=== PATIENT | male | born 1965 ===

== ENCOUNTER 2022-02-25 11:27 | Inpatient (IN) | payer MEDICARE ==
[~2022-02-25] VITALS: Ht 188 cm; Wt 120.8 kg
--- NOTE | 2022-02-25 16:40 | PM&R Post Admission Assessment ---
PM&R Date of Visit: Feb 25, 2022 Time of Visit: 19:00 History of Present Illness CC: Debility from left BKA and post op CVA HPI: This is a 56yoWM who presents to the ARU in need of aggressive therapy in order to regain independence following a left BKA with post op complication of CVA. He had a left foot DM ulcer that 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. 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 His course actually started at [place], [place] and required 4 surgeries which ultimately required the BKA. He was admitted to [facility] after that. Currently he is stable and having no bowel or bladder dysfunction. PLOF was independent. Past Jzqgjhd-Apwhak-Jymhru Hx Past Med/Social Hx: Reviewed Nursing Past Med/Soc Hx, Reviewed and Corrections made Patient Social History Marrital Status: single Employed/Student: unemployed Alcohol Use: Denies Use Smoking Status: Former Smoker Past Medical History Cardiac: High Cholesterol, Hypertension, Peripheral Vascular, Valvular Heart Disease Neurological: Neuropathy, Stroke Endocrine: Diabetes, Insulin dep PM&R Allergy/Meds/Data Review Allergies Coded Allergies: No Known Allergies (Verified Allergy, Unknown, 02/25/22) Home Medications Scheduled Aspirin (Aspirin EC), 81 MG PO DAILY Atorvastatin Calcium (Atorvastatin Calcium), 40 MG PO HS Insulin Glargine,Hum.rec.anlog (Lantus), 15 UNIT SQ HS Lamotrigine (Lamotrigine), 50 MG PO Q12H Levetiracetam (Keppra), 750 MG PO Q12H Mupirocin (Mupirocin), 1 GM TP Q12H Oxycodone HCl (Oxycontin), 10 MG PO HS Pantoprazole Sodium (Pantoprazole Sodium), 40 MG PO DAILY Pregabalin (Pregabalin), 75 MG PO Q12H Warfarin Sodium (Warfarin Sodium), 5 MG PO DAILY Scheduled PRN Cyclobenzaprine HCl (Cyclobenzaprine HCl), 10 MG PO Q8H PRN for MUSCLE SPASMS Oxycodone HCl/Acetaminophen (Percocet 5-325 mg Tablet), 1 TAB PO Q4H PRN for PAIN-MODERATE Current Medications Current Medications Reviewed Review of Systems Constitutional: see HPI, malaise, weakness EENTM: no symptoms reported Respiratory: no symptoms reported Cardiovascular: no symptoms reported Gastrointestinal: no symptoms reported Genitourinary: no symptoms reported Musculoskeletal: back pain, joint pain Skin: see HPI (rash left stump) Psychiatric/Neurological: Anxiety All Other Systems Reviewed Negative Unless Noted: Yes Physical Exam Physical Exam Vital Signs Capillary Refill : Height, Weight, BMI Height: '" Weight: lbs. oz. kg; BMI Method: General Appearance: No Apparent Distress, WD/WN, Chronically ill Eyes: Bilateral Eye Normal Inspection, Bilateral Eye PERRL HEENT: PERRL/EOMI, Normal ENT Inspection, Pharynx Normal Neck: Full Range of Motion, Normal Inspection, Non Tender, Supple, Carotid Bruit Respiratory: Chest Non Tender, Lungs Clear, Normal Breath Sounds, No Accessory Muscle Use, No Respiratory Distress Cardiovascular: Regular Rate, Rhythm, No Edema, No Gallop, No JVD, No Murmur, Normal Peripheral Pulses, Other (click) Gastrointestinal: Normal Bowel Sounds, No Organomegaly, No Pulsatile Mass, Non Tender, Soft Back: Normal Inspection, No CVA Tenderness, No Vertebral Tenderness Extremity: Normal Capillary Refill, Normal Inspection, Normal Range of Motion, Non Tender, No Calf Tenderness, No Pedal Edema Neurologic/Psychiatric: Alert, Oriented x3, Normal Mood/Affect, quality assistant II-XII Norm as Tested, Abnormal Gait, Motor Weakness (left BKA) Skin: Normal Color, Warm/Dry, Rash (right lower leg venous stasis dermatitis and darkened skin) Lymphatic: No Adenopathy PM&R Medical Assessment & Plan REHAB/MEDICAL ASSESSMENT AND PLAN: REHAB IMPAIRMENT GROUP: Left BKA with post op CVA ETIOLOGIC DIAGNOSIS: Left BKA with post op CVA The comorbidities that impact the patients function and/or functional outcome by: h/o CVA x 2, warfarin maintained, left BKA, fall risk, DM OOC REHAB PLAN: The patient is being admitted to our comprehensive inpatient rehabilitation facility and can tolerate the intensity of service consisting of at least: 180 minutes of therapy a day, 5 out of 7 days a week Rehab treatment will consist of: PT OT will focus on regaining independence with AD and wheelchair mobility in order to go home and live independently The patient/family has a good understanding of our discharge process and will benefit from an interdisciplinary inpatient rehabilitation program. The patient has potential to make improvement and is in need of at least two of the following multidisciplinary therapies including but not limited to physical, occupational, speech, and prosthetics and orthotics. Additionally the patient will need services from respiratory, nutritional services, wound care, psychology, etc. (Customize this to each patient). Given the patients complex condition and risk of further medical complications, rehabilitation services cannot be safely or effectively provided at a lower level of care such as a nursing home facility. BARRIERS TO DISCHARGE: left BKA ESTIMATED LOS: 10 days DISPOSITION: Home RELEVANT CHANGES SINCE PREADMISSION SCREENING: I have compared the patients medical and functional status at the time of the preadmission screening and there are: no changes PROGNOSIS: Fair REHABILITATION GOALS: 1. PT OT will focus on regaining independence with AD and wheelchair mobility in order to go home and live independently All the above goals were reviewed with the patient and he/she is in agreement. By signing this document, I acknowledge that I have personally performed a full physical examination on this patient within 24 hours of admission to this inpatient rehabilitation facility and have determined the patient to be able to tolerate the above course of treatment at an intensive level for a reasonable period of time. I will be completing a detailed individualized Plan of Care for this patient by day #4 of the patients stay based upon the Preadmission Screen, the Post-Admission Evaluation, and the therapy evaluations. Admission Dx/Comorbidities: (1) Hx of BKA ICD Codes: Z89.519 - Acquired absence of unspecified leg below knee Assessment/Plan Assessment and Plan Assess & Plan/Chief Complaint Assessment: 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 in [facility] CVA following hospital course h/o embolic CVA 2009 Mitral valve replacement Coumadin maintenance DM HTN PVD CHF Plan: Monitor closely PT OT INR monitoring DERRICK LONGORIA DO Feb 25, 2022 16:40
[2022-02-25] MEDS ORDERED: ONDANSETRON 4 MG (ZOFRAN) ORAL DISSOLVE TAB PO PRN (16:45)
[2022-02-25] MEDS ORDERED: guaiFENesin/CODEINE (ROBITUSSIN AC) 10ML UDC PO PRN (16:45)
[2022-02-25] MEDS ORDERED: LACTULOSE SYRUP 10GM/15ML (ENULOSE) 30ML UDC PO PRN (16:45)
[2022-02-25] MEDS ORDERED: FLEET ENEMA ADULT 1 EA BTL PR PRN (16:45)
[2022-02-25] MEDS ORDERED: DOCUSATE SODIUM 100 MG (COLACE) CAP PO PRN (16:45)
[2022-02-25] MEDS ORDERED: BISACODYL 10 MG SUPP (DULCOLAX) PR PRN (16:45)
[2022-02-25] MEDS ORDERED: ACETAMINOPHEN 325 MG TABLET PO PRN (16:45)
[2022-02-25] MEDS ORDERED: MELATONIN 3 MG TABLET PO PRN (16:45)
[2022-02-25] MEDS ORDERED: LOPERAMIDE 2 MG (IMODIUM) TABLET PO PRN (16:45)
[2022-02-25] MEDS ORDERED: CALCIUM CARBONATE 500 MG (TUMS) TAB.CHEW PO PRN (16:45)
[2022-02-25] MEDS ORDERED: diphenhydrAMINE 25 MG TAB (BENADRYL) PO PRN (16:45)
[2022-02-25] MEDS ORDERED: OXYC10TA55 PO (18:54)
[2022-02-25] MEDS ORDERED: PANT40TA52 PO (18:54)
[2022-02-25] MEDS ORDERED: ASPI-1238 PO (18:54)
[2022-02-25] MEDS ORDERED: WARF-48 PO (18:54)
[2022-02-25] MEDS ORDERED: CYCL10TA25 PO (18:54)
[2022-02-25] MEDS ORDERED: LEVE750T19 PO (18:54)
[2022-02-25] MEDS ORDERED: LAMO25TA8 PO (18:54)
[2022-02-25] MEDS ORDERED: INSU100V6 SQ (18:54)
[2022-02-25] MEDS ORDERED: MUPI1OIN6 TP (18:54)
[2022-02-25] MEDS ORDERED: OXYC-199 PO (18:54)
[2022-02-25] MEDS ORDERED: ATOR40TA70 PO (18:54)
[2022-02-25] MEDS ORDERED: PREG75CA75 PO (18:55)
[2022-02-25] MEDS ORDERED: lamoTRIgine 25 MG (LaMICtal) TAB PO SCH (19:15)
[2022-02-25 20:00] VITALS: BP 134/87
[2022-02-25] MEDS: MUPIROCIN 2% OINT 22 GM (BACTROBAN) TUBE TOP SCH (21:00)
[2022-02-25] MEDS: SENNA W/DOCUSATE (SENOKOT S) TABLET PO SCH (21:00)
[2022-02-25] MEDS: DOCUSATE SODIUM 100 MG (COLACE) CAP PO SCH (21:00)
[2022-02-25] MEDS: polyethylene glycoL POWDER 17 GM (MIRALAX) PACK PO SCH (21:00)
[2022-02-25 21:18] VITALS: BP 134/87
[2022-02-25] MEDS: PREGABALIN 75 MG (LYRICA) CAP PO SCH (21:57)
[2022-02-25] MEDS: oxyCODONE ER 10 MG (OxyCONTIN CR) TAB PO SCH (21:57)
[2022-02-25] MEDS: warFARin 5 MG (COUMADIN) TAB PO SCH (21:57)
[2022-02-25] MEDS: lamoTRIgine 25 MG (LaMICtal) TAB PO SCH (22:57)
[2022-02-26] MEDS: oxyCODONE/APAP 5/325MG (PERCOCET 5) TABLET PO PRN ×4 (05:27→19:39)
[2022-02-26 05:36] LABS: BASOPHILS # (AUTO) 0.1 10^3/uL (0.0-0.1); BASOPHILS % (AUTO) 1 % (0-10); EOSINOPHILS # (AUTO) 0.3 10^3/uL (0.0-0.3); EOSINOPHILS % (AUTO) 4 % (0-10); HEMATOCRIT 37 % (40-54); HEMOGLOBIN 11.7 g/dL (13.3-17.7); LYMPHOCYTES # (AUTO) 1.7 10^3/uL (1.0-4.0); LYMPHOCYTES % (AUTO) 22 % (12-44); MEAN CORPUSCULAR HEMOGLOBIN 27 pg (25-34); MEAN CORPUSCULAR HGB CONC 32 g/dL (32-36); MEAN CORPUSCULAR VOLUME 86 fL (80-99); MEAN PLATELET VOLUME 11.2 fL (9.0-12.2); MONOCYTES # (AUTO) 0.7 10^3/uL (0.0-1.0); MONOCYTES % (AUTO) 10 % (0-12); NEUTROPHILS # (AUTO) 4.8 10^3/uL (1.8-7.8); NEUTROPHILS % (AUTO) 63 % (42-75); PLATELET COUNT 242 10^3/uL (130-400); WHITE BLOOD COUNT 7.5 10^3/uL (4.3-11.0)
--- NOTE | 2022-02-26 05:41 | PM&R Progress Note ---
Subjective HPI/CC On Admission Date Seen by Provider: Feb 26, 2022 Time Seen by Provider: 17:30 Subjective/Events-last exam 02/26/2022: Settling in well Pain is improved BM+ Voiding well No falls Participating in therapy Grief with son, daughter and 's and then losing leg Dr De Los Santos expertise appreciated Dr Pelaez evaluated the patient today too Review of Systems General: Fatigue, Malaise Musculoskeletal: leg pain Objective Exam Vital Signs Vital Signs Date Time Temp Pulse Resp B/P (MAP) Pulse Ox O2 Delivery O2 Flow Rate FiO2 02/26/22 19:34 36.7 94 20 121/81 (94) 97 Room Air Capillary Refill : General Appearance: No Apparent Distress, WD/WN, Chronically ill HEENT: PERRL/EOMI, Normal ENT Inspection, Pharynx Normal Neck: Full Range of Motion, Normal Inspection, Non Tender, Supple, Carotid Bruit Respiratory: Chest Non Tender, Lungs Clear, Normal Breath Sounds, No Accessory Muscle Use, No Respiratory Distress Cardiovascular: Regular Rate, Rhythm, No Edema, No Gallop, No JVD, No Murmur, Normal Peripheral Pulses, Other (click) Gastrointestinal: Normal Bowel Sounds, No Organomegaly, No Pulsatile Mass, Non Tender, Soft Back: Normal Inspection, No CVA Tenderness, No Vertebral Tenderness Extremity: Normal Capillary Refill, Normal Inspection, Normal Range of Motion, Non Tender, No Calf Tenderness, No Pedal Edema Neurologic/Psychiatric: Alert, Oriented x3, Normal Mood/Affect, director of retail 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 FIM Transfers Therapy Code Descriptions/Definitions Functional Garrett Measure: 0=Not Assessed/NA 4=Minimal Assistance 1=Total Assistance 5=Supervision or Setup 2=Maximal Assistance 6=Modified Garrett 3=Moderate Assistance 7=Complete IndependenceSCALE: Activities may be completed with or without assistive devices. 6-Rykwjfyzcz-vygofnx completes the activity by him/herself with no assistance from a helper. 5-Set-up or Clean-up Assistance-helper sets up or cleans up; patient completes activity. [place] assists only prior to or following the activity. 4-Supervision or Touching Assistance-helper provides verbal cues and/or touching/steadying and/or contact guard assistance as patient completes activity. Assistance may be provided throughout the activity or intermittently. 3-Partial/Moderate Assistance-helper does LESS THAN HALF the effort. [place] lifts, holds or supports trunk or limbs, but provides less than half the effort. 2-Substantial/Maximal Assistance-helper does MORE THAN HALF the effort. [place] lifts or holds trunk or limbs and provides more than half the effort. 9-Hrbzjdshg-dcyoxy does ALL the effort. Patient does none of the effort to complete the activity. Or, the assistance of 2 or more helpers is required for the patient to complete the activity. If activity was not attempted, code reason: 7-Patient Refused. 9-Not Applicable-not attempted and the patient did not perform the activity before the current illness, exacerbation or injury. 10-Not Attempted due to Environmental Limitations-(lack of equipment, weather restraints, etc.). 88-Not Attempted due to Medical Conditions or Safety Concerns. Assessment/Plan Assessment and Plan Assess & Plan/Chief Complaint Assessment: 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 in [facility] CVA following hospital course h/o embolic CVA 2009 Mitral valve replacement Coumadin maintenance DM HTN PVD CHF Plan: Monitor closely PT OT INR monitoring 02/26/2022: Pain control Monitor sugar (1) Hx of BKA DERRICK LONGORIA DO Feb 26, 2022 05:41
[2022-02-26 05:48] LABS: ALBUMIN 3.3 GM/DL (3.2-4.5); POTASSIUM 4.3 MMOL/L (3.6-5.0)
[2022-02-26 05:49] LABS: CALCIUM 8.9 MG/DL (8.5-10.1); PROTHROMBIN TIME PATIENT 31.5 SEC (12.2-14.7)
[2022-02-26 05:50] LABS: TOTAL PROTEIN 6.6 GM/DL (6.4-8.2)
[2022-02-26 05:52] LABS: BILIRUBIN,TOTAL 0.4 MG/DL (0.1-1.0)
[2022-02-26 05:54] LABS: CREATININE SERUM 1.92 MG/DL (0.60-1.30)
[2022-02-26] MEDS: inSUlin ASPART (NovoLOG) 1 UNIT/0.01 ML (CHARGE PER UNIT) SC SCH ×4 (06:00→21:35)
[2022-02-26] MEDS ORDERED: FLU QUADRIvalent (6 months+) 60 mcg/0.5 ml 2022-23 (Fluzone) IM ONE (07:15)
[2022-02-26 07:57] VITALS: BP 136/91
[2022-02-26] MEDS: PREGABALIN 75 MG (LYRICA) CAP PO SCH ×2 (08:34→21:46)
[2022-02-26] MEDS: SENNA W/DOCUSATE (SENOKOT S) TABLET PO SCH ×2 (08:34→21:35)
[2022-02-26] MEDS: ASPIRIN E.C. 81 MG (ECOTRIN) TAB PO SCH (08:34)
[2022-02-26] MEDS: PANTOPRAZOLE 40 MG (PROTONIX) TAB PO SCH (08:34)
[2022-02-26] MEDS: polyethylene glycoL POWDER 17 GM (MIRALAX) PACK PO SCH ×2 (08:35→21:35)
[2022-02-26] MEDS: DOCUSATE SODIUM 100 MG (COLACE) CAP PO SCH ×2 (08:35→21:35)
[2022-02-26] MEDS: lamoTRIgine 25 MG (LaMICtal) TAB PO SCH ×2 (08:45→21:36)
[2022-02-26] MEDS: MUPIROCIN 2% OINT 22 GM (BACTROBAN) TUBE TOP SCH ×2 (08:49→21:37)
[2022-02-26 09:02] LABS: TRIGLYCERIDES 120 MG/DL (<150); VLDL CHOLESTEROL 24 MG/DL (5-40)
[2022-02-26 09:07] LABS: CHOLESTEROL 108 MG/DL (< 200); HDL CHOLESTEROL 32 MG/DL (40-60)
--- NOTE | 2022-02-26 09:27 | Consultation-Cardiology ---
HPI-Cardiology Cardiology Consultation: Date of Consultation 02/26/22 Date of Admission 02/25/22 Attending Physician Admitting Physician Admitting Physician: Lindsey Garza DO Attending Physician: Lindsey Garza DO Consulting Physician BRYNN MIN JR, MD HPI: Time Seen by a Provider: :22 Chief Complaint: REASON FOR CONSULTATION: History of mitral valve replacement. I had the pleasure of seeing Almas on the inpatient physical rehabilitation unit at [facility] in [place], [place] today. 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 He does not recall ever being told he had a myocardial infarction or heart failure in the past. He does not recall the last time he saw the answering service agent close to home in [place]. His primary provider has been managing his warfarin. Following his recent hospitalization for the diabetic foot wound, he was transferred to [facility] in [place], [place] for continued intravenous antibiotics. The day after he was admitted to [place], he had some new neurologic changes and was sent to the emergency room at [facility] in [place], [place]. He underwent an MRI at that facility that showed acute extension of the infarct in the previous territory of his initial cerebrovascular accident from 2009. He continued on intravenous antibiotics and on 02/25/2022, he was admitted to our inpatient physical rehabilitation unit. He does have some dyspnea on exertion. He denies chest pain, paroxysmal nocturnal dyspnea, orthopnea, palpitations, lightheadedness, or syncope. He does have chronic edema of the right lower extremity. He feels like the neurologic symptoms from the most recent stroke have begun to improve. Because of his cardiac history, a cardiology consultation was requested. Certain portions of this document may have been dictated utilizing voice recognition technology. Inherent to this technology, typographical and grammatical errors may exist. As much as I am diligent to identify and correct these mistakes, some errors may remain in the document. Review of Systems-Cardiology Review of Systems Other comments Review of 10 organ systems is as per the history of present illness, otherwise negative. All Other Systems Reviewed Negative Unless Noted: Yes VES-Fmrgmm-Lcyovt Hx Patient Social History Marrital Status: single Employed/Student: unemployed Smoking Status: Former Smoker Have you traveled recently?: No Alcohol Use?: No Pt feels they are or have been: No Past Medical History PMH As described under Assessment. Family Medical History Family Medical History: He states that both of his parents had heart disease. Allergies and Home Medications Allergies Coded Allergies: No Known Allergies (Verified Allergy, Unknown, 02/25/22) Patient Home Medication List Home Medication List Reviewed: Yes Aspirin (Aspirin EC) 81 Mg Tablet.dr, 81 MG PO DAILY Prescribed by: AGATA ESPITIA on 02/25/221853 Last Action: Continued Atorvastatin Calcium (Atorvastatin Calcium) 40 Mg Tablet, 40 MG PO HS Prescribed by: AGATA ESPITIA on 02/25/221853 Last Action: Continued Cyclobenzaprine HCl (Cyclobenzaprine HCl) 10 Mg Tablet, 10 MG PO Q8H PRN for MUSCLE SPASMS Prescribed by: AGATA ESPITIA on 02/25/221853 Last Action: Continued Insulin Glargine,Hum.rec.anlog (Lantus) 100 Unit/Ml Vial, 15 UNIT SQ HS Prescribed by: AGATA ESPITIA on 02/25/221853 Last Action: Converted Lamotrigine (Lamotrigine) 25 Mg Tablet, 50 MG PO Q12H Prescribed by: AGATA ESPITIA on 02/25/221853 Last Action: Continued Levetiracetam (Keppra) 750 Mg Tablet, 750 MG PO Q12H Prescribed by: AGATA ESPITIA on 02/25/221853 Last Action: Converted Mupirocin (Mupirocin) 2 % Oin.pf.germain, 1 GM TP Q12H Prescribed by: AGATA ESPITIA on 02/25/221853 Last Action: Converted Oxycodone HCl (Oxycontin) 10 Mg Tab.er.12h, 10 MG PO HS Prescribed by: AGATA ESPITIA on 02/25/221853 Last Action: Continued Oxycodone HCl/Acetaminophen (Percocet 5-325 mg Tablet) 5 Mg-325 Mg Tablet, 1 TAB PO Q4H PRN for PAIN-MODERATE Prescribed by: AGATA ESPITIA on 02/25/221853 Last Action: Continued Pantoprazole Sodium (Pantoprazole Sodium) 40 Mg Tablet.dr, 40 MG PO DAILY Prescribed by: AGATA ESPITIA on 02/25/221853 Last Action: Continued Pregabalin (Pregabalin) 75 Mg Capsule, 75 MG PO Q12H Prescribed by: AGATA ESPITIA on 02/25/221854 Last Action: Continued Warfarin Sodium (Warfarin Sodium) 5 Mg Tablet, 5 MG PO DAILY Prescribed by: AGATA ESPITIA on 02/25/221853 Last Action: Continued Exam Vital Signs Vital Signs Date Time Temp Pulse Resp B/P (MAP) Pulse Ox O2 Delivery O2 Flow Rate FiO2 02/26/22 11:32 Room Air 02/26/22 07:57 36.3 73 21 136/91 (106) 97 Physical Exam General: Alert. No acute distress. Well nourished and appears older than stated age. He is obese. Eye: Extraocular movements are intact. Conjunctivae are clear. There are no xanthelasma. HENT: Normocephalic. Atraumatic. Carotid pulsations 2/2 without bruits. Neck: Jugular venous pressure does not appear elevated. No thyromegaly apprecia telma. Respiratory: Lungs have some scattered wheezes bilaterally. Respirations are non-labored. Breath sounds are equal. Symmetrical chest wall expansion. Cardiovascular: Normal rate. Regular rhythm. Metallic S1. 2/6 systolic ejection murmur. No gallop. Point of maximal impulse is not appear displaced. Good pulses equal in all extremities. 1+ right lower extremity edema with taxi driver cha venous stasis changes. Gastrointestinal: Soft. Normal bowel sounds. Skin: Skin turgor is normal. There is no pallor. Musculoskeletal: No kyphosis or scoliosis appreciated. Left below-knee amputation. Neurologic: Alert and oriented to person, place, time. Cranial nerves 3-12 appear grossly intact. The patient has good motor tone strength in the upper and lower extremities bilaterally. Psychiatric: Cooperative. Appropriate mood & affect. Labs Laboratory Tests Test 02/25/22 20:50 02/26/22 05:18 02/26/22 10:50 Range/Units Glucometer 182 H 158 H 70-110 MG/DL White Blood Count 7.5 4.3-11.0 10^3/uL Red Blood Count 4.29 L 4.30-5.52 10^6/uL Hemoglobin 11.7 L 13.3-17.7 g/dL Hematocrit 37 L 40-54 % Mean Corpuscular Volume 86 80-99 fL Mean Corpuscular Hemoglobin 27 25-34 pg Mean Corpuscular Hemoglobin Concent 32 32-36 g/dL Red Cell Distribution Width 14.1 10.0-14.5 % Platelet Count 242 130-400 10^3/uL Mean Platelet Volume 11.2 9.0-12.2 fL Immature Granulocyte % (Auto) 1 % Neutrophils (%) (Auto) 63 42-75 % Lymphocytes (%) (Auto) 22 12-44 % Monocytes (%) (Auto) 10 0-12 % Eosinophils (%) (Auto) 4 0-10 % Basophils (%) (Auto) 1 0-10 % Neutrophils # (Auto) 4.8 1.8-7.8 10^3/uL Lymphocytes # (Auto) 1.7 1.0-4.0 10^3/uL Monocytes # (Auto) 0.7 0.0-1.0 10^3/uL Eosinophils # (Auto) 0.3 0.0-0.3 10^3/uL Basophils # (Auto) 0.1 0.0-0.1 10^3/uL Immature Granulocyte # (Auto) 0.1 0.0-0.1 10^3/uL Prothrombin Time 31.5 H 12.2-14.7 SEC INR Comment 3.0 H 0.8-1.4 Sodium Level 141 135-145 MMOL/L Potassium Level 4.3 3.6-5.0 MMOL/L Chloride Level 112 H 98-107 MMOL/L Carbon Dioxide Level 21 21-32 MMOL/L Anion Gap 8 5-14 MMOL/L Blood Urea Nitrogen 23 H 7-18 MG/DL Creatinine 1.92 H 0.60-1.30 MG/DL Estimat Glomerular Filtration Rate 40 BUN/Creatinine Ratio 12 Glucose Level 149 H 70-105 MG/DL Calcium Level 8.9 8.5-10.1 MG/DL Corrected Calcium 9.5 8.5-10.1 MG/DL Total Bilirubin 0.4 0.1-1.0 MG/DL Aspartate Amino Transf (AST/SGOT) 21 5-34 U/L Alanine Aminotransferase (ALT/SGPT) 37 0-55 U/L Alkaline Phosphatase 95 40-136 U/L Total Protein 6.6 6.4-8.2 GM/DL Albumin 3.3 3.2-4.5 GM/DL Triglycerides Level 120 <150 MG/DL Cholesterol Level 108 < 200 MG/DL LDL Cholesterol Direct 48 1-129 MG/DL VLDL Cholesterol 24 5-40 MG/DL HDL Cholesterol 32 L 40-60 MG/DL Radiology He had an echocardiogram at [facility] and I do not have a copy of the complete report but there were notes in his chart from [place] did state he had a normal ejection fraction with a normally functioning mechanical mitral valve prosthesis which had a mean gradient of 5 mmHg. ECG Impression ECG Comment Electrocardiogram was done but not yet transferred to [facility] due to technical issues. Diagnosis/Problems Diagnosis/Problems (1) History of mitral valve replacement with mechanical valve Assessment & Plan: We will continue warfarin and follow INR levels intermittently. (2) Primary hypertension Assessment & Plan: He had been on amlodipine prior to his most recent admission at [facility] and then this was stopped at the outside facility. We will monitor his blood pressures and if needed, we can restart amlodipine. (3) Mixed hyperlipidemia Assessment & Plan: Continue statin medication. (4) Acute kidney injury superimposed on chronic kidney disease Assessment & Plan: He did have a creatinine level at the outside facility that was 1.1. I have ordered a follow-up BMP for tomorrow. (5) History of cerebrovascular accident with residual deficit Assessment & Plan: Continue aspirin and statin medication. If he develops any signs of hemorrhaging, then I would consider stopping aspirin since he takes warfarin for the mechanical mitral valve replacement. (6) Seizure disorder Assessment & Plan: This is being managed by the hospitalist. We need to be cautious with any cardiac medications that could alter the metabolism of his seizure medication. (7) Type 2 diabetes mellitus with complication Assessment & Plan: This is being managed by the hospitalist. (8) Obesity Assessment & Plan: He needs to work on weight loss. (9) Hx of BKA Assessment & Plan: He is now on our inpatient rehabilitation unit to help him start learning how to function with a below-knee amputation. BRYNN MIN JR, MD Feb 26, 2022 09:27
--- NOTE | 2022-02-26 10:09 | Physical Therapy Evaluation ---
PT Evaluation-General Medical Diagnosis Admission Date Feb 25, 2022 at 18:32 Medical Diagnosis: left BKA, CVA Onset Date: Jan 25, 2022 Therapy Diagnosis Therapy Diagnosis: impaired mobility, strength Precautions Precautions/Isolations: Seizure, Fall Prevention, Standard Precautions, Pressure Ulcer Referral Physician: Lindsey Garza DO Reason for Referral: Evaluation/Treatment Medical History Pertinent Medical History: CVA, DM, HTN Current History Pt admitted to [place] from [place] with acute R UE weakness and aphasia. Pt has history of L sided weakness from previous CVA and recent L BKA (beg. of ). According to pt, he was living with his brother and BILLY completing all ADLs indpendently. Pt's story changes quickly, and differs from chart review from [place]; unsure what is true. Pt has some confusion during session and states that he knows what he wants to say but sometimes doesn't come out correctly. He was not using any AE prior to amputation and stroke. Reviewed History: Yes Social History Home: Single Level Current Living Status: Other Family (brother) Entry Into Home: Level Entry Prior Prior Level of Function SCALE: Activities may be completed with or without assistive devices. 4-Vqvhtuxnrv-vqvksav completes the activity by him/herself with no assistance from a helper. 5-Set-up or Clean-up Assistance-helper sets up or cleans up; patient completes activity. Calvin assists only prior to or following the activity. 4-Supervision or Touching Assistance-helper provides verbal cues and/or touching/steadying and/or contact guard assistance as patient completes activity. Assistance may be provided throughout the activity or intermittently. 3-Partial/Moderate Assistance-helper does LESS THAN HALF the effort. Calvin lifts, holds or supports trunk or limbs, but provides less than half the effort. 2-Substantial/Maximal Assistance-helper does MORE THAN HALF the effort. Calvin lifts or holds trunk or limbs and provides more than half the effort. 4-Ernnskyxr-cpxxsr does ALL the effort. Patient does none of the effort to complete the activity. Or, the assistance of 2 or more helpers is required for the patient to complete the activity. If activity was not attempted, code reason: 7-Patient Refused. 9-Not Applicable-not attempted and the patient did not perform the activity before the current illness, exacerbation or injury. 10-Not Attempted due to Environmental Limitations-(lack of equipment, weather restraints, etc.). 88-Not Attempted due to Medical Conditions or Safety Concerns. PT Evaluation-Current Subjective Patient in bed pre tx, agrees to PT, has 8/10 pain in residual limb, states it is not time for him to have pain meds again yet. Will be co-treating with OT for part of tx due to poor patient mobility, strength, endurance, severe debility, coordinate UE and LE during activity, safety and reduce risk of falls. Pain Section J - Health Conditions 1. Rarely or not at all 2. Occasionally 3. Frequently 4. Almost constantly 8. Unable to answer Pain Effect on Sleep: 2 Pain Interference with Therapy: 2 Pain Interference w/Day-to-Day: 2 Pt/Family Goals to be independent at home Objective Patient Orientation: Person, Place, Situation ROM/Strength ROM Lower Extremities WNL Strength Lower Extremities LLE (hip flexion 3+/5, has at least 3/5 knee flex/ext but not tested due to amputation and pain), RLE (hip flexion 3+/5, knee flexion 4/5, knee extension 4/5, dorsiflexion 4/5) Sensory Vision: Functional Hearing: Functional Sensation Right Lower Extremit: Intact Sensation Left Lower Extremity: Intact Transfers Roll Left & Right (QC): 4 Sit to Lying (QC): 4 Lying to Sitting/Side of Bed(Q: 4 Sit to Stand (QC): 1 Chair/Ylf-ij-Emtww Xfer(QC): 1 Toilet Transfer (QC): 1 Car Transfer (QC): 1 Patient performs rolling and supine <-> sit with SBA, sit <-> stand and transfers dependent, car transfer dependent. Patient can substance abuse prevention coordinator the parallel bars with mod assist of 2. At the beginning of tx patient dresses at the side of the bed but cannot stand well enough to get his pants pulled up, has to lay down and turn side to side to get his pants pulled up, also his bottom has to be cleaned a bit. When done, patient sit to the side of the bed, modified squat pivot transfer to (with assist of 2), wheels to therapy gym to parallel bars, is able to substance abuse prevention coordinator parallel bars for 30 sec, 45 sec, and 80 sec. Then propel back to room and transfer back to bed. Attempted to get patient to use a sliding board and he says he hates them. Gait Walk 10 feet (QC): 88 Walk 50 ft with 2 Turns(QC): 88 Walk 150 ft (QC): 88 Walking 10ft/uneven surface-QC: 88 Wheelchair Training Wheel 50 ft with 2 turns (QC): 3 Wheel 150 ft (QC): 3 Type of Wheelchair: Manual Stairs 1 Step (curb) (QC): 88 4 Steps (QC): 88 12 Steps (QC): 88 Balance Sitting Static: Normal Sitting Dynamic: Normal Standing Static: Poor Standing Dynamic: Poor Picking up an Object (QC): 88 Treatment PT performed positioning and safety during dressing and cleaning, bed mobility and transfers, standing, WC mobility, OT performed dressing, cleaning, UE positioning and safety during activity, assist with transfers and standing. Assessment/Needs Patient in bed post tx with nurse call, phone, tray, all needs met. With strengthening, he should be able to improve his transfers. Rehab Potential: Fair PT Short Term Goals Short Term Goals Time Frame: Mar 05, 2022 Roll Left & Right: 6 Sit to lyin Lying to sitting on side of be: 6 Sit to stand: 3 Chair/hzn-gw-kxrdm transfer: 3 PT Nursing Home Goals Cable Systems Installer Goals PT Nursing Home Goals Time Frame: Mar 19, 2022 Scoring Section J - Health Conditions 1. Rarely or not at all 2. Occasionally 3. Frequently 4. Almost constantly 8. Unable to answer Roll Left to Right (QC): 6 Sit to Lying (QC): 6 Lying-Sitting on Side/Bed(QC): 6 Sit to Stand (QC): 4 Chair/Ptk-nd-Xlszn Xfer(QC): 4 Car Transfer (QC): 3 Walk 10 feet (QC): 3 Walk 10ft-Uneven Surface(QC): 88 Walk 50ft with 2 Turns (QC): 88 Walk 150 ft (QC): 88 Wheelchair Level of Assist: 4 Wheel 50 feet with 2 turns (QC: 4 1 Step (curb) (QC): 88 4 Steps (QC): 88 12 Steps (QC): 88 Picking up an Object (QC): 3 toilet transfer 4, WC 150' QC 4 PT Plan Problem List Problem List: Activity Tolerance, Functional Strength, Safety, Balance, Gait, Transfer, Bed Mobility, ROM Treatment/Plan Treatment Plan: Continue Plan of Care Treatment Plan: Bed Mobility, Education, Functional Activity Mariano, Functional Strength, Group Therapy, Gait, Safety, Therapeutic Exercise, Transfers Treatment Duration: Mar 19, 2022 Frequency: At least 5 of 7 days/Wk (IRF) Estimated Hrs Per Day: 1.5 hours per day Patient and/or Family Agrees t: Yes Safety Risks/Education Patient Education: Transfer Techniques, Correct Positioning, W/C Management, Safety Issues Teaching Recipient: Patient Teaching Methods: Demonstration, Discussion Response to Teaching: Reinforcement Needed Discharge Recommendations Plan Patient will perform bed mobility and transfer training, balance and endurance training, functional strengthening, gait training, and education, to improve functional mobility and independence at home. Therapy Discharge Recommendati: Scheduled Assistance, Home & Family, Post Acute PT Time/GCodes Time In: 899 Time Out: 5 Total Billed Treatment Time: 75 Total Billed Treatment 1 visit EVM 10' FA 65' PT eval from [id number], co-treat from [id number] SALAS SUMNER PT Feb 26, 2022 10:09
--- NOTE | 2022-02-26 10:10 | Occupational Therapy Eval ---
OT Evaluation-General/PLF Medical Diagnosis Admission Date Feb 25, 2022 at 18:32 Medical Diagnosis: s/p CVA, L BKA Onset Date: Jan 25, 2022 Therapy Diagnosis Therapy Diagnosis: reduced adl status Precautions Precautions/Isolations: Seizure, Fall Prevention, Standard Precautions, Pressure Ulcer Referral Physician: Kayla Dunn Reason: Evaluation/Treatment Medical History Pertinent Medical History: CVA, DM, Heart Failure, HTN Additional Medical History seizures Current History Pt admitted to [facility] from [place] with acute R UE weakness and aphasia. Pt has history of L sided weakness from previous CVA and recent L BKA (beg. ). According to pt, he was living with his brother and BILLY completing all ADLs indpendently. Pt's story changes quickly, and differs from chart review from [facility] A; unsure what is true. Pt has some confusion during session and states that he knows what he wants to say but sometimes doesn't come out correctly. He was not using any AE prior to amputation and stroke. Reviewed History: Yes Social History Home: Single Level Current Living Status: Other Family Entry Into Home: Level Entry ADL-Prior Level of Function SCALE: Activities may be completed with or without assistive devices. 3-Htahtxmflh-jnmtjmq completes the activity by him/herself with no assistance from a helper. 5-Set-up or Clean-up Assistance-helper sets up or cleans up; patient completes activity. Laurens assists only prior to or following the activity. 4-Supervision or Touching Assistance-helper provides verbal cues and/or touching/steadying and/or contact guard assistance as patient completes activity. Assistance may be provided throughout the activity or intermittently. 3-Partial/Moderate Assistance-helper does LESS THAN HALF the effort. Laurens lifts, holds or supports trunk or limbs, but provides less than half the effort. 2-Substantial/Maximal Assistance-helper does MORE THAN HALF the effort. Laurens lifts or holds trunk or limbs and provides more than half the effort. 3-Vulpadlnq-cartzw does ALL the effort. Patient does none of the effort to complete the activity. Or, the assistance of 2 or more helpers is required for the patient to complete the activity. If activity was not attempted, code reason: 7-Patient Refused. 9-Not Applicable-not attempted and the patient did not perform the activity before the current illness, exacerbation or injury. 10-Not Attempted due to Environmental Limitations-(lack of equipment, weather restraints, etc.). 88-Not Attempted due to Medical Conditions or Safety Concerns. Self Care: Independent Functional Cognition: Unknown DME/Equipment: Bath Chair, Tub/Shower Drive Self: No OT Current Status Subjective Pt laying in bed upon arrival. He agrees to therapy eval. Appearance Pt left lying in bed with nurse aide present in room. All needs within reach. Mental Status/Objective Patient Orientation: Person Current Glasses/Contacts: Yes Hearing Aids: No Dentures/Partials: No Hand Dominance: Right Upper Extremity ROM L UE shoulder: ~150 ROM and PROM: tightness R UE shoulder: WNL L hand: impaired ROM, full ROM with PROM R hand: WNL Upper Extremity Strength L shoulder: 3-/5 R shoulder: 3+/5 Dynamometer: L cut out press operator strength: 35.33 (Mean average: 83.2) R cut out press operator strength: 99.33 (Mean average: 101.1) ADL-Treatment Eating (QC): 5 Oral Hygiene (QC): 1 Shower/Bathe Self (QC): 1 Upper Body Dressing (QC): 5 Lower Body Dressing (QC): 1 On/Off Footwear (QC): 1 Toileting Hygiene (QC): 1 Supine<> sit: supervision. Pt is able to don UE clothing with set up, but is dependent for LE dressing and footwear due to needing assist of 2 people, lack of ROM and strength. Pt unable to come to full standing from bed, thus was returned to supine and rolled R/L for clothing management. Figure 4 method and pulling leg onto bed to don socks was attempted without success. Squat pivot transfers from bed<>w/c: max assist x2. Pt has very little UE, LE, and core strength, balance and coordination. Pt needs mod verbal cues for sequencing and safety. Other Treatments x3 Sit<>stand transfers from w/c with parallel bars: mod assist x2. Mod assist x1 for balance and safety once in standing ~30 sec - 1 min. Pt fatigues quickly and needs adequate rest breaks in between. Education OT Patient Education: Correct positioning, Disease process, Energy conservation, Modified ADL techniques, Progress toward Goal/Update tx plan, Purpose of tx/functional activities, Reviewed precautions, Rehab process, Safety issues, Transfer techniques, W/C management Teaching Recipient: Patient Teaching Methods: Demonstration, Discussion Response to Teaching: Verbalize Understanding, Return Demonstration OT Short Term Goals Short Term Goals Time Frame: Mar 10, 2022 Eatin Oral hygiene: 2 Toileting hygiene: 2 Shower/bathe self: 2 Upper body dressin Lower body dressin Putting on/taking off footwear: 2 OT Senior Care Goals Senior Care Goals Time Frame: Mar 22, 2022 Acute change in mental status: 1 Inattention: 2 Disorganized thinkin Altered level of consciousness: 0 Eating (QC): 5 Oral Hygiene (QC): 4 Toileting Hygiene (QC): 4 Shower/Bathe Self (QC): 4 Upper Body Dressing (QC): 6 Lower Body Dressing (QC): 4 On/Off Footwear (QC): 4 Additional Goals: 1-Demonstrate ADL Tasks, 2-Verbalize Understanding, 3- ImproveStrength/Mariano 1=Demonstrate adherence to instructed precautions during ADL tasks. 2=Patient will verbalize/demonstrate understanding of assistive devices/modifications for ADL. 3=Patient will improve strength/tolerance for activity to enable patient to perform ADL's. OT Education/Plan Problem List/Assessment Assessment: Decreased Activ Tolerance, Decreased Safety Aware, Decreased UE Strength, Dependent Transfers, Impaired Bed Mobility, Impaired Cognition, Impaired Coordination, Impaired Funct Balance, Impaired I ADL's, Impaired Self- Care Skills, Restricted Funct UE ROM Discharge Recommendations Plan/Recommendations: Continue POC Therapy Discharge Recommendati: Scheduled Assistance (home health), Bath Aide, Homemaker Support Comment ongoing assessment Treatment Plan/Plan of Care Treatment,Training & Education: Yes Patient would benefit from OT for education, treatment and training to promote independence in ADL's, mobility, safety and/or upper extremity function for ADL's. Plan of Care: ADL Retraining, Caregiver Training, Cognitive Retraining, Functional Mobility, Group Exercise/Act as Ind, Orthotic Fitting/Training, UE Funct Exercise/Act, UE Neuromus Re-Ed/Coord, W/C Management Training Treatment Duration: Mar 22, 2022 Frequency: At least 5 of 7 days/Wk (IRF) Estimated Hrs Per Day: 1.5 hours per day (60-90 min/day) Agreement: Yes Rehab Potential: Fair Time/GCodes Start Time: 08:50 Stop Time: 10:15 Total Time Billed (hr/min): 75 Billed Treatment Time 1 visit EVH (10 min) ADL x3 (50 min) FA (15 min) OT eval: [id number] PT eval: [id number] Co-treat: [id number] Taylor Norris OT Feb 26, 2022 10:09
--- NOTE | 2022-02-26 11:19 | ST Cognitive Linguistic Eval ---
Speech Evaluation-General Medical Diagnosis s/p CVA, L BKA Onset Date: Jan 25, 2022 Therapy Diagnosis Therapy Diagnosis: Impaired Cognition Precautions Precautions: Fall, Pressure Ulcer Precautions/Isolations: Fall Prevention, Standard Precautions, Pressure Ulcer Referral Referring Physician: Dr. Garza Reason for Referral: Evaluation/Treatment Medical History Pertinent Medical History: CVA, DM, HTN Current History The patient is a 56 year-old male with a past medical history of CVA, heart failure, DM, and HTN, who was admitted to [facility] from [place] with acute R UE weakness and aphasia. Pt has a history of L sided weakness and word-finding difficulty from a previous CVA and recent L BKA (beg). Reviewed History: Yes Social History Current Living Status: Other Family Speech PLF-Current Status Prior Level of Function The patient stated he has experienced word-finding difficulties since a prior stroke in 2009. The patient denied recent concerns or challenges with his current speech, language, or cognition. Subjective The patient was seated upright in bed, awake and alert upon entrance to his room by the clinician. The patient greeted the clinician appropriately and was agreeable to participation in the cognitive linguistic assessment. Language Eval: Auditory Comprehends Simple Yes/No Ques: Functional Indent/Objects Multiple He: Functional Follows 1-Step Commands: Functional Follows General Conversations: Functional Language Eval: Verbal Language Completes Spontaneous Greeting: Functional Produces Auto, Serial Info: Functional Imitates Simple Words/Phrases: Functional Word Finding: Mild Requests Basic Needs: Functional States Basic Personal Info: Functional Cognitive Patient Orientation The patient was independently oriented to self, location, month, day of the week, date, and year. Objective Cognitive Domain Attention: Mild Memory: Moderate Problem Solving: Moderate Executive Functions: Moderate Visuospatial Skills: WNL Composite Severity Rating: Mild (Mild to Moderate) Clock Drawing Severity Rating: Mild Objective Formal/Standardized Tests [facility] Mental Status Exam (UMS) Results The patient demonstrated a result of +20/30 on the SLUMS correlating to a score of "dementia." Oral Motor/Speech Production The patient does not demonstrate dysarthria or apraxia of speech at this time. The patient remains 100% intelligible in known and unknown contexts. 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 The patient reports his language deficits have been present since his stroke in 2009. The patient denied cognitive concerns reporting he is currently at baseline. Regardless of baseline report, the clinician will attempt to display progress with cognitive and linguistic areas. If progression is not achieved due to underlying baseline, the clinician will sign off from skilled services. Speech Patient Assess Expression of Ideas/Wants: Expression (4) Understanding Verbal Content: Understands (4) Brief Interview-Mental Status: Yes Repetition of Three Words: Three (3) Temporal Orientation: Year: Correct (3) Temporal Orientation: Month: Accurate within 5 days(2) Temporal Orientation: Day: Correct (1) Recall : Wear to say "Sock": Yes,after cueing (1) Recall : Color: Yes, after cueing (1) Recall : Bed: Yes,after cueing (1) Memory/Recall Ability: Current season, That he or she is in a hsp/hsp unit Speech Short Term Goals Short Term Goals Short Term Goals 1. The patient will demonstrate improved word-finding strategies through informal conversation with mild clinician cueing. Time Frame-STG: Seven Days. Speech Civil Lawyer Goals Civil Lawyer Goals 1. The patient will demonstrate improved cognitive linguistic skills for safe discharge to the least restrictive environment. Time Frame: Ten Days. Speech-Plan Treatment Plan Speech Therapy Treatment Plan: Continue Plan of Care Treatment Duration: Mar 10, 2022 Frequency: Modified Program (IRF) (Four to five times per week.) Estimated Hrs Per Day: .5 hour per day Rehab Potential: Fair Safety Risks/Education Teaching Recipient: Patient Teaching Methods: Discussion Response to Teaching: Reinforcement Needed Education Topics Provided: Results, Recommendations, Plan of Care Time Speech Therapy Time In: 10:50 Speech Therapy Time Out: 11:20 Total Billed Time: 30 Billed Treatment Time 1, [facility] Feb 26, 2022 11:19
--- NOTE | 2022-02-26 11:50 | Wound Care Assessment ---
Wound Care Assessment Date Seen by Provider: Feb 26, 2022 Time Seen by Provider: 11:44 Chief Complaint 1. Pressure injury right heel 2. Cutaneous candidiasis groin and sacrum HPI This pleasant 56 year old patient was admitted to [facility] post- left BKA for necrotizing fasciitis. He has been under the care of a wound care physician for his right heel but this appears healed today. We will protect with Primo boots and BFD while he is here. He has significant candidal skin infection of groin, sacrum and skin folds (likely related to moisture, antibiotics and DM2). There is blistering and break down of skin resulting. With the extensive nature of this infection, I do think oral diflucan would be warranted. Coumadin will need close monitoring as a result and dosage adjusted accordingly. I do also plan to order miconazole powder for groin and cream to backside. I will order 7 days of diflucan but we can certainly d/c earlier should infection resolve. Past Medical History: Admits Diabetes Type II, Admits Heart Disease Smoking Status: Former Smoker Alcohol Use: Denies Use Exam Vital Signs Date Time Temp Pulse Resp B/P (MAP) Pulse Ox O2 Delivery O2 Flow Rate FiO2 02/26/22 07:57 36.3 73 21 136/91 (106) 97 Room Air Capillary Refill : General Appearance: WD/WN, no apparent distress HEENT: other (normal hearing) Neck: full range of motion Cardiovascular: no edema Respiratory: no respiratory distress, no accessory muscle use Extremities: no pedal edema, no calf tenderness Neurologic/Psychiatric: alert, normal mood/affect, oriented x 3 Skin: rash (groin and sacrum) Skin Character: erythema, macules, papules, vesicular, other (erythematous vesicular and flaky rash to groin and sacrum with satellite lesions and gualding) Results Laboratory Tests 02/25/22 20:50: Glucometer 182H 02/26/22 05:18: White Blood Count 7.5, Red Blood Count 4.29L, Hemoglobin 11.7L, Hematocrit 37L, Mean Corpuscular Volume 86, Mean Corpuscular Hemoglobin 27, Mean Corpuscular Hemoglobin Concent 32, Red Cell Distribution Width 14.1, Platelet Count 242, Mean Platelet Volume 11.2, Immature Granulocyte % (Auto) 1, Neutrophils (%) (Auto) 63, Lymphocytes (%) (Auto) 22, Monocytes (%) (Auto) 10, Eosinophils (%) (Auto) 4, Basophils (%) (Auto) 1, Neutrophils # (Auto) 4.8, Lymphocytes # (Auto) 1.7, Monocytes # (Auto) 0.7, Eosinophils # (Auto) 0.3, Basophils # (Auto) 0.1, Immature Granulocyte # (Auto) 0.1, Prothrombin Time 31.5H, INR Comment 3.0H, Sodium Level 141, Potassium Level 4.3, Chloride Level 112H, Carbon Dioxide Level 21, Anion Gap 8, Blood Urea Nitrogen 23H, Creatinine 1.92H, Estimat Glomerular Filtration Rate 40, BUN/Creatinine Ratio 12, Glucose Level 149H, Calcium Level 8.9, Corrected Calcium 9.5, Total Bilirubin 0.4, Aspartate Amino Transf (AST/SGOT) 21, Alanine Aminotransferase (ALT/SGPT) 37, Alkaline Phosphatase 95, Total Protein 6.6, Albumin 3.3, Triglycerides Level 120, Cholesterol Level 108, LDL Cholesterol Direct 48, VLDL Cholesterol 24, HDL Cholesterol 32L 02/26/22 10:50: Glucometer 158H Assessment/Plan/Dx Assessment 1. Cutaneous Candidiasis groin and sacrum 2. Left BKA 3. DM2 4. Chronic coumadin usage Plan: 1. Cleanse area daily and fully dry. Use miconazole powder twice daily to groin and cream to sacrum. Use interdry accordingly. Diflucan 100mg po daily for 7 days (less if sooner resolved). 2. Mepilex to heel and sacrum and Primo boot to right heel 3. Defer to primary 4. Check INR daily while on diflucan. Adjust coumadin dose accordingly LA HDEZ MD Feb 26, 2022 11:49
[2022-02-26] MEDS: fluCOnazole (DIFLUCAN) 100 MG TAB PO SCH (11:54)
--- NOTE | 2022-02-26 13:30 | IRF PAI BIMS ---
BIMS BIMS Temporal Orientation/Year: Correct Temporal Orientation-Month: Accurate Within 5 Days Temporal Orientation-Day: Correct Brief Interview/Mental Status: Yes IRF DOMINIQUE BIMS: IRF DOMINIQUE BIMS Response (Comments) Value Expression of Ideas and Wants (Verbal/Non Verbal) Frequently 1 Understanding Verbal Content Usually Understands 2 Repitition of Three Words Two 2 Recalls Socks Yes, No Cue Required 2 Recalls Blue Yes, No Cue Required 2 Recalls Bed Yes, No Cue Required 2 Total [address] No Notes: Automated score of the BIMS is incorrect. Correct score is 14/15 Taylor Norris OT Feb 26, 2022 13:30
--- NOTE | 2022-02-26 15:12 | Progress Note ---
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 Per pt and notes, pt was admitted at [place], [place] in January 2022 for diabetic ulcer on the left foot that 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. Pt required 4 surgeries and ultimately needed a BKA of the left leg. Pt was transferred to [facility] in [facility] for continued IV abx but was transferred to [place] following neurologic changes. MRI at [place] showed acute extension of the infarct in the area of his previous CVA in 2009. Pt initially presented to [facility] with left sided weakness and aphasia and has h/o of left sided weakness from prior CVA. Today, pt states that he believes that his aphasia has improved and that his left sided weakness has improved to baseline. Pt states that he is having some soreness of the left leg following PT but otherwise has no other complaints. Pt is currently on Coumadin for his mechanical valve and INR was 3.0 today. Pt has diabetic ulcer on his right heel and is being followed by wound care. Pt denies nausea, vomiting, diarrhea, CP, and SOA. LINDSEY LONGORIA DO 02/26/225: Supervisory-Addendum Brief Verification & Attestation Participated in pt care: history, MDM, physical Personally performed: exam, history, MDM, supervision of care Care discussed with: Medical Student Procedures: n/a Results interpretation: Verified all documentation Verification and Attestation of Medical Student E/M Service A medical student performed and documented this service in my presence. I reviewed and verified all information documented by the medical student and made modifications to such information, when appropriate. I personally performed the physical exam and medical decision making. Lindsey Longoria Feb 26, 2022,21:15 JUAN SANABRIA Feb 26, 2022 15:11 LINDSEY LONGORIA DO Feb 26, 2022 21:15
[2022-02-26] MEDS: CYCLOBENZAPRINE 10 MG (FLEXERIL) TAB PO PRN (17:23)
[2022-02-26 19:34] VITALS: BP 121/81
[2022-02-26] MEDS: oxyCODONE ER 10 MG (OxyCONTIN CR) TAB PO SCH (21:34)
[2022-02-26] MEDS: MICONAZOLE 2% POWDER (DESENEX AF) 90 GM TOP SCH (21:36)
[2022-02-26] MEDS: MICONAZOLE NITRATE 2% CRM 30 GM TP SCH (21:37)
[2022-02-26] MEDS: warFARin 5 MG (COUMADIN) TAB PO SCH (21:46)
[2022-02-27] MEDS: oxyCODONE/APAP 5/325MG (PERCOCET 5) TABLET PO PRN ×2 (01:17→09:46)
[2022-02-27] MEDS: inSUlin ASPART (NovoLOG) 1 UNIT/0.01 ML (CHARGE PER UNIT) SC SCH ×4 (05:40→19:34)
--- NOTE | 2022-02-27 06:20 | Individualized Plan of Care ---
Individualized Plan of Care Rehab Nursing IPOC Order Admission Date Feb 25, 2022 at 18:32 Current Orders Orders Admission Order(Inpt,Obs,Sdc) (02/25/22 16:38) Vital Signs: Per Unit Policy ( ,16,00 (02/25/22 16:38) Louis Loving (02/25/22 16:38) Sequential Compression Device (02/25/22 16:38) Scholarship Counselor-Inpt Rehab Con (02/25/22 16:38) Rehab Nursing Orders-Ipoc (02/25/22 16:38) Physical Therapy Rehab Orders (02/25/22 16:38) Occupational Therapy Rehab Ord (02/25/22 16:38) Speech Therapy Rehab Orders (02/25/22 16:38) Cbc With Automated Diff (02/26/22 06:00) Comprehensive Metabolic Panel (02/26/22 06:00) Precautions (Aru) (02/25/22 16:38) Weekly Weight WEEK (02/25/22 16:38) Rehab-Intensity Of Therapy (02/25/22 16:38) Initiate Admission Nursing Pro .admission (02/25/22 16:38) Alprazolam Tablet (Xanax Tablet) (02/25/22 16:45) Calcium Carbonate Chew Tablet (Antacid C (02/25/22 16:45) Diphenhydramine Tablet (Benadryl Tablet) (02/25/22 16:45) Docusate Sodium Capsule (Colace Capsule) (02/25/22 21:00) Docusate Sodium Capsule (Colace Capsule) (02/25/22 16:45) Bisacodyl Suppository (Dulcolax Supposit (02/25/22 16:45) Lactulose Oral Solution (Enulose Oral So (02/25/22 16:45) Na Phos/Na Biphos Enema (Fleet Enema Victor Hugo (02/25/22 16:45) Guaifenesin/Codeine Syrup (Robitussin Ac (02/25/22 16:45) Loperamide Tablet (Imodium Tablet) (02/25/22 16:45) Melatonin Tablet (Melatonin Tablet) (02/25/22 16:45) Polyethylene Glycol Powder Pkt (Miralax (02/25/22 21:00) Ondansetron Oral Dissolve Tab (Zofran (02/25/22 16:45) Senna S Tablet (Senokot S Tablet) (02/25/22 21:00) Acetaminophen Tablet/Caplet (Tylenol T (02/25/22 16:45) Code/Resuscitation (02/25/22 16:38) Initiate Admission Nursing Pro .admission (02/25/22 16:38) Admission Arrival Bed Request (02/25/22 18:45) Aspirin Enteric Coated Tablet (Ecotrin T (02/26/22 09:00) Atorvastatin Tablet (Lipitor Tablet) (02/25/22 21:00) Lamotrigine Tablet (Lamictal Tablet) (02/25/22 19:15) Oxycodone Extended Release Tab (Oxyconti (02/25/22 21:00) Oxycodone/Apap 5/325mg Tablet (Percocet (02/25/22 19:15) Pantoprazole Tablet (Protonix Tablet) (02/26/22 09:00) Pregabalin Capsule (Lyrica Capsule) (02/25/22 21:00) Insulin Determir (Per Unit) (Levemir (Pe (02/25/22 21:00) Levetiracetam Tablet (Keppra Tablet) (02/25/22 21:00) Mupirocin Ointment (Bactroban Ointment (02/25/22 21:00) Protime With Inr (02/26/22 06:00) Consult Wound Care Physician (02/25/22 19:45) Cyclobenzaprine Tablet (Flexeril Tablet) (02/25/22 21:30) Warfarin Tablet (Coumadin Tablet) (02/25/22 21:00) Lamotrigine Tablet (Lamictal Tablet) (02/25/22 21:00) Cho 60g/M 3snack (16-2000 Maxx) (02/26/22 Breakfast) Accucheck Achs ACHS (02/26/22 05:17) Insulin Aspart (Novolog) (Novolog (Charg (02/26/22 06:00) Consult Cardiology (02/26/22 06:21) Flu Quad (6 Months+)[id number] (Fluzone (02/26/22 07:15) Ekg Tracing (02/26/22 08:42) Lipid Panel (02/26/22 08:45) Stump Remote Coders (02/26/22 09:53) Consult Prosthetics (02/26/22 09:53) Patient Visit (02/26/22 ) Speech Sound Lang Comp (02/26/22 ) Treat. Speech/Lang/Voice (02/26/22 ) Miconazole 2% Powder (Phytoplex Af 2% Po (02/26/22 21:00) Miconazole Nitrate 2% Crm (Micaderm 2% C (02/26/22 21:00) Fluconazole Tablet (Diflucan Tablet) (02/26/22 12:00) Dressing Order (Intervention) BID (02/26/22 11:21) Boot Heel Lift Suspension (02/26/22 11:21) Patient Visit (02/26/22 ) Pt Eval Moderate Complexity (02/26/22 ) Functional Activities, Ea 15 (02/26/22 ) Protime With Inr (02/27/22 09:48) Basic Metabolic Panel (02/27/22 09:52) Patient Visit (02/27/22 ) Exercise Therap, Ea 15 Min (02/27/22 ) Wheelchair Mgmt/Propulsn 15min (02/27/22 ) Functional Activities, Ea 15 (02/27/22 ) Rehab Nursing Orders: Ongoing Assess. of Cognitive Status, Ongoing Assess. of Function Status, Bladder Management, Bladder Scan, Bladder Training, Bowel Management, Bowel Training, Disease Management & Educaiton, DVT Prophylaxis, Fall Prevention, Fluid/Electrolyte/Nutrition Mgmt, Infection Prevention, Medication Management & Education, Management of Risks & Complications, Management of Skin Intergrity, Nutrition Management, Pain Management, Patie nt/Family Support, Safety Management, Weight Bearing Precaution, Wound Management Intensity of Therapy to be met Patient to be seen: Min.3h per day/5 of 7d PT IPOC Problem List: Activity Tolerance, Functional Strength, Safety, Balance, Gait, Transfer, Bed Mobility, ROM Treatment Plan: Continue Plan of Care Bed Mobility, Education, Functional Activity Mariano, Functional Strength, Group Therapy, Gait, Safety, Therapeutic Exercise, Transfers Treatment Duration: Mar 19, 2022 Frequency: At least 5 of 7 days/Wk (IRF) Estimated Hrs Per Day: 1.5 hours per day OT IPOC Problems: Decreased Activ Tolerance, Decreased Safety Aware, Decreased UE Strength, Dependent Transfers, Impaired Bed Mobility, Impaired Cognition, Impaired Coordination, Impaired Funct Balance, Impaired I ADL's, Impaired Self- Care Skills, Restricted Funct UE ROM OT Treatment, Training and Edu: Yes Plan of Care: ADL Retraining, Caregiver Training, Cognitive Retraining, Functional Mobility, Group Exercise/Act as Ind, Orthotic Fitting/Training, UE Funct Exercise/Act, UE Neuromus Re-Ed/Coord, W/C Management Training Treatment Duration: Mar 22, 2022 Frequency: At least 5 of 7 days/Wk (IRF) Estimated Hrs Per Day: 1.5 hours per day (60-90 min/day) ST IPOC Speech Therapy Treatment Plan: Continue Plan of Care Treatment Duration: Mar 10, 2022 Frequency: Modified Program (IRF) (Four to five times per week.) Estimated Hrs Per Day: .5 hour per day Scholarship Counselor/Case Mgmt Scholarship Counselor/Case Managemen: Discharge Planning Dietitian/Algorithm Developer Dietitian/Algorithm Developer to monitor nutritional status and make changes and/or recommendations as needed and work with speech pathology on dietary upgrades as the occur. Physician IPOC Medical Issues being managed closely and that require the 24 hour availability of a physician: Recent left BKA with post op CVA w/h/o CVA and valve replacement on Coumadin requiring Cardiology management will be at high risk for infection and CHF Medical Issues: Bowel/Bladder Function, DVT Prophylaxis, Falls Precautions, Fluid/Electrolyte/Nutrition Balance, Infection Protection, Pain Management, Weight Bearing Precautions, Wound Care Brief Synthesis of Preadmission Screen, Post-Admission Evaluation, and Therapy Evaluations: PT OT will work on wheelchair mobility along with stump seat scooper machine and help increase ADL independence with help of AD Medical Prognosis: Good Anticipated Length of Stay: 10 days DERRICK LONGORIA DO Feb 27, 2022 06:20
--- NOTE | 2022-02-27 06:20 | PM&R Progress Note ---
Subjective HPI/CC On Admission Date Seen by Provider: Feb 27, 2022 Time Seen by Provider: 10:30 Subjective/Events-last exam 02/27/2022: No major issues Pain controlled BS reviewed INR good Kidney function improved 02/26/2022: Settling in well Pain is improved BM+ Voiding well No falls Participating in therapy Grief with son, daughter and 's and then losing leg Dr De Los Santos expertise appreciated Dr Pelaez evaluated the patient today too Review of Systems General: Fatigue, Malaise Objective Exam Vital Signs Vital Signs Date Time Temp Pulse Resp B/P (MAP) Pulse Ox O2 Delivery O2 Flow Rate FiO2 02/27/22 08:52 Room Air 02/27/22 07:30 36.7 96 18 127/89 (102) 98 Capillary Refill : General Appearance: No Apparent Distress, WD/WN, Chronically ill HEENT: PERRL/EOMI, Normal ENT Inspection, Pharynx Normal Neck: Full Range of Motion, Normal Inspection, Non Tender, Supple, Carotid Bruit Respiratory: Chest Non Tender, Lungs Clear, Normal Breath Sounds, No Accessory Muscle Use, No Respiratory Distress Cardiovascular: Regular Rate, Rhythm, No Edema, No Gallop, No JVD, No Murmur, Normal Peripheral Pulses, Other (click) Gastrointestinal: Normal Bowel Sounds, No Organomegaly, No Pulsatile Mass, Non Tender, Soft Back: Normal Inspection, No CVA Tenderness, No Vertebral Tenderness Extremity: Normal Capillary Refill, Normal Inspection, Normal Range of Motion, Non Tender, No Calf Tenderness, No Pedal Edema Neurologic/Psychiatric: Alert, Oriented x3, Normal Mood/Affect, nut roaster II-XII Norm as Tested, Abnormal Gait, Motor Weakness (left BKA) Skin: Normal Color, Warm/Dry, Rash (right lower leg venous stasis dermatitis and darkened skin) Lymphatic: No Adenopathy Results/Procedures Lab Laboratory Tests 02/27/22 10:12 Patient resulted labs reviewed. FIM Transfers Therapy Code Descriptions/Definitions Functional [place] Measure: 0=Not Assessed/NA 4=Minimal Assistance 1=Total Assistance 5=Supervision or Setup 2=Maximal Assistance 6=Modified [place] 3=Moderate Assistance 7=Complete IndependenceSCALE: Activities may be completed with or without assistive devices. 5-Vrdvwwixta-mhlrqdx completes the activity by him/herself with no assistance from a helper. 5-Set-up or Clean-up Assistance-helper sets up or cleans up; patient completes activity. [place] assists only prior to or following the activity. 4-Supervision or Touching Assistance-helper provides verbal cues and/or touching/steadying and/or contact guard assistance as patient completes activity. Assistance may be provided throughout the activity or intermittently. 3-Partial/Moderate Assistance-helper does LESS THAN HALF the effort. [place] lifts, holds or supports trunk or limbs, but provides less than half the effort. 2-Substantial/Maximal Assistance-helper does MORE THAN HALF the effort. [place] lifts or holds trunk or limbs and provides more than half the effort. 3-Wvyenfbvc-hiwhts does ALL the effort. Patient does none of the effort to complete the activity. Or, the assistance of 2 or more helpers is required for the patient to complete the activity. If activity was not attempted, code reason: 7-Patient Refused. 9-Not Applicable-not attempted and the patient did not perform the activity before the current illness, exacerbation or injury. 10-Not Attempted due to Environmental Limitations-(lack of equipment, weather restraints, etc.). 88-Not Attempted due to Medical Conditions or Safety Concerns. Roll Left to Right (QC): 4 Sit to Lying (QC): 4 Sit to Stand (QC): 1 Chair/Rgn-pq-Wuvie Xfer(QC): 1 Car Transfer (QC): 1 Gait Training Walk 10 feet (QC): 88 Walk 50 ft with 2 Turns(QC): 88 Walk 150 ft (QC): 88 Walking 10ft/uneven surface-QC: 88 Wheelchair Training Wheel 50 ft with 2 turns (QC): 3 Wheel 150 ft (QC): 3 Type of Wheelchair: Manual Stair Training 1 Step (curb) (QC): 88 4 Steps (QC): 88 12 Steps (QC): 88 Balance Picking up an Object (QC): 88 ADL-Treatment Eating (QC): 5 Oral Hygiene (QC): 1 Shower/Bathe Self (QC): 1 Upper Body Dressing (QC): 5 Lower Body Dressing (QC): 1 On/Off Footwear (QC): 1 Toileting Hygiene (QC): 1 Assessment/Plan Assessment and Plan Assess & Plan/Chief Complaint Assessment: 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 in [place] CVA following hospital course h/o embolic CVA 2009 Mitral valve replacement Coumadin maintenance DM HTN PVD CHF Plan: Monitor closely PT OT INR monitoring 02/26/2022: Pain control Monitor sugar 02/27/2022: Monitor kidney function Monitor INR (1) Hx of DERRICK BARRAGAN DO Feb 27, 2022 06:20
[2022-02-27] MEDS: PANTOPRAZOLE 40 MG (PROTONIX) TAB PO SCH (06:46)
[2022-02-27 07:30] VITALS: BP 127/89
--- NOTE | 2022-02-27 08:01 | Occupational Ther Daily Note ---
OT Current Status-Daily Note Subjective Pt reports L residual limb pain as 11/29. RN notified. Co-treat with PT for part of treatment ([id number], 20 min) secondary to impaired mobility, high fall risk, poor safety, impaired cognition, and due to needing 2 skilled disciplines to improve independence and safety with adls and functional mobility. Appearance Pt left sitting in w/c with physical therapist present. Mental Status/Objective Patient Orientation: Person, Place, Situation Acute change in mental status: 1 Inattention: 2 Disorganized thinkin Altered level of consciousness: 0 ADL-Treatment Therapy Code Descriptions/Definitions Functional [place] Measure: 0=Not Assessed/NA 4=Minimal Assistance 1=Total Assistance 5=Supervision or Setup 2=Maximal Assistance 6=Modified [place] 3=Moderate Assistance 7=Complete IndependenceSCALE: Activities may be completed with or without assistive devices. 4-Kmvynkmlcy-bfkpejo completes the activity by him/herself with no assistance from a helper. 5-Set-up or Clean-up Assistance-helper sets up or cleans up; patient completes activity. [place] assists only prior to or following the activity. 4-Supervision or Touching Assistance-helper provides verbal cues and/or touching/steadying and/or contact guard assistance as patient completes activity. Assistance may be provided throughout the activity or intermittently. 3-Partial/Moderate Assistance-helper does LESS THAN HALF the effort. [place] lifts, holds or supports trunk or limbs, but provides less than half the effort. 2-Substantial/Maximal Assistance-helper does MORE THAN HALF the effort. [place] lifts or holds trunk or limbs and provides more than half the effort. 1-Nypwakoth-ueqtqj does ALL the effort. Patient does none of the effort to complete the activity. Or, the assistance of 2 or more helpers is required for the patient to complete the activity. If activity was not attempted, code reason: 7-Patient Refused. 9-Not Applicable-not attempted and the patient did not perform the activity before the current illness, exacerbation or injury. 10-Not Attempted due to Environmental Limitations-(lack of equipment, weather restraints, etc.). 88-Not Attempted due to Medical Conditions or Safety Concerns. Eating (QC): 5 Oral Hygiene (QC): 4 Shower/Bathe Self (QC): 2 Upper Body Dressing (QC): 4 Lower Body Dressing (QC): 2 On/Off Footwear: 3 Supine>sit: SBA, extra time and min cues for improved sequencing. Sponge bath and dressing tasks performed seated EOB. Pt reports he hadn't had any form of bathing since before initial surgery back in early January. He was able to wash upper body and thighs post set up. Min a for thoroughness required under abdominal pannus. OT issued and instructed pt on use of LHS to improve independence in washing RLE. Post instruction, he was able to complete with Supervision. Some uncoordinated movements/poor motor planning notable with both UE and RLE. Dependent to wash buttocks as pt performed lateral pelvic leans to both R/L. Mod a to shift weight completely. Extra time to don shirt but no physical assistance required. OT attempted to educate patient on use of security director to assist in donning shorts, however due to poor coordination and reduced cognition, pt demonstrated significant difficulty. Thus, Assist needed to thread RLE and L residual limb. Again, mod a to shift weight to both R/L in order to manage shorts up to waist. Pt able to assist slightly, but still required max a. Squat pivot transfer from bed to w/c with max a x2. He sat to shave, comb hair and brush teeth with supervision. Pt refuses use of sock aid as he reports he "hated" using it in the past. For improved reach, OT placed footstool under pt's R foot, still unable to reach toes. Assist to don sock over toes, pt able to assembler for puller over machine heel with extra effort and time. He propelled w/c in [place], poor motor planning/coordination exhibited with RLE. Education OT Patient Education: Correct positioning, Energy conservation, Modified ADL techniques, Progress toward Goal/Update tx plan, Purpose of tx/functional activities, Reviewed precautions, Rehab process, Safety issues, Transfer techniques, Use of adapted equipment, W/C management Teaching Recipient: Patient Teaching Methods: Demonstration, Discussion Response to Teaching: Verbalize Understanding, Return Demonstration, Reinforce ment Needed OT Short Term Goals Short Term Goals Time Frame: Mar 10, 2022 Eatin Oral hygiene: 2 Toileting hygiene: 2 Shower/bathe self: 2 Upper body dressin Lower body dressin Putting on/taking off footwear: 2 OT Correction Goals Mechanic Welder Goals Time Frame: Mar 22, 2022 Acute change in mental status: 1 Inattention: 2 Disorganized thinkin Altered level of consciousness: 0 Eating (QC): 5 Oral Hygiene (QC): 4 Toileting Hygiene (QC): 4 Shower/Bathe Self (QC): 4 Upper Body Dressing (QC): 6 Lower Body Dressing (QC): 4 On/Off Footwear (QC): 4 Additional Goals: 1-Demonstrate ADL Tasks, 2-Verbalize Understanding, 3-ImproveStrength/M[place] 1=Demonstrate adherence to instructed precautions during ADL tasks. 2=Patient will verbalize/demonstrate understanding of assistive devices/modifications for ADL. 3=Patient will improve strength/tolerance for activity to enable patient to perform ADL's. OT Education/Plan Problem List/Assessment Assessment: Decreased Activ Tolerance, Decreased Safety Aware, Decreased UE Strength, Dependent Transfers, Impaired Cognition, Impaired Coordination, Impaired Funct Balance, Impaired I ADL's, Impaired Self-Care Skills, Restricted Funct UE ROM Discharge Recommendations Plan/Recommendations: Continue POC Therapy Discharge Recommendati: Post Acute OT Treatment Plan/Plan of Care Treatment,Training & Education: Yes Patient would benefit from OT for education, treatment and training to promote independence in ADL's, mobility, safety and/or upper extremity function for ADL's. Plan of Care: ADL Retraining, Caregiver Training, Cognitive Retraining, Functional Mobility, Group Exercise/Act as Ind, Orthotic Fitting/Training, UE Funct Exercise/Act, UE Neuromus Re-Ed/Coord, W/C Management Training Treatment Duration: Mar 22, 2022 Frequency: At least 5 of 7 days/Wk (IRF) Estimated Hrs Per Day: 1.5 hours per day (60-90 min/day) Agreement: Yes Rehab Potential: Fair Time/GCodes Start Time: 06:50 Stop Time: 08:20 Total Time Billed (hr/min): 90 Billed Treatment Time 1 visit ADL x5 (75 min) FA (15 min) Co-treat with PT 20 min Taylor Norris OT Feb 27, 2022 08:01
[2022-02-27] MEDS: PREGABALIN 75 MG (LYRICA) CAP PO SCH ×2 (09:37→21:19)
[2022-02-27] MEDS: ASPIRIN E.C. 81 MG (ECOTRIN) TAB PO SCH (09:37)
[2022-02-27] MEDS: fluCOnazole (DIFLUCAN) 100 MG TAB PO SCH (09:38)
[2022-02-27] MEDS: DOCUSATE SODIUM 100 MG (COLACE) CAP PO SCH ×2 (09:38→21:18)
[2022-02-27] MEDS: SENNA W/DOCUSATE (SENOKOT S) TABLET PO SCH ×2 (09:39→21:19)
[2022-02-27] MEDS: lamoTRIgine 25 MG (LaMICtal) TAB PO SCH ×2 (09:39→21:18)
[2022-02-27] MEDS: polyethylene glycoL POWDER 17 GM (MIRALAX) PACK PO SCH ×2 (09:39→21:24)
[2022-02-27] MEDS: MUPIROCIN 2% OINT 22 GM (BACTROBAN) TUBE TOP SCH ×2 (09:40→21:18)
[2022-02-27] MEDS: MICONAZOLE 2% POWDER (DESENEX AF) 90 GM TOP SCH ×2 (09:40→21:17)
[2022-02-27] MEDS: MICONAZOLE NITRATE 2% CRM 30 GM TP SCH ×2 (09:43→21:18)
--- NOTE | 2022-02-27 10:00 | Cardiology Progress Note ---
Progress Note-Cardiology Events since last exam Date Seen by Provider: Feb 27, 2022 Time Seen by Provider: 09:56 Events since last exam I am following him due to a remote history of mechanical mitral valve replacement. He was laying in bed. He did some physical therapy this morning which made him worn out and short of breath but he denies dyspnea at rest. He denies chest pain, palpitations, syncope, or right lower extremity edema. Certain portions of this document may have been dictated utilizing voice recognition technology. Inherent to this technology, typographical and grammatical errors may exist. As much as I am diligent to identify and correct these mistakes, some errors may remain in the document. Vitals Last set of Vitals Signs Vital Signs 02/27/22 02/27/22 07:30 08:52 Temp 36.7 Pulse 96 Resp 18 B/P (MAP) 127/89 (102) Pulse Ox 98 O2 Delivery Room Air Exam Vital Signs Vital Signs Date Time Temp Pulse Resp B/P (MAP) Pulse Ox O2 Delivery O2 Flow Rate FiO2 02/27/22 08:52 Room Air 02/27/22 07:30 36.7 96 18 127/89 (102) 98 Physical Exam General: Alert. No acute distress. He is obese. Eye: No xanthelasma. HENT: Normocephalic. Neck: Jugular venous pressure does not appear elevated. Respiratory: Lungs are clear to auscultation. Respirations are non-labored. Breath sounds are equal. Symmetrical chest wall expansion. Cardiovascular: Normal rate. Regular rhythm. Mechanical S1. 2/6 systolic ejection murmur. No gallop. No edema of right lower extremity. Gastrointestinal: Soft. Normal bowel sounds. Skin: Warm. Dry. Left below-knee amputation is bandaged. Neurologic: Alert and oriented to person, place, time. Cranial nerves 3-11 grossly intact. Psychiatric: Cooperative. Appropriate mood & affect. Labs Laboratory Tests Test 02/26/22 10:50 02/26/22 15:50 02/26/22 20:32 02/27/22 05:37 Range/Units Glucometer 158 H 184 H 173 H 139 H 70-110 MG/DL Diagnosis/Problems Diagnosis/Problems (1) History of mitral valve replacement with mechanical valve Assessment & Plan: We will continue warfarin and follow INR levels intermittently. He reports that he had been on a reasonably stable dose of warfarin prior to this prolonged hospitalization. His goal INR is 2.5-3.5 in light of the mechanical mitral valve prosthesis. I would recommend that we do not check the INR daily or we may end up chasing the warfarin dosing. (2) Primary hypertension Assessment & Plan: He had been on amlodipine prior to his most recent admission at [facility] and then this was stopped at the outside facility. We will monitor his blood pressures and if needed, we can restart amlodipine or an alternative agent. (3) Mixed hyperlipidemia Assessment & Plan: Continue statin medication. (4) Acute kidney injury superimposed on chronic kidney disease Assessment & Plan: He did have a creatinine level at the outside facility that was 1.1. Follow-up BMP level is pending. He denies any previous known history of kidney disease. (5) History of cerebrovascular accident with residual deficit Assessment & Plan: Continue aspirin and statin medication. If he develops any signs of hemorrhaging, then I would consider stopping aspirin since he takes warfarin for the mechanical mitral valve replacement. (6) Seizure disorder Assessment & Plan: This is being managed by the hospitalist. We need to be cautious with any cardiac medications that could alter the metabolism of his estrellita garza medication. (7) Type 2 diabetes mellitus with complication Assessment & Plan: This is being managed by the hospitalist. (8) Obesity Assessment & Plan: He needs to work on weight loss. (9) Hx of BKA Assessment & Plan: He is now on our inpatient rehabilitation unit to help him start learning how to function with a below-knee amputation. BRYNN MIN JR, MD Feb 27, 2022 10:00
[2022-02-27 10:31] LABS: INR 2.5 (0.8-1.4); PROTHROMBIN TIME PATIENT 27.7 SEC (12.2-14.7)
[2022-02-27 10:33] LABS: POTASSIUM 4.5 MMOL/L (3.6-5.0)
[2022-02-27 10:34] LABS: CALCIUM 8.6 MG/DL (8.5-10.1)
[2022-02-27 10:39] LABS: CREATININE SERUM 1.14 MG/DL (0.60-1.30)
--- NOTE | 2022-02-27 11:31 | Physical Therapy Daily Note ---
PT Daily Note-Current Subjective Upon arrival, pt was seated on EOB with OT present. Pt reports pain in residual limb 11/29. Pt agrees to PT. Pain Numeric Pain Scale: 7 Location: Left Location Body Site: Knee Section J - Health Conditions 1. Rarely or not at all 2. Occasionally 3. Frequently 4. Almost constantly 8. Unable to answer Pain Effect on Sleep: 2 Pain Interference with Therapy: 2 Pain Interference w/Day-to-Day: 2 Mental Status Patient Orientation: Person, Situation Transfers SCALE: Activities may be completed with or without assistive devices. 7-Xqbimnbstd-zxmbzor completes the activity by him/herself with no assistance from a helper. 5-Set-up or Clean-up Assistance-helper sets up or cleans up; patient completes activity. [place] assists only prior to or following the activity. 4-Supervision or Touching Assistance-helper provides verbal cues and/or touching/steadying and/or contact guard assistance as patient completes activity. Assistance may be provided throughout the activity or intermittently. 3-Partial/Moderate Assistance-helper does LESS THAN HALF the effort. [place] lifts, holds or supports trunk or limbs, but provides less than half the effort. 2-Substantial/Maximal Assistance-helper does MORE THAN HALF the effort. [place] lifts or holds trunk or limbs and provides more than half the effort. 8-Qhrbpdwjs-bgzhcc does ALL the effort. Patient does none of the effort to complete the activity. Or, the assistance of 2 or more helpers is required for the patient to complete the activity. If activity was not attempted, code reason: 7-Patient Refused. 9-Not Applicable-not attempted and the patient did not perform the activity before the current illness, exacerbation or injury. 10-Not Attempted due to Environmental Limitations-(lack of equipment, weather restraints, etc.). 88-Not Attempted due to Medical Conditions or Safety Concerns. Chair/Ggi-op-Cmlyd Xfer(QC): 2 Pt completed a squat pivot transfer, with PT and OT into . Pt completes and squat pivot transfer back to bed with PT and assistance from tech. Gait Training Does the Patient Walk?: No and Walking Goal IS indicated Wheelchair Training Does the Pt Use a Wheelchair?: Yes Wheel 50 ft with 2 turns (QC): 4 Type of Wheelchair: Manual Pt manually wheeled down conway to gym and back to room. Pt required multiple rest breaks due to fatigue, but was able to complete. Exercises Supine Ex: Ankle pumps, Pelvic tilt, Straight leg raise Supine Reps: 15 Seated Therapy Exercises: Ankle pumps, Long arc quads, Hip flexion, Hamstring Curls, Glut set Seated Reps: 15 Treatments Pt completed all activities listed above. Pt wheeled 80 ft from room to // bars in gym and back to room. Pt attempted to managing principal // bars with assistance from OT, but was unable to due to fatigue. Once PT was concluded, pt was supine in bed with call light and tray in reach and all needs met. Assessment Current Status: Good Progress Pt required verbal cueing with how to complete activities. Pt would benefit from continued skilled PT to improve on strength, transfers and activity tolerance. PT Short Term Goals Short Term Goals Time Frame: Mar 05, 2022 Roll Left & Right: 6 Sit to lyin Lying to sitting on side of be: 6 Sit to stand: 3 Chair/zfd-es-acumx transfer: 3 PT Snf Goals Snf Goals PT Driver Retraining Instructor Goals Time Frame: Mar 19, 2022 Roll Left & Right (QC): 6 Sit to Lying (QC): 6 Lying-Sitting on Side/Bed(QC): 6 Sit to Stand (QC): 4 Chair/Bdc-pa-Rhirq Xfer(QC): 4 Toilet Transfer (QC): 3 Car Transfer (QC): 3 Does the Patient Walk: No and Walking Goal IS indicated Walk 10 feet (QC): 3 Walk 50ft with 2 Turns (QC): 88 Walk 150 ft (QC): 88 Walking 10ft on Uneven Surface: 88 1 Step (curb) (QC): 88 4 Steps (QC): 88 12 Steps (QC): 88 Picking up an Object (QC): 3 Wheel 50 feet with 2 turns (QC: 4 Wheel 150 feet: 3 PT Plan Problem List Problem List: Activity Tolerance, Functional Strength, Transfer Treatment/Plan Treatment Plan: Continue Plan of Care Treatment Plan: Bed Mobility, Education, Functional Activity Mariano, Functional Strength, Group Therapy, Gait, Safety, Therapeutic Exercise, Transfers Treatment Duration: Mar 19, 2022 Frequency: At least 5 of 7 days/Wk (IRF) Estimated Hrs Per Day: 1.5 hours per day Patient and/or Family Agrees t: Yes Time/GCodes Time In: 0800 Time Out: 09 Total Billed Treatment Time: 93 Total Billed Treatment 1, Ex x2 (30), FA x2 (30), [facility] x2 (33) SARAH REYES PTA Feb 27, 2022 11:31
[2022-02-27] MEDS: warFARin 5 MG (COUMADIN) TAB PO SCH (17:32)
[2022-02-27 19:30] VITALS: BP 127/83
[2022-02-27] MEDS: oxyCODONE ER 10 MG (OxyCONTIN CR) TAB PO SCH (21:19)
[2022-02-28] MEDS: inSUlin ASPART (NovoLOG) 1 UNIT/0.01 ML (CHARGE PER UNIT) SC SCH ×4 (06:12→20:17)
[2022-02-28] MEDS: PANTOPRAZOLE 40 MG (PROTONIX) TAB PO SCH (06:45)
[2022-02-28 08:00] VITALS: BP 133/78
[2022-02-28] MEDS: DOCUSATE SODIUM 100 MG (COLACE) CAP PO SCH ×2 (08:19→20:53)
[2022-02-28] MEDS: SENNA W/DOCUSATE (SENOKOT S) TABLET PO SCH ×2 (08:19→20:54)
[2022-02-28] MEDS: oxyCODONE/APAP 5/325MG (PERCOCET 5) TABLET PO PRN ×2 (08:20→15:45)
[2022-02-28] MEDS: PREGABALIN 75 MG (LYRICA) CAP PO SCH ×2 (08:20→20:54)
[2022-02-28] MEDS: lamoTRIgine 25 MG (LaMICtal) TAB PO SCH ×2 (08:20→20:52)
[2022-02-28] MEDS: fluCOnazole (DIFLUCAN) 100 MG TAB PO SCH (08:20)
[2022-02-28] MEDS: ASPIRIN E.C. 81 MG (ECOTRIN) TAB PO SCH (08:22)
[2022-02-28] MEDS: MUPIROCIN 2% OINT 22 GM (BACTROBAN) TUBE TOP SCH ×2 (08:23→20:55)
[2022-02-28] MEDS: MICONAZOLE 2% POWDER (DESENEX AF) 90 GM TOP SCH ×2 (08:23→20:55)
[2022-02-28] MEDS: MICONAZOLE NITRATE 2% CRM 30 GM TP SCH ×2 (09:00→20:56)
[2022-02-28] MEDS: polyethylene glycoL POWDER 17 GM (MIRALAX) PACK PO SCH ×2 (09:17→20:54)
--- NOTE | 2022-02-28 10:27 | Cardiology Progress Note ---
Progress Note-Cardiology Events since last exam Date Seen by Provider: Feb 28, 2022 Time Seen by Provider: 10:22 Events since last exam I am following him due to history of mitral valve replacement. He continues to work with physical and Occupational Therapy on our inpatient physical rehabilitation unit following his left below-knee amputation at an outside facility. He does continue to have some dyspnea with exertion. He denies chest pain, palpitations, syncope, or edema of the right lower extremity. Certain portions of this document may have been dictated utilizing voice recognition technology. Inherent to this technology, typographical and grammatical errors may exist. As much as I am diligent to identify and correct these mistakes, some errors may remain in the document. Vitals Last set of Vitals Signs Vital Signs 02/28/22 08:00 Temp 36.5 Pulse 70 Resp 19 B/P (MAP) 133/78 (96) Pulse Ox 98 O2 Delivery Room Air Exam Vital Signs Vital Signs Date Time Temp Pulse Resp B/P (MAP) Pulse Ox O2 Delivery O2 Flow Rate FiO2 02/28/22 08:00 36.5 70 19 133/78 (96) 98 Room Air Physical Exam General: Alert. No acute distress. He is obese. He appears older than his stated age. Eye: No xanthelasma. HENT: Normocephalic. Neck: Jugular venous pressure does not appear elevated. Respiratory: Lungs are clear to auscultation. Respirations are non-labored. Breath sounds are equal. Symmetrical chest wall expansion. Cardiovascular: Normal rate. Regular rhythm. Mechanical S1. 2/6 systolic ejection murmur. No gallop. No edema of right lower extremity. Gastrointestinal: Soft. Normal bowel sounds. Skin: Warm. Dry. Left below-knee amputation is bandaged. Neurologic: Alert and oriented to person, place, time. Cranial nerves 3-11 grossly intact. Psychiatric: Cooperative. Appropriate mood & affect. Labs Laboratory Tests Test 02/27/22 11:08 02/27/22 15:23 02/27/22 19:28 02/28/22 06:11 Range/Units Glucometer 111 H 165 H 174 H 114 H 70-110 MG/DL Test 02/28/22 10:20 Range/Units Glucometer 138 H 70-110 MG/DL Diagnosis/Problems Diagnosis/Problems (1) History of mitral valve replacement with mechanical valve Assessment & Plan: We will continue warfarin and follow INR levels intermittently. He reports that he had been on a reasonably stable dose of warfarin prior to this prolonged hospitalization. His goal INR is 2.5-3.5 in light of the mechanical mitral valve prosthesis. I would recommend that we do not check the INR daily or we may end up chasing the warfarin dosing. He was therapeutic on 02/27. I ordered another INR for tomorrow. I will plan to see the patient as needed. I encouraged him to find a chemical supervisor in [place] close to his home when he returns home. He has not been following with a chemical supervisor in the recent past. (2) Primary hypertension Assessment & Plan: He had been on amlodipine prior to his most recent admission at [facility] and then this was stopped at the outside facility. We will monitor his blood pressures and if needed, we can restart amlodipine or an alternative agent. (3) Mixed hyperlipidemia Assessment & Plan: Continue statin medication. (4) Stage 2 chronic kidney disease Status: Chronic Assessment & Plan: It appears as though he probably has stage II chronic kidney disease which is mild. (5) Acute kidney injury superimposed on chronic kidney disease Status: Resolved Assessment & Plan: His renal function has improved. He may have been slightly dehydrated when his initial labs were drawn at the time of admission. Resolution Date/Time: 02/28/22 @ 10:26 (6) History of cerebrovascular accident with residual deficit Assessment & Plan: Continue aspirin and statin medication. If he develops any signs of hemorrhaging, then I would consider stopping aspirin since he takes warfarin for the mechanical mitral valve replacement. (7) Seizure disorder Assessment & Plan: This is being managed by the hospitalist. We need to be cautious with any cardiac medications that could alter the metabolism of his seizure medication. (8) Type 2 diabetes mellitus with complication Assessment & Plan: This is being managed by the hospitalist. (9) Obesity Assessment & Plan: He needs to work on weight loss. (10) Hx of BKA Assessment & Plan: He is now on our inpatient rehabilitation unit to help him start learning how to function with a below-knee amputation. BRYNN MIN JR, MD Feb 28, 2022 10:27
--- NOTE | 2022-02-28 15:30 | PM&R Progress Note ---
Subjective HPI/CC On Admission Date Seen by Provider: Feb 28, 2022 Time Seen by Provider: 15:09 Subjective/Events-last exam 02/28/2022: Patient doing well No major issues Pain is controlled Appreciate Dr. Pelaez with Dr. De Los Santos 02/27/2022: No major issues Pain controlled BS reviewed INR good Kidney function improved 02/26/2022: Settling in well Pain is improved BM+ Voiding well No falls Participating in therapy Grief with son, daughter and 's and then losing leg Dr De Los Santos expertise appreciated Dr Pelaez evaluated the patient today too Review of Systems General: Fatigue, Malaise Musculoskeletal: leg pain, foot pain Objective Exam Vital Signs Vital Signs Date Time Temp Pulse Resp B/P (MAP) Pulse Ox O2 Delivery O2 Flow Rate FiO2 02/28/22 21:40 Room Air 02/28/22 20:30 36.4 76 16 136/83 (100) 97 Capillary Refill : General Appearance: No Apparent Distress, WD/WN, Chronically ill HEENT: PERRL/EOMI, Normal ENT Inspection, Pharynx Normal Neck: Full Range of Motion, Normal Inspection, Non Tender, Supple, Carotid Bruit Respiratory: Chest Non Tender, Lungs Clear, Normal Breath Sounds, No Accessory Muscle Use, No Respiratory Distress Cardiovascular: Regular Rate, Rhythm, No Edema, No Gallop, No JVD, No Murmur, Normal Peripheral Pulses, Other (click) Gastrointestinal: Normal Bowel Sounds, No Organomegaly, No Pulsatile Mass, Non Tender, Soft Back: Normal Inspection, No CVA Tenderness, No Vertebral Tenderness Extremity: Normal Capillary Refill, Normal Inspection, Normal Range of Motion, Non Tender, No Calf Tenderness, No Pedal Edema Neurologic/Psychiatric: Alert, Oriented x3, Normal Mood/Affect, solar photovoltaic electrician II-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 FIM Transfers Therapy Code Descriptions/Definitions Functional [place] Measure: 0=Not Assessed/NA 4=Minimal Assistance 1=Total Assistance 5=Supervision or Setup 2=Maximal Assistance 6=Modified [place] 3=Moderate Assistance 7=Complete IndependenceSCALE: Activities may be completed with or without assistive devices. 4-Zjsxuhhvmc-stsbuwl completes the activity by him/herself with no assistance from a helper. 5-Set-up or Clean-up Assistance-helper sets up or cleans up; patient completes activity. [place] assists only prior to or following the activity. 4-Supervision or Touching Assistance-helper provides verbal cues and/or touching/steadying and/or contact guard assistance as patient completes activity. Assistance may be provided throughout the activity or intermittently. 3-Partial/Moderate Assistance-helper does LESS THAN HALF the effort. [place] lifts, holds or supports trunk or limbs, but provides less than half the effort. 2-Substantial/Maximal Assistance-helper does MORE THAN HALF the effort. [place] lifts or holds trunk or limbs and provides more than half the effort. 6-Nuazafhfm-hlxcvh does ALL the effort. Patient does none of the effort to complete the activity. Or, the assistance of 2 or more helpers is required for the patient to complete the activity. If activity was not attempted, code reason: 7-Patient Refused. 9-Not Applicable-not attempted and the patient did not perform the activity before the current illness, exacerbation or injury. 10-Not Attempted due to Environmental Limitations-(lack of equipment, weather restraints, etc.). 88-Not Attempted due to Medical Conditions or Safety Concerns. Roll Left to Right (QC): 4 Sit to Lying (QC): 4 Sit to Stand (QC): 1 Chair/Ioa-ds-Gyscm Xfer(QC): 2 Car Transfer (QC): 1 Gait Training Does the Patient Walk?: No and Walking Goal IS indicated Walk 10 feet (QC): 88 Walk 50 ft with 2 Turns(QC): 88 Walk 150 ft (QC): 88 Walking 10ft/uneven surface-QC: 88 Wheelchair Training Does the Pt Use a Wheelchair?: Yes Wheel 50 ft with 2 turns (QC): 4 Wheel 150 ft (QC): 3 Type of Wheelchair: Manual Stair Training 1 Step (curb) (QC): 88 4 Steps (QC): 88 12 Steps (QC): 88 Balance Picking up an Object (QC): 88 ADL-Treatment Eating (QC): 5 Oral Hygiene (QC): 4 Shower/Bathe Self (QC): 2 Upper Body Dressing (QC): 4 Lower Body Dressing (QC): 2 On/Off Footwear (QC): 3 Toileting Hygiene (QC): 1 Assessment/Plan Assessment and Plan Assess & Plan/Chief Complaint Assessment: 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 in [facility] CVA following hospital course h/o embolic CVA 2009 Mitral valve replacement Coumadin maintenance DM HTN PVD CHF Chronic kidney disease Plan: Monitor closely PT OT INR monitoring 02/26/2022: Pain control Monitor sugar 02/27/2022: Monitor kidney function Monitor INR 02/28/2022: Supportive care Pain control (1) History of mitral valve replacement with mechanical valve Assessment & Plan: We will continue warfarin and follow INR levels intermittently. He reports that he had been on a reasonably stable dose of warfarin prior to this prolonged hospitalization. His goal INR is 2.5-3.5 in light of the mechanical mitral valve prosthesis. I would recommend that we do not check the INR daily or we may end up chasing the warfarin dosing. He was therapeutic on 02/27. I ordered another INR for tomorrow. I will plan to see the patient as needed. I encouraged him to find a dressing room porter in [place] close to his home when he returns home. He has not been following with a dressing room porter in the recent past. (2) Primary hypertension Assessment & Plan: He had been on amlodipine prior to his most recent admission at [facility] and then this was stopped at the outside facility. We will monitor his blood pressures and if needed, we can restart amlodipine or an alternative agent. (3) Mixed hyperlipidemia Assessment & Plan: Continue statin medication. (4) Stage 2 chronic kidney disease Status: Chronic Assessment & Plan: It appears as though he probably has stage II chronic kidney disease which is mild. (5) Acute kidney injury superimposed on chronic kidney disease Status: Resolved Assessment & Plan: His renal function has improved. He may have been slightly dehydrated when his initial labs were drawn at the time of admission. Resolution Date/Time: 02/28/22 @ 10:26 (6) History of cerebrovascular accident with residual deficit Assessment & Plan: Continue aspirin and statin medication. If he develops any signs of hemorrhaging, then I would consider stopping aspirin since he takes warfarin for the mechanical mitral valve replacement. (7) Seizure disorder Assessment & Plan: This is being managed by the hospitalist. We need to be cautious with any cardiac medications that could alter the metabolism of his seizure medication. (8) Type 2 diabetes mellitus with complication Assessment & Plan: This is being managed by the hospitalist. (9) Obesity Assessment & Plan: He needs to work on weight loss. (10) Hx of BKA Assessment & Plan: He is now on our inpatient rehabilitation unit to help him start learning how to function with a below-knee amputation. DERRICK LONGORIA DO Feb 28, 2022 15:30
[2022-02-28] MEDS: warFARin 5 MG (COUMADIN) TAB PO SCH (17:52)
[2022-02-28 20:30] VITALS: BP 136/83
[2022-02-28] MEDS: oxyCODONE ER 10 MG (OxyCONTIN CR) TAB PO SCH (20:53)
[2022-02-28] MEDS: ALPRAZolam 0.25 MG (XANAX) TAB PO PRN (20:53)
[2022-03-01 05:34] LABS: INR 2.2 (0.8-1.4); PROTHROMBIN TIME PATIENT 24.8 SEC (12.2-14.7)
--- NOTE | 2022-03-01 06:02 | PM&R Progress Note ---
Subjective HPI/CC On Admission Date Seen by Provider: Mar 01, 2022 Time Seen by Provider: 08:30 Subjective/Events-last exam 03/01/2022: No major problems Did not sleep well last night No major issues Sugars reviewed Labs reviewed 02/28/2022: Patient doing well No major issues Pain is controlled Appreciate Dr. Pelaez with Dr. De Los Santos 02/27/2022: No major issues Pain controlled BS reviewed INR good Kidney function improved 02/26/2022: Settling in well Pain is improved BM+ Voiding well No falls Participating in therapy Grief with son, daughter and 's and then losing leg Dr De Los Santos expertise appreciated Dr Pelaez evaluated the patient today too Review of Systems General: Fatigue, Malaise Musculoskeletal: leg pain Objective Exam Vital Signs Vital Signs Date Time Temp Pulse Resp B/P (MAP) Pulse Ox O2 Delivery O2 Flow Rate FiO2 03/01/22 20:47 36.8 84 16 131/85 (100) 97 Room Air Capillary Refill : General Appearance: No Apparent Distress, WD/WN, Chronically ill HEENT: PERRL/EOMI, Normal ENT Inspection, Pharynx Normal Neck: Full Range of Motion, Normal Inspection, Non Tender, Supple, Carotid Bruit Respiratory: Chest Non Tender, Lungs Clear, Normal Breath Sounds, No Accessory Muscle Use, No Respiratory Distress Cardiovascular: Regular Rate, Rhythm, No Edema, No Gallop, No JVD, No Murmur, Normal Peripheral Pulses, Other (click) Gastrointestinal: Normal Bowel Sounds, No Organomegaly, No Pulsatile Mass, Non Tender, Soft Back: Normal Inspection, No CVA Tenderness, No Vertebral Tenderness Extremity: Normal Capillary Refill, Normal Inspection, Normal Range of Motion, Non Tender, No Calf Tenderness, No Pedal Edema Neurologic/Psychiatric: Alert, Oriented x3, Normal Mood/Affect, mitochondrial disorders counselor II-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 FIM Transfers Therapy Code Descriptions/Definitions Functional [place] Measure: 0=Not Assessed/NA 4=Minimal Assistance 1=Total Assistance 5=Supervision or Setup 2=Maximal Assistance 6=Modified [place] 3=Moderate Assistance 7=Complete IndependenceSCALE: Activities may be completed with or without assistive devices. 4-Oekssqzgio-xjsercj completes the activity by him/herself with no assistance from a helper. 5-Set-up or Clean-up Assistance-helper sets up or cleans up; patient completes activity. [place] assists only prior to or following the activity. 4-Supervision or Touching Assistance-helper provides verbal cues and/or touching/steadying and/or contact guard assistance as patient completes activity. Assistance may be provided throughout the activity or intermittently. 3-Partial/Moderate Assistance-helper does LESS THAN HALF the effort. [place] lifts, holds or supports trunk or limbs, but provides less than half the effort. 2-Substantial/Maximal Assistance-helper does MORE THAN HALF the effort. [place] lifts or holds trunk or limbs and provides more than half the effort. 8-Hwympwsby-golkog does ALL the effort. Patient does none of the effort to complete the activity. Or, the assistance of 2 or more helpers is required for the patient to complete the activity. If activity was not attempted, code reason: 7-Patient Refused. 9-Not Applicable-not attempted and the patient did not perform the activity before the current illness, exacerbation or injury. 10-Not Attempted due to Environmental Limitations-(lack of equipment, weather restraints, etc.). 88-Not Attempted due to Medical Conditions or Safety Concerns. Roll Left to Right (QC): 4 Sit to Lying (QC): 4 Sit to Stand (QC): 1 Chair/Bev-hg-Canyd Xfer(QC): 2 Car Transfer (QC): 1 Gait Training Does the Patient Walk?: No and Walking Goal IS indicated Walk 10 feet (QC): 88 Walk 50 ft with 2 Turns(QC): 88 Walk 150 ft (QC): 88 Walking 10ft/uneven surface-QC: 88 Wheelchair Training Does the Pt Use a Wheelchair?: Yes Wheel 50 ft with 2 turns (QC): 4 Wheel 150 ft (QC): 3 Type of Wheelchair: Manual Stair Training 1 Step (curb) (QC): 88 4 Steps (QC): 88 12 Steps (QC): 88 Balance Picking up an Object (QC): 88 ADL-Treatment Eating (QC): 5 Oral Hygiene (QC): 4 Shower/Bathe Self (QC): 2 Upper Body Dressing (QC): 4 Lower Body Dressing (QC): 2 On/Off Footwear (QC): 3 Toileting Hygiene (QC): 1 Assessment/Plan Assessment and Plan Assess & Plan/Chief Complaint Assessment: 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 in [place] CVA following hospital course h/o embolic CVA 2009 Mitral valve replacement Coumadin maintenance DM HTN PVD CHF Chronic kidney disease Plan: Monitor closely PT OT INR monitoring 02/26/2022: Pain control Monitor sugar 02/27/2022: Monitor kidney function Monitor INR 02/28/2022: Supportive care Pain control 03/01/2022: Monitor closely (1) History of mitral valve replacement with mechanical valve Assessment & Plan: We will continue warfarin and follow INR levels intermittently. He reports that he had been on a reasonably stable dose of warfarin prior to this prolonged hospitalization. His goal INR is 2.5-3.5 in light of the mechanical mitral valve prosthesis. I would recommend that we do not check the INR daily or we may end up chasing the warfarin dosing. He was therapeutic on 02/27. I ordered another INR for tomorrow. I will plan to see the patient as needed. I encouraged him to find a instructor knitting in [place] close to his home when he returns home. He has not been following with a instructor knitting in the recent past. (2) Primary hypertension Assessment & Plan: He had been on amlodipine prior to his most recent admission at [facility] and then this was stopped at the outside facility. We will monitor his blood pressures and if needed, we can restart amlodipine or an alternative agent. (3) Mixed hyperlipidemia Assessment & Plan: Continue statin medication. (4) Stage 2 chronic kidney disease Status: Chronic Assessment & Plan: It appears as though he probably has stage II chronic kidney disease which is mild. (5) Acute kidney injury superimposed on chronic kidney disease Status: Resolved Assessment & Plan: His renal function has improved. He may have been slightly dehydrated when his initial labs were drawn at the time of admission. Resolution Date/Time: 02/28/22 @ 10:26 (6) History of cerebrovascular accident with residual deficit Assessment & Plan: Continue aspirin and statin medication. If he develops any signs of hemorrhaging, then I would consider stopping aspirin since he takes warfarin for the mechanical mitral valve replacement. (7) Seizure disorder Assessment & Plan: This is being managed by the hospitalist. We need to be c autious with any cardiac medications that could alter the metabolism of his seizure medication. (8) Type 2 diabetes mellitus with complication Assessment & Plan: This is being managed by the hospitalist. (9) Obesity Assessment & Plan: He needs to work on weight loss. (10) Hx of BKA Assessment & Plan: He is now on our inpatient rehabilitation unit to help him start learning how to function with a below-knee amputation. DERRICK LONGORIA DO Mar 01, 2022 06:02
[2022-03-01] MEDS: inSUlin ASPART (NovoLOG) 1 UNIT/0.01 ML (CHARGE PER UNIT) SC SCH ×4 (06:15→20:45)
[2022-03-01] MEDS: PANTOPRAZOLE 40 MG (PROTONIX) TAB PO SCH (06:25)
[2022-03-01] MEDS: DOCUSATE SODIUM 100 MG (COLACE) CAP PO SCH ×2 (07:26→20:44)
[2022-03-01] MEDS: lamoTRIgine 25 MG (LaMICtal) TAB PO SCH ×2 (07:26→20:28)
[2022-03-01] MEDS: ASPIRIN E.C. 81 MG (ECOTRIN) TAB PO SCH (07:26)
[2022-03-01] MEDS: PREGABALIN 75 MG (LYRICA) CAP PO SCH ×2 (07:26→20:28)
[2022-03-01] MEDS: oxyCODONE/APAP 5/325MG (PERCOCET 5) TABLET PO PRN ×2 (07:27→11:11)
[2022-03-01] MEDS: fluCOnazole (DIFLUCAN) 100 MG TAB PO SCH (07:27)
[2022-03-01] MEDS: MUPIROCIN 2% OINT 22 GM (BACTROBAN) TUBE TOP SCH ×2 (07:31→20:31)
[2022-03-01] MEDS: MICONAZOLE 2% POWDER (DESENEX AF) 90 GM TOP SCH ×2 (07:31→20:31)
[2022-03-01] MEDS: MICONAZOLE NITRATE 2% CRM 30 GM TP SCH ×2 (07:32→20:33)
[2022-03-01 07:45] VITALS: BP 138/75
[2022-03-01] MEDS: SENNA W/DOCUSATE (SENOKOT S) TABLET PO SCH ×2 (09:00→20:45)
[2022-03-01] MEDS: polyethylene glycoL POWDER 17 GM (MIRALAX) PACK PO SCH ×2 (09:00→20:45)
--- NOTE | 2022-03-01 09:34 | Speech Therapy Daily Note ---
Speech Daily Progress Note Subjective Date Seen by Provider: Mar 01, 2022 Time Seen by Provider: 09:00 The patient was lying in bed, awake and alert, upon entrance to his room by the clinician. The patient greeted the clinician appropriately and was agreeable to participation in the cognitive linguistic treatment session. Objective The patient complete multiple word-finding exercises on this date. The patient was able to name eleven animals, nine colors, and eleven food and drink items throughout a generative naming task with mild clinician verbal cueing. The patient's accuracy decreased while attempting to name /m/ items, with the patient providing three and cueing increasing to moderate. The patient completed association exercises with fair accuracy, as he was asked to provide words associated with a provided word from the clinician. The patient completed the session with providing a word which began with a specific letter and fit into a specific category provided by the clinician. Word finding strategies were discussed and modeling throughout the session. Assessment Assessment Current Status: Good Progress Treatment Plan Continue Plan of Care Speech Short Term Goals Short Term Goals Short Term Goals 1. The patient will demonstrate improved word-finding strategies through informal conversation with mild clinician cueing. Time Frame-STG: Seven Days. Speech Time Study Statistician Goals Alf Goals 1. The patient will demonstrate improved cognitive linguistic skills for safe discharge to the least restrictive environment. Time Frame: Ten Days. Speech-Plan Treatment Plan Speech Therapy Treatment Plan: Continue Plan of Care Treatment Duration: Mar 10, 2022 Frequency: Modified Program (IRF) (Four to five times per week.) Estimated Hrs Per Day: .5 hour per day Rehab Potential: Fair Safety Risks/Education Teaching Recipient: Patient Teaching Methods: Demonstration, Discussion Response to Teaching: Verbalize Understanding, Return Demonstration Education Topics Provided: Word Finding Strategies Time Speech Therapy Time In: 09:00 Speech Therapy Time Out: 09:30 Total Billed Time: 30 Billed Treatment Time 1, SHRILEYALVIN Claudia SHAMA,ISABEL ST Mar 01, 2022 09:34
--- NOTE | 2022-03-01 09:57 | Cardiology Progress Note ---
Progress Note-Cardiology Events since last exam Date Seen by Provider: Mar 01, 2022 Time Seen by Provider: 09:54 Events since last exam I am following him due to history of mechanical mitral valve replacement. He remains on the inpatient rehabilitation unit working with physical and occupational therapy now that he is status post left below-knee amputation. He denies chest pain, dyspnea at rest, palpitations, syncope, or right lower extremity edema. Prior to this prolonged admission, he believes that he was taking 2.5 mg tablets of warfarin 2-1/2 tablets daily and had been on this dose for quite some time. Certain portions of this document may have been dictated utilizing voice recognition technology. Inherent to this technology, typographical and grammatical errors may exist. As much as I am diligent to identify and correct these mistakes, some errors may remain in the document. Vitals Last set of Vitals Signs Vital Signs 03/01/22 03/01/22 07:45 09:00 Temp 36.6 Pulse 70 Resp 18 B/P (MAP) 138/75 (96) Pulse Ox 99 O2 Delivery Room Air Exam Vital Signs Vital Signs Date Time Temp Pulse Resp B/P (MAP) Pulse Ox O2 Delivery O2 Flow Rate FiO2 03/01/22 09:00 Room Air 03/01/22 07:45 36.6 70 18 138/75 (96) 99 Physical Exam General: Alert. No acute distress. He is obese. He appears older than his stated age. Eye: No xanthelasma. HENT: Normocephalic. Neck: Jugular venous pressure does not appear elevated. Respiratory: Lungs are clear to auscultation. Respirations are non-labored. Breath sounds are equal. Symmetrical chest wall expansion. Cardiovascular: Normal rate. Regular rhythm. Mechanical S1. 2/6 systolic ejection murmur. No gallop. No edema of right lower extremity. Gastrointestinal: Soft. Normal bowel sounds. Skin: Warm. Dry. Left below-knee amputation is bandaged. Neurologic: Alert and oriented to person, place, time. Cranial nerves 3-11 grossly intact. Psychiatric: Cooperative. Appropriate mood & affect. Labs Laboratory Tests Test 02/28/22 20:12 03/01/22 05:10 03/01/22 05:58 03/01/22 10:58 Range/Units Glucometer 169 H 111 H 123 H 70-110 MG/DL Prothrombin Time 24.8 H 12.2-14.7 SEC INR Comment 2.2 H 0.8-1.4 Test 03/01/22 15:22 Range/Units Glucometer 159 H 70-110 MG/DL Diagnosis/Problems Diagnosis/Problems (1) History of mitral valve replacement with mechanical valve Assessment & Plan: We will continue warfarin and follow INR levels intermittently. He reports that he had been on a reasonably stable dose of warfarin prior to this prolonged hospitalization. His goal INR is 2.5-3.5 in light of the mechanical mitral valve prosthesis. I would recommend that we do not check the INR daily or we may end up chasing the warfarin dosing. He was therapeutic on 02/27 but is slightly low today. His current dose of warfarin is slightly below what he was taking at home. I will change him to warfarin 6 mg daily. I encouraged him to find a net fisher in [place] close to his home when he returns home. He has not been following with a net fisher in the recent past. (2) Primary hypertension Assessment & Plan: He had been on amlodipine prior to his most recent admission at [facility] and then this was stopped at the outside facility. We will monitor his blood pressures and if needed, we can restart amlodipine or an alternative agent. His blood pressures are starting to trend upwards slightly. (3) Mixed hyperlipidemia Assessment & Plan: Continue statin medication. (4) Stage 2 chronic kidney disease Status: Chronic Assessment & Plan: It appears as though he probably has stage II chronic kidney disease which is mild. (5) Acute kidney injury superimposed on chronic kidney disease Status: Resolved Assessment & Plan: His renal function has improved. He may have been slightly dehydrated when his initial labs were drawn at the time of admission. Resolution Date/Time: 02/28/22 @ 10:26 (6) History of cerebrovascular accident with residual deficit Assessment & Plan: Continue aspirin and statin medication. If he develops any signs of hemorrhaging, then I would consider stopping aspirin since he takes warfarin for the mechanical mitral valve replacement. (7) Seizure disorder Assessment & Plan: This is being managed by the hospitalist. We need to be cautious with any cardiac medications that could alter the metabolism of his seizure medication. (8) Type 2 diabetes mellitus with complication Assessment & Plan: This is being managed by the hospitalist. (9) Obesity Assessment & Plan: He needs to work on weight loss. (10) Hx of BKA Assessment & Plan: He is now on our inpatient rehabilitation unit to help him start learning how to function with a below-knee amputation. BRYNN MIN JR, MD Mar 01, 2022 09:57
--- NOTE | 2022-03-01 12:15 | Occupational Ther Daily Note ---
OT Current Status-Daily Note Subjective Pt laying in bed upon arrival. He declines a shower, stating he will try one tomorrow. Co-treat with PT secondary to balance, weakness, coordination, fall risk, and problem-solving. Appearance Pt left sitting in w/c with all needs within reach. Mental Status/Objective Patient Orientation: Person, Place, Time, Situation ADL-Treatment Therapy Code Descriptions/Definitions Functional [place] Measure: 0=Not Assessed/NA 4=Minimal Assistance 1=Total Assistance 5=Supervision or Setup 2=Maximal Assistance 6=Modified [place] 3=Moderate Assistance 7=Complete IndependenceSCALE: Activities may be completed with or without assistive devices. 0-Osvvttoiyy-alueuht completes the activity by him/herself with no assistance from a helper. 5-Set-up or Clean-up Assistance-helper sets up or cleans up; patient completes activity. [place] assists only prior to or following the activity. 4-Supervision or Touching Assistance-helper provides verbal cues and/or touching/steadying and/or contact guard assistance as patient completes acti vity. Assistance may be provided throughout the activity or intermittently. 3-Partial/Moderate Assistance-helper does LESS THAN HALF the effort. [place] lifts, holds or supports trunk or limbs, but provides less than half the effort. 2-Substantial/Maximal Assistance-helper does MORE THAN HALF the effort. [place] lifts or holds trunk or limbs and provides more than half the effort. 9-Kvtzpsgaa-pejyge does ALL the effort. Patient does none of the effort to complete the activity. Or, the assistance of 2 or more helpers is required for the patient to complete the activity. If activity was not attempted, code reason: 7-Patient Refused. 9-Not Applicable-not attempted and the patient did not perform the activity before the current illness, exacerbation or injury. 10-Not Attempted due to Environmental Limitations-(lack of equipment, weather restraints, etc.). 88-Not Attempted due to Medical Conditions or Safety Concerns. Upper Body Dressing (QC): 5 Lower Body Dressing (QC): 1 On/Off Footwear: 1 Supine<> sit EOB: supervision. Pt is able to doff/don UE clothing with set up, but is dependent for LE dressing and footwear due to needing assist of 2 people, lack of ROM and strength. Pt unable to keep balance while in long sitting. Pt returned to supine and rolled R/L for clothing management. Bed mobility of rolling R/L requires mod assist. Pt was able to bridge bottom to partially pull pants up with assist for keeping foot on bed. Squat pivot transfer from bed>w/c: mod assist x2. Pt has very little UE, LE, and core strength, balance and coordination. Pt needs mod verbal cues for sequencing, initiation, and safety. Other Treatment W/c mobility through hallway has improved, but still needs increased time to complete and fatigues quickly. x3 Sit<>stand transfers from w/c with parallel bars: mod assist x2. Min assist x1 for balance and safety once in standing ~30 sec. Pt requires extra assistance to sit, secondary to "flopping" and favoring L side when sitting. Pt performed 15 w/c pushups and was able to clear bottom off w/c half of the time. He showed increased fatigue with this exercise. Education OT Patient Education: Correct positioning, Energy conservation, Exercise program, Modified ADL techniques, Progress toward Goal/Update tx plan, Purpose of tx/functional activities, Reviewed precautions, Rehab process, Safety issues, Transfer techniques, W/C management Teaching Recipient: Patient Teaching Methods: Demonstration, Discussion Response to Teaching: Verbalize Understanding, Return Demonstration, Reinforcement Needed OT Short Term Goals Short Term Goals Time Frame: Mar 10, 2022 Eatin Oral hygiene: 2 Toileting hygiene: 2 Shower/bathe self: 2 Upper body dressin Lower body dressin Putting on/taking off footwear: 2 OT Building Construction Teacher Goals Building Construction Teacher Goals Time Frame: Mar 22, 2022 Acute change in mental status: 1 Inattention: 2 Disorganized thinkin Altered level of consciousness: 0 Eating (QC): 5 Oral Hygiene (QC): 4 Toileting Hygiene (QC): 4 Shower/Bathe Self (QC): 4 Upper Body Dressing (QC): 6 Lower Body Dressing (QC): 4 On/Off Footwear (QC): 4 Additional Goals: 1-Demonstrate ADL Tasks, 2-Verbalize Understanding, 3- ImproveStrength/[place] 1=Demonstrate adherence to instructed precautions during ADL tasks. 2=Patient will verbalize/demonstrate understanding of assistive devices/modifications for ADL. 3=Patient will improve strength/tolerance for activity to enable patient to perform ADL's. OT Education/Plan Problem List/Assessment Assessment: Decreased Activ Tolerance, Decreased Safety Aware, Decreased UE Strength, Dependent Transfers, Edema, Impaired Bed Mobility, Impaired Coordination, Impaired Funct Balance, Impaired I ADL's, Impaired Self-Care Skills, Restricted Funct UE ROM Discharge Recommendations Plan/Recommendations: Continue POC Treatment Plan/Plan of Care Treatment,Training & Education: Yes Patient would benefit from OT for education, treatment and training to promote independence in ADL's, mobility, safety and/or upper extremity function for ADL's. Plan of Care: ADL Retraining, Caregiver Training, Cognitive Retraining, Functional Mobility, Group Exercise/Act as Ind, Orthotic Fitting/Training, UE Funct Exercise/Act, UE Neuromus Re-Ed/Coord, W/C Management Training Treatment Duration: Mar 22, 2022 Frequency: At least 5 of 7 days/Wk (IRF) Estimated Hrs Per Day: 1.5 hours per day (60-90 min/day) Agreement: Yes Rehab Potential: Fair Time/GCodes Start Time: 11:00 Stop Time: 12:15 Total Time Billed (hr/min): 75 Billed Treatment Time 1 visit ADL x2 (35 min) FA x2 (30 min) EX (10 min) Co-treat with PT ([id number]) Taylor Norris OT Mar 01, 2022 12:15
--- NOTE | 2022-03-01 12:29 | Physical Therapy Daily Note ---
PT Daily Note-Current Subjective Pt laying Supine in bed upon arrival. Pt agrees to PT/OT co-treat. Pain Section J - Health Conditions 1. Rarely or not at all 2. Occasionally 3. Frequently 4. Almost constantly 8. Unable to answer Pain Effect on Sleep: 2 Pain Interference with Therapy: 2 Pain Interference w/Day-to-Day: 2 Mental Status Patient Orientation: Person, Place, Time, Situation Transfers SCALE: Activities may be completed with or without assistive devices. 8-Zupuwhxpnc-jxsnanw completes the activity by him/herself with no assistance from a helper. 5-Set-up or Clean-up Assistance-helper sets up or cleans up; patient completes activity. [place] assists only prior to or following the activity. 4-Supervision or Touching Assistance-helper provides verbal cues and/or touching/steadying and/or contact guard assistance as patient completes activity. Assistance may be provided throughout the activity or intermittently. 3-Partial/Moderate Assistance-helper does LESS THAN HALF the effort. [place] lifts, holds or supports trunk or limbs, but provides less than half the effort. 2-Substantial/Maximal Assistance-helper does MORE THAN HALF the effort. [place] lifts or holds trunk or limbs and provides more than half the effort. 3-Lhihbyapw-qcnkuv does ALL the effort. Patient does none of the effort to complete the activity. Or, the assistance of 2 or more helpers is required for the patient to complete the activity. If activity was not attempted, code reason: 7-Patient Refused. 9-Not Applicable-not attempted and the patient did not perform the activity before the current illness, exacerbation or injury. 10-Not Attempted due to Environmental Limitations-(lack of equipment, weather restraints, etc.). 88-Not Attempted due to Medical Conditions or Safety Concerns. Weight Bearing Right Lower Extremity: Right Full Weight Bearing Wheelchair Training Does the Pt Use a Wheelchair?: Yes Wheel 50 ft with 2 turns (QC): 4 Wheel 150 ft (QC): 4 Type of Wheelchair: Manual Exercises Seated Therapy Exercises: Sit to stand (3), Chair press-ups (15) Treatments W/c mobility through hallway has improved, but still needs increased time to complete and fatigues quickly. x3 Sit<>stand transfers from w/c with parallel bars: mod assist x2. Min assist x1 for balance and safety once in standing ~30 sec. Pt requires extra assistance to sit, secondary to "flopping" and favoring L side when sitting. Pt performed 15 w/c pushups and was able to clear bottom off w/c half of the time. He showed increased fatigue with this exercise. Pt propels WCH back toward room before fatiguing. Pt sitting in [facility] for lunch with all needs met, call light in hand. Assessment Current Status: Fair Progress Pt fatigues easily and needs frequent RB as well as VC for safety and sequen cing. PT Short Term Goals Short Term Goals Time Frame: Mar 05, 2022 Roll Left & Right: 6 Sit to lyin Lying to sitting on side of be: 6 Sit to stand: 3 Chair/qlu-gr-pkflb transfer: 3 PT It Applications Analyst Goals Longterm Goals PT It Applications Analyst Goals Time Frame: Mar 19, 2022 Roll Left & Right (QC): 6 Sit to Lying (QC): 6 Lying-Sitting on Side/Bed(QC): 6 Sit to Stand (QC): 4 Chair/Vzq-sc-Lepos Xfer(QC): 4 Toilet Transfer (QC): 3 Car Transfer (QC): 3 Does the Patient Walk: No and Walking Goal IS indicated Walk 10 feet (QC): 3 Walk 50ft with 2 Turns (QC): 88 Walk 150 ft (QC): 88 Walking 10ft on Uneven Surface: 88 1 Step (curb) (QC): 88 4 Steps (QC): 88 12 Steps (QC): 88 Picking up an Object (QC): 3 Wheel 50 feet with 2 turns (QC: 4 Wheel 150 feet: 3 PT Plan Problem List Problem List: Activity Tolerance, Functional Strength, Safety, Transfer Treatment/Plan Treatment Plan: Continue Plan of Care Treatment Plan: Bed Mobility, Education, Functional Activity Mariano, Functional Strength, Group Therapy, Gait, Safety, Therapeutic Exercise, Transfers Treatment Duration: Mar 19, 2022 Frequency: At least 5 of 7 days/Wk (IRF) Estimated Hrs Per Day: 1.5 hours per day Patient and/or Family Agrees t: Yes Safety Risks/Education Patient Education: Transfer Techniques, Correct Positioning, Safety Issues Teaching Recipient: Patient Teaching Methods: Discussion Response to Teaching: Verbalize Understanding Time/GCodes Time In: 1100 Time Out: 1215 Total Billed Treatment Time: 75 Total Billed Treatment 1, FA x2 (35m), WCH (15m) & GT x2 (25m) TREIBER,PETTY COMMUTATOR OPERATOR Mar 01, 2022 12:29
[2022-03-01] MEDS ORDERED: warFARin 1 MG (COUMADIN) TAB PO SCH ×2 (18:00→21:00)
[2022-03-01] MEDS ORDERED: warFARin 5 MG (COUMADIN) TAB PO SCH ×3 (18:00→21:00)
[2022-03-01] MEDS: oxyCODONE ER 10 MG (OxyCONTIN CR) TAB PO SCH (20:28)
[2022-03-01 20:47] VITALS: BP 131/85
[2022-03-02] MEDS: inSUlin ASPART (NovoLOG) 1 UNIT/0.01 ML (CHARGE PER UNIT) SC SCH ×4 (05:38→21:36)
--- NOTE | 2022-03-02 06:00 | PM&R Progress Note ---
Subjective HPI/CC On Admission Date Seen by Provider: Mar 02, 2022 Time Seen by Provider: 08:30 Subjective/Events-last exam 03/02/2022: No major issues Wants to go home soon Pain controlled No falls 03/01/2022: No major problems Did not sleep well last night No major issues Sugars reviewed Labs reviewed 02/28/2022: Patient doing well No major issues Pain is controlled Appreciate Dr. Pelaez with Dr. De Los Santos 02/27/2022: No major issues Pain controlled BS reviewed INR good Kidney function improved 02/26/2022: Settling in well Pain is improved BM+ Voiding well No falls Participating in therapy Grief with son, daughter and 's and then losing leg Dr De Los Santos expertise appreciated Dr Pelaez evaluated the patient today too Review of Systems General: Fatigue, Malaise Musculoskeletal: leg pain Objective Exam Vital Signs Vital Signs Date Time Temp Pulse Resp B/P (MAP) Pulse Ox O2 Delivery O2 Flow Rate FiO2 03/02/22 21:30 Room Air 03/02/22 20:04 36.8 75 16 124/83 (97) 97 Capillary Refill : General Appearance: No Apparent Distress, WD/WN, Chronically ill HEENT: PERRL/EOMI, Normal ENT Inspection, Pharynx Normal Neck: Full Range of Motion, Normal Inspection, Non Tender, Supple, Carotid Bruit Respiratory: Chest Non Tender, Lungs Clear, Normal Breath Sounds, No Accessory Muscle Use, No Respiratory Distress Cardiovascular: Regular Rate, Rhythm, No Edema, No Gallop, No JVD, No Murmur, Normal Peripheral Pulses, Other (click) Gastrointestinal: Normal Bowel Sounds, No Organomegaly, No Pulsatile Mass, Non Tender, Soft Back: Normal Inspection, No CVA Tenderness, No Vertebral Tenderness Extremity: Normal Capillary Refill, Normal Inspection, Normal Range of Motion, Non Tender, No Calf Tenderness, No Pedal Edema Neurologic/Psychiatric: Alert, Oriented x3, Normal Mood/Affect, 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 FIM Transfers Therapy Code Descriptions/Definitions Functional [place] Measure: 0=Not Assessed/NA 4=Minimal Assistance 1=Total Assistance 5=Supervision or Setup 2=Maximal Assistance 6=Modified [place] 3=Moderate Assistance 7=Complete IndependenceSCALE: Activities may be completed with or without assistive devices. 9-Ydijguxzfb-lyhulrh completes the activity by him/herself with no assistance from a helper. 5-Set-up or Clean-up Assistance-helper sets up or cleans up; patient completes activity. [place] assists only prior to or following the activity. 4-Supervision or Touching Assistance-helper provides verbal cues and/or touching/steadying and/or contact guard assistance as patient completes activity. Assistance may be provided throughout the activity or intermittently. 3-Partial/Moderate Assistance-helper does LESS THAN HALF the effort. [place] lifts, holds or supports trunk or limbs, but provides less than half the effort. 2-Substantial/Maximal Assistance-helper does MORE THAN HALF the effort. [place] lifts or holds trunk or limbs and provides more than half the effort. 9-Eifylxbyu-jtkwpe does ALL the effort. Patient does none of the effort to complete the activity. Or, the assistance of 2 or more helpers is required for the patient to complete the activity. If activity was not attempted, code reason: 7-Patient Refused. 9-Not Applicable-not attempted and the patient did not perform the activity before the current illness, exacerbation or injury. 10-Not Attempted due to Environmental Limitations-(lack of equipment, weather restraints, etc.). 88-Not Attempted due to Medical Conditions or Safety Concerns. Roll Left to Right (QC): 4 Sit to Lying (QC): 4 Sit to Stand (QC): 1 Chair/Fvk-yx-Jrjua Xfer(QC): 2 Car Transfer (QC): 1 Gait Training Does the Patient Walk?: No and Walking Goal IS indicated Walk 10 feet (QC): 88 Walk 50 ft with 2 Turns(QC): 88 Walk 150 ft (QC): 88 Walking 10ft/uneven surface-QC: 88 Wheelchair Training Does the Pt Use a Wheelchair?: Yes Wheel 50 ft with 2 turns (QC): 4 Wheel 150 ft (QC): 4 Type of Wheelchair: Manual Stair Training 1 Step (curb) (QC): 88 4 Steps (QC): 88 12 Steps (QC): 88 Balance Picking up an Object (QC): 88 ADL-Treatment Eating (QC): 5 Oral Hygiene (QC): 4 Shower/Bathe Self (QC): 2 Upper Body Dressing (QC): 5 Lower Body Dressing (QC): 1 On/Off Footwear (QC): 1 Toileting Hygiene (QC): 1 Assessment/Plan Assessment and Plan Assess & Plan/Chief Complaint Assessment: 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 He reports that he had been on a reasonably stable dose of warfarin prior to this prolonged hospitalization. His goal INR is 2.5-3.5 in light of the mechanical mitral valve prosthesis. I would recommend that we do not check the INR daily or we may end up chasing the warfarin dosing. He was therapeutic on 02/27 but is slightly low today. His current dose of warfarin is slightly below what he was taking at home. I will change him to warfarin 6 mg daily. I encouraged him to find a president college or university in [place] close to his home when he returns home. He has not been following with a president college or university in the rece nt past. (2) Primary hypertension Assessment & Plan: He had been on amlodipine prior to his most recent admission at [facility] and then this was stopped at the outside facility. We will monitor his blood pressures and if needed, we can restart amlodipine or an alternative agent. His blood pressures are starting to trend upwards slightly. (3) Mixed hyperlipidemia Assessment & Plan: Continue statin medication. (4) Stage 2 chronic kidney disease Status: Chronic Assessment & Plan: It appears as though he probably has stage II chronic kidney disease which is mild. (5) Acute kidney injury superimposed on chronic kidney disease Status: Resolved Assessment & Plan: His renal function has improved. He may have been slightly dehydrated when his initial labs were drawn at the time of admission. Resolution Date/Time: 02/28/22 @ 10:26 (6) History of cerebrovascular accident with residual deficit Assessment & Plan: Continue aspirin and statin medication. If he develops any signs of hemorrhaging, then I would consider stopping aspirin since he takes warfarin for the mechanical mitral valve replacement. (7) Seizure disorder Assessment & Plan: This is being managed by the hospitalist. We need to be c autious with any cardiac medications that could alter the metabolism of his seizure medication. (8) Type 2 diabetes mellitus with complication Assessment & Plan: This is being managed by the hospitalist. (9) Obesity Assessment & Plan: He needs to work on weight loss. (10) Hx of BKA Assessment & Plan: He is now on our inpatient rehabilitation unit to help him start learning how to function with a below-knee amputation. DERRICK LONGORIA DO Mar 02, 2022 06:00
[2022-03-02 06:05] LABS: INR 1.9 (0.8-1.4); PROTHROMBIN TIME PATIENT 22.4 SEC (12.2-14.7)
[2022-03-02] MEDS: PANTOPRAZOLE 40 MG (PROTONIX) TAB PO SCH (06:37)
[2022-03-02 07:47] VITALS: BP 143/92
[2022-03-02] MEDS: PREGABALIN 75 MG (LYRICA) CAP PO SCH ×2 (09:26→21:35)
[2022-03-02] MEDS: fluCOnazole (DIFLUCAN) 100 MG TAB PO SCH (09:27)
[2022-03-02] MEDS: ASPIRIN E.C. 81 MG (ECOTRIN) TAB PO SCH (09:27)
[2022-03-02] MEDS: lamoTRIgine 25 MG (LaMICtal) TAB PO SCH ×2 (09:28→21:34)
[2022-03-02] MEDS: MICONAZOLE 2% POWDER (DESENEX AF) 90 GM TOP SCH ×2 (09:31→21:37)
[2022-03-02] MEDS: MUPIROCIN 2% OINT 22 GM (BACTROBAN) TUBE TOP SCH (09:31)
[2022-03-02] MEDS: polyethylene glycoL POWDER 17 GM (MIRALAX) PACK PO SCH ×2 (09:32→21:35)
[2022-03-02] MEDS: SENNA W/DOCUSATE (SENOKOT S) TABLET PO SCH ×2 (09:32→21:35)
[2022-03-02] MEDS: MICONAZOLE NITRATE 2% CRM 30 GM TP SCH ×2 (09:32→21:38)
[2022-03-02] MEDS: DOCUSATE SODIUM 100 MG (COLACE) CAP PO SCH ×2 (09:32→21:35)
--- NOTE | 2022-03-02 09:56 | Cardiology Progress Note ---
Progress Note-Cardiology Events since last exam Date Seen by Provider: Mar 02, 2022 Time Seen by Provider: 09:53 Events since last exam I am following him due to his history of a mechanical mitral valve replacement many years ago. He continues to participate with physical therapy following his left below-knee amputation. He has been looking into getting a prosthesis. He denies chest discomfort, dyspnea at rest, palpitations, syncope, or edema of the right lower extremity. Certain portions of this document may have been dictated utilizing voice recognition technology. Inherent to this technology, typographical and grammatical errors may exist. As much as I am diligent to identify and correct these mistakes, some errors may remain in the document. Vitals Last set of Vitals Signs Vital Signs 03/02/22 07:47 Temp 36.2 Pulse 67 Resp 18 B/P (MAP) 143/92 (109) Pulse Ox 95 O2 Delivery Room Air Exam Vital Signs Vital Signs Date Time Temp Pulse Resp B/P (MAP) Pulse Ox O2 Delivery O2 Flow Rate FiO2 03/02/22 07:47 36.2 67 18 143/92 (109) 95 Room Air Physical Exam General: Alert. No acute distress. He is obese. He appears older than his stated age. Eye: No xanthelasma. HENT: Normocephalic. Neck: Jugular venous pressure does not appear elevated. Respiratory: Lungs are clear to auscultation. Respirations are non-labored. Breath sounds are equal. Symmetrical chest wall expansion. Cardiovascular: Normal rate. Regular rhythm. Mechanical S1. 2/6 systolic ejection murmur. No gallop. No edema of right lower extremity. Gastrointestinal: Soft. Normal bowel sounds. Skin: Warm. Dry. Left below-knee amputation is bandaged. Neurologic: Alert and oriented to person, place, time. Cranial nerves 3-11 grossly intact. Psychiatric: Cooperative. Appropriate mood & affect. Labs Laboratory Tests Test 03/01/22 15:22 03/02/22 05:37 03/02/22 10:43 Range/Units Glucometer 159 H 119 H 136 H 70-110 MG/DL Prothrombin Time 22.4 H 12.2-14.7 SEC INR Comment 1.9 H 0.8-1.4 Diagnosis/Problems Diagnosis/Problems (1) History of mitral valve replacement with mechanical valve Assessment & Plan: We will continue warfarin and follow INR levels intermittently. He reports that he had been on a reasonably stable dose of warfarin prior to this prolonged hospitalization. His goal INR is 2.5-3.5 in light of the mechanical mitral valve prosthesis. I would recommend that we do not check the INR daily or we may end up chasing the warfarin dosing. He was therapeutic on 02/27 but was slightly low on 03/01 and 03/02. I will change him to warfarin 7 mg daily. I would wait a few days before making any other changes since there is usually a lag time of 3-5 days between adjusting the warfarin dosing and its effect on the INR. I encouraged him to find a press technician in [place] close to his home when he returns home. He has not been following with a press technician in the recent past. (2) Primary hypertension Assessment & Plan: He had been on amlodipine prior to his most recent admission at [facility] and then this was stopped at the outside facility. His blood pressures have been trending upwards over the past 24-48 hours. I will start him on a low-dose of losartan. This may be a better agent than amlodipine in light of his chronic kidney disease. (3) Mixed hyperlipidemia Assessment & Plan: Continue statin medication. (4) Stage 2 chronic kidney disease Status: Chronic Assessment & Plan: It appears as though he probably has stage II chronic kidney disease which is mild. (5) Acute kidney injury superimposed on chronic kidney disease Status: Resolved Assessment & Plan: His renal function has improved. He may have been slightly dehydrated when his initial labs were drawn at the time of admission. Resolution Date/Time: 02/28/22 @ 10:26 (6) History of cerebrovascular accident with residual deficit Assessment & Plan: Continue aspirin and statin medication. If he develops any signs of hemorrhaging, then I would consider stopping aspirin since he takes warfarin for the mechanical mitral valve replacement. (7) Seizure disorder Assessment & Plan: This is being managed by the hospitalist. We need to be cautious with any cardiac medications that could alter the metabolism of his seizure medication. (8) Type 2 diabetes mellitus with complication Assessment & Plan: This is being managed by the hospitalist. (9) Obesity Assessment & Plan: He needs to work on weight loss. (10) Hx of BKA Assessment & Plan: He is now on our inpatient rehabilitation unit to help him start learning how to function with a below-knee amputation. BRYNN MIN JR, MD Mar 02, 2022 09:56
[2022-03-02] MEDS: oxyCODONE/APAP 5/325MG (PERCOCET 5) TABLET PO PRN ×2 (10:21→16:19)
--- NOTE | 2022-03-02 10:30 | Speech Therapy Daily Note ---
Speech Daily Progress Note Subjective Date Seen by Provider: Mar 02, 2022 Time Seen by Provider: 09:30 The patient was lying in bed, awake and alert, upon entrance to his room by the clinician. The patient greeted the clinician appropriately and was agreeable to participation in the cognitive linguistic treatment session. Objective The patient complete multiple word-finding exercises on this date. The patient completed association exercises with fair (reduced) accuracy, as he was asked to provide words associated with a provided word from the clinician. Increased verbal prompting was required by the clinician throughout the exercise. The patient completed the session with providing a word which began with a specific letter and fit into a specific category provided by the clinician. The patient displayed 87% accuracy with the task with moderate clinician verbal cueing. Assessment Assessment Current Status: Good Progress Treatment Plan Continue Plan of Care Speech Short Term Goals Short Term Goals Short Term Goals 1. The patient will demonstrate improved word-finding strategies through informal conversation with mild clinician cueing. Time Frame-STG: Seven Days. Speech Laboratory Geneticist Goals Detention Goals 1. The patient will demonstrate improved cognitive linguistic skills for safe discharge to the least restrictive environment. Time Frame: Ten Days. Speech-Plan Treatment Plan Speech Therapy Treatment Plan: Continue Plan of Care Treatment Duration: Mar 10, 2022 Frequency: Modified Program (IRF) (Four to five times per week.) Estimated Hrs Per Day: .5 hour per day Rehab Potential: Fair Safety Risks/Education Teaching Recipient: Patient Teaching Methods: Discussion Response to Teaching: Return Demonstration, Reinforcement Needed Education Topics Provided: Word Finding Strategies Time Speech Therapy Time In: 09:30 Speech Therapy Time Out: 10:00 Total Billed Time: 30 Billed Treatment Time [facility] Mar 02, 2022 10:30
[2022-03-02] MEDS ORDERED: LOSARTAN 25 MG (COZAAR) TAB PO NR (12:00)
--- NOTE | 2022-03-02 12:10 | Occupational Ther Daily Note ---
OT Current Status-Daily Note Subjective Pt laying in bed upon arrival. Pt declines a shower today, saying, "I don't want to shower, all I want to do is work on my legs. That's the most important thing for me. I will not shower until after I do physical therapy. Therapists explained time constraints, scheduling, his need for 2 therapists at a time, and importance of hygiene. He still declined the shower. Multiple times throughout session, pt expressed and showed frustration with cues from therapist. Mental Status/Objective Patient Orientation: Person, Confused, Place Pt at times shows difficulty expressing his wants/needs and comprehending therapists questions or directions. He will agree with questions or directions but will not be able to demonstrate understanding even with max verbal and tactile cues. ADL-Treatment Therapy Code Descriptions/Definitions Functional [place] Measure: 0=Not Assessed/NA 4=Minimal Assistance 1=Total Assistance 5=Supervision or Setup 2=Maximal Assistance 6=Modified [place] 3=Moderate Assistance 7=Complete IndependenceSCALE: Activities may be completed with or without assistive devices. 8-Owsezkwuwm-sxmpfrr completes the activity by him/herself with no assistance from a helper. 5-Set-up or Clean-up Assistance-helper sets up or cleans up; patient completes activity. [place] assists only prior to or following the activity. 4-Supervision or Touching Assistance-helper provides verbal cues and/or touching/steadying and/or contact guard assistance as patient completes activity. Assistance may be provided throughout the activity or intermittently. 3-Partial/Moderate Assistance-helper does LESS THAN HALF the effort. [place] lifts, holds or supports trunk or limbs, but provides less than half the effort. 2-Substantial/Maximal Assistance-helper does MORE THAN HALF the effort. [place] lifts or holds trunk or limbs and provides more than half the effort. 9-Ozgmtlzvj-jvxflh does ALL the effort. Patient does none of the effort to complete the activity. Or, the assistance of 2 or more helpers is required for the patient to complete the activity. If activity was not attempted, code reason: 7-Patient Refused. 9-Not Applicable-not attempted and the patient did not perform the activity before the current illness, exacerbation or injury. 10-Not Attempted due to Environmental Limitations-(lack of equipment, weather restraints, etc.). 88-Not Attempted due to Medical Conditions or Safety Concerns. Lower Body Dressing (QC): 2 On/Off Footwear: 1 (Declines to attempt) Supine<>sit with HOB flat: Min-mod assist. Pt donned shorts with min assist and mod verbal cues to thread residual limb. Max a to pull clothing up to waist with max cues to shift body weight from side to side. Pt declined to attempt donning sock, due to self-limiting behavior. He has declined the use of a sock aide in previous sessions, even after encouragement, demonstration and importance of using it. Modified squat pivot transfer (bed<>w/c): mod assist x2 for clearing wheel. Pt attempted to stand from w/c with assist of bed grab bars in front of him. Pt gets frustrated and showed self-limiting behavior/ lack of confidence and was unable to clear bottom from w/c due to resisting. Encouragement and importance of task was given to pt; unable to defer negative connotations. Pt propelled self in w/c with rest breaks to gym. Pt fatigues quickly and becomes SOB. Other Treatment Pt participated in leg press with max resistance 3x10 to improve proprioception and weakness in LE. Physical assistance for keeping foot on mat. Pt transferred to mat with mod assist x2, max cues given for proper placement/set up. Pt performed 3x10 modified sit ups (reaching ~30 degrees off mat by the last set) while sitting edge of mat. Physical assistance to keep legs down to enhance workout of core muscles. Pt practiced leaning side to side onto elbows and returning to seated position, bilaterally x10. This encouraged core strengthening, and proprioception of UE's to increase independence in self cares. Pt tolerated each activity/exercise well but did fatigue quickly and needed adequate rest breaks. Education OT Patient Education: Correct positioning, Disease process, Energy conservation, Exercise program, Home exercise program, Modified ADL techniques, Progress toward Goal/Update tx plan, Purpose of tx/functional activities, Reviewed precautions, Rehab process, Safety issues, Transfer techniques, W/C management Teaching Recipient: Patient Teaching Methods: Demonstration, Discussion Response to Teaching: Verbalize Understanding, Unable to Return Demonstration, Reinforcement Needed OT Short Term Goals Short Term Goals Time Frame: Mar 10, 2022 Eatin Oral hygiene: 2 Toileting hygiene: 2 Shower/bathe self: 2 Upper body dressin Lower body dressin Putting on/taking off footwear: 2 OT Senior Analyst Market Intelligence Goals Senior Analyst [employer] Intelligence Goals Time Frame: Mar 22, 2022 Acute change in mental status: 1 Inattention: 2 Disorganized thinkin Altered level of consciousness: 0 Eating (QC): 5 Oral Hygiene (QC): 4 Toileting Hygiene (QC): 4 Shower/Bathe Self (QC): 4 Upper Body Dressing (QC): 6 Lower Body Dressing (QC): 4 On/Off Footwear (QC): 4 Additional Goals: 1-Demonstrate ADL Tasks, 2-Verbalize Understanding, 3- ImproveStrength/[place] 1=Demonstrate adherence to instructed precautions during ADL tasks. 2=Patient will verbalize/demonstrate understanding of assistive devices/modifi cations for ADL. 3=Patient will improve strength/tolerance for activity to enable patient to perform ADL's. OT Education/Plan Problem List/Assessment Assessment: Decreased Activ Tolerance, Decreased Safety Aware, Decreased UE Strength, Dependent Transfers, Impaired Bed Mobility, Impaired Cognition, Impaired Coordination, Impaired Funct Balance, Impaired I ADL's, Impaired Self- Care Skills, Restricted Funct UE ROM Discharge Recommendations Plan/Recommendations: Continue POC Treatment Plan/Plan of Care Treatment,Training & Education: Yes Patient would benefit from OT for education, treatment and training to promote independence in ADL's, mobility, safety and/or upper extremity function for ADL's. Plan of Care: ADL Retraining, Caregiver Training, Cognitive Retraining, Functional Mobility, Group Exercise/Act as Ind, Orthotic Fitting/Training, UE Funct Exercise/Act, UE Neuromus Re-Ed/Coord, W/C Management Training Treatment Duration: Mar 22, 2022 Frequency: At least 5 of 7 days/Wk (IRF) Estimated Hrs Per Day: 1.5 hours per day (60-90 min/day) Agreement: Yes Rehab Potential: Fair Time/GCodes Start Time: 10:55 Stop Time: 12:10 Total Time Billed (hr/min): 75 Billed Treatment Time 1 visit ADL (15 min) FA x2 (30 min) EX x2 (30 min) Co-treat with PT: [phone] Taylor Norris OT Mar 02, 2022 12:10
--- NOTE | 2022-03-02 12:31 | Physical Therapy Daily Note ---
PT Daily Note-Current Subjective Pt at EOB working w/OT upon arrival. Pt agrees to PT/OT co-treat. Pain Location: No Pain Reported Section J - Health Conditions 1. Rarely or not at all 2. Occasionally 3. Frequently 4. Almost constantly 8. Unable to answer Pain Effect on Sleep: 2 Pain Interference with Therapy: 2 Pain Interference w/Day-to-Day: 2 Mental Status Patient Orientation: Person, Confused, Place Pt at times shows difficulty expressing his wants/needs and comprehending therapists questions or directions. He will agree with questions or directions but will not be able to demonstrate understanding even with max verbal and tactile cues. Transfers SCALE: Activities may be completed with or without assistive devices. 9-Jvdsdisqfp-vjagban completes the activity by him/herself with no assistance f rom a helper. 5-Set-up or Clean-up Assistance-helper sets up or cleans up; patient completes activity. [place] assists only prior to or following the activity. 4-Supervision or Touching Assistance-helper provides verbal cues and/or touching/steadying and/or contact guard assistance as patient completes activity. Assistance may be provided throughout the activity or intermittently. 3-Partial/Moderate Assistance-helper does LESS THAN HALF the effort. [place] lifts, holds or supports trunk or limbs, but provides less than half the effort. 2-Substantial/Maximal Assistance-helper does MORE THAN HALF the effort. [place] lifts or holds trunk or limbs and provides more than half the effort. 5-Uiwpcwdaa-kmljhm does ALL the effort. Patient does none of the effort to complete the activity. Or, the assistance of 2 or more helpers is required for the patient to complete the activity. If activity was not attempted, code reason: 7-Patient Refused. 9-Not Applicable-not attempted and the patient did not perform the activity before the current illness, exacerbation or injury. 10-Not Attempted due to Environmental Limitations-(lack of equipment, weather restraints, etc.). 88-Not Attempted due to Medical Conditions or Safety Concerns. Sit to Stand (QC): 2 Chair/Shw-cq-Rqytz Xfer(QC): 2 Weight Bearing Right Lower Extremity: Right Full Weight Bearing Wheelchair Training Does the Pt Use a Wheelchair?: Yes Wheel 50 ft with 2 turns (QC): 4 Type of Wheelchair: Manual Treatments Pt dons socks then transfers to W[facility] from EOB w/assistance. Pt propels WCH in hallway before taking RB when arriving at Therapy Gym. Pt participated in leg press with max resistance 3x10 to improve proprioception and weakness in LE. Physical assistance for keeping foot on mat. Pt transferred to mat with mod assist x2, max cues given for proper placement/set up. Pt performed 3x10 modified sit ups (reaching ~30 degrees off mat by the last set) while sitting edge of mat. Physical assistance to keep legs down to enhance workout of core muscles. Pt practiced leaning side to side onto elbows and returning to seated position, bilaterally x10. This encouraged core strengthening, and proprioception of UE's to increase independence in self cares. Pt tolerated each activity/exercise well but did fatigue quickly and needed adequate rest breaks. Assessment Multiple times throughout session, pt expressed and showed frustration with cues from therapist. Pt self limits when pt doesn't want to complete a task. Pt declined to attempt donning sock, due to self-limiting behavior. He has declined the use of a sock aide in previous sessions, even after encouragement, demonstration and importance of using it. Modified squat pivot transfer (bed<>w/c): mod assist x2 for clearing wheel. Pt attempted to stand from w/c with assist of bed grab bars in front of him. Pt gets frustrated and showed self-limiting behavior/ lack of confidence and was unable to clear bottom from w/c due to resisting. Encouragement and importance of task was given to pt; unable to defer negative connotations. Pt propelled self in w/c with rest breaks to gym. Pt fatigues quickly and becomes SOB. PT Short Term Goals Short Term Goals Time Frame: Mar 05, 2022 Roll Left & Right: 6 Sit to lyin Lying to sitting on side of be: 6 Sit to stand: 3 Chair/emv-vx-qbnbo transfer: 3 PT Consulting Technical Manager Goals Consulting Technical Manager Goals PT Consulting Technical Manager Goals Time Frame: Mar 19, 2022 Roll Left & Right (QC): 6 Sit to Lying (QC): 6 Lying-Sitting on Side/Bed(QC): 6 Sit to Stand (QC): 4 Chair/Txf-gq-Xkgjx Xfer(QC): 4 Toilet Transfer (QC): 3 Car Transfer (QC): 3 Does the Patient Walk: No and Walking Goal IS indicated Walk 10 feet (QC): 3 Walk 50ft with 2 Turns (QC): 88 Walk 150 ft (QC): 88 Walking 10ft on Uneven Surface: 88 1 Step (curb) (QC): 88 4 Steps (QC): 88 12 Steps (QC): 88 Picking up an Object (QC): 3 Wheel 50 feet with 2 turns (QC: 4 Wheel 150 feet: 3 PT Plan Problem List Problem List: Activity Tolerance, Functional Strength, Safety, Transfer Treatment/Plan Treatment Plan: Continue Plan of Care Treatment Plan: Bed Mobility, Education, Functional Activity Mariano, Functional Strength, Group Therapy, Gait, Safety, Therapeutic Exercise, Transfers Treatment Duration: Mar 19, 2022 Frequency: At least 5 of 7 days/Wk (IRF) Estimated Hrs Per Day: 1.5 hours per day Patient and/or Family Agrees t: Yes Safety Risks/Education Patient Education: Transfer Techniques, Correct Positioning, W/C Management, Safety Issues Teaching Recipient: Patient Teaching Methods: Discussion Response to Teaching: Verbalize Understanding, Reinforcement Needed Time/GCodes Time In: 1100 Time Out: 1215 Total Billed Treatment Time: 75 Total Billed Treatment Co-treat w/OT [id number] 1, [facility] x2 (30m), FA x3 (45m) PETTY BILLINGSLEY [employer] RECEPTIONIST Mar 02, 2022 12:31
[2022-03-02 16:11] VITALS: BP 135/84
--- NOTE | 2022-03-02 17:37 | Podiatry Progress Note ---
Standard Progress Note Progress Notes/Assess & Plan Date Seen by a Provider: Mar 02, 2022 Time Seen by a Provider: 17:36 Progress/Assessment & Plan Consultation dictated. Foot care given. Final Diagnosis Onychomycosis, Diabetic Neuropathy, PVD, MONICA Morgan DPM Mar 02, 2022 17:37
[2022-03-02] MEDS: warFARin 2 MG (COUMADIN) TAB PO SCH (18:04)
[2022-03-02] MEDS: warFARin 5 MG (COUMADIN) TAB PO SCH (18:05)
[2022-03-02 20:04] VITALS: BP 124/83
--- NOTE | 2022-03-02 20:57 | CONSULTATION REPORT ---
DATE OF SERVICE: 03/02/2022 REASON FOR CONSULTATION: Diabetic foot care. HISTORY OF PRESENT ILLNESS: This 56-year-old male was admitted for rehabilitation after a mpegq-mda-lnco amputation of the left lower extremity. He had some postoperative complications with the cerebrovascular accident. He has also had a wound on the right heel, which is being cared for on a daily basis. PAST MEDICAL HISTORY: The patient has a past medical history that includes insulin-dependent diabetes, peripheral neuropathy, stroke, hypercholesterolemia, hypertension, peripheral vascular disease, valvular heart disease. SOCIAL HISTORY: The patient is a former smoker, single and denies any alcohol or illicit drug use. ALLERGIES: The patient has no known drug allergies. PHYSICAL EXAMINATION: LOWER EXTREMITY: The patient has a 1/4 dorsalis pedis pulse on the right, 0/4 posterior tibial pulse on the right. Cap refill time is less than 3 seconds. Digital hair growth is minimal. Thin skin is noted. NEUROLOGIC: The patient has a diminished protective sensation with 10 gram monofilament wire examination of right foot. There is also diminished vibratory sensation to the right foot. DERMATOLOGIC: The patient has a hyperkeratotic lesion to the hyponychium of the right hallux. No open wounds, no gross signs of bacterial infection. There is a minor eschar to the area. There is thick yellow dystrophic toenails with subungual debris 1, 2, 5 digits. There is a dressing to the posterior right heel was not removed for evaluation with the assumption that is already under care. MUSCULOSKELETAL FINDINGS: The patient has contracted toes 2 through 5, which are semirigid. There is 5/5 muscle strength to the four major quadrants of the foot on the right. On the left, there is a ettcr-ijq-hecp amputation. ASSESSMENT: 1. Peripheral vascular disease. 2. Diabetic neuropathy. 3. Onychomycosis. 4. Hammer digit syndrome. PLAN: Various treatment options were discussed with the patient today. We discussed diabetic foot care in general. His toenails were debrided manually mechanically. Betadine applied. He understands that the thickness of the nails with increase pressure. There is going to be a more opportunity for complications. For the same reason, his hyperkeratotic lesion to the hyponychium of the right hallux was performed, today Betadine applied. Once he is able to be ambulatory, I highly recommend the patient be utilizing appropriate diabetic shoe and custom insole to help protect his foot. We will see the patient for followup in my clinic as necessary. Job ID: [id number] DocumentID: [id number] Dictated Date: 03/02/2022 17:48:50 Unit Leader Date: 03/02/2022 20:56:46 Dictated By: RUSLAN ABEBE
[2022-03-02] MEDS: ALPRAZolam 0.25 MG (XANAX) TAB PO PRN (21:34)
[2022-03-02] MEDS: oxyCODONE ER 10 MG (OxyCONTIN CR) TAB PO SCH (21:35)
[2022-03-03] MEDS: CYCLOBENZAPRINE 10 MG (FLEXERIL) TAB PO PRN (01:09)
[2022-03-03] MEDS: oxyCODONE/APAP 5/325MG (PERCOCET 5) TABLET PO PRN ×3 (01:12→11:23)
[2022-03-03] MEDS: inSUlin ASPART (NovoLOG) 1 UNIT/0.01 ML (CHARGE PER UNIT) SC SCH ×3 (05:38→16:00)
--- NOTE | 2022-03-03 05:43 | PM&R Progress Note ---
Subjective HPI/CC On Admission Date Seen by Provider: Mar 03, 2022 Time Seen by Provider: 08:00 Subjective/Events-last exam 03/03/2022: No major issues Sugars improved BP stable No increased pain 03/02/2022: No major issues Wants to go home soon Pain controlled No falls 03/01/2022: No major problems Did not sleep well last night No major issues Sugars reviewed Labs reviewed 02/28/2022: Patient doing well No major issues Pain is controlled Appreciate Dr. Pelaez with Dr. De Los Santos 02/27/2022: No major issues Pain controlled BS reviewed INR good Kidney function improved 02/26/2022: Settling in well Pain is improved BM+ Voiding well No falls Participating in therapy Grief with son, daughter and 's and then losing leg Dr De Los Santos expertise appreciated Dr Pelaez evaluated the patient today too Review of Systems General: Fatigue, Malaise Musculoskeletal: leg pain Objective Exam Vital Signs Vital Signs Date Time Temp Pulse Resp B/P (MAP) Pulse Ox O2 Delivery O2 Flow Rate FiO2 03/03/22 09:00 Room Air 03/03/22 08:00 36.0 69 18 129/83 (98) 95 Capillary Refill : General Appearance: No Apparent Distress, WD/WN, Chronically ill HEENT: PERRL/EOMI, Normal ENT Inspection, Pharynx Normal Neck: Full Range of Motion, Normal Inspection, Non Tender, Supple, Carotid Bruit Respiratory: Chest Non Tender, Lungs Clear, Normal Breath Sounds, No Accessory Muscle Use, No Respiratory Distress Cardiovascular: Regular Rate, Rhythm, No Edema, No Gallop, No JVD, No Murmur, Normal Peripheral Pulses, Other (click) Gastrointestinal: Normal Bowel Sounds, No Organomegaly, No Pulsatile Mass, Non Tender, Soft Back: Normal Inspection, No CVA Tenderness, No Vertebral Tenderness Extremity: Normal Capillary Refill, Normal Inspection, Normal Range of Motion, Non Tender, No Calf Tenderness, No Pedal Edema Neurologic/Psychiatric: Alert, Oriented x3, Normal Mood/Affect, airconditioning drafting officer II-XII Norm as Tested, Abnormal Gait, Motor Weakness (left BKA) Skin: Normal Color, Warm/Dry, Rash (right lower leg venous stasis dermatitis and darkened skin) Lymphatic: No Adenopathy Results/Procedures Lab Laboratory Tests 03/03/22 06:03 Patient resulted labs reviewed. FIM Transfers Therapy Code Descriptions/Definitions Functional [place] Measure: 0=Not Assessed/NA 4=Minimal Assistance 1=Total Assistance 5=Supervision or Setup 2=Maximal Assistance 6=Modified [place] 3=Moderate Assistance 7=Complete IndependenceSCALE: Activities may be completed with or without assistive devices. 7-Ayrjuudxme-ztrufyh completes the activity by him/herself with no assistance from a helper. 5-Set-up or Clean-up Assistance-helper sets up or cleans up; patient completes activity. [place] assists only prior to or following the activity. 4-Supervision or Touching Assistance-helper provides verbal cues and/or touching/steadying and/or contact guard assistance as patient completes activ ity. Assistance may be provided throughout the activity or intermittently. 3-Partial/Moderate Assistance-helper does LESS THAN HALF the effort. [place] lifts, holds or supports trunk or limbs, but provides less than half the effort. 2-Substantial/Maximal Assistance-helper does MORE THAN HALF the effort. [place] lifts or holds trunk or limbs and provides more than half the effort. 8-Wqyvtsqfs-xdljkl does ALL the effort. Patient does none of the effort to complete the activity. Or, the assistance of 2 or more helpers is required for the patient to complete the activity. If activity was not attempted, code reason: 7-Patient Refused. 9-Not Applicable-not attempted and the patient did not perform the activity before the current illness, exacerbation or injury. 10-Not Attempted due to Environmental Limitations-(lack of equipment, weather restraints, etc.). 88-Not Attempted due to Medical Conditions or Safety Concerns. Roll Left to Right (QC): 4 Sit to Lying (QC): 4 Sit to Stand (QC): 2 Chair/Qgn-xo-Irphk Xfer(QC): 2 Car Transfer (QC): 1 Gait Training Does the Patient Walk?: No and Walking Goal IS indicated Walk 10 feet (QC): 88 Walk 50 ft with 2 Turns(QC): 88 Walk 150 ft (QC): 88 Walking 10ft/uneven surface-QC: 88 Wheelchair Training Does the Pt Use a Wheelchair?: Yes Wheel 50 ft with 2 turns (QC): 4 Wheel 150 ft (QC): 4 Type of Wheelchair: Manual Stair Training 1 Step (curb) (QC): 88 4 Steps (QC): 88 12 Steps (QC): 88 Balance Picking up an Object (QC): 88 ADL-Treatment Eating (QC): 5 Oral Hygiene (QC): 4 Shower/Bathe Self (QC): 2 Upper Body Dressing (QC): 5 Lower Body Dressing (QC): 2 On/Off Footwear (QC): 1 (Declines to attempt) Toileting Hygiene (QC): 1 Assessment/Plan Assessment and Plan Assess & Plan/Chief Complaint Assessment: 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 CVA following hospital course h/o embolic CVA 2009 Mitral valve replacement Coumadin maintenance DM HTN PVD CHF Chronic kidney disease Plan: Monitor closely PT OT INR monitoring 02/26/2022: Pain control Monitor sugar 02/27/2022: Monitor kidney function Monitor INR 02/28/2022: Supportive care Pain control 03/01/2022: Monitor closely 03/02/2022: Supportive care 03/03/2022: Decrease accuchecks (1) History of mitral valve replacement with mechanical valve Assessment & Plan: We will continue warfarin and follow INR levels intermittently. He reports that he had been on a reasonably stable dose of warfarin prior to this prolonged hospitalization. His goal INR is 2.5-3.5 in light of the mechanical mitral valve prosthesis. I would recommend that we do not check the INR daily or we may end up chasing the warfarin dosing. He was therapeutic on 02/27 but was slightly low on 03/01 and 03/02. I will change him to warfarin 7 mg daily. I would wait a few days before making any other changes since there is usually a lag time of 3-5 days between adjusting the warfarin dosing and its effect on the INR. I encouraged him to find a judge clerk in [place] close to his home when he returns home. He has not been following with a judge clerk in the recent past. (2) Primary hypertension Assessment & Plan: He had been on amlodipine prior to his most recent admission at [facility] and then this was stopped at the outside facility. His blood pressures have been trending upwards over the past 24-48 hours. I will start him on a low-dose of losartan. This may be a better agent than amlodipine in light of his chronic kidney disease. (3) Mixed hyperlipidemia Assessment & Plan: Continue statin medication. (4) Stage 2 chronic kidney disease Status: Chronic Assessment & Plan: It appears as though he probably has stage II chronic kidney disease which is mild. (5) Acute kidney injury superimposed on chronic kidney disease Status: Resolved Assessment & Plan: His renal function has improved. He may have been slightly dehydrated when his initial labs were drawn at the time of admission. Resolution Date/Time: 02/28/22 @ 10:26 (6) History of cerebrovascular accident with residual deficit Assessment & Plan: Continue aspirin and statin medication. If he develops any signs of hemorrhaging, then I would consider stopping aspirin since he takes w arfarin for the mechanical mitral valve replacement. (7) Seizure disorder Assessment & Plan: This is being managed by the hospitalist. We need to be cautious with any cardiac medications that could alter the metabolism of his seizure medication. (8) Type 2 diabetes mellitus with complication Assessment & Plan: This is being managed by the hospitalist. (9) Obesity Assessment & Plan: He needs to work on weight loss. (10) Hx of BKA Assessment & Plan: He is now on our inpatient rehabilitation unit to help him start learning how to function with a below-knee amputation. DERRICK LONGORIA DO Mar 03, 2022 05:43
[2022-03-03] MEDS: PANTOPRAZOLE 40 MG (PROTONIX) TAB PO SCH (06:11)
[2022-03-03 08:00] VITALS: BP 129/83
[2022-03-03] MEDS: ASPIRIN E.C. 81 MG (ECOTRIN) TAB PO SCH (08:04)
[2022-03-03] MEDS: DOCUSATE SODIUM 100 MG (COLACE) CAP PO SCH ×2 (08:04→20:46)
[2022-03-03] MEDS: LOSARTAN 25 MG (COZAAR) TAB PO SCH (08:05)
[2022-03-03] MEDS: fluCOnazole (DIFLUCAN) 100 MG TAB PO SCH (08:05)
[2022-03-03] MEDS: SENNA W/DOCUSATE (SENOKOT S) TABLET PO SCH ×2 (08:05→20:46)
[2022-03-03] MEDS: PREGABALIN 75 MG (LYRICA) CAP PO SCH ×2 (08:05→20:45)
[2022-03-03] MEDS: lamoTRIgine 25 MG (LaMICtal) TAB PO SCH ×2 (08:05→20:46)
[2022-03-03 08:48] LABS: INR 1.9 (0.8-1.4); PROTHROMBIN TIME PATIENT 22.2 SEC (12.2-14.7)
[2022-03-03 08:55] LABS: CREATININE SERUM 1.01 MG/DL (0.60-1.30)
--- NOTE | 2022-03-03 09:12 | Cardiology Progress Note ---
Progress Note-Cardiology Events since last exam Date Seen by Provider: Mar 03, 2022 Time Seen by Provider: 09:09 Events since last exam I am following him due to history of mitral valve replacement and hypertension. He has been working with physical therapy without issues. He denies chest pain, dyspnea at rest, palpitations, syncope, or right lower extremity edema. Certain portions of this document may have been dictated utilizing voice recognition technology. Inherent to this technology, typographical and grammatical errors may exist. As much as I am diligent to identify and correct these mistakes, some errors may remain in the document. Vitals Last set of Vitals Signs Vital Signs 03/03/22 08:00 Temp 36.0 Pulse 69 Resp 18 B/P (MAP) 129/83 (98) Pulse Ox 95 O2 Delivery Room Air Labs Labs Laboratory Tests 03/03/22 06:03 Exam Vital Signs Vital Signs Date Time Temp Pulse Resp B/P (MAP) Pulse Ox O2 Delivery O2 Flow Rate FiO2 03/03/22 08:00 36.0 69 18 129/83 (98) 95 Room Air Physical Exam General: Alert. No acute distress. He is obese. He appears older than his stated age. Eye: No xanthelasma. HENT: Normocephalic. Neck: Jugular venous pressure does not appear elevated. Respiratory: Lungs are clear to auscultation. Respirations are non-labored. Breath sounds are equal. Symmetrical chest wall expansion. Cardiovascular: Normal rate. Regular rhythm. Mechanical S1. 2/6 systolic ejection murmur. No gallop. No edema of right lower extremity. Gastrointestinal: Soft. Normal bowel sounds. Skin: Warm. Dry. Left below-knee amputation is bandaged. Neurologic: Alert and oriented to person, place, time. Cranial nerves 3-11 grossly intact. Psychiatric: Cooperative. Appropriate mood & affect. Labs Laboratory Tests Test 03/02/22 10:43 03/02/22 15:12 03/02/22 20:06 03/03/22 05:27 Range/Units Glucometer 136 H 165 H 154 H 116 H 70-110 MG/DL Test 03/03/22 06:03 Range/Units Prothrombin Time 22.2 H 12.2-14.7 SEC INR Comment 1.9 H 0.8-1.4 Sodium Level 139 135-145 MMOL/L Potassium Level 4.0 3.6-5.0 MMOL/L Chloride Level 106 98-107 MMOL/L Carbon Dioxide Level 25 21-32 MMOL/L Anion Gap 8 5-14 MMOL/L Blood Urea Nitrogen 20 H 7-18 MG/DL Creatinine 1.01 0.60-1.30 MG/DL Estimat Glomerular Filtration Rate 87 BUN/Creatinine Ratio 20 Glucose Level 100 70-105 MG/DL Calcium Level 9.0 8.5-10.1 MG/DL Diagnosis/Problems Diagnosis/Problems (1) History of mitral valve replacement with mechanical valve Assessment & Plan: We will continue warfarin and follow INR levels intermittently. He is now on warfarin 7 mg daily. At home he was taking 6.125 mg daily. I have ordered a repeat INR level on 03/05. His INR level on 03/02 and 03/03 was 1.9. I will plan to see him as needed. He did find a c ardiologist closer to home and has made an appointment. (2) Primary hypertension Assessment & Plan: He had been on amlodipine prior to his most recent admission at [facility] and then this was stopped at the outside facility. His blood pressures had been trending upward so I started a low-dose of losartan. This is will also have renal protective effects in light of his diabetes (3) Mixed hyperlipidemia Assessment & Plan: Continue statin medication. (4) Stage 2 chronic kidney disease Status: Chronic Assessment & Plan: It appears as though he probably has stage II chronic kidney disease which is mild. (5) Acute kidney injury superimposed on chronic kidney disease Status: Resolved Assessment & Plan: His renal function has improved. He may have been slightly dehydrated when his initial labs were drawn at the time of admission. Resolution Date/Time: 02/28/22 @ 10:26 (6) History of cerebrovascular accident with residual deficit Assessment & Plan: Continue aspirin and statin medication. If he develops any signs of hemorrhaging, then I would consider stopping aspirin since he takes warfarin for the mechanical mitral valve replacement. (7) Seizure disorder Assessment & Plan: This is being managed by the hospitalist. We need to be cautious with any cardiac medications that could alter the metabolism of his seizure medication. (8) Type 2 diabetes mellitus with complication Assessment & Plan: This is being managed by the hospitalist. (9) Obesity Assessment & Plan: He needs to work on weight loss. (10) Hx of BKA Assessment & Plan: He is now on our inpatient rehabilitation unit to help him start learning how to function with a below-knee amputation. BRYNN MIN JR, MD Mar 03, 2022 09:12
[2022-03-03] MEDS: polyethylene glycoL POWDER 17 GM (MIRALAX) PACK PO SCH ×2 (09:19→20:46)
--- NOTE | 2022-03-03 10:19 | Speech Therapy Daily Note ---
Speech Daily Progress Note Subjective Date Seen by Provider: Mar 03, 2022 Time Seen by Provider: 09:15 The patient was lying in bed, awake and alert, upon entrance to his room by the clinician. The patient greeted the clinician appropriately and was agreeable to participation in the cognitive linguistic treatment session. Objective The patient and clinician completed structured discussions regarding the patient's home and mobility options and modifications that may be available. The patient stated he will need to be able to transfer into his room because he will not be able to utilize the bedside commode in the living room due to others being present. While transfers to the patient's room will remain a goal, the therapy team is working to assess for the appropriate wheelchair, as many options do not fit through the door openings. The patient and clinician additionally discussed the importance of completing ADL's to display independence and progression through therapy tasks. The patient stated, "Oh yeah, I can do all of those." The clinician again reiterated the importance of displaying his ability to the skilled clinicians (occupational therapy) so full assessments can be completed and possible brainstorming can take place to ease the activity or provide increased efficiency. The patient displayed word-finding difficulties throughout structured conversation on this date, however, does attempt to implement word finding st rategies of description. Assessment Assessment Current Status: Fair Progress Treatment Plan Continue Plan of Care Speech Short Term Goals Short Term Goals Short Term Goals 1. The patient will demonstrate improved word-finding strategies through informal conversation with mild clinician cueing. Time Frame-STG: Seven Days. Speech Care Home Goals Care Home Goals 1. The patient will demonstrate improved cognitive linguistic skills for safe discharge to the least restrictive environment. Time Frame: Ten Days. Speech-Plan Treatment Plan Speech Therapy Treatment Plan: Continue Plan of Care Treatment Duration: Mar 10, 2022 Frequency: Modified Program (IRF) (Four to five times per week.) Estimated Hrs Per Day: .5 hour per day Rehab Potential: Fair Safety Risks/Education Teaching Recipient: Patient Teaching Methods: Discussion Response to Teaching: Return Demonstration, Reinforcement Needed Education Topics Provided: Word Finding Strategies Time Speech Therapy Time In: 09:15 Speech Therapy Time Out: 09:45 Total Billed Time: 30 Billed Treatment Time [address] Mar 03, 2022 10:19
[2022-03-03] MEDS: MICONAZOLE NITRATE 2% CRM 30 GM TP SCH ×2 (11:23→20:47)
[2022-03-03] MEDS: MICONAZOLE 2% POWDER (DESENEX AF) 90 GM TOP SCH ×2 (11:23→20:47)
--- NOTE | 2022-03-03 11:32 | Physical Therapy Daily Note ---
PT Daily Note-Current Subjective Pt laying Supine in bed upon arrival. Pt agrees to PT then OT to join tx a little later. Pain Location: Upper Location Body Site: Back Pain Description: Throbbing Comment: Pt reports upper back as well as butt cheek pain w/sitting in shower chair Section J - Health Conditions 1. Rarely or not at all 2. Occasionally 3. Frequently 4. Almost constantly 8. Unable to answer Pain Effect on Sleep: 2 Pain Interference with Therapy: 2 Pain Interference w/Day-to-Day: 2 Mental Status Patient Orientation: Person, Confused Transfers SCALE: Activities may be completed with or without assistive devices. 6-Liuuxjhfkb-zkctgyu completes the activity by him/herself with no assistance from a helper. 5-Set-up or Clean-up Assistance-helper sets up or cleans up; patient completes activity. [place] assists only prior to or following the activity. 4-Supervision or Touching Assistance-helper provides verbal cues and/or touching/steadying and/or contact guard assistance as patient completes activity. Assistance may be provided throughout the activity or intermittently. 3-Partial/Moderate Assistance-helper does LESS THAN HALF the effort. [place] lifts, holds or supports trunk or limbs, but provides less than half the effort. 2-Substantial/Maximal Assistance-helper does MORE THAN HALF the effort. [place] lifts or holds trunk or limbs and provides more than half the effort. 9-Mjvbwapuy-byzkzu does ALL the effort. Patient does none of the effort to complete the activity. Or, the assistance of 2 or more helpers is required for the patient to complete the activity. If activity was not attempted, code reason: 7-Patient Refused. 9-Not Applicable-not attempted and the patient did not perform the activity before the current illness, exacerbation or injury. 10-Not Attempted due to Environmental Limitations-(lack of equipment, weather restraints, etc.). 88-Not Attempted due to Medical Conditions or Safety Concerns. Sit to Lying (QC): 1 Lying to Sitting/Side of Bed(Q: 2 Sit to Stand (QC): 1 Chair/Mvy-qg-Yqwfd Xfer(QC): 1 Weight Bearing Right Lower Extremity: Right Full Weight Bearing Exercises Supine Ex: Ankle pumps, Quad Set, Glut sets, Heel Slides, Straight leg raise, Hip abd/add Supine Reps: 15 Treatments Pt is visited by Dr Garza to start tx. Pt completes Supine EX in bed with a few short RB. Pt asks to use urinal after Supine EX. OT arrives to start tx. Pt TF from supine to EOB then EOB to shower chair w/therapists assistance. Pt performs shower sitting in shower chair (see OT note). Pt assists with drying off and donning shirt. Pt is propelled back to room. Pt continues to voice pain & frustration about being in shower chair. TF back to EOB w/therapists assistance. Pt doesn't attempt to assist. PT departs at this time, OT continues to work w/pt. Assessment Current Status: Poor Progress Pt needs encouragement to try TF both from supine in bed to EOB & EOB to SPT at shower chair. Pt reports fatigue and pain after shower and doesn't attempt to assist TF back to EOB. Pt is verbally and physically demonstrating frustration. Redness from shower chair observed on upper back after pt has flailed backward during shower. Redness is diminishing some by end of tx. Nurse is notified. PT Short Term Goals Short Term Goals Time Frame: Mar 05, 2022 Roll Left & Right: 6 Sit to lyin Lying to sitting on side of be: 6 Sit to stand: 3 Chair/sfz-xj-mtszy transfer: 3 PT Senior Living Goals Computer Forwarding System Markup Clerk Goals PT Computer Forwarding System Markup Clerk Goals Time Frame: Mar 19, 2022 Roll Left & Right (QC): 6 Sit to Lying (QC): 6 Lying-Sitting on Side/Bed(QC): 6 Sit to Stand (QC): 4 Chair/Kwi-eu-Zlafp Xfer(QC): 4 Toilet Transfer (QC): 3 Car Transfer (QC): 3 Does the Patient Walk: No and Walking Goal IS indicated Walk 10 feet (QC): 3 Walk 50ft with 2 Turns (QC): 88 Walk 150 ft (QC): 88 Walking 10ft on Uneven Surface: 88 1 Step (curb) (QC): 88 4 Steps (QC): 88 12 Steps (QC): 88 Picking up an Object (QC): 3 Wheel 50 feet with 2 turns (QC: 4 Wheel 150 feet: 3 PT Plan Problem List Problem List: Activity Tolerance, Functional Strength, Safety, Balance, Transfer Treatment/Plan Treatment Plan: Continue Plan of Care Treatment Plan: Bed Mobility, Education, Functional Activity Mariano, Functional Strength, Group Therapy, Gait, Safety, Therapeutic Exercise, Transfers Treatment Duration: Mar 19, 2022 Frequency: At least 5 of 7 days/Wk (IRF) Estimated Hrs Per Day: 1.5 hours per day Patient and/or Family Agrees t: Yes Safety Risks/Education Patient Education: Transfer Techniques, Correct Positioning, Safety Issues Teaching Recipient: Patient Teaching Methods: Discussion Response to Teaching: Reinforcement Needed Time/GCodes Time In: 1000 Time Out: 1115 Total Billed Treatment Time: 75 Total Billed Treatment Co-treat [id number] (60m) 1, EX x2 (30m) & FA x3 (45m) PETTY BILLINGSLEY KILN STACKER Mar 03, 2022 11:32
--- NOTE | 2022-03-03 11:34 | Occupational Ther Daily Note ---
OT Current Status-Daily Note Subjective Pt working with PT upon arrival. He agrees to shower "as long as I get to walk after". Discussion on being able to stand and maintain balance first before initiating hoping. Self-awareness not intact. He continuously stated that he is only here to walk and to get his legs strong. Pt educated on importance of h ygiene management and the purpose/benefit of ADLs. Pt increasingly agitated and cursing post shower due to being in pain from chair and self-inflicted. Co-treat with PT secondary to fall risk, cognition, lack of self-awareness, participation, balance, coordination, and dependence. Appearance Pt was left lying in bed with all needs within reach. Mental Status/Objective Patient Orientation: Person, Confused ADL-Treatment Therapy Code Descriptions/Definitions Functional [place] Measure: 0=Not Assessed/NA 4=Minimal Assistance 1=Total Assistance 5=Supervision or Setup 2=Maximal Assistance 6=Modified [place] 3=Moderate Assistance 7=Complete IndependenceSCALE: Activities may be completed with or without assistive devices. 5-Ylfnzroobu-eklemct completes the activity by him/herself with no assistance from a helper. 5-Set-up or Clean-up Assistance-helper sets up or cleans up; patient completes activity. [place] assists only prior to or following the activity. 4-Supervision or Touching Assistance-helper provides verbal cues and/or touching/steadying and/or contact guard assistance as patient completes activity. Assistance may be provided throughout the activity or intermittently. 3-Partial/Moderate Assistance-helper does LESS THAN HALF the effort. [place] lifts, holds or supports trunk or limbs, but provides less than half the effort. 2-Substantial/Maximal Assistance-helper does MORE THAN HALF the effort. [place] lifts or holds trunk or limbs and provides more than half the effort. 4-Badpedscz-ronkvi does ALL the effort. Patient does none of the effort to complete the activity. Or, the assistance of 2 or more helpers is required for the patient to complete the activity. If activity was not attempted, code reason: 7-Patient Refused. 9-Not Applicable-not attempted and the patient did not perform the activity before the current illness, exacerbation or injury. 10-Not Attempted due to Environmental Limitations-(lack of equipment, weather restraints, etc.). 88-Not Attempted due to Medical Conditions or Safety Concerns. Shower/Bathe Self (QC): 2 Upper Body Dressing (QC): 3 Lower Body Dressing (QC): 2 Toileting Hygiene (QC): 1 Pt needed min assist for supine> sit at EOB. After demonstration, education and discussion, pt still unable/resistant to help with the transfer. Dependent with assist of 3+ for transferring in<>out of shower chair. Zero effort given by pt. Pt required max assist and max verbal cues for sequencing, initiation, and thoroughness for showering. Pt doesn't attempt tasks and often makes invalid excuses during showering. For example, pt refused to wash his hair due to his leg being amputated. Dependent for washing folds and krysta-area secondary to thoroughness. Post shower, pt only dried arms and chest; does not attempt any other body part. Pt began to complain that the chair was hurting him. He began to thrust himself backwards self-inflicting pain and redness across upper back. RN notified, skin coloring improved towards end of session. Pt yelling and cussing to get out of the chair, wanting therapists to golden transfer. Therapists educated pt on importance of completing a safe transfer; poor carryover with cues or education. Again dependent 3-4 for transfer back to bed. Pt showed little to no effort with transfer. Immediately after transfer and being back in bed, pt calmed and denied any pain. Once in bed, pt again stated that he does not want to shower/ perform any hygiene tasks and only wants to walk. Again, pt educated on importance of skin integrity and overall hygiene health. At this time, OT will only complete sponge bath with patient due to being purposefully unsafe with bathing tasks. Pt sat EOB to thread pants needing min assist. Sit>supine: SBA. Pt rolled side to side and was dependent for clothing management. Education OT Patient Education: Correct positioning, Disease process, Energy conservation, Modified ADL techniques, Purpose of tx/functional activities, Reviewed precautions, Rehab process, Safety issues, Transfer techniques, W/C management Teaching Recipient: Patient Teaching Methods: Discussion Response to Teaching: Unable to Return Demonstration, Reinforcement Needed OT Short Term Goals Short Term Goals Time Frame: Mar 10, 2022 Eatin Oral hygiene: 2 Toileting hygiene: 2 Shower/bathe self: 2 Upper body dressin Lower body dressin Putting on/taking off footwear: 2 OT Clay Modeler Goals Skilled Nursing Goals Time Frame: Mar 22, 2022 Acute change in mental status: 1 Inattention: 2 Disorganized thinkin Altered level of consciousness: 0 Eating (QC): 5 Oral Hygiene (QC): 4 Toileting Hygiene (QC): 4 Shower/Bathe Self (QC): 4 Upper Body Dressing (QC): 6 Lower Body Dressing (QC): 4 On/Off Footwear (QC): 4 Additional Goals: 1-Demonstrate ADL Tasks, 2-Verbalize Understanding, 3- ImproveStrength/Marian[place] 1=Demonstrate adherence to instructed precautions during ADL tasks. 2=Patient will verbalize/demonstrate understanding of assistive devices/modifications for ADL. 3=Patient will improve strength/tolerance for activity to enable patient to perform ADL's. OT Education/Plan Problem List/Assessment Assessment: Decreased Activ Tolerance, Decreased Safety Aware, Decreased UE Strength, Dependent Transfers, Impaired Bed Mobility, Impaired Cognition, Impaired Coordination, Impaired Funct Balance, Impaired I ADL's, Impaired Self- Care Skills Discharge Recommendations Plan/Recommendations: Continue POC Therapy Discharge Recommendati: Assisted Living (Pt is not demonstrating appropriateness to go home, and needs adequate to full help with ADLs/functional transfers. ) Treatment Plan/Plan of Care Treatment,Training & Education: Yes Patient would benefit from OT for education, treatment and training to promote independence in ADL's, mobility, safety and/or upper extremity function for ADL's. Plan of Care: ADL Retraining, Caregiver Training, Cognitive Retraining, Functional Mobility, Group Exercise/Act as Ind, Orthotic Fitting/Training, UE Funct Exercise/Act, UE Neuromus Re-Ed/Coord, W/C Management Training Treatment Duration: Mar 22, 2022 Frequency: At least 5 of 7 days/Wk (IRF) Estimated Hrs Per Day: 1.5 hours per day (60-90 min/day) Agreement: Yes Rehab Potential: Fair Time/GCodes Start Time: 10:15 Stop Time: 11:30 Total Time Billed (hr/min): 75 Billed Treatment Time 1 visit ADL x5 Co-treat with PT ([id number]) Taylor Norris OT Mar 03, 2022 11:34
[2022-03-03] MEDS: warFARin 5 MG (COUMADIN) TAB PO SCH (18:24)
[2022-03-03] MEDS: warFARin 2 MG (COUMADIN) TAB PO SCH (18:24)
[2022-03-03] MEDS ORDERED: inSUlin ASPART (NovoLOG) 1 UNIT/0.01 ML (CHARGE PER UNIT) SC PRN (20:00)
[2022-03-03 20:36] VITALS: BP 125/74
[2022-03-03] MEDS: MIRTAZAPINE 15 MG (REMERON) TAB PO SCH (20:45)
[2022-03-03] MEDS: oxyCODONE ER 10 MG (OxyCONTIN CR) TAB PO SCH (20:45)
--- NOTE | 2022-03-04 05:24 | PM&R Progress Note ---
Subjective HPI/CC On Admission Date Seen by Provider: Mar 04, 2022 Time Seen by Provider: 12:00 Subjective/Events-last exam 03/04/2022: Doing well today Sugars reviewed No falls Monitoring closely 03/03/2022: No major issues Sugars improved BP stable No increased pain 03/02/2022: No major issues Wants to go home soon Pain controlled No falls 03/01/2022: No major problems Did not sleep well last night No major issues Sugars reviewed Labs reviewed 02/28/2022: Patient doing well No major issues Pain is controlled Appreciate Dr. Pelaez with Dr. De Los Santos 02/27/2022: No major issues Pain controlled BS reviewed INR good Kidney function improved 02/26/2022: Settling in well Pain is improved BM+ Voiding well No falls Participating in therapy Grief with son, daughter and 's and then losing leg Dr De Los Santos expertise appreciated Dr Pelaez evaluated the patient today too Review of Systems General: Fatigue, Malaise Objective Exam Vital Signs Vital Signs Date Time Temp Pulse Resp B/P (MAP) Pulse Ox O2 Delivery O2 Flow Rate FiO2 03/04/22 20:05 Room Air 03/04/22 19:37 36.5 85 20 110/68 (82) 97 Capillary Refill : General Appearance: No Apparent Distress, WD/WN, Chronically ill HEENT: PERRL/EOMI, Normal ENT Inspection, Pharynx Normal Neck: Full Range of Motion, Normal Inspection, Non Tender, Supple, Carotid Bruit Respiratory: Chest Non Tender, Lungs Clear, Normal Breath Sounds, No Accessory Muscle Use, No Respiratory Distress Cardiovascular: Regular Rate, Rhythm, No Edema, No Gallop, No JVD, No Murmur, Normal Peripheral Pulses, Other (click) Gastrointestinal: Normal Bowel Sounds, No Organomegaly, No Pulsatile Mass, Non Tender, Soft Back: Normal Inspection, No CVA Tenderness, No Vertebral Tenderness Extremity: Normal Capillary Refill, Normal Inspection, Normal Range of Motion, Non Tender, No Calf Tenderness, No Pedal Edema Neurologic/Psychiatric: Alert, Oriented x3, Normal Mood/Affect, leach tank tender II-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 FIM Transfers Therapy Code Descriptions/Definitions Functional [place] Measure: 0=Not Assessed/NA 4=Minimal Assistance 1=Total Assistance 5=Supervision or Setup 2=Maximal Assistance 6=Modified [place] 3=Moderate Assistance 7=Complete IndependenceSCALE: Activities may be completed with or without assistive devices. 6-Ksqnbqaube-ttxkrez completes the activity by him/herself with no assistance from a helper. 5-Set-up or Clean-up Assistance-helper sets up or cleans up; patient completes activity. [place] assists only prior to or following the activity. 4-Supervision or Touching Assistance-helper provides verbal cues and/or touching/steadying and/or contact guard assistance as patient completes activity. Assistance may be provided throughout the activity or intermittently. 3-Partial/Moderate Assistance-helper does LESS THAN HALF the effort. [place] lifts, holds or supports trunk or limbs, but provides less than half the effort. 2-Substantial/Maximal Assistance-helper does MORE THAN HALF the effort. [place] lifts or holds trunk or limbs and provides more than half the effort. 2-Vjyqkadax-lgtlji does ALL the effort. Patient does none of the effort to complete the activity. Or, the assistance of 2 or more helpers is required for the patient to complete the activity. If activity was not attempted, code reason: 7-Patient Refused. 9-Not Applicable-not attempted and the patient did not perform the activity before the current illness, exacerbation or injury. 10-Not Attempted due to Environmental Limitations-(lack of equipment, weather restraints, etc.). 88-Not Attempted due to Medical Conditions or Safety Concerns. Roll Left to Right (QC): 4 Sit to Lying (QC): 1 Sit to Stand (QC): 1 Chair/Mub-nx-Boijc Xfer(QC): 1 Car Transfer (QC): 1 Gait Training Does the Patient Walk?: No and Walking Goal IS indicated Walk 10 feet (QC): 88 Walk 50 ft with 2 Turns(QC): 88 Walk 150 ft (QC): 88 Walking 10ft/uneven surface-QC: 88 Wheelchair Training Does the Pt Use a Wheelchair?: Yes Wheel 50 ft with 2 turns (QC): 4 Wheel 150 ft (QC): 4 Type of Wheelchair: Manual Stair Training 1 Step (curb) (QC): 88 4 Steps (QC): 88 12 Steps (QC): 88 Balance Picking up an Object (QC): 88 ADL-Treatment Eating (QC): 5 Oral Hygiene (QC): 4 Shower/Bathe Self (QC): 2 Upper Body Dressing (QC): 3 Lower Body Dressing (QC): 2 On/Off Footwear (QC): 1 (Declines to attempt) Toileting Hygiene (QC): 1 Assessment/Plan Assessment and Plan Assess & Plan/Chief Complaint Assessment: 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 He is now on warfarin 7 mg daily. At home he was taking 6.125 mg daily. I have ordered a repeat INR level on 03/05. His INR level on 03/02 and 03/03 was 1.9. I will plan to see him as needed. He did find a sand technician closer to home and has made an appointment. (2) Primary hypertension Assessment & Plan: He had been on amlodipine prior to his most recent admission at [facility] and then this was stopped at the outside facility. His blood pressures had been trending upward so I started a low-dose of losartan. This is will also have renal protective effects in light of his diabetes (3) Mixed hyperlipidemia Assessment & Plan: Continue statin medication. (4) Stage 2 chronic kidney disease Status: Chronic Assessment & Plan: It appears as though he probably has stage II chronic kidney disease which is mild. (5) Acute kidney injury superimposed on chronic kidney disease Status: Resolved Assessment & Plan: His renal function has improved. He may have been slightly dehydrated when his initial labs were drawn at the time of admission. Resolution Date/Time: 02/28/22 @ 10:26 (6) History of cerebrovascular accident with residual deficit Assessment & Plan: Continue aspirin and statin medication. If he develops any signs of hemorrhaging, then I would consider stopping aspirin since he takes warfarin for the mechanical mitral valve replacement. (7) Seizure disorder Assessment & Plan: This is being managed by the hospitalist. We need to be cautious with any cardiac medications that could alter the metabolism of his seizure medication. (8) Type 2 diabetes mellitus with complication Assessment & Plan: This is being managed by the hospitalist. (9) Obesity Assessment & Plan: He needs to work on weight loss. (10) Hx of BKA Assessment & Plan: He is now on our inpatient rehabilitation unit to help him start learning how to function with a below-knee amputation. DERRICK LONGORIA DO Mar 04, 2022 05:24
[2022-03-04] MEDS: PANTOPRAZOLE 40 MG (PROTONIX) TAB PO SCH (06:38)
[2022-03-04 07:22] VITALS: BP 104/66
--- NOTE | 2022-03-04 08:57 | Occupational Ther Daily Note ---
OT Current Status-Daily Note Subjective Pt with significant word finding difficulties this date, requires extra time to verbalize thoughts. Co-treat with PT secondary to impaired balance, mobility, cognition, safety, high fall risk, and need of 2 skilled clinicians to progress indep and safety with adls and functional mobility. Appearance Pt left sitting upright in w/c, all needs within reach. Mental Status/Objective Patient Orientation: Person, Place, Situation ADL-Treatment Therapy Code Descriptions/Definitions Functional [place] Measure: 0=Not Assessed/NA 4=Minimal Assistance 1=Total Assistance 5=Supervision or Setup 2=Maximal Assistance 6=Modified [place] 3=Moderate Assistance 7=Complete IndependenceSCALE: Activities may be completed with or without assistive devices. 4-Kmoxdowbja-uvzhngc completes the activity by him/herself with no assistance from a helper. 5-Set-up or Clean-up Assistance-helper sets up or cleans up; patient completes activity. [place] assists only prior to or following the activity. 4-Supervision or Touching Assistance-helper provides verbal cues and/or touching/steadying and/or contact guard assistance as patient completes activity. Assistance may be provided throughout the activity or intermittently. 3-Partial/Moderate Assistance-helper does LESS THAN HALF the effort. [place] lifts, holds or supports trunk or limbs, but provides less than half the effort. 2-Substantial/Maximal Assistance-helper does MORE THAN HALF the effort. [place] lifts or holds trunk or limbs and provides more than half the effort. 9-Uyclaijod-htqwxb does ALL the effort. Patient does none of the effort to complete the activity. Or, the assistance of 2 or more helpers is required for the patient to complete the activity. If activity was not attempted, code reason: 7-Patient Refused. 9-Not Applicable-not attempted and the patient did not perform the activity before the current illness, exacerbation or injury. 10-Not Attempted due to Environmental Limitations-(lack of equipment, weather restraints, etc.). 88-Not Attempted due to Medical Conditions or Safety Concerns. Upper Body Dressing (QC): 3 Lower Body Dressing (QC): 3 On/Off Footwear: 1 Clothing donned at bed level. 3 cues needed for sequencing as pt often attempting to don clean shirt over the shirt he was already wearing. Extra time and min a to pull shirt down around torso. OT educated and instructed pt on bed level dressing for LB. Post several verbal and tactile cues, pt was able to grasp RLE and position into figure 4 method in order to thread pants over foot. Extra time to thread residual limb secondary to poor proprioception. Mod a to pull clothing up to waist with verbal and tactile cues on where to place hand. Pt was able to slightly bridge hips however required assist from therapist to keep foot in place. Extra assist needed on Left side due to impaired functional use of L hand. Mod a to sit EOB; continuing to need max cues for sequencing and body placement. Pt exhibits very poor motor planning/processing and propriocepti on throughout all transfers, thus needing max verbal and tactile cues for follow through. Other Treatment Poor coordination with all w/c mobility, cues for improved performance. Pt often makes several excuses on why he cannot perform certain tasks. He requires cues for problem solving and initiating most activities. When standing at parallel bars, pt required assist x2 to stand, only being able to tolerate ~30 seconds of standing before needing to sit. He transferred from w/c<>therapy mat with min- mod a x2 but requires max cues for correct positioning of hands/feet/hips. With therapy mat elevated significantly, pt completed 2x5 sit<>stands with min a x2. He fatigues quickly and requires lengthy rest breaks. Pt does not see w/c mobility, adls, or other tasks as therapy and believes he should only be working on standing and "walking." Education OT Patient Education: Correct positioning, Energy conservation, Modified ADL techniques, Progress toward Goal/Update tx plan, Purpose of tx/functional activities, Reviewed precautions, Rehab process, Safety issues, Transfer techniques, W/C management Teaching Recipient: Patient Teaching Methods: Demonstration, Discussion Response to Teaching: Verbalize Understanding, Return Demonstration, Reinforcement Needed OT Short Term Goals Short Term Goals Time Frame: Mar 10, 2022 Eatin Oral hygiene: 2 Toileting hygiene: 2 Shower/bathe self: 2 Upper body dressin Lower body dressin Putting on/taking off footwear: 2 OT Longterm Goals Civil Rights Attorney Goals Time Frame: Mar 22, 2022 Acute change in mental status: 1 Inattention: 2 Disorganized thinkin Altered level of consciousness: 0 Eating (QC): 5 Oral Hygiene (QC): 4 Toileting Hygiene (QC): 4 Shower/Bathe Self (QC): 4 Upper Body Dressing (QC): 6 Lower Body Dressing (QC): 4 On/Off Footwear (QC): 4 Additional Goals: 1-Demonstrate ADL Tasks, 2-Verbalize Understanding, 3- ImproveStrength/[place]arian[place] 1=Demonstrate adherence to instructed precautions during ADL tasks. 2=Patient will verbalize/demonstrate understanding of assistive devices/modifications for ADL. 3=Patient will improve strength/tolerance for activity to enable patient to perform ADL's. OT Education/Plan Problem List/Assessment Assessment: Decreased Activ Tolerance, Decreased Safety Aware, Decreased UE Strength, Dependent Transfers, Impaired Bed Mobility, Impaired Cognition, Impaired Coordination, Impaired Funct Balance, Impaired I ADL's, Impaired Self- Care Skills, Restricted Funct UE ROM Discharge Recommendations Plan/Recommendations: Continue POC Therapy Discharge Recommendati: Post Acute OT Treatment Plan/Plan of Care Treatment,Training & Education: Yes Patient would benefit from OT for education, treatment and training to promote independence in ADL's, mobility, safety and/or upper extremity function for ADL's. Plan of Care: ADL Retraining, Caregiver Training, Cognitive Retraining, Functional Mobility, Group Exercise/Act as Ind, Orthotic Fitting/Training, UE Funct Exercise/Act, UE Neuromus Re-Ed/Coord, W/C Management Training Treatment Duration: Mar 22, 2022 Frequency: At least 5 of 7 days/Wk (IRF) Estimated Hrs Per Day: 1.5 hours per day (60-90 min/day) Agreement: Yes Rehab Potential: Fair Time/GCodes Start Time: 08:00 Stop Time: 09:00 Total Time Billed (hr/min): 60 Billed Treatment Time 1 visit ADL x2 (25 min) FA x2 (35 min) Taylor Norris OT Mar 04, 2022 08:56
--- NOTE | 2022-03-04 08:57 | Physical Therapy Daily Note ---
PT Daily Note-Current Subjective Patient in bed pre tx, agrees to PT, has 6/10 pain in left residual limb. Will be co-treating with OT due to poor patient mobility, strength, endurance, severe debility, coordinate UE and LE with activity, safety and reduce risk of falls. Pain Section J - Health Conditions 1. Rarely or not at all 2. Occasionally 3. Frequently 4. Almost constantly 8. Unable to answer Pain Effect on Sleep: 2 Pain Interference with Therapy: 2 Pain Interference w/Day-to-Day: 2 Appearance Patient in WC at bedside post tx with nurse call, phone, tray, all needs met. Mental Status Patient Orientation: Person, Place, Situation Transfers SCALE: Activities may be completed with or without assistive devices. 8-Ncbtdcxrux-bgpfqka completes the activity by him/herself with no assistance from a helper. 5-Set-up or Clean-up Assistance-helper sets up or cleans up; patient completes activity. [place] assists only prior to or following the activity. 4-Supervision or Touching Assistance-helper provides verbal cues and/or touching/steadying and/or contact guard assistance as patient completes activity. Assistance may be provided throughout the activity or intermittently. 3-Partial/Moderate Assistance-helper does LESS THAN HALF the effort. [place] lifts, holds or supports trunk or limbs, but provides less than half the effort. 2-Substantial/Maximal Assistance-helper does MORE THAN HALF the effort. [place] lifts or holds trunk or limbs and provides more than half the effort. 0-Cljpjqvib-tzsctg does ALL the effort. Patient does none of the effort to c omplete the activity. Or, the assistance of 2 or more helpers is required for the patient to complete the activity. If activity was not attempted, code reason: 7-Patient Refused. 9-Not Applicable-not attempted and the patient did not perform the activity before the current illness, exacerbation or injury. 10-Not Attempted due to Environmental Limitations-(lack of equipment, weather restraints, etc.). 88-Not Attempted due to Medical Conditions or Safety Concerns. Roll Left & Right (QC): 3 Sit to Lying (QC): 4 Lying to Sitting/Side of Bed(Q: 3 Sit to Stand (QC): 2 Chair/Fpv-cm-Yhmoj Xfer(QC): 3 Patient had to roll from side to side to put his pants on, needs min assist for rolling, he could retirement perform a bridge and pull pants up as well. Patient partway puts his shirt on in supine and then sits to the side of the bed with mod assist and finishes. Patient is very unsteady sitting to the side of the bed, needs a lot of cues for positioning and safety to keep from just falling backwards. After dressing, patient performs a sliding transfer without a sliding board to the WC with mod assist. 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 Exercises stood in the parallel bars x1 with max assist for 30 sec, then transferred to therapy table and performed 2 sets of 5 of sit to stands from elevated therapy table with min assist. Treatments PT performed bed mobility and transfers, WC mobility, standing, positioning and safety during dressing, OT performed dressing, UE positioning and safety during activity, cues for safety and positioning. Assessment Current Status: Poor Progress Patient has very poor trunk control and strength, has trouble just leaning forward to get into position to transfer or just sit to the side of the bed. Patient has poor motor planning, has much difficulty understanding cues for positioning when preparing to transfer or stand or propel WC. Patient seems to have declined in functional mobility, takes more assist to mucking machine operator the parallel bars than it has in the past. Patient seems confused a lot of times and he mumbles when talking. PT Short Term Goals Short Term Goals Time Frame: Mar 05, 2022 Roll Left & Right: 6 Sit to lyin Lying to sitting on side of be: 6 Sit to stand: 3 Chair/rae-zy-wkecv transfer: 3 PT Retirement Goals Justice Court Judge Goals PT Justice Court Judge Goals Time Frame: Mar 19, 2022 Roll Left & Right (QC): 6 Sit to Lying (QC): 6 Lying-Sitting on Side/Bed(QC): 6 Sit to Stand (QC): 4 Chair/Eql-dx-Zuxjf Xfer(QC): 4 Toilet Transfer (QC): 3 Car Transfer (QC): 3 Does the Patient Walk: No and Walking Goal IS indicated Walk 10 feet (QC): 3 Walk 50ft with 2 Turns (QC): 88 Walk 150 ft (QC): 88 Walking 10ft on Uneven Surface: 88 1 Step (curb) (QC): 88 4 Steps (QC): 88 12 Steps (QC): 88 Picking up an Object (QC): 3 Wheel 50 feet with 2 turns (QC: 4 Wheel 150 feet: 3 PT Plan Problem List Problem List: Activity Tolerance, Functional Strength, Safety, Balance, Gait, Transfer, Bed Mobility, ROM Treatment/Plan Treatment Plan: Continue Plan of Care Treatment Plan: Bed Mobility, Education, Functional Activity Mariano, Functional Strength, Group Therapy, Gait, Safety, Therapeutic Exercise, Transfers Treatment Duration: Mar 19, 2022 Frequency: At least 5 of 7 days/Wk (IRF) Estimated Hrs Per Day: 1.5 hours per day Patient and/or Family Agrees t: Yes Safety Risks/Education Patient Education: Transfer Techniques, Correct Positioning, W/C Management, Safety Issues Teaching Recipient: Patient Teaching Methods: Demonstration, Discussion Response to Teaching: Reinforcement Needed Time/GCodes Time In: 0800 Time Out: 0900 Total Billed Treatment Time: 60 Total Billed Treatment 1 visit FA 60' co-treated for 60' SALAS SUMNER PT Mar 04, 2022 08:57
[2022-03-04] MEDS: lamoTRIgine 25 MG (LaMICtal) TAB PO SCH ×2 (09:01→20:12)
[2022-03-04] MEDS: fluCOnazole (DIFLUCAN) 100 MG TAB PO SCH (09:01)
[2022-03-04] MEDS: PREGABALIN 75 MG (LYRICA) CAP PO SCH ×2 (09:01→20:12)
[2022-03-04] MEDS: LOSARTAN 25 MG (COZAAR) TAB PO SCH (09:01)
[2022-03-04] MEDS: ASPIRIN E.C. 81 MG (ECOTRIN) TAB PO SCH (09:01)
[2022-03-04] MEDS: DOCUSATE SODIUM 100 MG (COLACE) CAP PO SCH ×2 (09:02→20:12)
[2022-03-04] MEDS: MICONAZOLE NITRATE 2% CRM 30 GM TP SCH ×2 (09:02→20:12)
[2022-03-04] MEDS: MICONAZOLE 2% POWDER (DESENEX AF) 90 GM TOP SCH ×2 (09:03→20:11)
[2022-03-04] MEDS: oxyCODONE/APAP 5/325MG (PERCOCET 5) TABLET PO PRN ×2 (09:05→13:39)
[2022-03-04] MEDS: polyethylene glycoL POWDER 17 GM (MIRALAX) PACK PO SCH ×2 (09:07→20:15)
[2022-03-04] MEDS: SENNA W/DOCUSATE (SENOKOT S) TABLET PO SCH ×2 (09:07→20:14)
[2022-03-04 09:08] VITALS: BP 119/76
--- NOTE | 2022-03-04 09:58 | Physical Therapy Daily Note ---
PT Daily Note-Current Subjective Patient in WC at bedside pre tx, agrees to PT, has no complaints of pain. Pain Section J - Health Conditions 1. Rarely or not at all 2. Occasionally 3. Frequently 4. Almost constantly 8. Unable to answer Pain Effect on Sleep: 2 Pain Interference with Therapy: 2 Pain Interference w/Day-to-Day: 2 Appearance Patient in WC at bedside post tx with nurse call, phone, tray, all needs met. Mental Status Patient Orientation: Person, Place, Situation Transfers SCALE: Activities may be completed with or without assistive devices. 1-Yfrcltudhn-luljxrd completes the activity by him/herself with no assistance from a helper. 5-Set-up or Clean-up Assistance-helper sets up or cleans up; patient completes activity. [place] assists only prior to or following the activity. 4-Supervision or Touching Assistance-helper provides verbal cues and/or touching/steadying and/or contact guard assistance as patient completes activity. Assistance may be provided throughout the activity or intermittently. 3-Partial/Moderate Assistance-helper does LESS THAN HALF the effort. [place] lifts, holds or supports trunk or limbs, but provides less than half the effort. 2-Substantial/Maximal Assistance-helper does MORE THAN HALF the effort. [place] lifts or holds trunk or limbs and provides more than half the effort. 8-Sgyzkdpuw-triwrk does ALL the effort. Patient does none of the effort to complete the activity. Or, the assistance of 2 or more helpers is required for the patient to complete the activity. If activity was not attempted, code reason: 7-Patient Refused. 9-Not Applicable-not attempted and the patient did not perform the activity before the current illness, exacerbation or injury. 10-Not Attempted due to Environmental Limitations-(lack of equipment, weather restraints, etc.). 88-Not Attempted due to Medical Conditions or Safety Concerns. Weight Bearing Right Lower Extremity: Right Full Weight Bearing Exercises Supine Ex: Quad Set (done with legs resting on therapists legs (still in seated position)), Glut sets (in seated position) Seated Therapy Exercises: Ankle pumps (RLE), Long arc quads (flexion as well as extension on the left side), Hip flexion, Hip abd/add (with pillow for add and manual resistance for abd) also educated patient on different ways for pressure relief while sitting Treatments LE ROM, education Assessment Current Status: Poor Progress Patient often loses track of what exercise he is doing, has a lot of difficulty copying therapist demonstration, cannot coordinate alternating exercise PT Short Term Goals Short Term Goals Time Frame: Mar 05, 2022 Roll Left & Right: 6 Sit to lyin Lying to sitting on side of be: 6 Sit to stand: 3 Chair/oxx-yu-hqduw transfer: 3 PT Rn [place] Goals [facility] Goals PT Rn [place] Goals Time Frame: Mar 19, 2022 Roll Left & Right (QC): 6 Sit to Lying (QC): 6 Lying-Sitting on Side/Bed(QC): 6 Sit to Stand (QC): 4 Chair/Tzz-hw-Fmgjl Xfer(QC): 4 Toilet Transfer (QC): 3 Car Transfer (QC): 3 Does the Patient Walk: No and Walking Goal IS indicated Walk 10 feet (QC): 3 Walk 50ft with 2 Turns (QC): 88 Walk 150 ft (QC): 88 Walking 10ft on Uneven Surface: 88 1 Step (curb) (QC): 88 4 Steps (QC): 88 12 Steps (QC): 88 Picking up an Object (QC): 3 Wheel 50 feet with 2 turns (QC: 4 Wheel 150 feet: 3 PT Plan Problem List Problem List: Activity Tolerance, Functional Strength, Safety, Balance, Gait, Transfer, Bed Mobility, ROM Treatment/Plan Treatment Plan: Continue Plan of Care Treatment Plan: Bed Mobility, Education, Functional Activity Mariano, Functional Strength, Group Therapy, Gait, Safety, Therapeutic Exercise, Transfers Treatment Duration: Mar 19, 2022 Frequency: At least 5 of 7 days/Wk (IRF) Estimated Hrs Per Day: 1.5 hours per day Patient and/or Family Agrees t: Yes Safety Risks/Education Patient Education: Correct Positioning, Safety Issues Teaching Recipient: Patient Teaching Methods: Demonstration, Discussion Response to Teaching: Reinforcement Needed Time/GCodes Time In: 939 Time Out: 954 Total Billed Treatment Time: 15 Total Billed Treatment 1 visit EX SALAS BENITEZ PT Mar 04, 2022 09:58
--- NOTE | 2022-03-04 10:26 | Occupational Ther Daily Note ---
OT Current Status-Daily Note Subjective Pt more willing to work this session as OT was focusing on exercises. Appearance Pt left sitting in w/c, all needs within reach at OT departure. ADL-Treatment Therapy Code Descriptions/Definitions Functional [place] Measure: 0=Not Assessed/NA 4=Minimal Assistance 1=Total Assistance 5=Supervision or Setup 2=Maximal Assistance 6=Modified Joanna 3=Moderate Assistance 7=Complete IndependenceSCALE: Activities may be completed with or without assistive devices. 1-Shuwgpfice-zpfhzyd completes the activity by him/herself with no assistance from a helper. 5-Set-up or Clean-up Assistance-helper sets up or cleans up; patient completes activity. [place] assists only prior to or following the activity. 4-Supervision or Touching Assistance-helper provides verbal cues and/or touching/steadying and/or contact guard assistance as patient completes activity. Assistance may be provided throughout the activity or intermittently. 3-Partial/Moderate Assistance-helper does LESS THAN HALF the effort. [place] lifts, holds or supports trunk or limbs, but provides less than half the effort. 2-Substantial/Maximal Assistance-helper does MORE THAN HALF the effort. [place] lifts or holds trunk or limbs and provides more than half the effort. 4-Gwdujsygz-qjjjwm does ALL the effort. Patient does none of the effort to co mplete the activity. Or, the assistance of 2 or more helpers is required for the patient to complete the activity. If activity was not attempted, code reason: 7-Patient Refused. 9-Not Applicable-not attempted and the patient did not perform the activity before the current illness, exacerbation or injury. 10-Not Attempted due to Environmental Limitations-(lack of equipment, weather restraints, etc.). 88-Not Attempted due to Medical Conditions or Safety Concerns. Other Treatment Pt participated in UE exercises with 2# dowel bc. LUE able to maintain grasp on larger dowel bc. Slight bend in L elbow with all exercises due to contracture from old CVA. L shoulder to ~160 degrees shoulder flexion. Min verbal and tactile cues for improved technique and control of movement on L side secondary to impaired coordination/proprioception. 1x10 all planes. Stretching at Left hand/digits facilitated by OT. Pt able able extend/flex digits but often needs several cues/time to complete correct movement. He has tendency to be more in ulnar deviation. Education OT Patient Education: Correct positioning, Exercise program, Purpose of tx/functional activities Teaching Recipient: Patient Teaching Methods: Demonstration, Discussion Response to Teaching: Verbalize Understanding, Reinforcement Needed OT Short Term Goals Short Term Goals Time Frame: Mar 10, 2022 Eatin Oral hygiene: 2 Toileting hygiene: 2 Shower/bathe self: 2 Upper body dressin Lower body dressin Putting on/taking off footwear: 2 OT Finishing Wire Sawyer Goals Intermediate Goals Time Frame: Mar 22, 2022 Acute change in mental status: 1 Inattention: 2 Disorganized thinkin Altered level of consciousness: 0 Eating (QC): 5 Oral Hygiene (QC): 4 Toileting Hygiene (QC): 4 Shower/Bathe Self (QC): 4 Upper Body Dressing (QC): 6 Lower Body Dressing (QC): 4 On/Off Footwear (QC): 4 Additional Goals: 1-Demonstrate ADL Tasks, 2-Verbalize Understanding, 3-ImproveStrength/[place] 1=Demonstrate adherence to instructed precautions during ADL tasks. 2=Patient will verbalize/demonstrate understanding of assistive devices/modifications for ADL. 3=Patient will improve strength/tolerance for activity to enable patient to perform ADL's. OT Education/Plan Problem List/Assessment Assessment: Decreased Activ Tolerance, Decreased Safety Aware, Decreased UE Strength, Impaired Cognition, Impaired Coordination, Impaired Funct Balance, Impaired I ADL's, Impaired Self-Care Skills, Restricted Funct UE ROM Discharge Recommendations Plan/Recommendations: Continue POC Treatment Plan/Plan of Care Treatment,Training & Education: Yes Patient would benefit from OT for education, treatment and training to promote independence in ADL's, mobility, safety and/or upper extremity function for ADL's. Plan of Care: ADL Retraining, Caregiver Training, Cognitive Retraining, Functional Mobility, Group Exercise/Act as Ind, Orthotic Fitting/Training, UE Funct Exercise/Act, UE Neuromus Re-Ed/Coord, W/C Management Training Treatment Duration: Mar 22, 2022 Frequency: At least 5 of 7 days/Wk (IRF) Estimated Hrs Per Day: 1.5 hours per day (60-90 min/day) Agreement: Yes Rehab Potential: Fair Time/GCodes Start Time: 10:00 Stop Time: 10:23 Total Time Billed (hr/min): 23 Billed Treatment Time 1 visit EX Taylor Norris OT Mar 04, 2022 10:26
--- NOTE | 2022-03-04 10:42 | Speech Therapy Daily Note ---
Speech Daily Progress Note Subjective Date Seen by Provider: Mar 04, 2022 Time Seen by Provider: 09:00 The patient was seated upright in his wheelchair, awake and alert, upon entrance to his room by the clinician. The patient greeted the clinician appropriately and was agreeable to participation in the cognitive linguistic treatment session. Objective The clinician attempts to discuss barriers to discharge with the patient as he appears to be displaying reduced safety awareness and overall reduced awareness of his own independence throughout other therapies. The clinician aids and demonstrates word-finding strategies throughout the session to aid in communication skills and goals. The patient acknowledged his inability to take a shower safely and reported he will complete a bed bath. The patient was encouraged to demonstrate his bed bath independence throughout occupational therapy. Additionally, the clinician attempted to review the necessity of two individuals to complete a safe transfer while at home he will not have two individuals available. Per patient, he intends to be stronger prior to discharge and will not need multiple individuals to transfer between mobility options. The patient is demonstrating reduced insight, sequencing, and ability to plan ahead for hypothetical situations. At this time, the clinician continues to believe the patient will be the most safe with discharge to a skilled facility. Assessment Assessment Current Status: Fair Progress Treatment Plan Continue Plan of Care Speech Short Term Goals Short Term Goals Short Term Goals 1. The patient will demonstrate improved word-finding strategies through informal conversation with mild clinician cueing. Time Frame-STG: Seven Days. Speech Senior Living Goals Application Support Lead Goals 1. The patient will demonstrate improved cognitive linguistic skills for safe discharge to the least restrictive environment. Time Frame: Ten Days. Speech-Plan Treatment Plan Speech Therapy Treatment Plan: Continue Plan of Care Treatment Duration: Mar 10, 2022 Frequency: Modified Program (IRF) (Four to five times per week.) Estimated Hrs Per Day: .5 hour per day Rehab Potential: Fair Safety Risks/Education Teaching Recipient: Patient Teaching Methods: Discussion Response to Teaching: Reinforcement Needed Education Topics Provided: Safety Procedures Time Speech Therapy Time In: 09:00 Speech Therapy Time Out: 09:30 Total Billed Time: 30 Billed Treatment Time [address] Mar 04, 2022 10:42
[2022-03-04] MEDS: warFARin 5 MG (COUMADIN) TAB PO SCH (17:12)
[2022-03-04] MEDS: warFARin 2 MG (COUMADIN) TAB PO SCH (17:12)
[2022-03-04 19:37] VITALS: BP 110/68
[2022-03-04] MEDS: MIRTAZAPINE 15 MG (REMERON) TAB PO SCH (20:12)
[2022-03-04] MEDS: oxyCODONE ER 10 MG (OxyCONTIN CR) TAB PO SCH (20:12)
[2022-03-05] MEDS: oxyCODONE/APAP 5/325MG (PERCOCET 5) TABLET PO PRN ×2 (05:21→15:48)
[2022-03-05 05:41] LABS: INR 2.2 (0.8-1.4); PROTHROMBIN TIME PATIENT 24.9 SEC (12.2-14.7)
--- NOTE | 2022-03-05 06:14 | PM&R Progress Note ---
Subjective HPI/CC On Admission Date Seen by Provider: Mar 05, 2022 Time Seen by Provider: 12:00 Subjective/Events-last exam 03/05/2022: Patient doing well Sugars are good Took insulin at home but non-compliant 03/04/2022: Doing well today Sugars reviewed No falls Monitoring closely 03/03/2022: No major issues Sugars improved BP stable No increased pain 03/02/2022: No major issues Wants to go home soon Pain controlled No falls 03/01/2022: No major problems Did not sleep well last night No major issues Sugars reviewed Labs reviewed 02/28/2022: Patient doing well No major issues Pain is controlled Appreciate Dr. Pelaez with Dr. De Los Santos 02/27/2022: No major issues Pain controlled BS reviewed INR good Kidney function improved 02/26/2022: Settling in well Pain is improved BM+ Voiding well No falls Participating in therapy Grief with son, daughter and 's and then losing leg Dr De Los Santos expertise appreciated Dr Pelaez evaluated the patient today too Review of Systems General: Fatigue, Malaise Musculoskeletal: leg pain Objective Exam Vital Signs Vital Signs Date Time Temp Pulse Resp B/P (MAP) Pulse Ox O2 Delivery O2 Flow Rate FiO2 03/05/22 20:20 Room Air 03/05/22 19:22 36.7 80 12 108/74 (85) 93 Capillary Refill : General Appearance: No Apparent Distress, WD/WN, Chronically ill HEENT: PERRL/EOMI, Normal ENT Inspection, Pharynx Normal Neck: Full Range of Motion, Normal Inspection, Non Tender, Supple, Carotid Bruit Respiratory: Chest Non Tender, Lungs Clear, Normal Breath Sounds, No Accessory Muscle Use, No Respiratory Distress Cardiovascular: Regular Rate, Rhythm, No Edema, No Gallop, No JVD, No Murmur, Normal Peripheral Pulses, Other (click) Gastrointestinal: Normal Bowel Sounds, No Organomegaly, No Pulsatile Mass, Non Tender, Soft Back: Normal Inspection, No CVA Tenderness, No Vertebral Tenderness Extremity: Normal Capillary Refill, Normal Inspection, Normal Range of Motion, Non Tender, No Calf Tenderness, No Pedal Edema Neurologic/Psychiatric: Alert, Oriented x3, Normal Mood/Affect, 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 FIM Transfers Therapy Code Descriptions/Definitions Functional [place] Measure: 0=Not Assessed/NA 4=Minimal Assistance 1=Total Assistance 5=Supervision or Setup 2=Maximal Assistance 6=Modified [place] 3=Moderate Assistance 7=Complete IndependenceSCALE: Activities may be completed with or without assistive devices. 2-Dswvyeafsj-qpizzbq completes the activity by him/herself with no assistance from a helper. 5-Set-up or Clean-up Assistance-helper sets up or cleans up; patient completes activity. [place] assists only prior to or following the activity. 4-Supervision or Touching Assistance-helper provides verbal cues and/or touching/steadying and/or contact guard assistance as patient completes activity. Assistance may be provided throughout the activity or intermittently. 3-Partial/Moderate Assistance-helper does LESS THAN HALF the effort. [place] lifts, holds or supports trunk or limbs, but provides less than half the effort. 2-Substantial/Maximal Assistance-helper does MORE THAN HALF the effort. [place] lifts or holds trunk or limbs and provides more than half the effort. 9-Gjddwaqrr-blrswm does ALL the effort. Patient does none of the effort to complete the activity. Or, the assistance of 2 or more helpers is required for the patient to complete the activity. If activity was not attempted, code reason: 7-Patient Refused. 9-Not Applicable-not attempted and the patient did not perform the activity before the current illness, exacerbation or injury. 10-Not Attempted due to Environmental Limitations-(lack of equipment, weather restraints, etc.). 88-Not Attempted due to Medical Conditions or Safety Concerns. Roll Left to Right (QC): 3 Sit to Lying (QC): 4 Sit to Stand (QC): 2 Chair/Bkt-wy-Lpkyn Xfer(QC): 3 Car Transfer (QC): 1 Gait Training Does the Patient Walk?: No and Walking Goal IS indicated Walk 10 feet (QC): 88 Walk 50 ft with 2 Turns(QC): 88 Walk 150 ft (QC): 88 Walking 10ft/uneven surface-QC: 88 Wheelchair Training Does the Pt Use a Wheelchair?: Yes Wheel 50 ft with 2 turns (QC): 3 Wheel 150 ft (QC): 4 Type of Wheelchair: Manual Stair Training 1 Step (curb) (QC): 88 4 Steps (QC): 88 12 Steps (QC): 88 Balance Picking up an Object (QC): 88 ADL-Treatment Eating (QC): 5 Oral Hygiene (QC): 4 Shower/Bathe Self (QC): 2 Upper Body Dressing (QC): 3 Lower Body Dressing (QC): 3 On/Off Footwear (QC): 1 Toileting Hygiene (QC): 1 Assessment/Plan Assessment and Plan Assess & Plan/Chief Complaint Assessment: 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 in [facility] CVA following hospital course h/o embolic CVA 2009 Mitral valve replacement Coumadin maintenance DM HTN PVD CHF Chronic kidney disease Plan: Monitor closely PT OT INR monitoring 02/26/2022: Pain control Monitor sugar 02/27/2022: Monitor kidney function Monitor INR 02/28/2022: Supportive care Pain control 03/01/2022: Monitor closely 03/02/2022: Supportive care 03/03/2022: Decrease accuchecks 03/04/2022: Monitor sugar 03/05/2022: Monitor closely Sugars reviewed (1) History of mitral valve replacement with mechanical valve Assessment & Plan: We will continue warfarin and follow INR levels intermittently. He is now on warfarin 7 mg daily. At home he was taking 6.125 mg daily. I have ordered a repeat INR level on 03/05. His INR level on 03/02 and 03/03 was 1.9. I will plan to see him as needed. He did find a elevator installer closer to home and has made an appointment. (2) Primary hypertension Assessment & Plan: He had been on amlodipine prior to his most recent admission at [facility] and then this was stopped at the outside facility. His blood pressures had been trending upward so I started a low-dose of losartan. This is will also have renal protective effects in light of his diabetes (3) Mixed hyperlipidemia Assessment & Plan: Continue statin medication. (4) Stage 2 chronic kidney disease Status: Chronic Assessment & Plan: It appears as though he probably has stage II chronic kidney disease which is mild. (5) Acute kidney injury superimposed on chronic kidney disease Status: Resolved Assessment & Plan: His renal function has improved. He may have been slightly dehydrated when his initial labs were drawn at the time of admission. Resolution Date/Time: 02/28/22 @ 10:26 (6) History of cerebrovascular accident with residual deficit Assessment & Plan: Continue aspirin and statin medication. If he develops any signs of hemorrhaging, then I would consider stopping aspirin since he takes warfarin for the mechanical mitral valve replacement. (7) Seizure disorder Assessment & Plan: This is being managed by the hospitalist. We need to be cautious with any cardiac medications that could alter the metabolism of his seizure medication. (8) Type 2 diabetes mellitus with complication Assessment & Plan: This is being managed by the hospitalist. (9) Obesity Assessment & Plan: He needs to work on weight loss. (10) Hx of BKA Assessment & Plan: He is now on our inpatient rehabilitation unit to help him start learning how to function with a below-knee amputation. DERRICK LONGORIA DO Mar 05, 2022 06:14
[2022-03-05] MEDS: PANTOPRAZOLE 40 MG (PROTONIX) TAB PO SCH (06:27)
[2022-03-05 07:30] VITALS: BP 120/79
[2022-03-05] MEDS: LOSARTAN 25 MG (COZAAR) TAB PO SCH (08:02)
[2022-03-05] MEDS: fluCOnazole (DIFLUCAN) 100 MG TAB PO SCH (08:02)
[2022-03-05] MEDS: ASPIRIN E.C. 81 MG (ECOTRIN) TAB PO SCH (08:02)
[2022-03-05] MEDS: lamoTRIgine 25 MG (LaMICtal) TAB PO SCH ×2 (08:02→20:54)
[2022-03-05] MEDS: DOCUSATE SODIUM 100 MG (COLACE) CAP PO SCH ×2 (08:02→21:06)
[2022-03-05] MEDS: SENNA W/DOCUSATE (SENOKOT S) TABLET PO SCH ×2 (08:02→21:07)
[2022-03-05] MEDS: PREGABALIN 75 MG (LYRICA) CAP PO SCH ×2 (08:04→20:55)
[2022-03-05] MEDS: polyethylene glycoL POWDER 17 GM (MIRALAX) PACK PO SCH ×2 (09:00→19:43)
--- NOTE | 2022-03-05 09:08 | Physical Therapy Daily Note ---
PT Daily Note-Current Subjective Patient in bed pre tx, agrees to PT, has 8/10 pain in residual limb. Will be co-treating with OT due to poor patient mobility, strength, endurance, severe debility, coordinate UE and LE during activity, safety and reduce risk of falls. Pain Section J - Health Conditions 1. Rarely or not at all 2. Occasionally 3. Frequently 4. Almost constantly 8. Unable to answer Pain Effect on Sleep: 2 Pain Interference with Therapy: 2 Pain Interference w/Day-to-Day: 2 Appearance Patient in WC at bedside post tx with nurse call, phone, tray, all needs met. Mental Status Patient Orientation: Person, Place, Situation Transfers SCALE: Activities may be completed with or without assistive devices. 7-Bbsrifencb-mmmjsgo completes the activity by him/herself with no assistance from a helper. 5-Set-up or Clean-up Assistance-helper sets up or cleans up; patient completes activity. [place] assists only prior to or following the activity. 4-Supervision or Touching Assistance-helper provides verbal cues and/or touching/steadying and/or contact guard assistance as patient completes activity. Assistance may be provided throughout the activity or intermittently. 3-Partial/Moderate Assistance-helper does LESS THAN HALF the effort. [place] lifts, holds or supports trunk or limbs, but provides less than half the effort. 2-Substantial/Maximal Assistance-helper does MORE THAN HALF the effort. [place] lifts or holds trunk or limbs and provides more than half the effort. 4-Qblpiknoa-srawrv does ALL the effort. Patient does none of the effort to comp lete the activity. Or, the assistance of 2 or more helpers is required for the patient to complete the activity. If activity was not attempted, code reason: 7-Patient Refused. 9-Not Applicable-not attempted and the patient did not perform the activity before the current illness, exacerbation or injury. 10-Not Attempted due to Environmental Limitations-(lack of equipment, weather restraints, etc.). 88-Not Attempted due to Medical Conditions or Safety Concerns. Roll Left & Right (QC): 4 Lying to Sitting/Side of Bed(Q: 3 Sit to Stand (QC): 2 Chair/Oht-qq-Rdbqb Xfer(QC): 3 Patient rolls from side to side to get his pants on then supine to sit and puts on shirt. Slide transfer to without using board. Weight Bearing Right Lower Extremity: Right Full Weight Bearing Wheelchair Training Does the Pt Use a Wheelchair?: Yes Wheel 50 ft with 2 turns (QC): 3 Wheel 150 ft (QC): 3 Type of Wheelchair: Manual 150' without assist, very slow, uncoordinated, patient has a hard time with it. 150' min assist. Exercises Patient stood in the parallel bars x3 for about 2 min each time, max assist to stand. Attempted to get patient to perform AROM on the LLE while standing on his right leg but he could not coordinate or motor plan this even with cues and tactile cues. Treatments PT performed bed mobility and transfers, standing, WC mobility, positioning and safety during dressing, OT performed dressing, ADL's, UE positioning and safety during activity. Assessment Current Status: Poor Progress Patient has poor motor planning, poor attention, cannot do effectively more than one movement at a time and still has trouble with this PT Short Term Goals Short Term Goals Time Frame: Mar 05, 2022 Roll Left & Right: 6 Sit to lyin Lying to sitting on side of be: 6 Sit to stand: 3 Chair/uly-dz-sweuq transfer: 3 PT Fdc Goals Sales And Service Associate Goals PT Sales And Service Associate Goals Time Frame: Mar 19, 2022 Roll Left & Right (QC): 6 Sit to Lying (QC): 6 Lying-Sitting on Side/Bed(QC): 6 Sit to Stand (QC): 4 Chair/Whj-yo-Xlpeh Xfer(QC): 4 Toilet Transfer (QC): 3 Car Transfer (QC): 3 Does the Patient Walk: No and Walking Goal IS indicated Walk 10 feet (QC): 3 Walk 50ft with 2 Turns (QC): 88 Walk 150 ft (QC): 88 Walking 10ft on Uneven Surface: 88 1 Step (curb) (QC): 88 4 Steps (QC): 88 12 Steps (QC): 88 Picking up an Object (QC): 3 Wheel 50 feet with 2 turns (QC: 4 Wheel 150 feet: 3 PT Plan Problem List Problem List: Activity Tolerance, Functional Strength, Safety, Balance, Gait, Transfer, Bed Mobility, ROM Treatment/Plan Treatment Plan: Continue Plan of Care Treatment Plan: Bed Mobility, Education, Functional Activity Mariano, Functional Strength, Group Therapy, Gait, Safety, Therapeutic Exercise, Transfers Treatment Duration: Mar 19, 2022 Frequency: At least 5 of 7 days/Wk (IRF) Estimated Hrs Per Day: 1.5 hours per day Patient and/or Family Agrees t: Yes Safety Risks/Education Patient Education: Transfer Techniques, Correct Positioning, W/C Management, Safety Issues Teaching Recipient: Patient Teaching Methods: Demonstration, Discussion Response to Teaching: Reinforcement Needed Time/GCodes Time In: 0800 Time Out: 914 Total Billed Treatment Time: 75 Total Billed Treatment 1 visit FA 75' co-treated from 0199-0060 SALAS SUMNER PT Mar 05, 2022 09:08
--- NOTE | 2022-03-05 09:11 | Occupational Ther Daily Note ---
OT Current Status-Daily Note Subjective Pt reports residual limb pain as 8/10. He states he still has ~1 hour before he can have another pain pill. Co-treat with PT secondary to poor mobility, high fall risk, impaired coor dination, strength, balance and due to need of 2 skilled clinicians to progress indep and safety with adls and functional mobility. Appearance Pt left sitting in w/c, all needs within reach at therapy departure. Mental Status/Objective Patient Orientation: Person, Place, Situation ADL-Treatment Therapy Code Descriptions/Definitions Functional [place] Measure: 0=Not Assessed/NA 4=Minimal Assistance 1=Total Assistance 5=Supervision or Setup 2=Maximal Assistance 6=Modified [place] 3=Moderate Assistance 7=Complete IndependenceSCALE: Activities may be completed with or without assistive devices. 6-Ojajgjhljk-ahlcokv completes the activity by him/herself with no assistance from a helper. 5-Set-up or Clean-up Assistance-helper sets up or cleans up; patient completes activity. [place] assists only prior to or following the activity. 4-Supervision or Touching Assistance-helper provides verbal cues and/or touching/steadying and/or contact guard assistance as patient completes activity. Assistance may be provided throughout the activity or intermittently. 3-Partial/Moderate Assistance-helper does LESS THAN HALF the effort. [place] lifts, holds or supports trunk or limbs, but provides less than half the effort. 2-Substantial/Maximal Assistance-helper does MORE THAN HALF the effort. [place] lifts or holds trunk or limbs and provides more than half the effort. 3-Eamqojcdj-ybstdw does ALL the effort. Patient does none of the effort to complete the activity. Or, the assistance of 2 or more helpers is required for the patient to complete the activity. If activity was not attempted, code reason: 7-Patient Refused. 9-Not Applicable-not attempted and the patient did not perform the activity before the current illness, exacerbation or injury. 10-Not Attempted due to Environmental Limitations-(lack of equipment, weather restraints, etc.). 88-Not Attempted due to Medical Conditions or Safety Concerns. Upper Body Dressing (QC): 4 Lower Body Dressing (QC): 3 On/Off Footwear: 1 Pt reclined in bed at therapy arrival. Clothing donned at bed level. Pt continues to need step by step cues when LB dressing but did not require any physical assistance when threading LE's this date. Min-mod a to pull clothing up to waist with assistance to anchor R foot when bridging hips. Mod a to sit EOB. Extra time and cues for correct orientation when donning shirt. Dependent to don R sock/shoe. Pt refuses to attempt task or use any suggestions/AE provided by OT. Pt completed a slide transfer (without board) from bed>w/c with min a x2. Max cues for set up required before all transfers. Other Treatment Heavy focus on w/c mobility this date as pt has significant difficulty with this task. Max cues and time to problem solve required.Poor carry over with instruction. Pt initially will follow cues but then revert back to old ways. He often needs hand over hand assist to propel L side due to poor coordination and motor planning. Due to ulnar drift, pt has difficulty maintaining grasp on wheel and may benefit from different type of w/c. Glove donned over L hand to assist in contribution solicitor. Slight improvement notable post modification. Significant motor planning/processing deficits exhibited with all mobility. Several tactile and verbal cues for correct movement required. While standing in parallel bars, PT attempts to cue pt to adduct/abduct L limb however pt unable to understand and attempts to lean heavily to the left needing max a to maintain upright position. Slight improvement in standing tolerance this date to ~1-2 minutes. Education OT Patient Education: Correct positioning, Energy conservation, Modified ADL techniques, Progress toward Goal/Update tx plan, Purpose of tx/functional activities, Reviewed precautions, Rehab process, Safety issues, Transfer techniques, W/C management Teaching Recipient: Patient Teaching Methods: Demonstration, Discussion Response to Teaching: Reinforcement Needed OT Short Term Goals Short Term Goals Time Frame: Mar 10, 2022 Eatin Oral hygiene: 2 Toileting hygiene: 2 Shower/bathe self: 2 Upper body dressin Lower body dressin Putting on/taking off footwear: 2 OT Senior Living Goals Senior Living Goals Time Frame: Mar 22, 2022 Acute change in mental status: 1 Inattention: 2 Disorganized thinkin Altered level of consciousness: 0 Eating (QC): 5 Oral Hygiene (QC): 4 Toileting Hygiene (QC): 4 Shower/Bathe Self (QC): 4 Upper Body Dressing (QC): 6 Lower Body Dressing (QC): 4 On/Off Footwear (QC): 4 Additional Goals: 1-Demonstrate ADL Tasks, 2-Verbalize Understanding, 3- ImproveStrength/[place] 1=Demonstrate adherence to instructed precautions during ADL tasks. 2=Patient will verbalize/demonstrate understanding of assistive devices/modifications for ADL. 3=Patient will improve strength/tolerance for activity to enable patient to perform ADL's. OT Education/Plan Problem List/Assessment Assessment: Decreased Activ Tolerance, Decreased Safety Aware, Decreased UE Strength, Impaired Bed Mobility, Impaired Cognition, Impaired Coordination, Impaired Funct Balance, Impaired I ADL's, Impaired Self-Care Skills, Restricted Funct UE ROM Discharge Recommendations Plan/Recommendations: Continue POC Therapy Discharge Recommendati: Post Acute OT Treatment Plan/Plan of Care Treatment,Training & Education: Yes Patient would benefit from OT for education, treatment and training to promote independence in ADL's, mobility, safety and/or upper extremity function for ADL's. Plan of Care: ADL Retraining, Caregiver Training, Cognitive Retraining, Functional Mobility, Group Exercise/Act as Ind, Orthotic Fitting/Training, UE Funct Exercise/Act, UE Neuromus Re-Ed/Coord, W/C Management Training Treatment Duration: Mar 22, 2022 Frequency: At least 5 of 7 days/Wk (IRF) Estimated Hrs Per Day: 1.5 hours per day (60-90 min/day) Agreement: Yes Rehab Potential: Fair Time/GCodes Start Time: 08:00 Stop Time: 09:15 Total Time Billed (hr/min): 75 Billed Treatment Time 1 visit ADL x2 (25 min) FA x3 (50 min) Taylor Norris OT Mar 05, 2022 09:11
--- NOTE | 2022-03-05 10:45 | Speech Therapy Daily Note ---
Speech Daily Progress Note Subjective Date Seen by Provider: Mar 05, 2022 Time Seen by Provider: 09:30 The patient was seated upright in his wheelchair, awake and alert, upon entrance to his room by the clinician. The patient greeted the clinician appropriately and was agreeable to participation in the cognitive linguistic treatment session. Objective The patient participated in word-finding exercises on this date. The patient was provided a specific letter and a category. The patient was asked to provide a word which was initiated by the specific letter and "fit into" the category. The patient displayed 92% accuracy with mild clinician cueing. The patient was asked to provide specific items that fit into a category listed by the clinician. The patient displayed high accuracy and displayed one occurrence of independent use of a word-finding strategy (describe the item). Assessment Assessment Current Status: Good Progress Treatment Plan Continue Plan of Care Speech Short Term Goals Short Term Goals Short Term Goals 1. The patient will demonstrate improved word-finding strategies through informal conversation with mild clinician cueing. Time Frame-STG: Seven Days. Speech Cardiac Cath Lab Radiology Technologist Goals Shelter Goals 1. The patient will demonstrate improved cognitive linguistic skills for safe discharge to the least restrictive environment. Time Frame: Ten Days. Speech-Plan Treatment Plan Speech Therapy Treatment Plan: Continue Plan of Care Treatment Duration: Mar 10, 2022 Frequency: Modified Program (IRF) (Four to five times per week.) Estimated Hrs Per Day: .5 hour per day Rehab Potential: Fair Safety Risks/Education Teaching Recipient: Patient Teaching Methods: Demonstration, Discussion Response to Teaching: Return Demonstration, Reinforcement Needed Education Topics Provided: Word Finding Strategies Time Speech Therapy Time In: 09:00 Speech Therapy Time Out: 09:30 Total Billed Time: 30 Billed Treatment Time [facility] Mar 05, 2022 10:45
[2022-03-05] MEDS: MICONAZOLE NITRATE 2% CRM 30 GM TP SCH ×2 (15:48→20:53)
[2022-03-05] MEDS: MICONAZOLE 2% POWDER (DESENEX AF) 90 GM TOP SCH ×2 (15:48→20:53)
[2022-03-05] MEDS: warFARin 2 MG (COUMADIN) TAB PO SCH (18:21)
[2022-03-05] MEDS: warFARin 5 MG (COUMADIN) TAB PO SCH (18:21)
[2022-03-05 19:22] VITALS: BP 108/74
[2022-03-05] MEDS: oxyCODONE ER 10 MG (OxyCONTIN CR) TAB PO SCH (20:54)
[2022-03-05] MEDS: MIRTAZAPINE 15 MG (REMERON) TAB PO SCH (20:54)
[2022-03-06] MEDS: oxyCODONE/APAP 5/325MG (PERCOCET 5) TABLET PO PRN ×3 (02:25→16:21)
--- NOTE | 2022-03-06 05:29 | PM&R Progress Note ---
Subjective HPI/CC On Admission Date Seen by Provider: Mar 06, 2022 Time Seen by Provider: 09:00 Subjective/Events-last exam 03/06/2022: Sugar a bit low last night Adjusted insulin from 15 to 8 Monitoring closely 03/05/2022: Patient doing well Sugars are good Took insulin at home but non-compliant 03/04/2022: Doing well today Sugars reviewed No falls Monitoring closely 03/03/2022: No major issues Sugars improved BP stable No increased pain 03/02/2022: No major issues Wants to go home soon Pain controlled No falls 03/01/2022: No major problems Did not sleep well last night No major issues Sugars reviewed Labs reviewed 02/28/2022: Patient doing well No major issues Pain is controlled Appreciate Dr. Pelaez with Dr. De Los Santos 02/27/2022: No major issues Pain controlled BS reviewed INR good Kidney function improved 02/26/2022: Settling in well Pain is improved BM+ Voiding well No falls Participating in therapy Grief with son, daughter and 's and then losing leg Dr De Los Santos expertise appreciated Dr Pelaez evaluated the patient today too Review of Systems General: Fatigue, Malaise Objective Exam Vital Signs Vital Signs Date Time Temp Pulse Resp B/P (MAP) Pulse Ox O2 Delivery O2 Flow Rate FiO2 03/06/22 09:47 Room Air 03/06/22 07:11 36.7 67 20 118/80 (93) 99 Capillary Refill : General Appearance: No Apparent Distress, WD/WN, Chronically ill HEENT: PERRL/EOMI, Normal ENT Inspection, Pharynx Normal Neck: Full Range of Motion, Normal Inspection, Non Tender, Supple, Carotid Bruit Respiratory: Chest Non Tender, Lungs Clear, Normal Breath Sounds, No Accessory Muscle Use, No Respiratory Distress Cardiovascular: Regular Rate, Rhythm, No Edema, No Gallop, No JVD, No Murmur, Normal Peripheral Pulses, Other (click) Gastrointestinal: Normal Bowel Sounds, No Organomegaly, No Pulsatile Mass, Non Tender, Soft Back: Normal Inspection, No CVA Tenderness, No Vertebral Tenderness Extremity: Normal Capillary Refill, Normal Inspection, Normal Range of Motion, Non Tender, No Calf Tenderness, No Pedal Edema Neurologic/Psychiatric: Alert, Oriented x3, Normal Mood/Affect, card setter II-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 FIM Transfers Therapy Code Descriptions/Definitions Functional [place] Measure: 0=Not Assessed/NA 4=Minimal Assistance 1=Total Assistance 5=Supervision or Setup 2=Maximal Assistance 6=Modified [place] 3=Moderate Assistance 7=Complete IndependenceSCALE: Activities may be completed with or without assistive devices. 9-Urfklqsjrg-vzsrzef completes the activity by him/herself with no assistance from a helper. 5-Set-up or Clean-up Assistance-helper sets up or cleans up; patient completes activity. [place] assists only prior to or following the activity. 4-Supervision or Touching Assistance-helper provides verbal cues and/or touching/steadying and/or contact guard assistance as patient completes activity. Assistance may be provided throughout the activity or intermittently. 3-Partial/Moderate Assistance-helper does LESS THAN HALF the effort. [place] lifts, holds or supports trunk or limbs, but provides less than half the effort. 2-Substantial/Maximal Assistance-helper does MORE THAN HALF the effort. [place] lifts or holds trunk or limbs and provides more than half the effort. 3-Efmagdspy-rwooja does ALL the effort. Patient does none of the effort to complete the activity. Or, the assistance of 2 or more helpers is required for the patient to complete the activity. If activity was not attempted, code reason: 7-Patient Refused. 9-Not Applicable-not attempted and the patient did not perform the activity before the current illness, exacerbation or injury. 10-Not Attempted due to Environmental Limitations-(lack of equipment, weather restraints, etc.). 88-Not Attempted due to Medical Conditions or Safety Concerns. Roll Left to Right (QC): 4 Sit to Lying (QC): 4 Sit to Stand (QC): 2 Chair/Gsj-gs-Mweza Xfer(QC): 3 Car Transfer (QC): 1 Gait Training Does the Patient Walk?: No and Walking Goal IS indicated Walk 10 feet (QC): 88 Walk 50 ft with 2 Turns(QC): 88 Walk 150 ft (QC): 88 Walking 10ft/uneven surface-QC: 88 Wheelchair Training Does the Pt Use a Wheelchair?: Yes Wheel 50 ft with 2 turns (QC): 3 Wheel 150 ft (QC): 3 Type of Wheelchair: Manual Stair Training 1 Step (curb) (QC): 88 4 Steps (QC): 88 12 Steps (QC): 88 Balance Picking up an Object (QC): 88 ADL-Treatment Eating (QC): 5 Oral Hygiene (QC): 4 Shower/Bathe Self (QC): 2 Upper Body Dressing (QC): 4 Lower Body Dressing (QC): 3 On/Off Footwear (QC): 1 Toileting Hygiene (QC): 1 Assessment/Plan Assessment and Plan Assess & Plan/Chief Complaint Assessment: 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 in [place] CVA following hospital course h/o embolic CVA 2009 Mitral valve replacement Coumadin maintenance DM HTN PVD CHF Chronic kidney disease Plan: Monitor closely PT OT INR monitoring 02/26/2022: Pain control Monitor sugar 02/27/2022: Monitor kidney function Monitor INR 02/28/2022: Supportive care Pain control 03/01/2022: Monitor closely 03/02/2022: Supportive care 03/03/2022: Decrease accuchecks 03/04/2022: Monitor sugar 03/05/2022: Monitor closely Sugars reviewed 03/06/2022: Monitor sugar Decrease Levemir (1) History of mitral valve replacement with mechanical valve Assessment & Plan: We will continue warfarin and follow INR levels intermittently. He is now on warfarin 7 mg daily. At home he was taking 6.125 mg daily. I have ordered a repeat INR level on 03/05. His INR level on 03/02 and 03/03 was 1.9. I will plan to see him as needed. He did find a fitting room inspector closer to home and has made an appointment. (2) Primary hypertension Assessment & Plan: He had been on amlodipine prior to his most recent admission at [facility] and then this was stopped at the outside facility. His blood pressures had been trending upward so I started a low-dose of losartan. This is will also have renal protective effects in light of his diabetes (3) Mixed hyperlipidemia Assessment & Plan: Continue statin medication. (4) Stage 2 chronic kidney disease Status: Chronic Assessment & Plan: It appears as though he probably has stage II chronic kidney disease which is mild. (5) Acute kidney injury superimposed on chronic kidney disease Status: Resolved Assessment & Plan: His renal function has improved. He may have been slightly dehydrated when his initial labs were drawn at the time of admission. Resolution Date/Time: 02/28/22 @ 10:26 (6) History of cerebrovascular accident with residual deficit Assessment & Plan: Continue aspirin and statin medication. If he develops any signs of hemorrhaging, then I would consider stopping aspirin since he takes warfarin for the mechanical mitral valve replacement. (7) Seizure disorder Assessment & Plan: This is being managed by the hospitalist. We need to be cautious with any cardiac medications that could alter the metabolism of his seizure medication. (8) Type 2 diabetes mellitus with complication Assessment & Plan: This is being managed by the hospitalist. (9) Obesity Assessment & Plan: He needs to work on weight loss. (10) Hx of BKA Assessment & Plan: He is now on our inpatient rehabilitation unit to help him start learning how to function with a below-knee amputation. DERRICK LONGORIA DO Mar 06, 2022 05:29
[2022-03-06] MEDS: PANTOPRAZOLE 40 MG (PROTONIX) TAB PO SCH (06:01)
[2022-03-06 07:11] VITALS: BP 118/80
[2022-03-06] MEDS: ASPIRIN E.C. 81 MG (ECOTRIN) TAB PO SCH (08:27)
[2022-03-06] MEDS: LOSARTAN 25 MG (COZAAR) TAB PO SCH (08:27)
[2022-03-06] MEDS: lamoTRIgine 25 MG (LaMICtal) TAB PO SCH ×2 (08:28→21:05)
[2022-03-06] MEDS: DOCUSATE SODIUM 100 MG (COLACE) CAP PO SCH ×2 (08:28→21:06)
[2022-03-06] MEDS: MICONAZOLE 2% POWDER (DESENEX AF) 90 GM TOP SCH ×2 (08:28→21:07)
[2022-03-06] MEDS: PREGABALIN 75 MG (LYRICA) CAP PO SCH ×2 (08:28→21:06)
[2022-03-06] MEDS: MICONAZOLE NITRATE 2% CRM 30 GM TP SCH ×2 (08:28→21:07)
[2022-03-06] MEDS: SENNA W/DOCUSATE (SENOKOT S) TABLET PO SCH ×2 (08:28→21:06)
[2022-03-06] MEDS: polyethylene glycoL POWDER 17 GM (MIRALAX) PACK PO SCH ×2 (08:29→19:30)
--- NOTE | 2022-03-06 10:45 | Physical Therapy Daily Note ---
PT Daily Note-Current Subjective Pt in bed upon arrival and agrees to PT. No pain reported this date. Pain Section J - Health Conditions 1. Rarely or not at all 2. Occasionally 3. Frequently 4. Almost constantly 8. Unable to answer Pain Effect on Sleep: 2 Pain Interference with Therapy: 2 Pain Interference w/Day-to-Day: 2 Mental Status Patient Orientation: Person, Place, Time Transfers SCALE: Activities may be completed with or without assistive devices. 8-Vjtrbccoga-njndybr completes the activity by him/herself with no assistance from a helper. 5-Set-up or Clean-up Assistance-helper sets up or cleans up; patient completes activity. [place] assists only prior to or following the activity. 4-Supervision or Touching Assistance-helper provides verbal cues and/or touching/steadying and/or contact guard assistance as patient completes activity. Assistance may be provided throughout the activity or intermittently. 3-Partial/Moderate Assistance-helper does LESS THAN HALF the effort. [place] lifts, holds or supports trunk or limbs, but provides less than half the effort. 2-Substantial/Maximal Assistance-helper does MORE THAN HALF the effort. [place] lifts or holds trunk or limbs and provides more than half the effort. 9-Vxekdoxhz-aofsou does ALL the effort. Patient does none of the effort to complete the activity. Or, the assistance of 2 or more helpers is required for the patient to complete the activity. If activity was not attempted, code reason: 7-Patient Refused. 9-Not Applicable-not attempted and the patient did not perform the activity before the current illness, exacerbation or injury. 10-Not Attempted due to Environmental Limitations-(lack of equipment, weather restraints, etc.). 88-Not Attempted due to Medical Conditions or Safety Concerns. Lying to Sitting/Side of Bed(Q: 3 Sit to Stand (QC): 2 Weight Bearing Right Lower Extremity: Right Full Weight Bearing Wheelchair Training Does the Pt Use a Wheelchair?: Yes Wheel 50 ft with 2 turns (QC): 3 Wheel 150 ft (QC): 3 Type of Wheelchair: Manual Exercises Seated Therapy Exercises: Ankle pumps, Long arc quads Seated Reps: 10 Standing: Sit to Stand Standing Reps: 2 Treatments Pt TFs to WC from bed and then wheels from room to therapy gym. Pt then performs seated exs and then stands in // bars. Then pt wheeled from therapy gym back to room. Pt requested to stay sitting up in WC and all needs met and call light nearby as PT departs. Assessment Current Status: Fair Progress Pt required cues for hand and foot placement during TFs and while propelling WC. Pt is still maxA while performing TFs. Pt able to financial economist // bars once up. PT Short Term Goals Short Term Goals Time Frame: Mar 05, 2022 Roll Left & Right: 6 Sit to lyin Lying to sitting on side of be: 6 Sit to stand: 3 Chair/twu-ev-vxnmr transfer: 3 PT Long-Term Goals Long-Term Goals PT Long-Term Goals Time Frame: Mar 19, 2022 Roll Left & Right (QC): 6 Sit to Lying (QC): 6 Lying-Sitting on Side/Bed(QC): 6 Sit to Stand (QC): 4 Chair/Ruv-vp-Vnmbf Xfer(QC): 4 Toilet Transfer (QC): 3 Car Transfer (QC): 3 Does the Patient Walk: No and Walking Goal IS indicated Walk 10 feet (QC): 3 Walk 50ft with 2 Turns (QC): 88 Walk 150 ft (QC): 88 Walking 10ft on Uneven Surface: 88 1 Step (curb) (QC): 88 4 Steps (QC): 88 12 Steps (QC): 88 Picking up an Object (QC): 3 Wheel 50 feet with 2 turns (QC: 4 Wheel 150 feet: 3 PT Plan Problem List Problem List: Activity Tolerance, Functional Strength, Safety, Transfer Treatment/Plan Treatment Plan: Continue Plan of Care Treatment Plan: Bed Mobility, Education, Functional Activity Mariano, Functional Strength, Group Therapy, Gait, Safety, Therapeutic Exercise, Transfers Treatment Duration: Mar 19, 2022 Frequency: At least 5 of 7 days/Wk (IRF) Estimated Hrs Per Day: 1.5 hours per day Patient and/or Family Agrees t: Yes Safety Risks/Education Patient Education: Transfer Techniques, Correct Positioning Teaching Recipient: Patient Teaching Methods: Discussion Response to Teaching: Return Demonstration Time/GCodes Time In: 910 Time Out: 940 Total Billed Treatment Time: 30 Total Billed Treatment 1, FA x 2 DARYN TRIPP PTA Mar 06, 2022 10:45
[2022-03-06] MEDS: warFARin 5 MG (COUMADIN) TAB PO SCH (17:03)
[2022-03-06] MEDS: warFARin 2 MG (COUMADIN) TAB PO SCH (17:03)
[2022-03-06 20:50] VITALS: BP 123/73
[2022-03-06] MEDS: oxyCODONE ER 10 MG (OxyCONTIN CR) TAB PO SCH (21:05)
[2022-03-06] MEDS: MIRTAZAPINE 15 MG (REMERON) TAB PO SCH (21:06)
[2022-03-07] MEDS: PANTOPRAZOLE 40 MG (PROTONIX) TAB PO SCH (06:19)
[2022-03-07] MEDS: oxyCODONE/APAP 5/325MG (PERCOCET 5) TABLET PO PRN ×2 (06:20→14:11)
--- NOTE | 2022-03-07 07:48 | PM&R Progress Note ---
Subjective HPI/CC On Admission Date Seen by Provider: Mar 07, 2022 Time Seen by Provider: 12:00 Subjective/Events-last exam 03/07/2022: Improved sugar No pain reported No falls No pain issues 03/06/2022: Sugar a bit low last night Adjusted insulin from 15 to 8 Monitoring closely 03/05/2022: Patient doing well Sugars are good Took insulin at home but non-compliant 03/04/2022: Doing well today Sugars reviewed No falls Monitoring closely 03/03/2022: No major issues Sugars improved BP stable No increased pain 03/02/2022: No major issues Wants to go home soon Pain controlled No falls 03/01/2022: No major problems Did not sleep well last night No major issues Sugars reviewed Labs reviewed 02/28/2022: Patient doing well No major issues Pain is controlled Appreciate Dr. Pelaez with Dr. De Los Santos 02/27/2022: No major issues Pain controlled BS reviewed INR good Kidney function improved 02/26/2022: Settling in well Pain is improved BM+ Voiding well No falls Participating in therapy Grief with son, daughter and 's and then losing leg Dr De Los Santos expertise appreciated Dr Pelaez evaluated the patient today too Review of Systems General: Fatigue, Malaise Objective Exam Vital Signs Vital Signs Date Time Temp Pulse Resp B/P (MAP) Pulse Ox O2 Delivery O2 Flow Rate FiO2 03/07/22 09:59 Room Air 03/07/22 08:43 36.6 70 18 132/82 (99) 98 Capillary Refill : General Appearance: No Apparent Distress, WD/WN, Chronically ill HEENT: PERRL/EOMI, Normal ENT Inspection, Pharynx Normal Neck: Full Range of Motion, Normal Inspection, Non Tender, Supple, Carotid Bruit Respiratory: Chest Non Tender, Lungs Clear, Normal Breath Sounds, No Accessory Muscle Use, No Respiratory Distress Cardiovascular: Regular Rate, Rhythm, No Edema, No Gallop, No JVD, No Murmur, Normal Peripheral Pulses, Other (click) Gastrointestinal: Normal Bowel Sounds, No Organomegaly, No Pulsatile Mass, Non Tender, Soft Back: Normal Inspection, No CVA Tenderness, No Vertebral Tenderness Extremity: Normal Capillary Refill, Normal Inspection, Normal Range of Motion, Non Tender, No Calf Tenderness, No Pedal Edema Neurologic/Psychiatric: Alert, Oriented x3, Normal Mood/Affect, 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 FIM Transfers Therapy Code Descriptions/Definitions Functional [place] Measure: 0=Not Assessed/NA 4=Minimal Assistance 1=Total Assistance 5=Supervision or Setup 2=Maximal Assistance 6=Modified [place] 3=Moderate Assistance 7=Complete IndependenceSCALE: Activities may be completed with or without assistive devices. 7-Bvtprppnxp-shtkbcp completes the activity by him/herself with no assistance from a helper. 5-Set-up or Clean-up Assistance-helper sets up or cleans up; patient completes activity. [place] assists only prior to or following the activity. 4-Supervision or Touching Assistance-helper provides verbal cues and/or touching/steadying and/or contact guard assistance as patient completes activity. Assistance may be provided throughout the activity or intermittently. 3-Partial/Moderate Assistance-helper does LESS THAN HALF the effort. [place] lifts, holds or supports trunk or limbs, but provides less than half the effort. 2-Substantial/Maximal Assistance-helper does MORE THAN HALF the effort. [place] lifts or holds trunk or limbs and provides more than half the effort. 2-Buwzlypzm-lvplwd does ALL the effort. Patient does none of the effort to complete the activity. Or, the assistance of 2 or more helpers is required for the patient to complete the activity. If activity was not attempted, code reason: 7-Patient Refused. 9-Not Applicable-not attempted and the patient did not perform the activity before the current illness, exacerbation or injury. 10-Not Attempted due to Environmental Limitations-(lack of equipment, weather restraints, etc.). 88-Not Attempted due to Medical Conditions or Safety Concerns. Roll Left to Right (QC): 4 Sit to Lying (QC): 4 Sit to Stand (QC): 2 Chair/Rvh-oy-Prlto Xfer(QC): 3 Car Transfer (QC): 1 Gait Training Does the Patient Walk?: No and Walking Goal IS indicated Walk 10 feet (QC): 88 Walk 50 ft with 2 Turns(QC): 88 Walk 150 ft (QC): 88 Walking 10ft/uneven surface-QC: 88 Wheelchair Training Does the Pt Use a Wheelchair?: Yes Wheel 50 ft with 2 turns (QC): 3 Wheel 150 ft (QC): 3 Type of Wheelchair: Manual Stair Training 1 Step (curb) (QC): 88 4 Steps (QC): 88 12 Steps (QC): 88 Balance Picking up an Object (QC): 88 ADL-Treatment Eating (QC): 5 Oral Hygiene (QC): 4 Shower/Bathe Self (QC): 2 Upper Body Dressing (QC): 4 Lower Body Dressing (QC): 3 On/Off Footwear (QC): 1 Toileting Hygiene (QC): 1 Assessment/Plan Assessment and Plan Assess & Plan/Chief Complaint Assessment: 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 in [place] CVA following hospital course h/o embolic CVA 2009 Mitral valve replacement Coumadin maintenance DM HTN PVD CHF Chronic kidney disease Plan: Monitor closely PT OT INR monitoring 02/26/2022: Pain control Monitor sugar 02/27/2022: Monitor kidney function Monitor INR 02/28/2022: Supportive care Pain control 03/01/2022: Monitor closely 03/02/2022: Supportive care 03/03/2022: Decrease accuchecks 03/04/2022: Monitor sugar 03/05/2022: Monitor closely Sugars reviewed 03/06/2022: Monitor sugar Decrease Levemir 03/07/2022: Monitor sugar (1) History of mitral valve replacement with mechanical valve Assessment & Plan: We will continue warfarin and follow INR levels intermittently. He is now on warfarin 7 mg daily. At home he was taking 6.125 mg daily. I have ordered a repeat INR level on 03/05. His INR level on 03/02 and 03/03 was 1.9. I will plan to see him as needed. He did find a card iologist closer to home and has made an appointment. (2) Primary hypertension Assessment & Plan: He had been on amlodipine prior to his most recent admission at [facility] and then this was stopped at the outside facility. His blood pressures had been trending upward so I started a low-dose of losartan. This is will also have renal protective effects in light of his diabetes (3) Mixed hyperlipidemia Assessment & Plan: Continue statin medication. (4) Stage 2 chronic kidney disease Status: Chronic Assessment & Plan: It appears as though he probably has stage II chronic kidney disease which is mild. (5) Acute kidney injury superimposed on chronic kidney disease Status: Resolved Assessment & Plan: His renal function has improved. He may have been slightly dehydrated when his initial labs were drawn at the time of admission. Resolution Date/Time: 02/28/22 @ 10:26 (6) History of cerebrovascular accident with residual deficit Assessment & Plan: Continue aspirin and statin medication. If he develops any signs of hemorrhaging, then I would consider stopping aspirin since he takes warfarin for the mechanical mitral valve replacement. (7) Seizure disorder Assessment & Plan: This is being managed by the hospitalist. We need to be cautious with any cardiac medications that could alter the metabolism of his seizure medication. (8) Type 2 diabetes mellitus with complication Assessment & Plan: This is being managed by the hospitalist. (9) Obesity Assessment & Plan: He needs to work on weight loss. (10) Hx of BKA Assessment & Plan: He is now on our inpatient rehabilitation unit to help him start learning how to function with a below-knee amputation. DERRICK LONGORIA DO Mar 07, 2022 07:48
[2022-03-07 08:43] VITALS: BP 132/82
[2022-03-07] MEDS: LOSARTAN 25 MG (COZAAR) TAB PO SCH (08:45)
[2022-03-07] MEDS: DOCUSATE SODIUM 100 MG (COLACE) CAP PO SCH ×2 (08:45→20:31)
[2022-03-07] MEDS: SENNA W/DOCUSATE (SENOKOT S) TABLET PO SCH ×2 (08:45→20:32)
[2022-03-07] MEDS: ASPIRIN E.C. 81 MG (ECOTRIN) TAB PO SCH (08:45)
[2022-03-07] MEDS: PREGABALIN 75 MG (LYRICA) CAP PO SCH ×2 (08:45→20:32)
[2022-03-07] MEDS: lamoTRIgine 25 MG (LaMICtal) TAB PO SCH ×2 (08:45→20:32)
[2022-03-07] MEDS: MICONAZOLE 2% POWDER (DESENEX AF) 90 GM TOP SCH ×2 (08:46→20:36)
[2022-03-07] MEDS: polyethylene glycoL POWDER 17 GM (MIRALAX) PACK PO SCH ×2 (08:46→19:50)
[2022-03-07] MEDS: MICONAZOLE NITRATE 2% CRM 30 GM TP SCH ×2 (08:46→20:36)
[2022-03-07] MEDS: warFARin 2 MG (COUMADIN) TAB PO SCH (17:18)
[2022-03-07] MEDS: warFARin 5 MG (COUMADIN) TAB PO SCH (17:19)
[2022-03-07] MEDS: oxyCODONE ER 10 MG (OxyCONTIN CR) TAB PO SCH (20:31)
[2022-03-07] MEDS: MIRTAZAPINE 15 MG (REMERON) TAB PO SCH (20:32)
[2022-03-07 20:43] VITALS: BP 117/71
[2022-03-08] MEDS: oxyCODONE/APAP 5/325MG (PERCOCET 5) TABLET PO PRN ×3 (04:48→17:44)
[2022-03-08] MEDS: PANTOPRAZOLE 40 MG (PROTONIX) TAB PO SCH (06:37)
[2022-03-08 07:25] VITALS: BP 118/73
[2022-03-08] MEDS: PREGABALIN 75 MG (LYRICA) CAP PO SCH ×2 (08:38→20:11)
[2022-03-08] MEDS: ASPIRIN E.C. 81 MG (ECOTRIN) TAB PO SCH (08:38)
[2022-03-08] MEDS: SENNA W/DOCUSATE (SENOKOT S) TABLET PO SCH ×2 (08:38→20:11)
[2022-03-08] MEDS: LOSARTAN 25 MG (COZAAR) TAB PO SCH (08:38)
[2022-03-08] MEDS: lamoTRIgine 25 MG (LaMICtal) TAB PO SCH ×2 (08:38→20:11)
[2022-03-08] MEDS: DOCUSATE SODIUM 100 MG (COLACE) CAP PO SCH ×2 (08:38→20:12)
[2022-03-08] MEDS: polyethylene glycoL POWDER 17 GM (MIRALAX) PACK PO SCH ×2 (08:39→20:04)
[2022-03-08] MEDS: MICONAZOLE 2% POWDER (DESENEX AF) 90 GM TOP SCH ×2 (08:39→20:12)
[2022-03-08] MEDS: MICONAZOLE NITRATE 2% CRM 30 GM TP SCH ×2 (08:39→20:13)
--- NOTE | 2022-03-08 09:04 | Occupational Ther Daily Note ---
OT Current Status-Daily Note Subjective Pt denied pain at arrival. He stated he had just finished breakfast (tray already had been removed from room) and agreed to get cleaned up and changed before PT arrived at 8. After starting sponge bath, pt received phone call from "family" and took the call. Adequate time given to finish "inappropriate" conver sation with family member. After ending the phone call, he became agitated and began cussing, stating he didn't know why we had to come in so early and interrupt his phone call. Pt told PT that OT didn't let him finish breakfast, and that he was in an important conversation about a "serious" family problem. Therapist attempted to calm and reason with pt however pt continued to be upset. Despite being frustrated he still wanted to continue with therapy. Due to frustration, pt unable to focus on ADLs or other functional tasks and often made excuses that he couldn't perform due to being "rushed" this morning. Co-treat with PT ([id number]) secondary to self-limiting behavior, fall risk, coordination, balance, agitation and compliance. Appearance Pt left sitting on EOM with physical therapy at OT departure. Mental Status/Objective Patient Orientation: Person, Confused ADL-Treatment Therapy Code Descriptions/Definitions Functional [place] Measure: 0=Not Assessed/NA 4=Minimal Assistance 1=Total Assistance 5=Supervision or Setup 2=Maximal Assistance 6=Modified [place] 3=Moderate Assistance 7=Complete IndependenceSCALE: Activities may be completed with or without assistive devices. 6-Sirrfhfygh-mxzajxo completes the activity by him/herself with no assistance from a helper. 5-Set-up or Clean-up Assistance-helper sets up or cleans up; patient completes activity. [place] assists only prior to or following the activity. 4-Supervision or Touching Assistance-helper provides verbal cues and/or touching/steadying and/or contact guard assistance as patient completes activity. Assistance may be provided throughout the activity or intermittently. 3-Partial/Moderate Assistance-helper does LESS THAN HALF the effort. [place] lifts, holds or supports trunk or limbs, but provides less than half the effort. 2-Substantial/Maximal Assistance-helper does MORE THAN HALF the effort. [place] lifts or holds trunk or limbs and provides more than half the effort. 8-Vdhipvwsi-chegsa does ALL the effort. Patient does none of the effort to complete the activity. Or, the assistance of 2 or more helpers is required for the patient to complete the activity. If activity was not attempted, code reason: 7-Patient Refused. 9-Not Applicable-not attempted and the patient did not perform the activity before the current illness, exacerbation or injury. 10-Not Attempted due to Environmental Limitations-(lack of equipment, weather restraints, etc.). 88-Not Attempted due to Medical Conditions or Safety Concerns. Upper Body Dressing (QC): 5 Lower Body Dressing (QC): 3 On/Off Footwear: 1 Pt agreed to sponge bath before phone call. After phone call he did not want to wash up and needed max cues for cleaning krysta-area and skin folds well. Pt required max redirection and encouragement to initiate dressing task. Pt sat EOB to thread LE's and leaned R/L to pull pants over hips, needing mod a, increased time, and cues to finish task. Pt was dependent for socks and shoes due to flexibility and problem-solving. Pt applied deodorant and donned new shirt with set up. Modified slide transfer from bed <>w/c: min assist. Other Treatment Pt needed mod cues for w/c mobility in hallways. In parallel bars, he was mod assist x2 for sit<>stand transfer x4. He stood ~1 min and 30 seconds for each bout. Cues for proper standing body mechanics. W/c switched out for a taller one and pt seemed to like it better. Pt practiced w/c mobility throughout commons area in new w/c with better success. Still needed mod tactile and verbal cues for hand placement when turning. Pt participated in leg press 3x10 with max resistant and assist with keeping foot on mat. Pt transferred to therapy mat from w/c with min assist to perform sit<>stands x5 with mod assist x2 with therapy mat raised. Pt needs constant cues for initiation, completion, sequencing, and overall problem-solving with all tasks. Education OT Patient Education: Correct positioning, Energy conservation, Exercise program, Modified ADL techniques, Purpose of tx/functional activities, Reviewed precautions, Rehab process, Safety issues, Transfer techniques, W/C management Teaching Recipient: Patient Teaching Methods: Demonstration, Discussion Response to Teaching: Verbalize Understanding, Unable to Return Demonstration, Reinforcement Needed OT Short Term Goals Short Term Goals Time Frame: Mar 10, 2022 Eatin Oral hygiene: 2 Toileting hygiene: 2 Shower/bathe self: 2 Upper body dressin Lower body dressin Putting on/taking off footwear: 2 OT Penitentiary Goals Penitentiary Goals Time Frame: Mar 22, 2022 Acute change in mental status: 1 Inattention: 2 Disorganized thinkin Altered level of consciousness: 0 Eating (QC): 5 Oral Hygiene (QC): 4 Toileting Hygiene (QC): 4 Shower/Bathe Self (QC): 4 Upper Body Dressing (QC): 6 Lower Body Dressing (QC): 4 On/Off Footwear (QC): 4 Additional Goals: 1-Demonstrate ADL Tasks, 2-Verbalize Understanding, 3- ImproveStrength/[place] 1=Demonstrate adherence to instructed precautions during ADL tasks. 2=Patient will verbalize/demonstrate understanding of assistive devices/modifications for ADL. 3=Patient will improve strength/tolerance for activity to enable patient to perform ADL's. OT Education/Plan Problem List/Assessment Assessment: Decreased Activ Tolerance, Decreased Safety Aware, Decreased UE Strength, Dependent Transfers, Impaired Cognition, Impaired Coordination, Impaired Funct Balance, Impaired I ADL's, Impaired Self-Care Skills Discharge Recommendations Plan/Recommendations: Continue POC Therapy Discharge Recommendati: Assisted Living (not safe to return home) Treatment Plan/Plan of Care Treatment,Training & Education: Yes Patient would benefit from OT for education, treatment and training to promote independence in ADL's, mobility, safety and/or upper extremity function for ADL's. Plan of Care: ADL Retraining, Caregiver Training, Cognitive Retraining, Functional Mobility, Group Exercise/Act as Ind, Orthotic Fitting/Training, UE Funct Exercise/Act, UE Neuromus Re-Ed/Coord, W/C Management Training Treatment Duration: Mar 22, 2022 Frequency: At least 5 of 7 days/Wk (IRF) Estimated Hrs Per Day: 1.5 hours per day (60-90 min/day) Agreement: Yes Rehab Potential: Fair Time/GCodes Start Time: 07:45 Stop Time: 09:00 Total Time Billed (hr/min): 75 Billed Treatment Time 1 visit ADL x2 (25 min) FA x2 (40 min) EX (10 min) Co-treat with PT ([id number]) Taylor Norris OT Mar 08, 2022 09:04
--- NOTE | 2022-03-08 09:11 | Physical Therapy Daily Note ---
PT Daily Note-Current Subjective Patient in bed pre tx, agrees to PT, has no complaints of pain. Patient is a little agitated this morning about having to do therapy early, patient educated on the importance of therapy. Will be co-treating with OT for part of therapy due to poor patient mobility, strength, endurance, severe debility, coordinate UE and LE during activity, safety and reduce risk of falls. Pain Section J - Health Conditions 1. Rarely or not at all 2. Occasionally 3. Frequently 4. Almost constantly 8. Unable to answer Pain Effect on Sleep: 2 Pain Interference with Therapy: 2 Pain Interference w/Day-to-Day: 2 Appearance Patient in WC post tx with nurse call, phone, tray, all needs met. Mental Status Patient Orientation: Person, Place, Situation Transfers SCALE: Activities may be completed with or without assistive devices. 9-Iksuginmmr-xuhbipp completes the activity by him/herself with no assistance from a helper. 5-Set-up or Clean-up Assistance-helper sets up or cleans up; patient completes activity. [place] assists only prior to or following the activity. 4-Supervision or Touching Assistance-helper provides verbal cues and/or touching/steadying and/or contact guard assistance as patient completes activity. Assistance may be provided throughout the activity or intermittently. 3-Partial/Moderate Assistance-helper does LESS THAN HALF the effort. [place] lifts, holds or supports trunk or limbs, but provides less than half the effort. 2-Substantial/Maximal Assistance-helper does MORE THAN HALF the effort. [place] lifts or holds trunk or limbs and provides more than half the effort. 3-Ucudebcyy-kjdaxq does ALL the effort. Patient does none of the effort to comp lete the activity. Or, the assistance of 2 or more helpers is required for the patient to complete the activity. If activity was not attempted, code reason: 7-Patient Refused. 9-Not Applicable-not attempted and the patient did not perform the activity before the current illness, exacerbation or injury. 10-Not Attempted due to Environmental Limitations-(lack of equipment, weather restraints, etc.). 88-Not Attempted due to Medical Conditions or Safety Concerns. Roll Left & Right (QC): 4 Lying to Sitting/Side of Bed(Q: 4 Sit to Stand (QC): 2 Chair/Apk-mj-Nuzti Xfer(QC): 3 Patient sat to the side of the bed and dressed, had to lean from side to side to get his pants on. Then sliding transfer to WC (w/o using board) with mod assist. Weight Bearing Right Lower Extremity: Right Full Weight Bearing Wheelchair Training Does the Pt Use a Wheelchair?: Yes Wheel 50 ft with 2 turns (QC): 4 Wheel 150 ft (QC): 4 Type of Wheelchair: Manual 150'x2, switched out WC for another that fits him better. Patient has an easier time propelling the new WC but still has trouble coordinating his UE's for turning and using his right leg to assist with propelling and turning. Exercises Patient stood in the parallel bars x3 for about 2 min each time, he also performed sit to stand from elevated therapy table 2 sets of 5, and manually resisted leg press 3 sets of 10 Treatments PT performed bed mobility and transfers, standing, WC mobility, OT performed UE positioning and safety during activity, dressing, assist with safety cues. Assessment Current Status: Poor Progress Patient continues to have poor motor planning, responds poorly to cues for positioning and safety. PT Short Term Goals Short Term Goals Time Frame: Mar 05, 2022 Roll Left & Right: 6 Sit to lyin Lying to sitting on side of be: 6 Sit to stand: 3 Chair/nxj-wr-syviu transfer: 3 PT Skilled Nursing Goals Skilled Nursing Goals PT Skilled Nursing Goals Time Frame: Mar 19, 2022 Roll Left & Right (QC): 6 Sit to Lying (QC): 6 Lying-Sitting on Side/Bed(QC): 6 Sit to Stand (QC): 4 Chair/Qtq-yj-Cpouu Xfer(QC): 4 Toilet Transfer (QC): 3 Car Transfer (QC): 3 Does the Patient Walk: No and Walking Goal IS indicated Walk 10 feet (QC): 3 Walk 50ft with 2 Turns (QC): 88 Walk 150 ft (QC): 88 Walking 10ft on Uneven Surface: 88 1 Step (curb) (QC): 88 4 Steps (QC): 88 12 Steps (QC): 88 Picking up an Object (QC): 3 Wheel 50 feet with 2 turns (QC: 4 Wheel 150 feet: 3 PT Plan Problem List Problem List: Activity Tolerance, Functional Strength, Safety, Balance, Gait, Transfer, Bed Mobility, ROM Treatment/Plan Treatment Plan: Continue Plan of Care Treatment Plan: Bed Mobility, Education, Functional Activity Mariano, Functional Strength, Group Therapy, Gait, Safety, Therapeutic Exercise, Transfers Treatment Duration: Mar 19, 2022 Frequency: At least 5 of 7 days/Wk (IRF) Estimated Hrs Per Day: 1.5 hours per day Patient and/or Family Agrees t: Yes Safety Risks/Education Patient Education: Transfer Techniques, Correct Positioning, W/C Management, Safety Issues Teaching Recipient: Patient Teaching Methods: Demonstration, Discussion Response to Teaching: Reinforcement Needed Time/GCodes Time In: 08 Time Out: 914 Total Billed Treatment Time: 75 Total Billed Treatment 1 visit EX 15' FA 60' co-treated from [id number] SALAS SUMNER PT Mar 08, 2022 09:11
--- NOTE | 2022-03-08 10:26 | Speech Therapy Daily Note ---
Speech Daily Progress Note Subjective Date Seen by Provider: Mar 08, 2022 Time Seen by Provider: 09:30 The patient was seated upright in his wheelchair, awake and alert, upon entrance to his room by the clinician. The patient greeted the clinician appropriately and was agreeable to participation in the cognitive linguistic treatment session. Objective The patient immediately addresses the clinician with questions regarding the availability and necessity of a hospital bed. As the clinician does not assess mobility, the clinician stated she has provided the message to the manager social media, who will follow up with the patient in the near future with appropriate information. To note, due to the patient's current level of cognition, this clinician continues to recommend discharge to assisted. At this time, the patient states he will discharge to his home, only. The patient completed word-finding exercises with fair accuracy and maximum clinician cueing. The patient was asked to provide words associated with a specific word, provide antonyms for a specific word, and provide a specific word that began with a specific letter and fit into a specific category. The patient was able to use the word-finding strategy of description appropriately once verbally prompted by the clinician. Assessment Assessment Current Status: Fair Progress Treatment Plan Continue Plan of Care Speech Short Term Goals Short Term Goals Short Term Goals 1. The patient will demonstrate improved word-finding strategies through informal conversation with mild clinician cueing. Time Frame-STG: Seven Days. Speech Alf Goals Shoe Reconditioner Goals 1. The patient will demonstrate improved cognitive linguistic skills for safe discharge to the least restrictive environment. Time Frame: Ten Days. Speech-Plan Treatment Plan Speech Therapy Treatment Plan: Continue Plan of Care Treatment Duration: Mar 10, 2022 Frequency: Modified Program (IRF) (Four to five times per week.) Estimated Hrs Per Day: .5 hour per day Rehab Potential: Fair Safety Risks/Education Teaching Recipient: Patient Teaching Methods: Discussion Response to Teaching: Reinforcement Needed Education Topics Provided: Word Finding Strategies Time Speech Therapy Time In: 09:30 Speech Therapy Time Out: 10:00 Total Billed Time: 30 Billed Treatment Time [facility]ant[facility] Mar 08, 2022 10:26
--- NOTE | 2022-03-08 10:50 | PM&R Progress Note ---
Subjective HPI/CC On Admission Date Seen by Provider: Mar 08, 2022 Time Seen by Provider: 11:00 Subjective/Events-last exam 03/08/2022: Patient doing well Arms really too weak to help him transfer and this is from priro CVA's Needs NH placement Psych eval indicated for anger issues so I ordered that 03/07/2022: Improved sugar No pain reported No falls No pain issues 03/06/2022: Sugar a bit low last night Adjusted insulin from 15 to 8 Monitoring closely 03/05/2022: Patient doing well Sugars are good Took insulin at home but non-compliant 03/04/2022: Doing well today Sugars reviewed No falls Monitoring closely 03/03/2022: No major issues Sugars improved BP stable No increased pain 03/02/2022: No major issues Wants to go home soon Pain controlled No falls 03/01/2022: No major problems Did not sleep well last night No major issues Sugars reviewed Labs reviewed 02/28/2022: Patient doing well No major issues Pain is controlled Appreciate Dr. Pelaez with Dr. De Los Santos 02/27/2022: No major issues Pain controlled BS reviewed INR good Kidney function improved 02/26/2022: Settling in well Pain is improved BM+ Voiding well No falls Participating in therapy Grief with son, daughter and 's and then losing leg Dr De Los Santos expertise appreciated Dr Pelaez evaluated the patient today too Review of Systems General: Fatigue, Malaise Objective Exam Vital Signs Vital Signs Date Time Temp Pulse Resp B/P (MAP) Pulse Ox O2 Delivery O2 Flow Rate FiO2 03/08/22 20:02 Room Air 03/08/22 20:00 36.0 79 20 125/75 (92) 99 Capillary Refill : General Appearance: No Apparent Distress, WD/WN, Chronically ill HEENT: PERRL/EOMI, Normal ENT Inspection, Pharynx Normal Neck: Full Range of Motion, Normal Inspection, Non Tender, Supple, Carotid Bruit Respiratory: Chest Non Tender, Lungs Clear, Normal Breath Sounds, No Accessory Muscle Use, No Respiratory Distress Cardiovascular: Regular Rate, Rhythm, No Edema, No Gallop, No JVD, No Murmur, Normal Peripheral Pulses, Other (click) Gastrointestinal: Normal Bowel Sounds, No Organomegaly, No Pulsatile Mass, Non Tender, Soft Back: Normal Inspection, No CVA Tenderness, No Vertebral Tenderness Extremity: Normal Capillary Refill, Normal Inspection, Normal Range of Motion, Non Tender, No Calf Tenderness, No Pedal Edema Neurologic/Psychiatric: Alert, Oriented x3, Normal Mood/Affect, application integration specialist II-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 FIM Transfers Therapy Code Descriptions/Definitions Functional [place] Measure: 0=Not Assessed/NA 4=Minimal Assistance 1=Total Assistance 5=Supervision or Setup 2=Maximal Assistance 6=Modified [place] 3=Moderate Assistance 7=Complete IndependenceSCALE: Activities may be completed with or without assistive devices. 4-Jtrejndnyx-hcgzbub completes the activity by him/herself with no assistance from a helper. 5-Set-up or Clean-up Assistance-helper sets up or cleans up; patient completes activity. [place] assists only prior to or following the activity. 4-Supervision or Touching Assistance-helper provides verbal cues and/or touchin g/steadying and/or contact guard assistance as patient completes activity. Assistance may be provided throughout the activity or intermittently. 3-Partial/Moderate Assistance-helper does LESS THAN HALF the effort. [place] lifts, holds or supports trunk or limbs, but provides less than half the effort. 2-Substantial/Maximal Assistance-helper does MORE THAN HALF the effort. [place] lifts or holds trunk or limbs and provides more than half the effort. 1-Capbcdgnm-achzdr does ALL the effort. Patient does none of the effort to complete the activity. Or, the assistance of 2 or more helpers is required for the patient to complete the activity. If activity was not attempted, code reason: 7-Patient Refused. 9-Not Applicable-not attempted and the patient did not perform the activity before the current illness, exacerbation or injury. 10-Not Attempted due to Environmental Limitations-(lack of equipment, weather restraints, etc.). 88-Not Attempted due to Medical Conditions or Safety Concerns. Roll Left to Right (QC): 4 Sit to Lying (QC): 4 Sit to Stand (QC): 2 Chair/Jcv-lx-Dbtnz Xfer(QC): 3 Car Transfer (QC): 1 Gait Training Does the Patient Walk?: No and Walking Goal IS indicated Walk 10 feet (QC): 88 Walk 50 ft with 2 Turns(QC): 88 Walk 150 ft (QC): 88 Walking 10ft/uneven surface-QC: 88 Wheelchair Training Does the Pt Use a Wheelchair?: Yes Wheel 50 ft with 2 turns (QC): 4 Wheel 150 ft (QC): 4 Type of Wheelchair: Manual Stair Training 1 Step (curb) (QC): 88 4 Steps (QC): 88 12 Steps (QC): 88 Balance Picking up an Object (QC): 88 ADL-Treatment Eating (QC): 5 Oral Hygiene (QC): 4 Shower/Bathe Self (QC): 2 Upper Body Dressing (QC): 5 Lower Body Dressing (QC): 3 On/Off Footwear (QC): 1 Toileting Hygiene (QC): 1 Assessment/Plan Assessment and Plan Assess & Plan/Chief Complaint Assessment: 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 in [place] CVA following hospital course h/o embolic CVA 2009 Mitral valve replacement Coumadin maintenance DM HTN PVD CHF Chronic kidney disease Plan: Monitor closely PT OT INR monitoring 02/26/2022: Pain control Monitor sugar 02/27/2022: Monitor kidney function Monitor INR 02/28/2022: Supportive care Pain control 03/01/2022: Monitor closely 03/02/2022: Supportive care 03/03/2022: Decrease accuchecks 03/04/2022: Monitor sugar 03/05/2022: Monitor closely Sugars reviewed 03/06/2022: Monitor sugar Decrease Levemir 03/07/2022: Monitor sugar 03/08/2022: Needs NH placement due to arms too weak to transfer self (1) History of mitral valve replacement with mechanical valve Assessment & Plan: We will continue warfarin and follow INR levels intermittently. He is now on warfarin 7 mg daily. At home he was taking 6.125 mg daily. I have ordered a repeat INR level on 03/05. His INR level on 03/02 and 03/03 was 1.9. I will plan to see him as needed. He did find a cardiologis t closer to home and has made an appointment. (2) Primary hypertension Assessment & Plan: He had been on amlodipine prior to his most recent admission at [facility] and then this was stopped at the outside facility. His blood pressures had been trending upward so I started a low-dose of losartan. This is will also have renal protective effects in light of his diabetes (3) Mixed hyperlipidemia Assessment & Plan: Continue statin medication. (4) Stage 2 chronic kidney disease Status: Chronic Assessment & Plan: It appears as though he probably has stage II chronic kidney disease which is mild. (5) Acute kidney injury superimposed on chronic kidney disease Status: Resolved Assessment & Plan: His renal function has improved. He may have been slightly dehydrated when his initial labs were drawn at the time of admission. Resolution Date/Time: 02/28/22 @ 10:26 (6) History of cerebrovascular accident with residual deficit Assessment & Plan: Continue aspirin and statin medication. If he develops any signs of hemorrhaging, then I would consider stopping aspirin since he takes warfarin for the mechanical mitral valve replacement. (7) Seizure disorder Assessment & Plan: This is being managed by the hospitalist. We need to be cautious with any cardiac medications that could alter the metabolism of his seizure medication. (8) Type 2 diabetes mellitus with complication Assessment & Plan: This is being managed by the hospitalist. (9) Obesity Assessment & Plan: He needs to work on weight loss. (10) Hx of BKA Assessment & Plan: He is now on our inpatient rehabilitation unit to help him start learning how to function with a below-knee amputation. DERRICK LONGORIA DO Mar 08, 2022 10:50
[2022-03-08] MEDS: CYCLOBENZAPRINE 10 MG (FLEXERIL) TAB PO PRN (12:31)
--- NOTE | 2022-03-08 13:46 | Physical Therapy Progress Note ---
Therapy Progress Note Patient will need a manual WC for home use due to having a left below the knee amputation and being non-ambulatory at this time. Patient has trouble just standing in the parallel bars and needs the WC for home and community mobility. Patient also needs a rolling walker for standing and transfers, the walker would allow him to use his arms more during transfers and decrease his risk of falling and injury. SALAS SUMNER PT Mar 08, 2022 13:46
--- NOTE | 2022-03-08 14:04 | Physical Therapy Progress Note ---
Therapy Progress Note Patient will need a hospital bed for home use. Patient has had a left below the knee amputation and needs the rails and elevating head and feet for proper positioning to improve functional mobility and pressure relief needed due to decreased mobility. SALAS SUMNER PT Mar 08, 2022 14:04
[2022-03-08] MEDS ORDERED: INSU100I29 SQ (14:38)
[2022-03-08] MEDS ORDERED: WARF3TAB56 PO (14:38)
[2022-03-08] MEDS ORDERED: LEVE750T5 PO (14:39)
[2022-03-08] MEDS ORDERED: OMEP20CA18 PO (14:41)
[2022-03-08] MEDS ORDERED: LINA5TAB PO (14:41)
[2022-03-08] MEDS ORDERED: TRZ50T PO (14:46)
[2022-03-08] MEDS ORDERED: SPIR25TA5 PO (14:52)
[2022-03-08] MEDS ORDERED: AMLO-251 PO (14:52)
[2022-03-08] MEDS ORDERED: LAMO25TA8 PO (14:53)
[2022-03-08] MEDS ORDERED: LOSA25TA41 PO (14:54)
[2022-03-08] MEDS ORDERED: DULO60CA59 PO (14:56)
[2022-03-08] MEDS ORDERED: BUPR-168 PO (14:56)
[2022-03-08] MEDS ORDERED: FURO20TA4 PO (14:57)
[2022-03-08] MEDS ORDERED: ASPI-1238 PO (14:58)
[2022-03-08] MEDS ORDERED: ATOR20TA66 PO (14:59)
[2022-03-08] MEDS ORDERED: ASCO-262 PO (15:03)
[2022-03-08] MEDS: warFARin 2 MG (COUMADIN) TAB PO SCH (17:48)
[2022-03-08] MEDS: warFARin 5 MG (COUMADIN) TAB PO SCH (17:48)
--- NOTE | 2022-03-08 18:11 | Behavioral Health Consult ---
Consult- Consult Date Seen by Provider: Mar 08, 2022 Time Seen by Provider: 13:08 [facility] PSYCHOLOGICAL CONSULTATION PATIENT: Almas Hill DATE: 1965 DATE OF EVALUATION: 03/08/22 (13:08-14:00) DATE OF REPORT: 03/08/22 REFERRAL QUESTION: Almas Hill is a 56-year-old male who was admitted to the hospital rehabilitation unit due to a recent below knee leg amputation. Dr. Garza asked for a psychological consultation due to depressed mood and anger. He reportedly got upset with several different staff on the unit. TESTS ADMINISTERED: Clinical Interview with Patient PRESENTING PROBLEMS: Almas Hill recently had his left leg amputated below the knee. He states that he fell in the bathtub prompting his step brother Duran to take him to the hospital. Mr. Hill reports that they took him into surgery quickly to remove his leg as they feared the infection could cause significant problems. He reports that he did not think that he would lose his leg. He states that the past few years have been rough on him as his and daughter both last year from complications from diabetes and that his son in a car accident a year or two prior to them dying. He states that he moved out of [place], [place] to be with his step brother in [place], so he would have family and support. CURRENT/PREVIOUS MENTAL HEALTH TREATMENT: Mr. Hill denied any previous therapy or counseling. He seemed relatively open to the idea of engaging in counseling or therapy now as he is grieving several losses including his leg. MEDICAL HISTORY: See medical chart for detailed history. 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 He states that he has dealt with other health issues since then including diabetes. He states that he takes blood pressure medication and blood thinners. RECREATIONAL DRUG USAGE: He denies history of drug use but admits that both his children got involved in using heavy drugs such as methamphetamines and heroin. EDUCATIONAL AND VOCATIONAL HISTORIES: Mr. 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 He states that he was unable to work after having a stroke. LEGAL HISTORY: No legal problems were reported. FAMILY AND SOCIAL HISTORIES/SOCIAL SUPPORT: Mr. Hill currently lives in [place], [place] in a house with his step brother and his . He states that he met his soon after high school and was to her for thirty-five years. He states that her last year was difficult as he saw her lose part of her leg from diabetes before dying. He states that his daughter last year as well due to health issues and poor choices. He states that his son in a car accident a year or two before that, and he lost two cousins he was close to as well that year. He states that he does not have too many people left but is thankful for Duran. He states that his father at 53 years of age, while his mother several years after him. BEHAVIORAL OBSERVATIONS/MENTAL STATUS: The patient was seen in his hospital room as he was sitting in a wheelchair in street clothes. He was cooperative and alert throughout the interview and answered all the questions asked of him. Mr. Hill was pleasant and laughed and smiled with the provider. He admits that the past year has been rough but maintains that he is looking forward and plans on doing what it takes to get better. He denied suicidal ideation or a desire to give up but admits that he has suffered a great deal of loss lately. SUMMARY: Mr. Hill is currently at the hospital due to a below knee amputation. He is receiving physical therapy to help regain his functioning and ability to function at home. Mr. Rodriguez medical record did not indicate that he is taking an antidepressant. This provider recommends that he begin taking one as he has a tough road of him. Mr. Hill was provided information about following up with this provider on an outpatient basis (virtually, most likely) as he will have a challenging adjustment when he leaves the hospital as well but also was encouraged to set an appointment with a provider closer to where he lives if he prefers. DIAGNOSTIC IMPRESSIONS: F32.1 Major Depressive Disorder, Moderate Thank you for the opportunity to consult on this patient. Copy Copies To 1: DERRICK GARZA JEFFREY M PSYD Mar 08, 2022 18:11
[2022-03-08 20:00] VITALS: BP 125/75
[2022-03-08] MEDS: oxyCODONE ER 10 MG (OxyCONTIN CR) TAB PO SCH (20:11)
[2022-03-08] MEDS: MIRTAZAPINE 15 MG (REMERON) TAB PO SCH (20:11)
[2022-03-09] MEDS: oxyCODONE/APAP 5/325MG (PERCOCET 5) TABLET PO PRN ×3 (01:03→10:32)
[2022-03-09] MEDS: PANTOPRAZOLE 40 MG (PROTONIX) TAB PO SCH (05:15)
--- NOTE | 2022-03-09 06:23 | PM&R Progress Note ---
Subjective HPI/CC On Admission Date Seen by Provider: Mar 09, 2022 Time Seen by Provider: 08:30 Subjective/Events-last exam 03/09/2022: Improved status Psych consult recommended anti-depressant Spoke to him about a new anti-depressant and he is willing 03/08/2022: Patient doing well Arms really too weak to help him transfer and this is from homero FELIZ's Needs NH placement Psych eval indicated for anger issues so I ordered that 03/07/2022: Improved sugar No pain reported No falls No pain issues 03/06/2022: Sugar a bit low last night Adjusted insulin from 15 to 8 Monitoring closely 03/05/2022: Patient doing well Sugars are good Took insulin at home but non-compliant 03/04/2022: Doing well today Sugars reviewed No falls Monitoring closely 03/03/2022: No major issues Sugars improved BP stable No increased pain 03/02/2022: No major issues Wants to go home soon Pain controlled No falls 03/01/2022: No major problems Did not sleep well last night No major issues Sugars reviewed Labs reviewed 02/28/2022: Patient doing well No major issues Pain is controlled Appreciate Dr. Pelaez with Dr. De Los Santos 02/27/2022: No major issues Pain controlled BS reviewed INR good Kidney function improved 02/26/2022: Settling in well Pain is improved BM+ Voiding well No falls Participating in therapy Grief with son, daughter and 's and then losing leg Dr De Los Santos expertise appreciated Dr Pelaez evaluated the patient today too Review of Systems General: Fatigue, Malaise Objective Exam Vital Signs Vital Signs Date Time Temp Pulse Resp B/P (MAP) Pulse Ox O2 Delivery O2 Flow Rate FiO2 03/09/22 19:28 36.5 67 20 120/76 (91) 100 Room Air Capillary Refill : General Appearance: No Apparent Distress, WD/WN, Chronically ill HEENT: PERRL/EOMI, Normal ENT Inspection, Pharynx Normal Neck: Full Range of Motion, Normal Inspection, Non Tender, Supple, Carotid Bruit Respiratory: Chest Non Tender, Lungs Clear, Normal Breath Sounds, No Accessory Muscle Use, No Respiratory Distress Cardiovascular: Regular Rate, Rhythm, No Edema, No Gallop, No JVD, No Murmur, Normal Peripheral Pulses, Other (click) Gastrointestinal: Normal Bowel Sounds, No Organomegaly, No Pulsatile Mass, Non Tender, Soft Back: Normal Inspection, No CVA Tenderness, No Vertebral Tenderness Extremity: Normal Capillary Refill, Normal Inspection, Normal Range of Motion, Non Tender, No Calf Tenderness, No Pedal Edema Neurologic/Psychiatric: Alert, Oriented x3, Normal Mood/Affect, irrigationist designer II-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 FIM Transfers Therapy Code Descriptions/Definitions Functional [place] Measure: 0=Not Assessed/NA 4=Minimal Assistance 1=Total Assistance 5=Supervision or Setup 2=Maximal Assistance 6=Modified [place] 3=Moderate Assistance 7=Complete IndependenceSCALE: Activities may be completed with or without assistive devices. 1-Xzzddtxmlp-kjeymqc completes the activity by him/herself with no assistance from a helper. 5-Set-up or Clean-up Assistance-helper sets up or cleans up; patient completes activity. [place] assists only prior to or following the activity. 4-Supervision or Touching Assistance-helper provides verbal cues and/or touching/steadying and/or contact guard assistance as patient completes activity. Assistance may be provided throughout the activity or intermittently. 3-Partial/Moderate Assistance-helper does LESS THAN HALF the effort. [place] lifts, holds or supports trunk or limbs, but provides less than half the effort. 2-Substantial/Maximal Assistance-helper does MORE THAN HALF the effort. [place] lifts or holds trunk or limbs and provides more than half the effort. 6-Hsxvkqctr-ihxlon does ALL the effort. Patient does none of the effort to complete the activity. Or, the assistance of 2 or more helpers is required for the patient to complete the activity. If activity was not attempted, code reason: 7-Patient Refused. 9-Not Applicable-not attempted and the patient did not perform the activity before the current illness, exacerbation or injury. 10-Not Attempted due to Environmental Limitations-(lack of equipment, weather restraints, etc.). 88-Not Attempted due to Medical Conditions or Safety Concerns. Roll Left to Right (QC): 4 Sit to Lying (QC): 4 Sit to Stand (QC): 2 Chair/Jwt-dp-Ktqwa Xfer(QC): 3 Car Transfer (QC): 1 Gait Training Does the Patient Walk?: No and Walking Goal IS indicated Walk 10 feet (QC): 88 Walk 50 ft with 2 Turns(QC): 88 Walk 150 ft (QC): 88 Walking 10ft/uneven surface-QC: 88 Wheelchair Training Does the Pt Use a Wheelchair?: Yes Wheel 50 ft with 2 turns (QC): 4 Wheel 150 ft (QC): 4 Type of Wheelchair: Manual Stair Training 1 Step (curb) (QC): 88 4 Steps (QC): 88 12 Steps (QC): 88 Balance Picking up an Object (QC): 88 ADL-Treatment Eating (QC): 5 Oral Hygiene (QC): 4 Shower/Bathe Self (QC): 2 Upper Body Dressing (QC): 5 Lower Body Dressing (QC): 3 On/Off Footwear (QC): 1 Toileting Hygiene (QC): 1 Assessment/Plan Assessment and Plan Assess & Plan/Chief Complaint Assessment: 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 in [facility] CVA following hospital course h/o embolic CVA 2009 Mitral valve replacement Coumadin maintenance DM HTN PVD CHF Chronic kidney disease Depression added anti-depressant 03/09/22 Plan: Monitor closely PT OT INR monitoring 02/26/2022: Pain control Monitor sugar 02/27/2022: Monitor kidney function Monitor INR 02/28/2022: Supportive care Pain control 03/01/2022: Monitor closely 03/02/2022: Supportive care 03/03/2022: Decrease accuchecks 03/04/2022: Monitor sugar 03/05/2022: Monitor closely Sugars reviewed 03/06/2022: Monitor sugar Decrease Levemir 03/07/2022: Monitor sugar 03/08/2022: Needs NH placement due to arms too weak to transfer self 03/09/2022: Monitor closely Add anti-depressant (1) History of mitral valve replacement with mechanical valve Assessment & Plan: We will continue warfarin and follow INR levels intermittently. He is now on warfarin 7 mg daily. At home he was taking 6.125 mg daily. I have ordered a repeat INR level on 03/05. His INR level on 03/02 and 03/03 was 1.9. I will plan to see him as needed. He did find a ad operations intern closer to home and has made an appointment. (2) Primary hypertension Assessment & Plan: He had been on amlodipine prior to his most recent admission at [facility] and then this was stopped at the outside facility. His blood pressures had been trending upward so I started a low-dose of losartan. This is will also have renal protective effects in light of his diabetes (3) Mixed hyperlipidemia Assessment & Plan: Continue statin medication. (4) Stage 2 chronic kidney disease Status: Chronic Assessment & Plan: It appears as though he probably has stage II chronic kidney disease which is mild. (5) Acute kidney injury superimposed on chronic kidney disease Status: Resolved Assessment & Plan: His renal function has improved. He may have been slightly dehydrated when his initial labs were drawn at the time of admission. Resolution Date/Time: 02/28/22 @ 10:26 (6) History of cerebrovascular accident with residual deficit Assessment & Plan: Continue aspirin and statin medication. If he develops any signs of hemorrhaging, then I would consider stopping aspirin since he takes warfarin for the mechanical mitral valve replacement. (7) Seizure disorder Assessment & Plan: This is being managed by the hospitalist. We need to be cautious with any cardiac medications that could alter the metabolism of his seizure medication. (8) Type 2 diabetes mellitus with complication Assessment & Plan: This is being managed by the hospitalist. (9) Obesity Assessment & Plan: He needs to work on weight loss. (10) Hx of BKA Assessment & Plan: He is now on our inpatient rehabilitation unit to help him start learning how to function with a below-knee amputation. DERRICK LONGORIA DO Mar 09, 2022 06:23
[2022-03-09 07:14] VITALS: BP 125/81
[2022-03-09] MEDS: CYCLOBENZAPRINE 10 MG (FLEXERIL) TAB PO PRN ×2 (07:35→21:03)
[2022-03-09] MEDS: SENNA W/DOCUSATE (SENOKOT S) TABLET PO SCH ×2 (07:35→21:03)
[2022-03-09] MEDS: LOSARTAN 25 MG (COZAAR) TAB PO SCH (07:35)
[2022-03-09] MEDS: PREGABALIN 75 MG (LYRICA) CAP PO SCH ×2 (07:35→21:03)
[2022-03-09] MEDS: DOCUSATE SODIUM 100 MG (COLACE) CAP PO SCH ×2 (07:36→21:03)
[2022-03-09] MEDS: ASPIRIN E.C. 81 MG (ECOTRIN) TAB PO SCH (07:36)
[2022-03-09] MEDS: lamoTRIgine 25 MG (LaMICtal) TAB PO SCH ×2 (07:36→21:08)
[2022-03-09] MEDS: polyethylene glycoL POWDER 17 GM (MIRALAX) PACK PO SCH ×2 (07:39→21:16)
[2022-03-09] MEDS: MICONAZOLE 2% POWDER (DESENEX AF) 90 GM TOP SCH ×2 (07:40→21:04)
[2022-03-09] MEDS: MICONAZOLE NITRATE 2% CRM 30 GM TP SCH ×2 (07:40→21:08)
--- NOTE | 2022-03-09 09:10 | Occupational Ther Daily Note ---
OT Current Status-Daily Note Subjective Pt reports urgency to have BM at OT arrival. Bed buck placed. Co-treat with PT ([id number]) secondary to impaired mobility, high fall risk, poor safety and need of 2 skilled clinicians to progress indep and safety with adls and functional mobility. Appearance Pt left sitting in w/c with all needs within reach. Mental Status/Objective Patient Orientation: Person ADL-Treatment Therapy Code Descriptions/Definitions Functional [place] Measure: 0=Not Assessed/NA 4=Minimal Assistance 1=Total Assistance 5=Supervision or Setup 2=Maximal Assistance 6=Modified [place] 3=Moderate Assistance 7=Complete IndependenceSCALE: Activities may be completed with or without assistive devices. 3-Cexheialqg-wvefcuh completes the activity by him/herself with no assistance from a helper. 5-Set-up or Clean-up Assistance-helper sets up or cleans up; patient completes activity. [place] assists only prior to or following the activity. 4-Supervision or Touching Assistance-helper provides verbal cues and/or touching/steadying and/or contact guard assistance as patient completes activity. Assistance may be provided throughout the activity or intermittently. 3-Partial/Moderate Assistance-helper does LESS THAN HALF the effort. [place] lifts, holds or supports trunk or limbs, but provides less than half the effort. 2-Substantial/Maximal Assistance-helper does MORE THAN HALF the effort. [place] lifts or holds trunk or limbs and provides more than half the effort. 0-Ywjnxoynn-crsayd does ALL the effort. Patient does none of the effort to complete the activity. Or, the assistance of 2 or more helpers is required for the patient to complete the activity. If activity was not attempted, code reason: 7-Patient Refused. 9-Not Applicable-not attempted and the patient did not perform the activity before the current illness, exacerbation or injury. 10-Not Attempted due to Environmental Limitations-(lack of equipment, weather restraints, etc.). 88-Not Attempted due to Medical Conditions or Safety Concerns. Upper Body Dressing (QC): 5 Lower Body Dressing (QC): 2 On/Off Footwear: 2 Toileting Hygiene (QC): 1 Toilet Transfer (QC): 1 Pt required therapist to set up the bed buck for a BM due to urgency. Pt dependent for toileting hygiene, but was able to roll to assist in clean up. Dependent to wash front krysta area. Supine>sit: SBA. Pt was able to thread bilateral legs with min assist, but required mod assist and verbal cues for leaning R/L to pull pants over hips. He is unable to stand from bed to pull pants over hips. Pt doffed and donned new shirt with set up and required e ncouragement and cues to wash armpits. Pt transferred with min assist from bed>w/c. Pt participated several commode transfers to the L and R with min assist and mod verbal cues for safety, sequencing, and hand/foot placement. Pt reported feeling good about the transfers and did not have any concerns. Therapists educated and encouraged pt to begin to use commode for nursing to get more practice for home. Other Treatment Pt participated in sit <> stands x4 in parallel bars with max assist x1 to stand and min assist for balance and safety with knee buckling while in standing. Pt was able to tolerate ~1 min and 30 seconds - 2 min. Pt unable to stand from pushing up from w/c arms. Education OT Patient Education: Correct positioning, Energy conservation, Exercise program, Modified ADL techniques, Progress toward Goal/Update tx plan, Purpose of tx/functional activities, Reviewed precautions, Rehab process, Safety issues, Transfer techniques, W/C management Teaching Recipient: Patient Teaching Methods: Demonstration, Discussion Response to Teaching: Verbalize Understanding, Unable to Return Demonstration, Reinforcement Needed OT Short Term Goals Short Term Goals Time Frame: Mar 10, 2022 Eatin Oral hygiene: 2 Toileting hygiene: 2 Shower/bathe self: 2 Upper body dressin Lower body dressin Putting on/taking off footwear: 2 OT Transmitter Operator Goals Transmitter Operator Goals Time Frame: Mar 22, 2022 Acute change in mental status: 1 Inattention: 2 Disorganized thinkin Altered level of consciousness: 0 Eating (QC): 5 Oral Hygiene (QC): 4 Toileting Hygiene (QC): 4 Shower/Bathe Self (QC): 4 Upper Body Dressing (QC): 6 Lower Body Dressing (QC): 4 On/Off Footwear (QC): 4 Additional Goals: 1-Demonstrate ADL Tasks, 2-Verbalize Understanding, 3- ImproveStrength/Mariano 1=Demonstrate adherence to instructed precautions during ADL tasks. 2=Patient will verbalize/demonstrate understanding of assistive devices/modifications for ADL. 3=Patient will improve strength/tolerance for activity to enable patient to perform ADL's. OT Education/Plan Problem List/Assessment Assessment: Decreased Activ Tolerance, Decreased Safety Aware, Decreased UE Strength, Dependent Transfers, Impaired Cognition, Impaired Coordination, Impaired Funct Balance, Impaired I ADL's, Impaired Self-Care Skills Discharge Recommendations Plan/Recommendations: Continue POC Treatment Plan/Plan of Care Treatment,Training & Education: Yes Patient would benefit from OT for education, treatment and training to promote independence in ADL's, mobility, safety and/or upper extremity function for ADL's. Plan of Care: ADL Retraining, Caregiver Training, Cognitive Retraining, Functional Mobility, Group Exercise/Act as Ind, Orthotic Fitting/Training, UE Funct Exercise/Act, UE Neuromus Re-Ed/Coord, W/C Management Training Treatment Duration: Mar 22, 2022 Frequency: At least 5 of 7 days/Wk (IRF) Estimated Hrs Per Day: 1.5 hours per day (60-90 min/day) Agreement: Yes Rehab Potential: Fair Time/GCodes Start Time: 07:55 Stop Time: 09:10 Total Time Billed (hr/min): 75 Billed Treatment Time 1 visit ADL x4 (60 min) FA (15 min) co-treat with PT (70 min) Taylor Norris OT Mar 09, 2022 09:10
--- NOTE | 2022-03-09 09:10 | Physical Therapy Daily Note ---
PT Daily Note-Current Subjective Patient in bed pre tx, agrees to PT, has no complaints of pain. Will be co- treating with OT for part of tx due to poor patient mobility, strength, endurance, severe debility, coordinate UE and LE during activity, safety and reduce risk of falls. Pain Section J - Health Conditions 1. Rarely or not at all 2. Occasionally 3. Frequently 4. Almost constantly 8. Unable to answer Pain Effect on Sleep: 2 Pain Interference with Therapy: 2 Pain Interference w/Day-to-Day: 2 Appearance Patient in WC post tx with nurse call, phone, tray, all needs met. Mental Status Patient Orientation: Person, Place, Situation Transfers SCALE: Activities may be completed with or without assistive devices. 5-Hjszvmhhmm-axnkiti completes the activity by him/herself with no assistance from a helper. 5-Set-up or Clean-up Assistance-helper sets up or cleans up; patient completes activity. [place] assists only prior to or following the activity. 4-Supervision or Touching Assistance-helper provides verbal cues and/or touching/steadying and/or contact guard assistance as patient completes activity. Assistance may be provided throughout the activity or intermittently. 3-Partial/Moderate Assistance-helper does LESS THAN HALF the effort. [place] lifts, holds or supports trunk or limbs, but provides less than half the effort. 2-Substantial/Maximal Assistance-helper does MORE THAN HALF the effort. [place] lifts or holds trunk or limbs and provides more than half the effort. 8-Gqsrkqotv-vwbcsn does ALL the effort. Patient does none of the effort to compl ete the activity. Or, the assistance of 2 or more helpers is required for the patient to complete the activity. If activity was not attempted, code reason: 7-Patient Refused. 9-Not Applicable-not attempted and the patient did not perform the activity before the current illness, exacerbation or injury. 10-Not Attempted due to Environmental Limitations-(lack of equipment, weather restraints, etc.). 88-Not Attempted due to Medical Conditions or Safety Concerns. Roll Left & Right (QC): 4 Lying to Sitting/Side of Bed(Q: 4 Sit to Stand (QC): 2 Chair/Bcd-hw-Sixcg Xfer(QC): 3 Patient initially has to use the bedpan for a BM, when done rolls to the side for cleaning, then sits to the side of the bed and dresses. Patient has difficulty with supine to sit but can do it without assist using bedrails. When done he transfers to WC (sliding transfer without using board). Wheels to therapy gym with min assist, practices sliding transfers to commode and then to therapy table and then back. Stands x2 for about 2 min each time, concentrating on posture and hand placement. Wheels back to room with min assist. Weight Bearing Right Lower Extremity: Right Full Weight Bearing Treatments PT performed rolling, transfers, WC mobility, standing, positioning and safety during dressing, OT performed dressing, cleaning, positioning and safety during activity. Assessment Current Status: Poor Progress no change in mobility PT Short Term Goals Short Term Goals Time Frame: Mar 05, 2022 Roll Left & Right: 6 Sit to lyin Lying to sitting on side of be: 6 Sit to stand: 3 Chair/lrg-lv-ldzll transfer: 3 PT Brands Editor Goals Brands Editor Goals PT Correction Goals Time Frame: Mar 19, 2022 Roll Left & Right (QC): 6 Sit to Lying (QC): 6 Lying-Sitting on Side/Bed(QC): 6 Sit to Stand (QC): 4 Chair/Bfr-ij-Krafr Xfer(QC): 4 Toilet Transfer (QC): 3 Car Transfer (QC): 3 Does the Patient Walk: No and Walking Goal IS indicated Walk 10 feet (QC): 3 Walk 50ft with 2 Turns (QC): 88 Walk 150 ft (QC): 88 Walking 10ft on Uneven Surface: 88 1 Step (curb) (QC): 88 4 Steps (QC): 88 12 Steps (QC): 88 Picking up an Object (QC): 3 Wheel 50 feet with 2 turns (QC: 4 Wheel 150 feet: 3 PT Plan Problem List Problem List: Activity Tolerance, Functional Strength, Safety, Balance, Gait, Transfer, Bed Mobility, ROM Treatment/Plan Treatment Plan: Continue Plan of Care Treatment Plan: Bed Mobility, Education, Functional Activity Mariano, Functional Strength, Group Therapy, Gait, Safety, Therapeutic Exercise, Transfers Treatment Duration: Mar 19, 2022 Frequency: At least 5 of 7 days/Wk (IRF) Estimated Hrs Per Day: 1.5 hours per day Patient and/or Family Agrees t: Yes Safety Risks/Education Patient Education: Transfer Techniques, Correct Positioning, W/C Management, Safety Issues Teaching Recipient: Patient Teaching Methods: Demonstration, Discussion Response to Teaching: Reinforcement Needed Time/GCodes Time In: 0800 Time Out: 914 Total Billed Treatment Time: 75 Total Billed Treatment 1 visit FA 75' co-treated from [id number] SALAS SUMNER PT Mar 09, 2022 09:10
--- NOTE | 2022-03-09 10:06 | Speech Therapy Daily Note ---
Speech Daily Progress Note Subjective Date Seen by Provider: Mar 09, 2022 Time Seen by Provider: 09:30 The patient was seated upright in his wheelchair, awake and alert, upon entrance to his room by the clinician. The patient greeted the clinician appropriately and was agreeable to participation in the cognitive linguistic treatment session. Objective The patient participated in structured conversation, focused on implementation of word-finding strategies and self-correction of paraphasic whole word errors, independently. The patient displayed increased use of word-finding strategies and self-correction, identifying four areas of difficulties independently. The patient does intermittently required mild clinician verbal cueing for accurate pronunciation. Assessment Assessment Current Status: Good Progress Treatment Plan Continue Plan of Care Speech Short Term Goals Short Term Goals Short Term Goals 1. The patient will demonstrate improved word-finding strategies through informal conversation with mild clinician cueing. Time Frame-STG: Seven Days. Speech Nursing Home Goals Nursing Home Goals 1. The patient will demonstrate improved cognitive linguistic skills for safe discharge to the least restrictive environment. Time Frame: Ten Days. Speech-Plan Treatment Plan Speech Therapy Treatment Plan: Continue Plan of Care Treatment Duration: Mar 10, 2022 Frequency: Modified Program (IRF) (Four to five times per week.) Estimated Hrs Per Day: .5 hour per day Rehab Potential: Fair Safety Risks/Education Teaching Recipient: Patient Teaching Methods: Demonstration, Discussion Response to Teaching: Reinforcement Needed Education Topics Provided: Word Finding Strategies Time Speech Therapy Time In: 09:30 Speech Therapy Time Out: 10:00 Total Billed Time: 30 Billed Treatment Time [address] Mar 09, 2022 10:06
--- NOTE | 2022-03-09 13:38 | Physical Therapy Progress Note ---
Therapy Progress Note Patient will need a manual WC for home use due to having a left below the knee amputation and being non-ambulatory at this time. Patient has trouble just standing in the parallel bars and needs the WC for home and community mobility. SALAS SUMNER PT Mar 09, 2022 13:38
[2022-03-09] MEDS: warFARin 2 MG (COUMADIN) TAB PO SCH (17:09)
[2022-03-09] MEDS: warFARin 5 MG (COUMADIN) TAB PO SCH (17:09)
[2022-03-09 19:28] VITALS: BP 120/76
[2022-03-09] MEDS: oxyCODONE ER 10 MG (OxyCONTIN CR) TAB PO SCH (21:03)
[2022-03-09] MEDS: MIRTAZAPINE 15 MG (REMERON) TAB PO SCH (21:04)
[2022-03-09] MEDS: ALPRAZolam 0.25 MG (XANAX) TAB PO PRN (23:54)
[2022-03-10] MEDS: PANTOPRAZOLE 40 MG (PROTONIX) TAB PO SCH (06:20)
--- NOTE | 2022-03-10 07:09 | PM&R Progress Note ---
Subjective HPI/CC On Admission Date Seen by Provider: Mar 10, 2022 Time Seen by Provider: 08:30 Subjective/Events-last exam 03/10/2022: Doing well Participation is improved DC planned for Tuesday although he does not appear to be safe to go home he insists he is ready 03/09/2022: Improved status Psych consult recommended anti-depressant Spoke to him about a new anti-depressant and he is willing 03/08/2022: Patient doing well Arms really too weak to help him transfer and this is from [facility]ero [facility]eds [facility] placement Psych eval indicated for anger issues so I ordered that 03/07/2022: Improved sugar No pain reported No falls No pain issues 03/06/2022: Sugar a bit low last night Adjusted insulin from 15 to 8 Monitoring closely 03/05/2022: Patient doing well Sugars are good Took insulin at home but non-compliant 03/04/2022: Doing well today Sugars reviewed No falls Monitoring closely 03/03/2022: No major issues Sugars improved BP stable No increased pain 03/02/2022: No major issues Wants to go home soon Pain controlled No falls 03/01/2022: No major problems Did not sleep well last night No major issues Sugars reviewed Labs reviewed 02/28/2022: Patient doing well No major issues Pain is controlled Appreciate Dr. Pelaez with Dr. De Los Santos 02/27/2022: No major issues Pain controlled BS reviewed INR good Kidney function improved 02/26/2022: Settling in well Pain is improved BM+ Voiding well No falls Participating in therapy Grief with son, daughter and 's and then losing leg Dr De Los Santos expertise appreciated Dr Pelaez evaluated the patient today too Review of Systems General: Fatigue, Malaise Musculoskeletal: leg pain Objective Exam Vital Signs Vital Signs Date Time Temp Pulse Resp B/P (MAP) Pulse Ox O2 Delivery O2 Flow Rate FiO2 03/10/22 09:00 Room Air 03/10/22 07:37 36.2 76 18 130/70 (90) 99 Capillary Refill : General Appearance: No Apparent Distress, WD/WN, Chronically ill HEENT: PERRL/EOMI, Normal ENT Inspection, Pharynx Normal Neck: Full Range of Motion, Normal Inspection, Non Tender, Supple, Carotid Bruit Respiratory: Chest Non Tender, Lungs Clear, Normal Breath Sounds, No Accessory Muscle Use, No Respiratory Distress Cardiovascular: Regular Rate, Rhythm, No Edema, No Gallop, No JVD, No Murmur, Normal Peripheral Pulses, Other (click) Gastrointestinal: Normal Bowel Sounds, No Organomegaly, No Pulsatile Mass, Non Tender, Soft Back: Normal Inspection, No CVA Tenderness, No Vertebral Tenderness Extremity: Normal Capillary Refill, Normal Inspection, Normal Range of Motion, Non Tender, No Calf Tenderness, No Pedal Edema Neurologic/Psychiatric: Alert, Oriented x3, Normal Mood/Affect, mushroom grower II-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 FIM Transfers Therapy Code Descriptions/Definitions Functional [place] Measure: 0=Not Assessed/NA 4=Minimal Assistance 1=Total Assistance 5=Supervision or Setup 2=Maximal Assistance 6=Modified [place] 3=Moderate Assistance 7=Complete IndependenceSCALE: Activities may be completed with or without assistive devices. 2-Bbgrrirbrf-wxlqgzd completes the activity by him/herself with no assistance from a helper. 5-Set-up or Clean-up Assistance-helper sets up or cleans up; patient completes activity. [place] assists only prior to or following the activity. 4-Supervision or Touching Assistance-helper provides verbal cues and/or touching/steadying and/or contact guard assistance as patient completes activity. Assistance may be provided throughout the activity or intermittently. 3-Partial/Moderate Assistance-helper does LESS THAN HALF the effort. [place] lifts, holds or supports trunk or limbs, but provides less than half the effort. 2-Substantial/Maximal Assistance-helper does MORE THAN HALF the effort. [place] lifts or holds trunk or limbs and provides more than half the effort. 0-Fjskjcdeh-qzcygh does ALL the effort. Patient does none of the effort to complete the activity. Or, the assistance of 2 or more helpers is required for the patient to complete the activity. If activity was not attempted, code reason: 7-Patient Refused. 9-Not Applicable-not attempted and the patient did not perform the activity before the current illness, exacerbation or injury. 10-Not Attempted due to Environmental Limitations-(lack of equipment, weather restraints, etc.). 88-Not Attempted due to Medical Conditions or Safety Concerns. Roll Left to Right (QC): 4 Sit to Lying (QC): 4 Sit to Stand (QC): 2 Chair/Zsk-hk-Xjpdr Xfer(QC): 3 Car Transfer (QC): 1 Gait Training Does the Patient Walk?: No and Walking Goal IS indicated Walk 10 feet (QC): 88 Walk 50 ft with 2 Turns(QC): 88 Walk 150 ft (QC): 88 Walking 10ft/uneven surface-QC: 88 Wheelchair Training Does the Pt Use a Wheelchair?: Yes Wheel 50 ft with 2 turns (QC): 4 Wheel 150 ft (QC): 4 Type of Wheelchair: Manual Stair Training 1 Step (curb) (QC): 88 4 Steps (QC): 88 12 Steps (QC): 88 Balance Picking up an Object (QC): 88 ADL-Treatment Eating (QC): 5 Oral Hygiene (QC): 4 Shower/Bathe Self (QC): 2 Upper Body Dressing (QC): 5 Lower Body Dressing (QC): 2 On/Off Footwear (QC): 2 Toileting Hygiene (QC): 1 Toilet Transfer (QC): 1 Assessment/Plan Assessment and Plan Assess & Plan/Chief Complaint Assessment: 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 in [place] CVA following hospital course h/o embolic CVA 2009 Mitral valve replacement Coumadin maintenance DM HTN PVD CHF Chronic kidney disease Depression added anti-depressant 03/09/22 Plan: Monitor closely PT OT INR monitoring 02/26/2022: Pain control Monitor sugar 02/27/2022: Monitor kidney function Monitor INR 02/28/2022: Supportive care Pain control 03/01/2022: Monitor closely 03/02/2022: Supportive care 03/03/2022: Decrease accuchecks 03/04/2022: Monitor sugar 03/05/2022: Monitor closely Sugars reviewed 03/06/2022: Monitor sugar Decrease Levemir 03/07/2022: Monitor sugar 03/08/2022: Needs NH placement due to arms too weak to transfer self 03/09/2022: Monitor closely Add anti-depressant 03/10/2022: DC Tuesday (1) History of mitral valve replacement with mechanical valve Assessment & Plan: We will continue warfarin and follow INR levels inter mittently. He is now on warfarin 7 mg daily. At home he was taking 6.125 mg daily. I have ordered a repeat INR level on 03/05. His INR level on 03/02 and 03/03 was 1.9. I will plan to see him as needed. 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 (2) Primary hypertension Assessment & Plan: He had been on amlodipine prior to his most recent admission at [facility] and then this was stopped at the outside facility. His blood pressures had been trending upward so I started a low-dose of losartan. This is will also have renal protective effects in light of his diabetes (3) Mixed hyperlipidemia Assessment & Plan: Continue statin medication. (4) Stage 2 chronic kidney disease Status: Chronic Assessment & Plan: It appears as though he probably has stage II chronic kidney disease which is mild. (5) Acute kidney injury superimposed on chronic kidney disease Status: Resolved Assessment & Plan: His renal function has improved. He may have been slightly dehydrated when his initial labs were drawn at the time of admission. Resolution Date/Time: 02/28/22 @ 10:26 (6) History of cerebrovascular accident with residual deficit Assessment & Plan: Continue aspirin and statin medication. If he develops any signs of hemorrhaging, then I would consider stopping aspirin since he takes warfarin for the mechanical mitral valve replacement. (7) Seizure disorder Assessment & Plan: This is being managed by the hospitalist. We need to be cautious with any cardiac medications that could alter the metabolism of his seizure medication. (8) Type 2 diabetes mellitus with complication Assessment & Plan: This is being managed by the hospitalist. (9) Obesity Assessment & Plan: He needs to work on weight loss. (10) Hx of BKA Assessment & Plan: He is now on our inpatient rehabilitation unit to help him start learning how to function with a below-knee amputation. DERRICK LONGORIA DO Mar 10, 2022 07:09
[2022-03-10 07:37] VITALS: BP 130/70
--- NOTE | 2022-03-10 08:36 | Physical Therapy Daily Note ---
PT Daily Note-Current Subjective Patient in bed pre tx, initially states he can't do therapy because he isn't done with breakfast (his plate is completely empty), then states he needs to have a BM and refuses to use a commode. Patient voices no complaints of pain. Pain Section J - Health Conditions 1. Rarely or not at all 2. Occasionally 3. Frequently 4. Almost constantly 8. Unable to answer Pain Effect on Sleep: 2 Pain Interference with Therapy: 2 Pain Interference w/Day-to-Day: 2 Appearance Patient in bed post tx with nurse call, phone, tray, all needs met. Mental Status Patient Orientation: Person, Place, Situation Transfers SCALE: Activities may be completed with or without assistive devices. 4-Scaclwszga-rofeyrh completes the activity by him/herself with no assistance from a helper. 5-Set-up or Clean-up Assistance-helper sets up or cleans up; patient completes activity. [place] assists only prior to or following the activity. 4-Supervision or Touching Assistance-helper provides verbal cues and/or touching/steadying and/or contact guard assistance as patient completes activity. Assistance may be provided throughout the activity or intermittently. 3-Partial/Moderate Assistance-helper does LESS THAN HALF the effort. [place] lifts, holds or supports trunk or limbs, but provides less than half the effort. 2-Substantial/Maximal Assistance-helper does MORE THAN HALF the effort. [place] lifts or holds trunk or limbs and provides more than half the effort. 8-Xtscghryp-cijerp does ALL the effort. Patient does none of the effort to complete the activity. Or, the assistance of 2 or more helpers is required for the patient to complete the activity. If activity was not attempted, code reason: 7-Patient Refused. 9-Not Applicable-not attempted and the patient did not perform the activity before the current illness, exacerbation or injury. 10-Not Attempted due to Environmental Limitations-(lack of equipment, weather restraints, etc.). 88-Not Attempted due to Medical Conditions or Safety Concerns. Roll Left & Right (QC): 3 Patient rolls with min assist to place bedpan. Patient states he needs some stool softeners, nurse notified. Patient has trouble having a BM, agrees to LE exercise. Weight Bearing Right Lower Extremity: Right Full Weight Bearing Exercises Supine Ex: Ankle pumps (LLE), Short Arc Quads, Straight leg raise, Hip abd/add Supine Reps: 20 Assessment Current Status: Poor Progress no change in mobility, poor motivation PT Short Term Goals Short Term Goals Time Frame: Mar 05, 2022 Roll Left & Right: 6 Sit to lyin Lying to sitting on side of be: 6 Sit to stand: 3 Chair/ayu-zg-erjyf transfer: 3 PT Residential Goals Cooper Apprentice Goals PT Cooper Apprentice Goals Time Frame: Mar 19, 2022 Roll Left & Right (QC): 6 Sit to Lying (QC): 6 Lying-Sitting on Side/Bed(QC): 6 Sit to Stand (QC): 4 Chair/Foq-xg-Gaara Xfer(QC): 4 Toilet Transfer (QC): 3 Car Transfer (QC): 3 Does the Patient Walk: No and Walking Goal IS indicated Walk 10 feet (QC): 3 Walk 50ft with 2 Turns (QC): 88 Walk 150 ft (QC): 88 Walking 10ft on Uneven Surface: 88 1 Step (curb) (QC): 88 4 Steps (QC): 88 12 Steps (QC): 88 Picking up an Object (QC): 3 Wheel 50 feet with 2 turns (QC: 4 Wheel 150 feet: 3 PT Plan Problem List Problem List: Activity Tolerance, Functional Strength, Safety, Balance, Gait, Transfer, Bed Mobility, ROM Treatment/Plan Treatment Plan: Continue Plan of Care Treatment Plan: Bed Mobility, Education, Functional Activity Mariano, Functional Strength, Group Therapy, Gait, Safety, Therapeutic Exercise, Transfers Treatment Duration: Mar 19, 2022 Frequency: At least 5 of 7 days/Wk (IRF) Estimated Hrs Per Day: 1.5 hours per day Patient and/or Family Agrees t: Yes Safety Risks/Education Patient Education: Correct Positioning, Safety Issues Teaching Recipient: Patient Teaching Methods: Demonstration, Discussion Response to Teaching: Reinforcement Needed Time/GCodes Time In: 0800 Time Out: 0845 Total Billed Treatment Time: 45 Total Billed Treatment 1 visit EX 15' FA 30' SALAS SUMNER PT Mar 10, 2022 08:36
[2022-03-10] MEDS: PREGABALIN 75 MG (LYRICA) CAP PO SCH ×2 (08:41→20:47)
[2022-03-10] MEDS: ASPIRIN E.C. 81 MG (ECOTRIN) TAB PO SCH (08:41)
[2022-03-10] MEDS: lamoTRIgine 25 MG (LaMICtal) TAB PO SCH ×2 (08:42→20:47)
[2022-03-10] MEDS: SENNA W/DOCUSATE (SENOKOT S) TABLET PO SCH ×2 (08:42→20:47)
[2022-03-10] MEDS: LOSARTAN 25 MG (COZAAR) TAB PO SCH (08:42)
[2022-03-10] MEDS: DOCUSATE SODIUM 100 MG (COLACE) CAP PO SCH ×2 (08:42→20:48)
[2022-03-10] MEDS: polyethylene glycoL POWDER 17 GM (MIRALAX) PACK PO SCH ×2 (08:43→20:48)
[2022-03-10] MEDS: MICONAZOLE 2% POWDER (DESENEX AF) 90 GM TOP SCH ×2 (08:44→20:52)
[2022-03-10] MEDS: MICONAZOLE NITRATE 2% CRM 30 GM TP SCH ×2 (08:44→20:52)
--- NOTE | 2022-03-10 09:52 | Physical Therapy Daily Note ---
PT Daily Note-Current Subjective Patient in bed pre tx, still on bedpan. Patient agrees to get onto commode with a lot of encouragement. Will be co-treating with OT due to poor patient mobility, strength, endurance, severe debility, coordinate UE and LE during activity, safety and reduce risk of falls. Pain Section J - Health Conditions 1. Rarely or not at all 2. Occasionally 3. Frequently 4. Almost constantly 8. Unable to answer Pain Effect on Sleep: 2 Pain Interference with Therapy: 2 Pain Interference w/Day-to-Day: 2 Appearance Patient on commode post tx, will continue with OT. Mental Status Patient Orientation: Person, Place, Situation Transfers SCALE: Activities may be completed with or without assistive devices. 8-Gyuhffmkjf-bmmxkta completes the activity by him/herself with no assistance from a helper. 5-Set-up or Clean-up Assistance-helper sets up or cleans up; patient completes activity. [place] assists only prior to or following the activity. 4-Supervision or Touching Assistance-helper provides verbal cues and/or touching/steadying and/or contact guard assistance as patient completes activity. Assistance may be provided throughout the activity or intermittently. 3-Partial/Moderate Assistance-helper does LESS THAN HALF the effort. [place] lifts, holds or supports trunk or limbs, but provides less than half the effort. 2-Substantial/Maximal Assistance-helper does MORE THAN HALF the effort. [place] lifts or holds trunk or limbs and provides more than half the effort. 7-Heuqvhcqs-ooefhv does ALL the effort. Patient does none of the effort to complete the activity. Or, the assistance of 2 or more helpers is required for the patient to complete the activity. If activity was not attempted, code reason: 7-Patient Refused. 9-Not Applicable-not attempted and the patient did not perform the activity before the current illness, exacerbation or injury. 10-Not Attempted due to Environmental Limitations-(lack of equipment, weather restraints, etc.). 88-Not Attempted due to Medical Conditions or Safety Concerns. Lying to Sitting/Side of Bed(Q: 4 Chair/Lug-in-Kayzd Xfer(QC): 3 Patient sits to the side of the bed with SBA, cues for positioning. Patient then performs a sliding transfer without using a board with min assist onto the commode. Weight Bearing Right Lower Extremity: Right Full Weight Bearing Treatments PT performed bed mobility and transfers, rolling, OT performed dressing, UE positioning and safety with activity. Assessment Current Status: Poor Progress No change in mobility. Patient is focused on having a BM that he apparently c annot have. PT Short Term Goals Short Term Goals Time Frame: Mar 05, 2022 Roll Left & Right: 6 Sit to lyin Lying to sitting on side of be: 6 Sit to stand: 3 Chair/oae-fc-rmzow transfer: 3 PT Wool Cleaner Goals Intermediate Goals PT Wool Cleaner Goals Time Frame: Mar 19, 2022 Roll Left & Right (QC): 6 Sit to Lying (QC): 6 Lying-Sitting on Side/Bed(QC): 6 Sit to Stand (QC): 4 Chair/Kxb-vx-Lavvz Xfer(QC): 4 Toilet Transfer (QC): 3 Car Transfer (QC): 3 Does the Patient Walk: No and Walking Goal IS indicated Walk 10 feet (QC): 3 Walk 50ft with 2 Turns (QC): 88 Walk 150 ft (QC): 88 Walking 10ft on Uneven Surface: 88 1 Step (curb) (QC): 88 4 Steps (QC): 88 12 Steps (QC): 88 Picking up an Object (QC): 3 Wheel 50 feet with 2 turns (QC: 4 Wheel 150 feet: 3 PT Plan Problem List Problem List: Activity Tolerance, Functional Strength, Safety, Balance, Gait, Transfer, Bed Mobility, ROM Treatment/Plan Treatment Plan: Continue Plan of Care Treatment Plan: Bed Mobility, Education, Functional Activity Mariano, Functional Strength, Group Therapy, Gait, Safety, Therapeutic Exercise, Transfers Treatment Duration: Mar 19, 2022 Frequency: At least 5 of 7 days/Wk (IRF) Estimated Hrs Per Day: 1.5 hours per day Patient and/or Family Agrees t: Yes Safety Risks/Education Patient Education: Transfer Techniques, Correct Positioning, Safety Issues Teaching Recipient: Patient Teaching Methods: Demonstration, Discussion Response to Teaching: Reinforcement Needed Time/GCodes Time In: 914 Time Out: 944 Total Billed Treatment Time: 30 Total Billed Treatment 1 visit FA 30' co-treated for 30' SALAS SUMNER PT Mar 10, 2022 09:52
--- NOTE | 2022-03-10 10:16 | Speech Therapy Daily Note ---
Speech Daily Progress Note Subjective Date Seen by Provider: Mar 10, 2022 Time Seen by Provider: 09:00 The patient was lying in bed, awake and alert, upon entrance to his room by the clinician. The patient greeted the clinician appropriately and was agreeable to participation in the cognitive linguistic treatment session. Objective Treatment One and Treatment Two: Throughout treatment one (899 to 914), the patient perseverated on his DME needs and transportation options from his home to his appointments. The clinician provided him information repetitiously, however, the patient continues to request the same information. The SW has provided the information, as well. The clinician attempted discussions regarding transfers and the level of assistance he is requiring at this moment. Per patient, he is able to complete transfers independently. A discussion was held between the OT and the ST, where the OT provided information regarding transfers and the continued necessity of two people. The patient displays the inability to demonstrate appropriate awareness of barriers towards safe discharge home. The ST continues to recommend discharge to a [place] [facility] facility. Throughout treatment two, the clinician discussed the information from the [facility] POC meeting and answered questions from the patient. The patient did not display moments of word-finding difficulties throughout the treatment session. Assessment Assessment Current Status: Poor Progress Treatment Plan Continue Plan of Care Speech Short Term Goals Short Term Goals Short Term Goals 1. The patient will demonstrate improved word-finding strategies through informal conversation with mild clinician cueing. Time Frame-STG: Seven Days. Speech Chcf Goals Chcf Goals 1. The patient will demonstrate improved cognitive linguistic skills for safe discharge to the least restrictive environment. Time Frame: Ten Days. Speech-Plan Treatment Plan Speech Therapy Treatment Plan: Continue Plan of Care Treatment Duration: Mar 10, 2022 Frequency: Modified Program (IRF) (Four to five times per week.) Estimated Hrs Per Day: .5 hour per day Rehab Potential: Fair Safety Risks/Education Teaching Recipient: Patient Teaching Methods: Discussion Response to Teaching: Reinforcement Needed Education Topics Provided: Barriers to Safe Discharge Time Speech Therapy Time In: 09:00 Speech Therapy Time Out: 09:15 Total Billed Time: 30 Billed Treatment Time 1, TS 899 to 914 1030 to 1045 ISABEL Morales Mar 10, 2022 10:16
--- NOTE | 2022-03-10 10:34 | Occupational Ther Daily Note ---
OT Current Status-Daily Note Subjective Pt was laying in bed on bed buck upon arrival. According to nursing and PT, pt had been sitting on bed buck for at least an hour and still had not gone. Pt appeared frustrated and agitated about not being able to have a BM. Co-treat with PT secondary to fall risk, compliance, cognition (problem-solving, and dany r planning/processing), balance and coordination. Appearance Pt left sitting up in bed with all needs within reach. Mental Status/Objective Patient Orientation: Person, Confused ADL-Treatment Therapy Code Descriptions/Definitions Functional [place] Measure: 0=Not Assessed/NA 4=Minimal Assistance 1=Total Assistance 5=Supervision or Setup 2=Maximal Assistance 6=Modified [place] 3=Moderate Assistance 7=Complete IndependenceSCALE: Activities may be completed with or without assistive devices. 2-Sihqftajij-mtzibby completes the activity by him/herself with no assistance from a helper. 5-Set-up or Clean-up Assistance-helper sets up or cleans up; patient completes activity. [place] assists only prior to or following the activity. 4-Supervision or Touching Assistance-helper provides verbal cues and/or touching/steadying and/or contact guard assistance as patient completes activity. Assistance may be provided throughout the activity or intermittently. 3-Partial/Moderate Assistance-helper does LESS THAN HALF the effort. [place] lifts, holds or supports trunk or limbs, but provides less than half the effort. 2-Substantial/Maximal Assistance-helper does MORE THAN HALF the effort. [place] lifts or holds trunk or limbs and provides more than half the effort. 1-Psilftnuq-igdlke does ALL the effort. Patient does none of the effort to complete the activity. Or, the assistance of 2 or more helpers is required for the patient to complete the activity. If activity was not attempted, code reason: 7-Patient Refused. 9-Not Applicable-not attempted and the patient did not perform the activity be fore the current illness, exacerbation or injury. 10-Not Attempted due to Environmental Limitations-(lack of equipment, weather restraints, etc.). 88-Not Attempted due to Medical Conditions or Safety Concerns. Shower/Bathe Self (QC): 3 (sponge bath sitting EOB) Upper Body Dressing (QC): 4 Lower Body Dressing (QC): 2 Toileting Hygiene (QC): 1 Toilet Transfer (QC): 3 Upon arrival in room, pt was still on bed buck from over an hour ago. After increased education about skin integrity and increased encouragement to remove the bedpan, pt agreed to remove it and move to commode for better comfort and possibly better position for BM. Pt was frustrated with the lack of BM and feeling too tired to move to commode. Further encouragement was given to transfer to commode. Bed<>commode transfer: min assist x1 with second person CGA for safety and cues. Max cues for sequencing and initiating transfer. Pt still unable to perform transfer without max cues for hand, foot, and equipment placement. After adequate time on commode, pt finally had a BM. Pt was dependent for thoroughness cleaning krysta-rectal area. Seated EOB, pt performed sponge bath with max cues for sequencing and initiation. Pt donned shirt with set up and threaded bilateral legs into shorts with min assist. Once laying down, therapist conducted a more thorough cleaning of krysta area and assisted pt in rolling R/L to pull pants over hips. Education OT Patient Education: Correct positioning, Energy conservation, Modified ADL techniques, Purpose of tx/functional activities, Reviewed precautions, Rehab process, Safety issues, Transfer techniques Teaching Recipient: Patient Teaching Methods: Demonstration, Discussion Response to Teaching: Verbalize Understanding, Unable to Return Demonstration, Unable to Comprehend, Reinforcement Needed OT Short Term Goals Short Term Goals Time Frame: Mar 10, 2022 Eatin Oral hygiene: 2 Toileting hygiene: 2 Shower/bathe self: 2 Upper body dressin Lower body dressin Putting on/taking off footwear: 2 OT Kindergartner Goals Kindergartner Goals Time Frame: Mar 22, 2022 Acute change in mental status: 1 Inattention: 2 Disorganized thinkin Altered level of consciousness: 0 Eating (QC): 5 Oral Hygiene (QC): 4 Toileting Hygiene (QC): 4 Shower/Bathe Self (QC): 4 Upper Body Dressing (QC): 6 Lower Body Dressing (QC): 4 On/Off Footwear (QC): 4 Additional Goals: 1-Demonstrate ADL Tasks, 2-Verbalize Understanding, 3- ImproveStrength/Mariano 1=Demonstrate adherence to instructed precautions during ADL tasks. 2=Patient will verbalize/demonstrate understanding of assistive devices/modifications for ADL. 3=Patient will improve strength/tolerance for activity to enable patient to perform ADL's. OT Education/Plan Problem List/Assessment Assessment: Decreased Activ Tolerance, Decreased Safety Aware, Decreased UE Strength, Impaired Bed Mobility, Impaired Cognition, Impaired Coordination, Impaired Funct Balance, Impaired I ADL's, Impaired Self-Care Skills Discharge Recommendations Plan/Recommendations: Continue POC Therapy Discharge Recommendati: Assisted Living Comment OT does not recommend d/c to home due to lack of self-awareness, motor planning/processing, strength, balance, coordination, and his need for max cues for all tasks revolving around sequencing, and initiation. If pt does return home at d/c, he will need assist with all ADLs and transfers. Treatment Plan/Plan of Care Treatment,Training & Education: Yes Patient would benefit from OT for education, treatment and training to promote independence in ADL's, mobility, safety and/or upper extremity function for ADL's. Plan of Care: ADL Retraining, Caregiver Training, Cognitive Retraining, Functional Mobility, Group Exercise/Act as Ind, Orthotic Fitting/Training, UE Funct Exercise/Act, UE Neuromus Re-Ed/Coord, W/C Management Training Treatment Duration: Mar 22, 2022 Frequency: At least 5 of 7 days/Wk (IRF) Estimated Hrs Per Day: 1.5 hours per day (60-90 min/day) Agreement: Yes Rehab Potential: Fair Time/GCodes Start Time: 09:15 Stop Time: 10:30 Total Time Billed (hr/min): 75 Billed Treatment Time 1 visit ADL x5 Co-treat with PT: [id number] Taylor Norris OT Mar 10, 2022 10:34
[2022-03-10] MEDS: warFARin 2 MG (COUMADIN) TAB PO SCH (18:35)
[2022-03-10] MEDS: warFARin 5 MG (COUMADIN) TAB PO SCH (18:36)
[2022-03-10] MEDS: oxyCODONE/APAP 5/325MG (PERCOCET 5) TABLET PO PRN (18:36)
[2022-03-10 20:28] VITALS: BP 138/74
[2022-03-10] MEDS: MIRTAZAPINE 15 MG (REMERON) TAB PO SCH (20:48)
[2022-03-10] MEDS: oxyCODONE ER 10 MG (OxyCONTIN CR) TAB PO SCH (20:48)
--- NOTE | 2022-03-11 05:46 | PM&R Progress Note ---
Subjective HPI/CC On Admission Date Seen by Provider: Mar 11, 2022 Time Seen by Provider: 12:00 Subjective/Events-last exam 03/11/2022: Patient doing really well Participating in therapy Blood sugars reviewed Labs reviewed 03/10/2022: Doing well Participation is improved DC planned for Tuesday although he does not appear to be safe to go home he insists he is ready 03/09/2022: Improved status Psych consult recommended anti-depressant Spoke to him about a new anti-depressant and he is willing 03/08/2022: Patient doing well Arms really too weak to help him transfer and this is from homero FELIZ's Needs NH placement Psych eval indicated for anger issues so I ordered that 03/07/2022: Improved sugar No pain reported No falls No pain issues 03/06/2022: Sugar a bit low last night Adjusted insulin from 15 to 8 Monitoring closely 03/05/2022: Patient doing well Sugars are good Took insulin at home but non-compliant 03/04/2022: Doing well today Sugars reviewed No falls Monitoring closely 03/03/2022: No major issues Sugars improved BP stable No increased pain 03/02/2022: No major issues Wants to go home soon Pain controlled No falls 03/01/2022: No major problems Did not sleep well last night No major issues Sugars reviewed Labs reviewed 02/28/2022: Patient doing well No major issues Pain is controlled Appreciate Dr. Pelaez with Dr. De Los Santos 02/27/2022: No major issues Pain controlled BS reviewed INR good Kidney function improved 02/26/2022: Settling in well Pain is improved BM+ Voiding well No falls Participating in therapy Grief with son, daughter and 's and then losing leg Dr De Los Santos expertise appreciated Dr Pelaez evaluated the patient today too Review of Systems General: Fatigue, Malaise Objective Exam Vital Signs Vital Signs Date Time Temp Pulse Resp B/P (MAP) Pulse Ox O2 Delivery O2 Flow Rate FiO2 03/11/22 20:20 Room Air 03/11/22 20:00 36.4 67 16 138/68 (91) 100 Capillary Refill : General Appearance: No Apparent Distress, WD/WN, Chronically ill HEENT: PERRL/EOMI, Normal ENT Inspection, Pharynx Normal Neck: Full Range of Motion, Normal Inspection, Non Tender, Supple, Carotid Bruit Respiratory: Chest Non Tender, Lungs Clear, Normal Breath Sounds, No Accessory Muscle Use, No Respiratory Distress Cardiovascular: Regular Rate, Rhythm, No Edema, No Gallop, No JVD, No Murmur, Normal Peripheral Pulses, Other (click) Gastrointestinal: Normal Bowel Sounds, No Organomegaly, No Pulsatile Mass, Non Tender, Soft Back: Normal Inspection, No CVA Tenderness, No Vertebral Tenderness Extremity: Normal Capillary Refill, Normal Inspection, Normal Range of Motion, Non Tender, No Calf Tenderness, No Pedal Edema Neurologic/Psychiatric: Alert, Oriented x3, Normal Mood/Affect, senior health physics technician II-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 FIM Transfers Therapy Code Descriptions/Definitions Functional [place] Measure: 0=Not Assessed/NA 4=Minimal Assistance 1=Total Assistance 5=Supervision or Setup 2=Maximal Assistance 6=Modified [place] 3=Moderate Assistance 7=Complete IndependenceSCALE: Activities may be completed with or without assistive devices. 4-Vcaniotese-zpqbozj completes the activity by him/herself with no assistance from a helper. 5-Set-up or Clean-up Assistance-helper sets up or cleans up; patient completes activity. [place] assists only prior to or following the activity. 4-Supervision or Touching Assistance-helper provides verbal cues and/or touching/steadying and/or contact guard assistance as patient completes activity. Assistance may be provided throughout the activity or intermittently. 3-Partial/Moderate Assistance-helper does LESS THAN HALF the effort. [place] lifts, holds or supports trunk or limbs, but provides less than half the effort. 2-Substantial/Maximal Assistance-helper does MORE THAN HALF the effort. [place] lifts or holds trunk or limbs and provides more than half the effort. 0-Afdlztzgm-jffqyq does ALL the effort. Patient does none of the effort to complete the activity. Or, the assistance of 2 or more helpers is required for the patient to complete the activity. If activity was not attempted, code reason: 7-Patient Refused. 9-Not Applicable-not attempted and the patient did not perform the activity before the current illness, exacerbation or injury. 10-Not Attempted due to Environmental Limitations-(lack of equipment, weather restraints, etc.). 88-Not Attempted due to Medical Conditions or Safety Concerns. Roll Left to Right (QC): 3 Sit to Lying (QC): 4 Sit to Stand (QC): 2 Chair/Xxe-tm-Yscyu Xfer(QC): 3 Car Transfer (QC): 1 Gait Training Does the Patient Walk?: No and Walking Goal IS indicated Walk 10 feet (QC): 88 Walk 50 ft with 2 Turns(QC): 88 Walk 150 ft (QC): 88 Walking 10ft/uneven surface-QC: 88 Wheelchair Training Does the Pt Use a Wheelchair?: Yes Wheel 50 ft with 2 turns (QC): 4 Wheel 150 ft (QC): 4 Type of Wheelchair: Manual Stair Training 1 Step (curb) (QC): 88 4 Steps (QC): 88 12 Steps (QC): 88 Balance Picking up an Object (QC): 88 ADL-Treatment Eating (QC): 5 Oral Hygiene (QC): 4 Shower/Bathe Self (QC): 3 (sponge bath sitting EOB) Upper Body Dressing (QC): 4 Lower Body Dressing (QC): 2 On/Off Footwear (QC): 2 Toileting Hygiene (QC): 1 Toilet Transfer (QC): 3 Assessment/Plan Assessment and Plan Assess & Plan/Chief Complaint Assessment: 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 in [place] CVA following hospital course h/o embolic CVA 2009 Mitral valve replacement Coumadin maintenance DM HTN PVD CHF Chronic kidney disease Depression added anti-depressant 03/09/22 Plan: Monitor closely PT OT INR monitoring 02/26/2022: Pain control Monitor sugar 02/27/2022: Monitor kidney function Monitor INR 02/28/2022: Supportive care Pain control 03/01/2022: Monitor closely 03/02/2022: Supportive care 03/03/2022: Decrease accuchecks 03/04/2022: Monitor sugar 03/05/2022: Monitor closely Sugars reviewed 03/06/2022: Monitor sugar Decrease Levemir 03/07/2022: Monitor sugar 03/08/2022: Needs NH placement due to arms too weak to transfer self 03/09/2022: Monitor closely Add anti-depressant 03/10/2022: DC Tuesday03/11/2022: Monitor INR (1) History of mitral valve replacement with mechanical valve Assessment & Plan: We will continue warfarin and follow INR levels intermittently. He is now on warfarin 7 mg daily. At home he was taking 6.125 mg daily. I have ordered a repeat INR level on 03/05. His INR level on 03/02 and 03/03 was 1.9. I will plan to see him as needed. He did find a wood and hardware outfitter closer to home and has made an appointment. (2) Primary hypertension Assessment & Plan: He had been on amlodipine prior to his most recent admission at [facility] and then this was stopped at the outside facility. His blood pressures had been trending upward so I started a low-dose of losartan. This is will also have renal protective effects in light of his diabetes (3) Mixed hyperlipidemia Assessment & Plan: Continue statin medication. (4) Stage 2 chronic kidney disease Status: Chronic Assessment & Plan: It appears as though he probably has stage II chronic kidney disease which is mild. (5) Acute kidney injury superimposed on chronic kidney disease Status: Resolved Assessment & Plan: His renal function has improved. He may have been slightly dehydrated when his initial labs were drawn at the time of admission. Resolution Date/Time: 02/28/22 @ 10:26 (6) History of cerebrovascular accident with residual deficit Assessment & Plan: Continue aspirin and statin medication. If he develops any signs of hemorrhaging, then I would consider stopping aspirin since he takes warfarin for the mechanical mitral valve replacement. (7) Seizure disorder Assessment & Plan: This is being managed by the hospitalist. We need to be cautious with any cardiac medications that could alter the metabolism of his seizure medication. (8) Type 2 diabetes mellitus with complication Assessment & Plan: This is being managed by the hospitalist. (9) Obesity Assessment & Plan: He needs to work on weight loss. (10) Hx of BKA Assessment & Plan: He is now on our inpatient rehabilitation unit to help him start learning how to function with a below-knee amputation. DERRICK LONGORIA DO Mar 11, 2022 05:46
[2022-03-11 06:33] LABS: INR 3.5 (0.8-1.4); PROTHROMBIN TIME PATIENT 35.9 SEC (12.2-14.7)
[2022-03-11] MEDS: oxyCODONE/APAP 5/325MG (PERCOCET 5) TABLET PO PRN ×2 (06:39→12:34)
[2022-03-11] MEDS: PANTOPRAZOLE 40 MG (PROTONIX) TAB PO SCH (06:39)
[2022-03-11 07:41] VITALS: BP 131/79
[2022-03-11] MEDS: CYCLOBENZAPRINE 10 MG (FLEXERIL) TAB PO PRN (08:05)
[2022-03-11] MEDS: SENNA W/DOCUSATE (SENOKOT S) TABLET PO SCH ×2 (08:05→21:03)
[2022-03-11] MEDS: polyethylene glycoL POWDER 17 GM (MIRALAX) PACK PO SCH ×2 (08:05→19:48)
[2022-03-11] MEDS: ASPIRIN E.C. 81 MG (ECOTRIN) TAB PO SCH (08:06)
[2022-03-11] MEDS: lamoTRIgine 25 MG (LaMICtal) TAB PO SCH ×2 (08:06→21:01)
[2022-03-11] MEDS: LOSARTAN 25 MG (COZAAR) TAB PO SCH (08:06)
[2022-03-11] MEDS: PREGABALIN 75 MG (LYRICA) CAP PO SCH ×2 (08:06→21:02)
[2022-03-11] MEDS: DOCUSATE SODIUM 100 MG (COLACE) CAP PO SCH ×2 (08:06→21:02)
[2022-03-11] MEDS: MICONAZOLE NITRATE 2% CRM 30 GM TP SCH ×2 (08:11→21:03)
[2022-03-11] MEDS: MICONAZOLE 2% POWDER (DESENEX AF) 90 GM TOP SCH ×2 (08:11→21:06)
--- NOTE | 2022-03-11 09:11 | Speech Therapy Daily Note ---
Speech Daily Progress Note Subjective Date Seen by Provider: Mar 11, 2022 Time Seen by Provider: 08:30 The patient was seated upright in his bed, awake and alert, upon entrance to his room by the clinician. The patient greeted the clinician appropriately and was agreeable to participation in the cognitive linguistic treatment session. Objective The patient and clinician participated in structured conversation, practicing recommended word-finding strategies and improved articulation. The patient self- corrected two occasions of articulation difficulty, over-pronouncing the words he was attempting. The clinician provided mild verbal prompting for use of word- finding strategies on one occasion, displaying increased independent use and accuracy. The patient provided accurate functional recall of upcoming appointments and therapy sessions and does request to attempt the slide board with occupational therapy and physical therapy. Discussion of preferred long term placement was provided, however, the patient reports he wishes to and will return home. The patient continues to display reduced insight to safety deficits. Assessment Assessment Current Status: Fair Progress Treatment Plan Continue Plan of Care Speech Short Term Goals Short Term Goals Short Term Goals 1. The patient will demonstrate improved word-finding strategies through informal conversation with mild clinician cueing. Time Frame-STG: Seven Days. Speech Dynamometer Tester Goals Halfway Goals 1. The patient will demonstrate improved cognitive linguistic skills for safe discharge to the least restrictive environment. Time Frame: Ten Days. Speech-Plan Treatment Plan Speech Therapy Treatment Plan: Continue Plan of Care Treatment Duration: Mar 10, 2022 Frequency: Modified Program (IRF) (Four to five times per week.) Estimated Hrs Per Day: .5 hour per day Rehab Potential: Fair Safety Risks/Education Teaching Recipient: Patient Teaching Methods: Discussion Response to Teaching: Reinforcement Needed Education Topics Provided: Word Finding Strategies Time Speech Therapy Time In: 08:30 Speech Therapy Time Out: 09:00 Total Billed Time: 30 Billed Treatment Time 1SHIRLEYALVIN Claudia SESAY[address] Mar 11, 2022 09:11
--- NOTE | 2022-03-11 10:33 | Occupational Ther Daily Note ---
OT Current Status-Daily Note Subjective Pt laying in bed upon arrival. Per BODY COVERER, pt wanted to try to use the slide board today for all transfers. Pt agreed to using slide board transfer. Co-treat with PT secondary to fall risk, initiation, balance, coordination, and cognition. Appearance Pt left with PT with all needs met. Mental Status/Objective Patient Orientation: Person, Confused ADL-Treatment Therapy Code Descriptions/Definitions Functional [place] Measure: 0=Not Assessed/NA 4=Minimal Assistance 1=Total Assistance 5=Supervision or Setup 2=Maximal Assistance 6=Modified [place] 3=Moderate Assistance 7=Complete IndependenceSCALE: Activities may be completed with or without assistive devices. 4-Uhtztilndx-dcrnxgz completes the activity by him/herself with no assistance from a helper. 5-Set-up or Clean-up Assistance-helper sets up or cleans up; patient completes activity. [place] assists only prior to or following the activity. 4-Supervision or Touching Assistance-helper provides verbal cues and/or touching/steadying and/or contact guard assistance as patient completes activity. Assistance may be provided throughout the activity or intermittently. 3-Partial/Moderate Assistance-helper does LESS THAN HALF the effort. [place] lifts, holds or supports trunk or limbs, but provides less than half the effort. 2-Substantial/Maximal Assistance-helper does MORE THAN HALF the effort. [place] lifts or holds trunk or limbs and provides more than half the effort. 9-Oeebhdbag-evsarp does ALL the effort. Patient does none of the effort to complete the activity. Or, the assistance of 2 or more helpers is required for the patient to complete the activity. If activity was not attempted, code reason: 7-Patient Refused. 9-Not Applicable-not attempted and the patient did not perform the activity before the current illness, exacerbation or injury. 10-Not Attempted due to Environmental Limitations-(lack of equipment, weather restraints, etc.). 88-Not Attempted due to Medical Conditions or Safety Concerns. Oral Hygiene (QC): 4 Upper Body Dressing (QC): 5 Lower Body Dressing (QC): 3 On/Off Footwear: 2 Supine<>sit: SBA. Pt requires max cues for sequencing all tasks with poor follow through. Pt doffed/donned new shirt with set up. Pt threaded bilateral legs into pants but required mod assist to pull pants over hips while leaning R/L. Pt is max assist for donning shoes, often making excuses for why it is difficult for him. Slide board was placed under pt for transfer to w/c: min assist. Supervision with mod cues for sequencing oral hygiene seated at sink. Pt has poor w/c mobility through doors and hallway. Other Treatment In therapy gym, therapist provided PROM/AAROM on L UE for all joints. Pt performed shoulder flexion and elbow flexion/extension with pvc pipe for bilateral UE exercises and ROM. Pt required [place] assist to keep L wrist in lemuel tral position and for compensation. Pt practiced slide board transfer from w/c<>mat with max verbal cues and assist for board placement; SBA for actual transfer. Although he performed better with slide board transfers, he is unable to place board under bottom/legs without physical assistance and max cues. Pt unable to comprehend or sequence through slide board transfers even after multiple attempts. Pt participated in w/c mobility going up<>down a ramp. Pt able to independently navigate going down the ramp but needed mod-max assist for navigation/direction going up the ramp. Education OT Patient Education: Correct positioning, Energy conservation, Exercise program, Modified ADL techniques, Progress toward Goal/Update tx plan, Purpose of tx/functional activities, Reviewed precautions, Rehab process, Safety issues, Transfer techniques, W/C management Teaching Recipient: Patient Teaching Methods: Demonstration, Discussion Response to Teaching: Unable to Return Demonstration, Unable to Comprehend, Reinforcement Needed OT Short Term Goals Short Term Goals Time Frame: Mar 10, 2022 Eatin Oral hygiene: 2 Toileting hygiene: 2 Shower/bathe self: 2 Upper body dressin Lower body dressin Putting on/taking off footwear: 2 OT Nursing Director Goals Long-Term Goals Time Frame: Mar 22, 2022 Acute change in mental status: 1 Inattention: 2 Disorganized thinkin Altered level of consciousness: 0 Eating (QC): 5 Oral Hygiene (QC): 4 Toileting Hygiene (QC): 4 Shower/Bathe Self (QC): 4 Upper Body Dressing (QC): 6 Lower Body Dressing (QC): 4 On/Off Footwear (QC): 4 Additional Goals: 1-Demonstrate ADL Tasks, 2-Verbalize Understanding, 3- ImproveStrength/Mariano 1=Demonstrate adherence to instructed precautions during ADL tasks. 2=Patient will verbalize/demonstrate understanding of assistive devices/modifications for ADL. 3=Patient will improve strength/tolerance for activity to enable patient to perform ADL's. OT Education/Plan Problem List/Assessment Assessment: Decreased Activ Tolerance, Decreased Safety Aware, Decreased UE Strength, Impaired Cognition, Impaired Coordination, Impaired Funct Balance, Impaired I ADL's, Impaired Self-Care Skills, Restricted Funct UE ROM Discharge Recommendations Plan/Recommendations: Continue POC Treatment Plan/Plan of Care Treatment,Training & Education: Yes Patient would benefit from OT for education, treatment and training to promote independence in ADL's, mobility, safety and/or upper extremity function for ADL's. Plan of Care: ADL Retraining, Caregiver Training, Cognitive Retraining, Functional Mobility, Group Exercise/Act as Ind, Orthotic Fitting/Training, UE Funct Exercise/Act, UE Neuromus Re-Ed/Coord, W/C Management Training Treatment Duration: Mar 22, 2022 Frequency: At least 5 of 7 days/Wk (IRF) Estimated Hrs Per Day: 1.5 hours per day (60-90 min/day) Agreement: Yes Rehab Potential: Fair Time/GCodes Start Time: 09:15 Stop Time: 10:30 Total Time Billed (hr/min): 75 Billed Treatment Time 1 visit ADL x2 (30 min) NM (15 min) FA x2 (30 min) Co-treat with PT: [id number] Taylor Norris OT Mar 11, 2022 10:33
--- NOTE | 2022-03-11 10:39 | Physical Therapy Daily Note ---
PT Daily Note-Current Subjective Patient in WC pre tx, already working with OT, agrees to PT, has 1-2/10 pain in left residual limb. Will be co-treating with OT for part of tx due to poor patient mobility, strength, endurance, severe debility, coordinate UE and LE during activity, safety and reduce risk of falls. Pain Section J - Health Conditions 1. Rarely or not at all 2. Occasionally 3. Frequently 4. Almost constantly 8. Unable to answer Pain Effect on Sleep: 2 Pain Interference with Therapy: 2 Pain Interference w/Day-to-Day: 2 Appearance Patient in WC at bedside post tx with nurse call, phone, tray, all needs met. Mental Status Patient Orientation: Person, Place, Situation Transfers SCALE: Activities may be completed with or without assistive devices. 6-Ifbnaeaebw-btldcuf completes the activity by him/herself with no assistance from a helper. 5-Set-up or Clean-up Assistance-helper sets up or cleans up; patient completes activity. [place] assists only prior to or following the activity. 4-Supervision or Touching Assistance-helper provides verbal cues and/or touching/steadying and/or contact guard assistance as patient completes activity. Assistance may be provided throughout the activity or intermittently. 3-Partial/Moderate Assistance-helper does LESS THAN HALF the effort. [place] lifts, holds or supports trunk or limbs, but provides less than half the effort. 2-Substantial/Maximal Assistance-helper does MORE THAN HALF the effort. [place] lifts or holds trunk or limbs and provides more than half the effort. 0-Gurxnnigc-vfngxj does ALL the effort. Patient does none of the effort to complete the activity. Or, the assistance of 2 or more helpers is required for the patient to complete the activity. If activity was not attempted, code reason: 7-Patient Refused. 9-Not Applicable-not attempted and the patient did not perform the activity before the current illness, exacerbation or injury. 10-Not Attempted due to Environmental Limitations-(lack of equipment, weather restraints, etc.). 88-Not Attempted due to Medical Conditions or Safety Concerns. Sit to Lying (QC): 4 Lying to Sitting/Side of Bed(Q: 4 Chair/Mvp-fm-Bflof Xfer(QC): 3 Practiced sliding board transfers x4 and sliding transfer without board x2, min assist for all. Patient has a lot of difficulty understanding and coordinating directions for placing board and taking it out. Weight Bearing Right Lower Extremity: Right Full Weight Bearing Wheelchair Training Does the Pt Use a Wheelchair?: Yes Type of Wheelchair: Manual practiced going down and up a long ramp using hands and foot to slow on the way down and foot to propel WC backward up the ramp (needs a lot of assist with steering on the way back up) Exercises Supine Ex: Bridging (with theraball ), Quad Set, Rolling (w/ red ball under legs), Short Arc Quads (w/ blue foam under knees), Straight leg raise, Hip abd/add (Adduct w/ ball, abduct manual resistance) Supine Reps: 10 Treatments PT performed WC mobility, transfers, LE ROM and strengthening, OT performed UE positioning and safety during activity, assist with cues for direction during transfers Assessment Current Status: Poor Progress No change in mobility. Patient has a lot of difficulty understanding even very simple directions. PT Short Term Goals Short Term Goals Time Frame: Mar 05, 2022 Roll Left & Right: 6 Sit to lyin Lying to sitting on side of be: 6 Sit to stand: 3 Chair/ddx-xq-ujquf transfer: 3 PT Senior Living Goals Major General Goals PT Senior Living Goals Time Frame: Mar 19, 2022 Roll Left & Right (QC): 6 Sit to Lying (QC): 6 Lying-Sitting on Side/Bed(QC): 6 Sit to Stand (QC): 4 Chair/Vwo-ex-Splbo Xfer(QC): 4 Toilet Transfer (QC): 3 Car Transfer (QC): 3 Does the Patient Walk: No and Walking Goal IS indicated Walk 10 feet (QC): 3 Walk 50ft with 2 Turns (QC): 88 Walk 150 ft (QC): 88 Walking 10ft on Uneven Surface: 88 1 Step (curb) (QC): 88 4 Steps (QC): 88 12 Steps (QC): 88 Picking up an Object (QC): 3 Wheel 50 feet with 2 turns (QC: 4 Wheel 150 feet: 3 PT Plan Problem List Problem List: Activity Tolerance, Functional Strength, Safety, Balance, Gait, Transfer, Bed Mobility, ROM Treatment/Plan Treatment Plan: Continue Plan of Care Treatment Plan: Bed Mobility, Education, Functional Activity Mariano, Functional Strength, Group Therapy, Gait, Safety, Therapeutic Exercise, Transfers Treatment Duration: Mar 19, 2022 Frequency: At least 5 of 7 days/Wk (IRF) Estimated Hrs Per Day: 1.5 hours per day Patient and/or Family Agrees t: Yes Safety Risks/Education Patient Education: Transfer Techniques, Correct Positioning, W/C Management, Safety Issues Teaching Recipient: Patient Teaching Methods: Demonstration, Discussion Response to Teaching: Reinforcement Needed Time/GCodes Time In: 1000 Time Out: 1100 Total Billed Treatment Time: 60 Total Billed Treatment 1 visit EX 15' FA 45' co-treated from [id number] SALAS SUMNER PT Mar 11, 2022 10:39
--- NOTE | 2022-03-11 13:53 | Physical Therapy Daily Note ---
PT Daily Note-Current Subjective Patient in pre-tx, reports no pain, agrees to PT. Pain Section J - Health Conditions 1. Rarely or not at all 2. Occasionally 3. Frequently 4. Almost constantly 8. Unable to answer Pain Effect on Sleep: 2 Pain Interference with Therapy: 2 Pain Interference w/Day-to-Day: 2 Appearance Patient in with call nurse, drink, and tables within reach. All needs met. Mental Status Patient Orientation: Person, Place, Situation Transfers SCALE: Activities may be completed with or without assistive devices. 3-Jwphyxeujh-axqqink completes the activity by him/herself with no assistance from a helper. 5-Set-up or Clean-up Assistance-helper sets up or cleans up; patient completes activity. [place] assists only prior to or following the activity. 4-Supervision or Touching Assistance-helper provides verbal cues and/or touching/steadying and/or contact guard assistance as patient completes activity. Assistance may be provided throughout the activity or intermittently. 3-Partial/Moderate Assistance-helper does LESS THAN HALF the effort. [place] lifts, holds or supports trunk or limbs, but provides less than half the effort. 2-Substantial/Maximal Assistance-helper does MORE THAN HALF the effort. [place] lifts or holds trunk or limbs and provides more than half the effort. 8-Fhaxbyhob-pyrxws does ALL the effort. Patient does none of the effort to complete the activity. Or, the assistance of 2 or more helpers is required for the patient to complete the activity. If activity was not attempted, code reason: 7-Patient Refused. 9-Not Applicable-not attempted and the patient did not perform the activity before the current illness, exacerbation or injury. 10-Not Attempted due to Environmental Limitations-(lack of equipment, weather restraints, etc.). 88-Not Attempted due to Medical Conditions or Safety Concerns. Weight Bearing Right Lower Extremity: Right Full Weight Bearing Wheelchair Training Does the Pt Use a Wheelchair?: Yes Exercises Seated Therapy Exercises: Ankle pumps, Long arc quads, Hip flexion (marching alternating legs), Hip abd/add (Adduct w/ pillow, abduct w/ gait belt around thighs) Seated Reps: 10 Treatments LE strengthening, ROM Assessment Current Status: Fair Progress Patient able to complete all exercises without needing a break in between. Patient still has difficulty shifting weight to L side when doing hip flexion of the R leg. Patient performed exercises extremely slowly. PT Short Term Goals Short Term Goals Time Frame: Mar 05, 2022 Roll Left & Right: 6 Sit to lyin Lying to sitting on side of be: 6 Sit to stand: 3 Chair/vxa-rr-tbhts transfer: 3 PT Chief Investment Officer Goals [facility] Goals PT Chief Investment Officer Goals Time Frame: Mar 19, 2022 Roll Left & Right (QC): 6 Sit to Lying (QC): 6 Lying-Sitting on Side/Bed(QC): 6 Sit to Stand (QC): 4 Chair/Lyo-xx-Qdxhd Xfer(QC): 4 Toilet Transfer (QC): 3 Car Transfer (QC): 3 Does the Patient Walk: No and Walking Goal IS indicated Walk 10 feet (QC): 3 Walk 50ft with 2 Turns (QC): 88 Walk 150 ft (QC): 88 Walking 10ft on Uneven Surface: 88 1 Step (curb) (QC): 88 4 Steps (QC): 88 12 Steps (QC): 88 Picking up an Object (QC): 3 Wheel 50 feet with 2 turns (QC: 4 Wheel 150 feet: 3 PT Plan Problem List Problem List: Activity Tolerance, Functional Strength, Safety, Balance, Gait, Transfer, Bed Mobility, ROM Treatment/Plan Treatment Plan: Continue Plan of Care Treatment Plan: Bed Mobility, Education, Functional Activity Mariano, Functional Strength, Group Therapy, Gait, Safety, Therapeutic Exercise, Transfers Treatment Duration: Mar 19, 2022 Frequency: At least 5 of 7 days/Wk (IRF) Estimated Hrs Per Day: 1.5 hours per day Patient and/or Family Agrees t: Yes Safety Risks/Education Patient Education: Correct Positioning, Safety Issues Teaching Recipient: Patient Teaching Methods: Demonstration, Discussion Response to Teaching: Reinforcement Needed Time/GCodes Time In: 1330 Time Out: 1345 Total Billed Treatment Time: 15 Total Billed Treatment 1 visit EX 15min SALAS SUMNER PT Mar 11, 2022 13:53
[2022-03-11] MEDS: warFARin 5 MG (COUMADIN) TAB PO SCH (18:01)
[2022-03-11] MEDS: warFARin 2 MG (COUMADIN) TAB PO SCH (18:01)
[2022-03-11 20:00] VITALS: BP 138/68
[2022-03-11] MEDS: MIRTAZAPINE 15 MG (REMERON) TAB PO SCH (21:01)
[2022-03-11] MEDS: oxyCODONE ER 10 MG (OxyCONTIN CR) TAB PO SCH (21:02)
[2022-03-12 06:06] LABS: INR 3.7 (0.8-1.4)
--- NOTE | 2022-03-12 06:06 | PM&R Progress Note ---
Subjective HPI/CC On Admission Date Seen by Provider: Mar 12, 2022 Time Seen by Provider: 12:30 Subjective/Events-last exam 03/12/2022: Patient doing well Ready for discharge tomorrow Monitoring closely 03/11/2022: Patient doing really well Participating in therapy Blood sugars reviewed Labs reviewed 03/10/2022: Doing well Participation is improved DC planned for Tuesday although he does not appear to be safe to go home he insists he is ready 03/09/2022: Improved status Psych consult recommended anti-depressant Spoke to him about a new anti-depressant and he is willing 03/08/2022: Patient doing well Arms really too weak to help him transfer and this is from homero [facility]EL[facility] Needs [facility] placement Psych eval indicated for anger issues so I ordered that 03/07/2022: Improved sugar No pain reported No falls No pain issues 03/06/2022: Sugar a bit low last night Adjusted insulin from 15 to 8 Monitoring closely 03/05/2022: Patient doing well Sugars are good Took insulin at home but non-compliant 03/04/2022: Doing well today Sugars reviewed No falls Monitoring closely 03/03/2022: No major issues Sugars improved BP stable No increased pain 03/02/2022: No major issues Wants to go home soon Pain controlled No falls 03/01/2022: No major problems Did not sleep well last night No major issues Sugars reviewed Labs reviewed 02/28/2022: Patient doing well No major issues Pain is controlled Appreciate Dr. Pelaez with Dr. De Los Santos 02/27/2022: No major issues Pain controlled BS reviewed INR good Kidney function improved 02/26/2022: Settling in well Pain is improved BM+ Voiding well No falls Participating in therapy Grief with son, daughter and 's and then losing leg Dr De Los Santos expertise appreciated Dr Pelaez evaluated the patient today too Review of Systems General: Fatigue, Malaise Objective Exam Vital Signs Vital Signs Date Time Temp Pulse Resp B/P (MAP) Pulse Ox O2 Delivery O2 Flow Rate FiO2 03/12/22 20:30 Room Air 03/12/22 19:36 36.3 78 16 144/81 (102) 97 Capillary Refill : General Appearance: No Apparent Distress, WD/WN, Chronically ill HEENT: PERRL/EOMI, Normal ENT Inspection, Pharynx Normal Neck: Full Range of Motion, Normal Inspection, Non Tender, Supple, Carotid Bruit Respiratory: Chest Non Tender, Lungs Clear, Normal Breath Sounds, No Accessory Muscle Use, No Respiratory Distress Cardiovascular: Regular Rate, Rhythm, No Edema, No Gallop, No JVD, No Murmur, Normal Peripheral Pulses, Other (click) Gastrointestinal: Normal Bowel Sounds, No Organomegaly, No Pulsatile Mass, Non Tender, Soft Back: Normal Inspection, No CVA Tenderness, No Vertebral Tenderness Extremity: Normal Capillary Refill, Normal Inspection, Normal Range of Motion, Non Tender, No Calf Tenderness, No Pedal Edema Neurologic/Psychiatric: Alert, Oriented x3, Normal Mood/Affect, 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 FIM Transfers Therapy Code Descriptions/Definitions Functional [place] Measure: 0=Not Assessed/NA 4=Minimal Assistance 1=Total Assistance 5=Supervision or Setup 2=Maximal Assistance 6=Modified [place] 3=Moderate Assistance 7=Complete IndependenceSCALE: Activities may be completed with or without assistive devices. 1-Xuczpvreng-zdtfeaf completes the activity by him/herself with no assistance from a helper. 5-Set-up or Clean-up Assistance-helper sets up or cleans up; patient completes activity. [place] assists only prior to or following the activity. 4-Supervision or Touching Assistance-helper provides verbal cues and/or touching/steadying and/or contact guard assistance as patient completes activity. Assistance may be provided throughout the activity or intermittently. 3-Partial/Moderate Assistance-helper does LESS THAN HALF the effort. [place] lifts, holds or supports trunk or limbs, but provides less than half the effort. 2-Substantial/Maximal Assistance-helper does MORE THAN HALF the effort. [place] lifts or holds trunk or limbs and provides more than half the effort. 9-Dxeybumuz-gbcagr does ALL the effort. Patient does none of the effort to complete the activity. Or, the assistance of 2 or more helpers is required for the patient to complete the activity. If activity was not attempted, code reason: 7-Patient Refused. 9-Not Applicable-not attempted and the patient did not perform the activity before the current illness, exacerbation or injury. 10-Not Attempted due to Environmental Limitations-(lack of equipment, weather restraints, etc.). 88-Not Attempted due to Medical Conditions or Safety Concerns. Roll Left to Right (QC): 3 Sit to Lying (QC): 4 Sit to Stand (QC): 2 Chair/Jju-ns-Sbyai Xfer(QC): 3 Car Transfer (QC): 1 Gait Training Does the Patient Walk?: No and Walking Goal IS indicated Walk 10 feet (QC): 88 Walk 50 ft with 2 Turns(QC): 88 Walk 150 ft (QC): 88 Walking 10ft/uneven surface-QC: 88 Wheelchair Training Does the Pt Use a Wheelchair?: Yes Wheel 50 ft with 2 turns (QC): 4 Wheel 150 ft (QC): 4 Type of Wheelchair: Manual Stair Training 1 Step (curb) (QC): 88 4 Steps (QC): 88 12 Steps (QC): 88 Balance Picking up an Object (QC): 88 ADL-Treatment Eating (QC): 5 Oral Hygiene (QC): 4 Shower/Bathe Self (QC): 3 (sponge bath sitting EOB) Upper Body Dressing (QC): 5 Lower Body Dressing (QC): 3 On/Off Footwear (QC): 2 Toileting Hygiene (QC): 1 Toilet Transfer (QC): 3 Assessment/Plan Assessment and Plan Assess & Plan/Chief Complaint Assessment: 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 in [place] CVA following hospital course h/o embolic CVA 2009 Mitral valve replacement Coumadin maintenance DM HTN PVD CHF Chronic kidney disease Depression added anti-depressant 03/09/22 Plan: Monitor closely PT OT INR monitoring 02/26/2022: Pain control Monitor sugar 02/27/2022: Monitor kidney function Monitor INR 02/28/2022: Supportive care Pain control 03/01/2022: Monitor closely 03/02/2022: Supportive care 03/03/2022: Decrease accuchecks 03/04/2022: Monitor sugar 03/05/2022: Monitor closely Sugars reviewed 03/06/2022: Monitor sugar Decrease Levemir 03/07/2022: Monitor sugar 03/08/2022: Needs NH placement due to arms too weak to transfer self 03/09/2022: Monitor closely Add anti-depressant 03/10/2022: DC Tuesday03/11/2022: Monitor INR 03/12/2022: Supportive care Discharge tomorrow (1) History of mitral valve replacement with mechanical valve Assessment & Plan: We will continue warfarin and follow INR levels intermittently. He is now on warfarin 7 mg daily. At home he was taking 6.125 mg daily. I have ordered a repeat INR level on 03/05. His INR level on 03/02 and 03/03 was 1.9. I will plan to see him as needed. He did find a barrel assembler closer to home and has made an appointment. (2) Primary hypertension Assessment & Plan: He had been on amlodipine prior to his most recent admission at [facility] and then this was stopped at the outside facility. His blood pressures had been trending upward so I started a low-dose of losartan. This is will also have renal protective effects in light of his diabetes (3) Mixed hyperlipidemia Assessment & Plan: Continue statin medication. (4) Stage 2 chronic kidney disease Status: Chronic Assessment & Plan: It appears as though he probably has stage II chronic kidney disease which is mild. (5) Acute kidney injury superimposed on chronic kidney disease Status: Resolved Assessment & Plan: His renal function has improved. He may have been slightly dehydrated when his initial labs were drawn at the time of admission. Resolution Date/Time: 02/28/22 @ 10:26 (6) History of cerebrovascular accident with residual deficit Assessment & Plan: Continue aspirin and statin medication. If he develops any signs of hemorrhaging, then I would consider stopping aspirin since he takes warfarin for the mechanical mitral valve replacement. (7) Seizure disorder Assessment & Plan: This is being managed by the hospitalist. We need to be cautious with any cardiac medications that could alter the metabolism of his seizure medication. (8) Type 2 diabetes mellitus with complication Assessment & Plan: This is being managed by the hospitalist. (9) Obesity Assessment & Plan: He needs to work on weight loss. (10) Hx of BKA Assessment & Plan: He is now on our inpatient rehabilitation unit to help him start learning how to function with a below-knee amputation. DERRICK LONGORIA DO Mar 12, 2022 06:06
[2022-03-12] MEDS: PANTOPRAZOLE 40 MG (PROTONIX) TAB PO SCH (06:31)
[2022-03-12 07:26] VITALS: BP 134/84
[2022-03-12] MEDS: DOCUSATE SODIUM 100 MG (COLACE) CAP PO SCH ×2 (08:09→20:53)
[2022-03-12] MEDS: LOSARTAN 25 MG (COZAAR) TAB PO SCH (08:09)
[2022-03-12] MEDS: lamoTRIgine 25 MG (LaMICtal) TAB PO SCH ×2 (08:09→20:53)
[2022-03-12] MEDS: PREGABALIN 75 MG (LYRICA) CAP PO SCH ×2 (08:09→20:53)
[2022-03-12] MEDS: ASPIRIN E.C. 81 MG (ECOTRIN) TAB PO SCH (08:09)
[2022-03-12] MEDS: polyethylene glycoL POWDER 17 GM (MIRALAX) PACK PO SCH ×2 (08:10→20:54)
[2022-03-12] MEDS: SENNA W/DOCUSATE (SENOKOT S) TABLET PO SCH ×2 (08:10→20:54)
[2022-03-12] MEDS: MICONAZOLE 2% POWDER (DESENEX AF) 90 GM TOP SCH ×2 (08:11→20:55)
[2022-03-12] MEDS: MICONAZOLE NITRATE 2% CRM 30 GM TP SCH ×2 (08:13→20:55)
--- NOTE | 2022-03-12 09:55 | Physical Therapy Daily Note ---
PT Daily Note-Current Subjective Patient in bed pre tx, agrees to PT, has no complaints of pain. Will be co- treating with OT due to poor patient mobility, strength, endurance, severe debility, coordinate UE and LE with activity, safety and reduce risk of falls. Pain Section J - Health Conditions 1. Rarely or not at all 2. Occasionally 3. Frequently 4. Almost constantly 8. Unable to answer Pain Effect on Sleep: 2 Pain Interference with Therapy: 2 Pain Interference w/Day-to-Day: 2 Appearance Patient in WC at bedside post tx with nurse call, phone, tray, all needs met. Mental Status Patient Orientation: Person, Place, Situation Transfers SCALE: Activities may be completed with or without assistive devices. 6-Dttzawkzop-vsdvxan completes the activity by him/herself with no assistance from a helper. 5-Set-up or Clean-up Assistance-helper sets up or cleans up; patient completes activity. [place] assists only prior to or following the activity. 4-Supervision or Touching Assistance-helper provides verbal cues and/or touching/steadying and/or contact guard assistance as patient completes activity. Assistance may be provided throughout the activity or intermittently. 3-Partial/Moderate Assistance-helper does LESS THAN HALF the effort. [place] lifts, holds or supports trunk or limbs, but provides less than half the effort. 2-Substantial/Maximal Assistance-helper does MORE THAN HALF the effort. [place] lifts or holds trunk or limbs and provides more than half the effort. 5-Frhbprqbj-hipuuj does ALL the effort. Patient does none of the effort to complete the activity. Or, the assistance of 2 or more helpers is required for the patient to complete the activity. If activity was not attempted, code reason: 7-Patient Refused. 9-Not Applicable-not attempted and the patient did not perform the activity before the current illness, exacerbation or injury. 10-Not Attempted due to Environmental Limitations-(lack of equipment, weather restraints, etc.). 88-Not Attempted due to Medical Conditions or Safety Concerns. Roll Left & Right (QC): 4 Sit to Lying (QC): 4 Lying to Sitting/Side of Bed(Q: 4 Sit to Stand (QC): 2 Chair/Who-ei-Rltvi Xfer(QC): 3 Toilet Transfer (QC): 3 Car Transfer (QC): 88 Patient can perform rolling and supine <-> sit with SBA, sit <-> stand with max assist in parallel bars, sliding transfer with or without board with mod assist. Patient has a lot of difficulty with supine <-> sit but can do it on his own with cues for positioning. Patient needs cues for direction with every step and often still doesn't understand them. Patient bathed and dressed sitting at the side of the bed, cues for positioning and safety. Weight Bearing Right Lower Extremity: Right Full Weight Bearing Gait Training Walk 10 feet (QC): 88 Walk 50 ft with 2 Turns(QC): 88 Walk 150 ft (QC): 88 Walking 10ft/uneven surface-QC: 88 Wheelchair Training Does the Pt Use a Wheelchair?: Yes Wheel 50 ft with 2 turns (QC): 4 Wheel 150 ft (QC): 4 Type of Wheelchair: Manual SBA, very slow because patient has a lot of difficulty coordinating his UE and LE and has a poor wide load escort on the left hand. Stair Training 1 Step (curb) (QC): 88 4 Steps (QC): 88 12 Steps (QC): 88 Balance Picking up an Object (QC): 88 Exercises Stood in parallel bars x2 with max assist for about 2 min each time Treatments PT performed bed mobility and transfers, standing, WC mobility, positioning and safety during activity, OT performed dressing, bathing, UE positioning and safety during activity. Assessment Current Status: Poor Progress no change in mobility PT Short Term Goals Short Term Goals Time Frame: Mar 05, 2022 Roll Left & Right: 6 Sit to lyin Lying to sitting on side of be: 6 Sit to stand: 3 Chair/cil-qj-nwnms transfer: 3 PT [facility] Goals Nursing Home Goals PT Nursing Home Goals Time Frame: Mar 19, 2022 Roll Left & Right (QC): 6 Sit to Lying (QC): 6 Lying-Sitting on Side/Bed(QC): 6 Sit to Stand (QC): 4 Chair/Qxz-db-Nrgel Xfer(QC): 4 Toilet Transfer (QC): 3 Car Transfer (QC): 3 Does the Patient Walk: No and Walking Goal IS indicated Walk 10 feet (QC): 3 Walk 50ft with 2 Turns (QC): 88 Walk 150 ft (QC): 88 Walking 10ft on Uneven Surface: 88 1 Step (curb) (QC): 88 4 Steps (QC): 88 12 Steps (QC): 88 Picking up an Object (QC): 3 Wheel 50 feet with 2 turns (QC: 4 Wheel 150 feet: 3 PT Plan Problem List Problem List: Activity Tolerance, Functional Strength, Safety, Balance, Gait, Transfer, Bed Mobility, ROM Treatment/Plan Treatment Plan: Continue Plan of Care Treatment Plan: Bed Mobility, Education, Functional Activity Mariano, Functional Strength, Group Therapy, Gait, Safety, Therapeutic Exercise, Transfers Treatment Duration: Mar 19, 2022 Frequency: At least 5 of 7 days/Wk (IRF) Estimated Hrs Per Day: 1.5 hours per day Patient and/or Family Agrees t: Yes Safety Risks/Education Patient Education: Transfer Techniques, Correct Positioning, W/C Management, Safety Issues Teaching Recipient: Patient Teaching Methods: Demonstration, Discussion Response to Teaching: Reinforcement Needed Patient was also given a HEP for LE ROM and strengthening Time/GCodes Time In: 0900 Time Out: 1000 Total Billed Treatment Time: 60 Total Billed Treatment 1 visit FA 60' co-treated with OT for 60' SALAS SUMNER PT Mar 12, 2022 09:55
--- NOTE | 2022-03-12 10:15 | Occupational Ther Daily Note ---
OT Current Status-Daily Note Subjective Pt laying in bed upon arrival. He stated that he is nervous and excited to go home. He did not have any questions or concerns about going home. Appearance Pt left sitting in w/c with all needs within reach. Mental Status/Objective Patient Orientation: Person, Confused ADL-Treatment Therapy Code Descriptions/Definitions Functional [place] Measure: 0=Not Assessed/NA 4=Minimal Assistance 1=Total Assistance 5=Supervision or Setup 2=Maximal Assistance 6=Modified [place] 3=Moderate Assistance 7=Complete IndependenceSCALE: Activities may be completed with or without assistive devices. 7-Byxvdszquq-bomtdak completes the activity by him/herself with no assistance from a helper. 5-Set-up or Clean-up Assistance-helper sets up or cleans up; patient completes activity. [place] assists only prior to or following the activity. 4-Supervision or Touching Assistance-helper provides verbal cues and/or touching/steadying and/or contact guard assistance as patient completes activity. Assistance may be provided throughout the activity or intermittently. 3-Partial/Moderate Assistance-helper does LESS THAN HALF the effort. [place] lifts, holds or supports trunk or limbs, but provides less than half the effort. 2-Substantial/Maximal Assistance-helper does MORE THAN HALF the effort. [place] lifts or holds trunk or limbs and provides more than half the effort. 3-Hkyasafdr-qglplq does ALL the effort. Patient does none of the effort to complete the activity. Or, the assistance of 2 or more helpers is required for the patient to complete the activity. If activity was not attempted, code reason: 7-Patient Refused. 9-Not Applicable-not attempted and the patient did not perform the activity before the current illness, exacerbation or injury. 10-Not Attempted due to Environmental Limitations-(lack of equipment, weather restraints, etc.). 88-Not Attempted due to Medical Conditions or Safety Concerns. Eating (QC): 5 Oral Hygiene (QC): 4 Shower/Bathe Self (QC): 3 Upper Body Dressing (QC): 5 Lower Body Dressing (QC): 3 On/Off Footwear: 2 (Pt refuses all adaptive equipement/modifications) Toileting Hygiene (QC): 1 Toilet Transfer (QC): 3 Supine<>sit: SBA. Pt sat EOB to perform sponge bath with mod assist for krysta- area/buttocks. He needed constant sequencing and initiation cues throughout sponge bath. Pt used LHS for R lower leg and foot. Pt threaded bilateral legs into pants with increased time. He required mod assist and cues to pull pants over hips by leaning R/L. He was dependent for donning sock, but is max assist to put on shoes. Pt got slightly frustrated with therapist and set up of w/c, although exact same set up as all other transfers performed. Pt unable to perform modified slide transfer, and insisted on slide board transfer, although still unable to set up slide board. Bed>w/c transfer: min assist. Pt refuses to push with R leg to initiate transfer. Pt required set up and constant cues for sequencing of oral hygiene. Other Treatment Pt stood in parallel bars x3 ~1:30 each bout with mod assist x2 and min assist for safety, balance once upright. Cues for posture while in standing. Pt perform ed w/c mobility with cues for hand placement. Still unable to make appropriate turns in w/c. Education OT Patient Education: Correct positioning, Energy conservation, Modified ADL techniques, Progress toward Goal/Update tx plan, Purpose of tx/functional activities, Reviewed precautions, Rehab process, Safety issues, Transfer techniques, W/C management Teaching Recipient: Patient Teaching Methods: Demonstration, Discussion Response to Teaching: Unable to Return Demonstration, Reinforcement Needed BIMS CAM BIMS Expression of Ideas and Wants: Frequently Understanding Verbal Content: Sometimes Understands Brief Interview/Mental Status: Yes IRF DOMINIQUE BIMS: IRF DOMINIQUE BIMS Response (Comments) Value Repitition of Three Words Two 2 Recalls Socks Yes, No Cue Required 2 Recalls Blue Yes, No Cue Required 2 Recalls Bed Yes, After Cueing 1 Year Correct 3 Month Accurate Within 5 Days 2 Day Incorrect or No Answer 0 Total [address] 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 2=Patient will verbalize/demonstrate understanding of assistive devices/modifications for ADL. 3=Patient will improve strength/tolerance for activity to enable patient to perform ADL's. OT Education/Plan Problem List/Assessment Assessment: Decreased Activ Tolerance, Decreased Safety Aware, Decreased UE Strength, Dependent Transfers, Impaired Cognition, Impaired Coordination, Impaired Funct Balance, Impaired I ADL's, Impaired Self-Care Skills Discharge Recommendations Plan/Recommendations: Continue POC Therapy Discharge Recommendati: Assisted Living, Bath Aide Equpiment Recommendations-D/C: Bath Chair, Extended Shower Sprayer, Bedside Commode (drop arm) Treatment Plan/Plan of Care Treatment,Training & Education: Yes Patient would benefit from OT for education, treatment and training to promote independence in ADL's, mobility, safety and/or upper extremity function for ADL's. Plan of Care: ADL Retraining, Caregiver Training, Cognitive Retraining, Functional Mobility, Group Exercise/Act as Ind, Orthotic Fitting/Training, UE Funct Exercise/Act, UE Neuromus Re-Ed/Coord, W/C Management Training Treatment Duration: Mar 22, 2022 Frequency: At least 5 of 7 days/Wk (IRF) Estimated Hrs Per Day: 1.5 hours per day (60-90 min/day) Agreement: Yes Rehab Potential: Fair Time/GCodes Start Time: 09:00 Stop Time: 10:15 Total Time Billed (hr/min): 75 Billed Treatment Time 1 visit ADL x4 (55 min) FA (20 min) Co-treat with PT: [id number] Taylor Norris OT Mar 12, 2022 10:15
[2022-03-12] MEDS: oxyCODONE/APAP 5/325MG (PERCOCET 5) TABLET PO PRN (10:40)
--- NOTE | 2022-03-12 13:09 | Speech Therapy Daily Note ---
Speech Daily Progress Note Subjective Date Seen by Provider: Mar 12, 2022 Time Seen by Provider: 08:30 The patient was seated upright in his bed, awake and alert, upon entrance to his room by the clinician. The patient greeted the clinician appropriately and was agreeable to participation in the cognitive linguistic assessment. Objective To assess for carry-over, functional recall, retention of information, and awareness of discharge barriers, the clinician asked the patient to discuss the most recent phone conversation which included the social media editor, the patient, and the patient's brother (Duran). The patient displayed fair accuracy of recall with continued poor accuracy of safety concerns with discharge home. The clinician (as well as additional therapy disciplines) are recommended discharge to a long-term facility. Regardless of the clinical recommendations, the patient has decided to discharge home. The patient will discharge home (with his brother, Duran) on Tuesday, March 13, 2022. 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 The patient seemed to hold impaired comprehension regarding the varying levels of care provided at each. The patient was encouraged to work with his home health team and determine his safety and appropriateness home following approximately two weeks (or sooner if appropriate). The patient verbalizes comprehension and reports excitement with discharge. Assessment Assessment Current Status: Fair Progress Treatment Plan Continue Plan of Care Speech Short Term Goals Short Term Goals Short Term Goals 1. The patient will demonstrate improved word-finding strategies through informal conversation with mild clinician cueing. Time Frame-STG: Seven Days. Speech Lumber Bearer Goals Care Home Goals 1. The patient will demonstrate improved cognitive linguistic skills for safe discharge to the least restrictive environment. Time Frame: Ten Days. Speech-Plan Treatment Plan Speech Therapy Treatment Plan: Discontinue ST Treatment Duration: Mar 10, 2022 Frequency: Modified Program (IRF) (Four to five times per week.) Estimated Hrs Per Day: .5 hour per day Rehab Potential: Fair Safety Risks/Education Teaching Recipient: Patient Teaching Methods: Discussion Response to Teaching: Reinforcement Needed Education Topics Provided: Safety Barriers and Concerns Time Speech Therapy Time In: 08:30 Speech Therapy Time Out: 09:00 Total Billed Time: 30 Billed Treatment Time [facility] Mar 12, 2022 13:09
--- NOTE | 2022-03-12 13:14 | Physical Therapy Daily Note ---
PT Daily Note-Current Subjective Patient in W/C pre-tx, reports no pain, agrees to PT. Pain Section J - Health Conditions 1. Rarely or not at all 2. Occasionally 3. Frequently 4. Almost constantly 8. Unable to answer Pain Effect on Sleep: 2 Pain Interference with Therapy: 2 Pain Interference w/Day-to-Day: 2 Appearance Patient in W/C post-tx with nurse call, tray, and all needs met. Mental Status Patient Orientation: Person, Place, Situation Transfers SCALE: Activities may be completed with or without assistive devices. 5-Opyhwnbwtg-ukqheae completes the activity by him/herself with no assistance from a helper. 5-Set-up or Clean-up Assistance-helper sets up or cleans up; patient completes activity. [place] assists only prior to or following the activity. 4-Supervision or Touching Assistance-helper provides verbal cues and/or touching/steadying and/or contact guard assistance as patient completes activity. Assistance may be provided throughout the activity or intermittently. 3-Partial/Moderate Assistance-helper does LESS THAN HALF the effort. [place] lifts, holds or supports trunk or limbs, but provides less than half the effort. 2-Substantial/Maximal Assistance-helper does MORE THAN HALF the effort. [place] lifts or holds trunk or limbs and provides more than half the effort. 6-Dpaxxskmi-qjsnej does ALL the effort. Patient does none of the effort to complete the activity. Or, the assistance of 2 or more helpers is required for the patient to complete the activity. If activity was not attempted, code reason: 7-Patient Refused. 9-Not Applicable-not attempted and the patient did not perform the activity before the current illness, exacerbation or injury. 10-Not Attempted due to Environmental Limitations-(lack of equipment, weather restraints, etc.). 88-Not Attempted due to Medical Conditions or Safety Concerns. Weight Bearing Right Lower Extremity: Right Full Weight Bearing Wheelchair Training Does the Pt Use a Wheelchair?: Yes Exercises Seated Therapy Exercises: Long arc quads, Hip flexion, Hip abd/add (Adduct w/ pillow between legs, abduct w/ gait belt around thighs) Seated Reps: 10 Seated Heel/Toe Raises 10 reps Treatments LE Strengthening, Patient Education on W/C use and operation Assessment Current Status: Fair Progress Patient needed verbal cueing and demonstration a few times to correctly complete the exercises. PT Short Term Goals Short Term Goals Time Frame: Mar 05, 2022 Roll Left & Right: 6 Sit to lyin Lying to sitting on side of be: 6 Sit to stand: 3 Chair/ygh-tj-zdmop transfer: 3 PT Mcc Goals Day Light Relief Operator Goals PT Day Light Relief Operator Goals Time Frame: Mar 19, 2022 Roll Left & Right (QC): 6 Sit to Lying (QC): 6 Lying-Sitting on Side/Bed(QC): 6 Sit to Stand (QC): 4 Chair/Fnm-sc-Vbzdg Xfer(QC): 4 Toilet Transfer (QC): 3 Car Transfer (QC): 3 Does the Patient Walk: No and Walking Goal IS indicated Walk 10 feet (QC): 3 Walk 50ft with 2 Turns (QC): 88 Walk 150 ft (QC): 88 Walking 10ft on Uneven Surface: 88 1 Step (curb) (QC): 88 4 Steps (QC): 88 12 Steps (QC): 88 Picking up an Object (QC): 3 Wheel 50 feet with 2 turns (QC: 4 Wheel 150 feet: 3 PT Plan Problem List Problem List: Activity Tolerance, Functional Strength, Safety, Balance, Gait, Transfer, Bed Mobility, ROM Treatment/Plan Treatment Plan: Continue Plan of Care Treatment Plan: Bed Mobility, Education, Functional Activity Mariano, Functional Strength, Group Therapy, Gait, Safety, Therapeutic Exercise, Transfers Treatment Duration: Mar 19, 2022 Frequency: At least 5 of 7 days/Wk (IRF) Estimated Hrs Per Day: 1.5 hours per day Patient and/or Family Agrees t: Yes Safety Risks/Education Patient Education: Transfer Techniques, Correct Positioning, W/C Management, Safety Issues Teaching Recipient: Patient Teaching Methods: Demonstration, Discussion Response to Teaching: Reinforcement Needed Patient educated on different W/C use and operation. Time/GCodes Time In: 1235 Time Out: 1250 Total Billed Treatment Time: 15 Total Billed Treatment 1 visit EX 15min SALAS SUMNER PT Mar 12, 2022 13:14
--- NOTE | 2022-03-12 14:14 | Therapy Team Discharge Summary ---
Therapy Discharge Summary Discharge Recommendations Date of Discharge Physical Therapy Roll Left to Right (QC): 4 Sit to Lying (QC): 4 Lying to Sitting/Side of Bed(Q: 4 Sit to Stand (QC): 2 Chair/Nqd-kd-Vduyv Xfer(QC): 3 Toilet Transfer (QC): 3 Car Transfer (QC): 88 Does the Patient Walk: No and Walking Goal IS indicated Walk 10 feet (QC): 88 Walk 50 ft with 2 Turns(QC): 88 Walk 150 ft (QC): 88 Walking 10ft on uneven surface: 88 Does the Pt Use a Wheelchair: Yes Wheel 50 ft with 2 turns (QC): 4 Wheel 150 ft (QC): 4 Type of Wheelchair: Manual 1 Step (curb) (QC): 88 4 Steps (QC): 88 12 Steps (QC): 88 Balance Sitting Static: Normal Balance Sitting Dynamic: Normal Balance-Standing Static: Poor Picking up an Object (QC): 88 Occupational Therapy Decreased Activ Tolerance, Decreased Safety Aware, Decreased UE Strength, Dependent Transfers, Impaired Cognition, Impaired Coordination, Impaired Funct Balance, Impaired I ADL's, Impaired Self-Care Skills Eating (QC): 5 Oral Hygiene (QC): 4 Shower/Bathe Self (QC): 3 Upper Body Dressing (QC): 5 Lower Body Dressing (QC): 3 On/Off Footwear (QC): 2 (Pt refuses all adaptive equipement/modifications) Toileting Hygiene (QC): 1 Speech-Language Pathology The patient has displayed improved use and understanding of word-finding strategies. While increased awareness of safe discharge to his home environment and his own physical limitations have improved, the improvement is mild with additional work left to complete. At this time, speech pathology continues to recommend discharge to a longterm facility, however, the patient has chosen to discharge home. 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 Rarely or not at all 2. Occasionally 3. Frequently 4. Almost constantly 8. Unable to answer Roll Left to Right (QC): 6 Sit to Lying (QC): 6 Lying-Sitting on Side/Bed(QC): 6 Sit to Stand (QC): 4 Chair/Pzq-ur-Cmjzf Xfer(QC): 4 Toilet/Commode Transfer (QC): 3 Car Transfer (QC): 3 Does the Patient Walk: No and Walking Goal IS indicated Walk 10 feet (QC): 3 Walk 10ft-Uneven Surface(QC): 88 Walk 50ft with 2 Turns (QC): 88 Walk 150 ft (QC): 88 Wheel 50 feet with 2 turns (QC: 4 1 Step (curb) (QC): 88 4 Steps (QC): 88 12 Steps (QC): 88 Picking up an Object (QC): 3 OT Printed Circuit Board Assembly Repairer Goals Prison Goals Time Frame: Mar 22, 2022 Acute change in mental status: 1 Inattention: 2 Disorganized thinkin Altered level of consciousness: 0 Eating (QC): 5 (met) Oral Hygiene (QC): 4 (met) Toileting Hygiene (QC): 4 (not met) Shower/Bathe Self (QC): 4 (not met) Upper Body Dressing (QC): 6 (not met) Lower Body Dressing (QC): 4 (not met) On/Off Footwear (QC): 4 (not met) Additional Goals: 1-Demonstrate ADL Tasks, 2-Verbalize Understanding, 3- ImproveStrength/[place] 1=Demonstrate adherence to instructed precautions during ADL tasks. 2=Patient will verbalize/demonstrate understanding of assistive devices/modifications for ADL. 3=Patient will improve strength/tolerance for activity to enable patient to perform ADL's. Speech Prison Goals Prison Goals 1. The patient will demonstrate improved cognitive linguistic skills for safe discharge to the least restrictive environment. MET: The patient has displayed improved use and understanding of word-finding strategies. While increased awareness of safe discharge to his home environment and his own physical limitations have improved, the improvement is mild with additional work left to complete. At this time, speech pathology continues to recommend discharge to a longterm facility, however, the patient has chosen to discharge home. Time Frame: Ten Days. ISABEL SESAY Mar 12, 2022 14:14
[2022-03-12] MEDS ORDERED: warFARin 3 MG (COUMADIN) TAB PO SCH ×2 (18:00)
[2022-03-12 19:36] VITALS: BP 144/81
[2022-03-12] MEDS: oxyCODONE ER 10 MG (OxyCONTIN CR) TAB PO SCH (20:53)
[2022-03-12] MEDS: MIRTAZAPINE 15 MG (REMERON) TAB PO SCH (20:53)
[2022-03-13] MEDS ORDERED: CYCL10TA25 PO (05:30)
[2022-03-13] MEDS ORDERED: MICO5POW6 MC (05:30)
[2022-03-13] MEDS ORDERED: OMEP20CA18 PO (05:30)
[2022-03-13] MEDS ORDERED: INSU100I29 SQ (05:30)
[2022-03-13] MEDS ORDERED: ATOR20TA66 PO (05:30)
[2022-03-13] MEDS ORDERED: BUPR-168 PO (05:30)
[2022-03-13] MEDS ORDERED: PREG75CA PO (05:30)
[2022-03-13] MEDS ORDERED: MICO90PO TOP (05:30)
[2022-03-13] MEDS ORDERED: ASPI-1238 PO (05:30)
[2022-03-13] MEDS ORDERED: WARF3TAB56 PO (05:30)
[2022-03-13] MEDS ORDERED: LOSA25TA41 PO (05:30)
[2022-03-13] MEDS ORDERED: TRZ50T PO (05:30)
[2022-03-13] MEDS ORDERED: FURO20TA4 PO (05:30)
[2022-03-13] MEDS ORDERED: LINA5TAB PO (05:30)
[2022-03-13] MEDS ORDERED: LAMO25TA8 PO (05:30)
[2022-03-13] MEDS ORDERED: OXYC1TAB87 PO (05:30)
[2022-03-13] MEDS ORDERED: LEVE750T5 PO (05:30)
[2022-03-13] MEDS ORDERED: DULO60CA59 PO (05:30)
--- NOTE | 2022-03-13 05:32 | Discharge Summary ---
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 in [place] CVA following hospital course h/o embolic CVA 2009 Mitral valve replacement Coumadin maintenance DM HTN PVD CHF Chronic kidney disease Depression added anti-depressant 03/09/22 Plan: Monitor closely PT OT INR monitoring 02/26/2022: Pain control Monitor sugar 02/27/2022: Monitor kidney function Monitor INR 02/28/2022: Supportive care Pain control 03/01/2022: Monitor closely 03/02/2022: Supportive care 03/03/2022: Decrease accuchecks 03/04/2022: Monitor sugar 03/05/2022: Monitor closely Sugars reviewed 03/06/2022: Monitor sugar Decrease Levemir 03/07/2022: Monitor sugar 03/08/2022: Needs NH placement due to arms too weak to transfer self 03/09/2022: Monitor closely Add anti-depressant 03/10/2022: DC Tuesday03/11/2022: Monitor INR 03/12/2022: Supportive care Discharge tomorrow (1) History of mitral valve replacement with mechanical valve Assessment & Plan: We will continue warfarin and follow INR levels intermittently. He is now on warfarin 7 mg daily. At home he was taking 6.125 mg daily. I have ordered a repeat INR level on 03/05. His INR level on 03/02 and 03/03 was 1.9. I will plan to see him as needed. He did find a car diologist closer to home and has made an appointment. (2) Primary hypertension Assessment & Plan: He had been on amlodipine prior to his most recent admission at [facility] and then this was stopped at the outside facility. His blood pressures had been trending upward so I started a low-dose of losartan. This is will also have renal protective effects in light of his diabetes (3) Mixed hyperlipidemia Assessment & Plan: Continue statin medication. (4) Stage 2 chronic kidney disease Status: Chronic Assessment & Plan: It appears as though he probably has stage II chronic kidney disease which is mild. (5) Acute kidney injury superimposed on chronic kidney disease Status: Resolved Assessment & Plan: His renal function has improved. He may have been slightly dehydrated when his initial labs were drawn at the time of admission. Resolution Date/Time: 02/28/22 @ 10:26 (6) History of cerebrovascular accident with residual deficit Assessment & Plan: Continue aspirin and statin medication. If he develops any signs of hemorrhaging, then I would consider stopping aspirin since he takes warfarin for the mechanical mitral valve replacement. (7) Seizure disorder Assessment & Plan: This is being managed by the hospitalist. We need to be cautious with any cardiac medications that could alter the metabolism of his seizure medication. (8) Type 2 diabetes mellitus with complication Assessment & Plan: This is being managed by the hospitalist. (9) Obesity Assessment & Plan: He needs to work on weight loss. (10) Hx of BKA Assessment & Plan: He is now on our inpatient rehabilitation unit to help him start learning how to function with a below-knee amputation. DERRICK LONGORIA DO Mar 12, 2022 06:06 Discharge Summary Discharge Physical Examination Allergies: Coded Allergies: No Known Allergies (Verified Allergy, Unknown, 02/25/22) Vitals & I&Os Vital Signs Date Time Temp Pulse Resp B/P (MAP) Pulse Ox O2 Delivery O2 Flow Rate FiO2 03/13/22 10:27 36.7 75 20 146/91 100 Room Air General Appearance: Alert, Oriented X3, Cooperative Respiratory: Clear to Auscultation Cardiovascular: Regular Rate Psych/Mental Status: Mental Status NL Hospital Course Was the Problem List Reviewed?: Yes Hospital course: Patient had a lengthy hospital course after he was admitted on 02/25/2022 following a left below the knee amputation with complications of stroke with subsequent weakness of the upper extremities requiring aggressive therapy in order to help transfers and increased independence with ADLs and wheelchair and walker activity. Blood sugars remain stable after multiple insulin changes. Cardiology was consulted and managed the INR. No significant decompensation occurred or infections and he was deemed stable for discharge although we feel he should have gone to some sort of assisted living or nursing facility of which she refused and his family will help him with all the support he needs at home he reports. Labs (last 24 hrs) Laboratory Tests 02/25/22 20:50: Glucometer 182H 02/26/22 05:18: White Blood Count 7.5, Red Blood Count 4.29L, Hemoglobin 11.7L, Hematocrit 37L, Mean Corpuscular Volume 86, Mean Corpuscular Hemoglobin 27, Mean Corpuscular Hemoglobin Concent 32, Red Cell Distribution Width 14.1, Platelet Count 242, Mean Platelet Volume 11.2, Immature Granulocyte % (Auto) 1, Neutrophils (%) (Auto) 63, Lymphocytes (%) (Auto) 22, Monocytes (%) (Auto) 10, Eosinophils (%) (Auto) 4, Basophils (%) (Auto) 1, Neutrophils # (Auto) 4.8, Lymphocytes # (Auto) 1.7, Monocytes # (Auto) 0.7, Eosinophils # (Auto) 0.3, Basophils # (Auto) 0.1, Immature Granulocyte # (Auto) 0.1, Prothrombin Time 31.5H, INR Comment 3.0H, Sodium Level 141, Potassium Level 4.3, Chloride Level 112H, Carbon Dioxide Level 21, Anion Gap 8, Blood Urea Nitrogen 23H, Creatinine 1.92H, Estimat Glomerular Filtration Rate 40, BUN/Creatinine Ratio 12, Glucose Level 149H, Calcium Level 8.9, Corrected Calcium 9.5, Total Bilirubin 0.4, Aspartate Amino Transf (AST/SGOT) 21, Alanine Aminotransferase (ALT/SGPT) 37, Alkaline Phosphatase 95, Total Protein 6.6, Albumin 3.3, Triglycerides Level 120, Cholesterol Level 108, LDL Cholesterol Direct 48, VLDL Cholesterol 24, HDL Cholesterol 32L 02/26/22 10:50: Glucometer 158H 02/26/22 15:50: Glucometer 184H 02/26/22 20:32: Glucometer 173H 02/27/22 05:37: Glucometer 139H 02/27/22 10:12: Prothrombin Time 27.7H, INR Comment 2.5H, Sodium Level 137, Potassium Level 4.5, Chloride Level 108H, Carbon Dioxide Level 21, Anion Gap 8, Blood Urea Nitrogen 26H, Creatinine 1.14, Estimat Glomerular Filtration Rate 75, BUN/Creatinine Ratio 23, Glucose Level 138H, Calcium Level 8.6 02/27/22 11:08: Glucometer 111H 02/27/22 15:23: Glucometer 165H 02/27/22 19:28: Glucometer 174H 02/28/22 06:11: Glucometer 114H 02/28/22 10:20: Glucometer 138H 02/28/22 15:09: Glucometer 148H 02/28/22 20:12: Glucometer 169H 03/01/22 05:10: Prothrombin Time 24.8H, INR Comment 2.2H 03/01/22 05:58: Glucometer 111H 03/01/22 10:58: Glucometer 123H 03/01/22 15:22: Glucometer 159H 03/01/22 20:40: Glucometer 157H 03/02/22 05:37: Glucometer 119H, Prothrombin Time 22.4H, INR Comment 1.9H 03/02/22 10:43: Glucometer 136H 03/02/22 15:12: Glucometer 165H 03/02/22 20:06: Glucometer 154H 03/03/22 05:27: Glucometer 116H 03/03/22 06:03: Prothrombin Time 22.2H, INR Comment 1.9H, Sodium Level 139, Potassium Level 4.0, Chloride Level 106, Carbon Dioxide Level 25, Anion Gap 8, Blood Urea Nitrogen 20H, Creatinine 1.01, Estimat Glomerular Filtration Rate 87, BUN/Creatinine Ratio 20, Glucose Level 100, Calcium Level 9.0 03/03/22 11:19: Glucometer 134H 03/03/22 17:16: Glucometer 134H 03/03/22 20:43: Glucometer 145H 03/04/22 05:49: Glucometer 118H 03/04/22 19:48: Glucometer 146H 03/05/22 05:15: Prothrombin Time 24.9H, INR Comment 2.2H 03/05/22 06:03: Glucometer 116H 03/05/22 10:48: Glucometer 122H 03/05/22 15:23: Glucometer 128H 03/06/22 06:04: Glucometer 96 03/06/22 21:04: Glucometer 168H 03/07/22 06:19: Glucometer 104 03/07/22 20:27: Glucometer 156H 03/08/22 05:36: Glucometer 104 03/08/22 16:27: Glucometer 111H 03/08/22 19:57: Glucometer 141H 03/09/22 05:14: Glucometer 120H 03/09/22 15:28: Glucometer 136H 03/10/22 05:50: Glucometer 93 03/10/22 15:31: Glucometer 140H 03/10/22 20:01: Glucometer 171H 03/11/22 05:29: Glucometer 109 03/11/22 06:12: Prothrombin Time 35.9H, INR Comment 3.5H 03/11/22 19:58: Glucometer 151H 03/12/22 05:19: Prothrombin Time 37.0H, INR Comment 3.7H 03/12/22 05:49: Glucometer 94 03/12/22 15:16: Glucometer 154H 03/13/22 06:07: Glucometer 100 Pending Labs Laboratory Tests 02/25/22 20:50: Glucometer 182 02/26/22 05:18: White Blood Count 7.5, Red Blood Count 4.29, Hemoglobin 11.7, Hematocrit 37, Mean Corpuscular Volume 86, Mean Corpuscular Hemoglobin 27, Mean Corpuscular Hemoglobin Concent 32, Red Cell Distribution Width 14.1, Platelet Count 242, Mean Platelet Volume 11.2, Immature Granulocyte % (Auto) 1, Neutrophils (%) (Auto) 63, Lymphocytes (%) (Auto) 22, Monocytes (%) (Auto) 10, Eosinophils (%) (Auto) 4, Basophils (%) (Auto) 1, Neutrophils # (Auto) 4.8, Lymphocytes # (Auto) 1.7, Monocytes # (Auto) 0.7, Eosinophils # (Auto) 0.3, Basophils # (Auto) 0.1, Immature Granulocyte # (Auto) 0.1, Prothrombin Time 31.5, INR Comment 3.0, Sodium Level 141, Potassium Level 4.3, Chloride Level 112, Carbon Dioxide Level 21, Anion Gap 8, Blood Urea Nitrogen 23, Creatinine 1.92, Estimat Glomerular Filtration Rate 40, BUN/Creatinine Ratio 12, Glucose Level 149, Calcium Level 8.9, Corrected Calcium 9.5, Total Bilirubin 0.4, Aspartate Amino Transf (AST/SGOT) 21, Alanine Aminotransferase (ALT/SGPT) 37, Alkaline Phosphatase 95, Total Protein 6.6, Albumin 3.3, Triglycerides Level 120, Cholesterol Level 108, LDL Cholesterol Direct 48, VLDL Cholesterol 24, HDL Cholesterol 32 02/26/22 10:50: Glucometer 158 02/26/22 15:50: Glucometer 184 02/26/22 20:32: Glucometer 173 02/27/22 05:37: Glucometer 139 02/27/22 10:12: Prothrombin Time 27.7, INR Comment 2.5, Sodium Level 137, Potassium Level 4.5, Chloride Level 108, Carbon Dioxide Level 21, Anion Gap 8, Blood Urea Nitrogen 26, Creatinine 1.14, Estimat Glomerular Filtration Rate 75, BUN/Creatinine Ratio 23, Glucose Level 138, Calcium Level 8.6 02/27/22 11:08: Glucometer 111 02/27/22 15:23: Glucometer 165 02/27/22 19:28: Glucometer 174 02/28/22 06:11: Glucometer 114 02/28/22 10:20: Glucometer 138 02/28/22 15:09: Glucometer 148 02/28/22 20:12: Glucometer 169 03/01/22 05:10: Prothrombin Time 24.8, INR Comment 2.2 03/01/22 05:58: Glucometer 111 03/01/22 10:58: Glucometer 123 03/01/22 15:22: Glucometer 159 03/01/22 20:40: Glucometer 157 03/02/22 05:37: Glucometer 119, Prothrombin Time 22.4, INR Comment 1.9 03/02/22 10:43: Glucometer 136 03/02/22 15:12: Glucometer 165 03/02/22 20:06: Glucometer 154 03/03/22 05:27: Glucometer 116 03/03/22 06:03: Prothrombin Time 22.2, INR Comment 1.9, Sodium Level 139, Potassium Level 4.0, Chloride Level 106, Carbon Dioxide Level 25, Anion Gap 8, Blood Urea Nitrogen 20, Creatinine 1.01, Estimat Glomerular Filtration Rate 87, BUN/Creatinine Ratio 20, Glucose Level 100, Calcium Level 9.0 03/03/22 11:19: Glucometer 134 03/03/22 17:16: Glucometer 134 03/03/22 20:43: Glucometer 145 03/04/22 05:49: Glucometer 118 03/04/22 19:48: Glucometer 146 03/05/22 05:15: Prothrombin Time 24.9, INR Comment 2.2 03/05/22 06:03: Glucometer 116 03/05/22 10:48: Glucometer 122 03/05/22 15:23: Glucometer 128 03/06/22 06:04: Glucometer 96 03/06/22 21:04: Glucometer 168 03/07/22 06:19: Glucometer 104 03/07/22 20:27: Glucometer 156 03/08/22 05:36: Glucometer 104 03/08/22 16:27: Glucometer 111 03/08/22 19:57: Glucometer 141 03/09/22 05:14: Glucometer 120 03/09/22 15:28: Glucometer 136 03/10/22 05:50: Glucometer 93 03/10/22 15:31: Glucometer 140 03/10/22 20:01: Glucometer 171 03/11/22 05:29: Glucometer 109 03/11/22 06:12: Prothrombin Time 35.9, INR Comment 3.5 03/11/22 19:58: Glucometer 151 03/12/22 05:19: Prothrombin Time 37.0, INR Comment 3.7 03/12/22 05:49: Glucometer 94 03/12/22 15:16: Glucometer 154 03/13/22 06:07: Glucometer 100 Discharge Home Medications: Active Scripts Active Miconazole 5 Gm Powder 5 Gm MC BID Lotrimin AF (Miconazole Nitrate) 2 % Powder 0 Gm TOP BID twice daily Lyrica (Pregabalin) 75 Mg Capsule 75 Mg PO Q12H Percocet 5-325 mg Tablet (Oxycodone HCl/Acetaminophen) 1 Each Tablet 1 Tab PO Q4H PRN Cyclobenzaprine HCl 10 Mg Tablet 10 Mg PO Q8H PRN Atorvastatin Calcium 20 Mg Tablet 20 Mg PO DAILY Aspirin EC (Aspirin) 81 Mg Tablet.dr 81 Mg PO DAILY Furosemide 20 Mg Tablet 20 Mg PO DAILY Duloxetine HCl 60 Mg Capsule.dr 60 Mg PO DAILY Bupropion HCl 75 Mg Tablet 75 Mg PO DAILY Losartan Potassium 25 Mg Tablet 25 Mg PO DAILY Lamotrigine 25 Mg Tablet 50 Mg PO BID TAKES 2 (25MG) TAB Trazodone HCl 50 Mg Tablet 50 Mg PO HS Omeprazole 20 Mg Capsule.dr 20 Mg PO DAILY Tradjenta (Linagliptin) 5 Mg Tablet 5 Mg PO DAILY Levetiracetam 750 Mg Tablet 750 Mg PO BID Levemir Flextouch (Insulin Detemir) 100 Unit/Ml (3 Ml) Insuln.pen 10 Units SQ 1800 Warfarin Sodium 3 Mg Tablet 9 Mg PO 1800 TAKES 3 (3MG) TAB Reported Vitamin C (Ascorbate Calcium) 500 Mg Tablet 500 Mg PO DAILY Instructions to patient/family Please see electronic discharge instructions given to patient. Diagnosis/Problems Diagnosis/Problems (1) Hx of DERRICK BARRAGAN DO Mar 13, 2022 05:32
--- NOTE | 2022-03-13 05:32 | D/C HH Face to Face Order ---
D/C HH Face to Face Orders Reconcile Patient Problems Problems Reviewed?: Yes Instructions for Patient HH Patient Instructions/FollowUp: PCP 1 week Physician to follow Patient: PCP Discharge Diet for Home: ADA Diet Patient Problems: Left BKA Patient Data-Allergies,Ht & Wt Patient Allergies: Coded Allergies: No Known Allergies (Verified Allergy, Unknown, 02/25/22) Home Health Need/Face to Face Date of Face to Face: Mar 13, 2022 Clinical Findings: Generalized weakness and fatigue, Muscle weakness, Non or partial weight bearing I have seen Pt [id number]: Yes Discharged To: Home Diagnosis/Conditions: bka Patient is Homebound due to: Muscle weakness, Non-weight bearing Homebound Status Due to the above stated illness, injury or surgical procedure (medical condition or diagnosis) and associated clinical findings, the patient is homebound because of his/her inability to leave home except with aid of a supportive device and/or person AND leaving the home requires a considerable and taxing effort or is medically contraindicated. Pt req the following assistanc: Wheelchair Home Health Nursing Orders Home Health Services Order: Nursing Services, Client Services Vice President-Evaluate & Treat, Physical Therapy-Evaluate & Treat, Wound Care-Eval/Treat Certify Stmt I certify that this patient is under my care and that I, a nurse practitioner or a physician; a volunteer services assistant working with me, had a face to face encounter that - meets the physician face to face encounter requirements with this patient as dated. DERRICK LONGORIA DO Mar 13, 2022 05:31
[2022-03-13] MEDS: PANTOPRAZOLE 40 MG (PROTONIX) TAB PO SCH (06:21)
[2022-03-13 07:22] VITALS: BP 146/91
[2022-03-13] MEDS: oxyCODONE/APAP 5/325MG (PERCOCET 5) TABLET PO PRN (07:45)
[2022-03-13 10:27] VITALS: BP 146/91
--- NOTE | 2022-03-15 08:24 | Therapy Team Discharge Summary ---
Therapy Discharge Summary Discharge Recommendations Date of Discharge Mar 13, 2022 at 08:30 Therapy D/C Recommendations: Bath Aide, Care Home (TCU/NH) Physical Therapy Roll Left to Right (QC): 4 Sit to Lying (QC): 4 Lying to Sitting/Side of Bed(Q: 4 Sit to Stand (QC): 2 Chair/Xqt-wq-Vnzro Xfer(QC): 3 Toilet Transfer (QC): 1 Car Transfer (QC): 88 Does the Patient Walk: No and Walking Goal IS indicated Walk 10 feet (QC): 88 Walk 50 ft with 2 Turns(QC): 88 Walk 150 ft (QC): 88 Walking 10ft on uneven surface: 88 Does the Pt Use a Wheelchair: Yes Wheel 50 ft with 2 turns (QC): 4 Wheel 150 ft (QC): 4 Type of Wheelchair: Manual 1 Step (curb) (QC): 88 4 Steps (QC): 88 12 Steps (QC): 88 Balance Sitting Static: Normal Balance Sitting Dynamic: Normal Balance-Standing Static: Poor Picking up an Object (QC): 88 Occupational Therapy Pt admitted to ARU s/p CVA, L BKA. At time of evaluation pt was dependent for toileting, footwear, transfers, lower body dressing, bathing, and oral care and set up for upper body dressing and eating. During his rehab stay, OT focused on overall strengthening, sitting/standing balance, sequencing, motor planning/propriorception, ROM, rubber compounder mixer strength, w/c mobility, problem solving, cognition, and safety in order to improve performance and independence in adls and functional mobility. Pt made fair progress but did not meet all of his intermediate goals. Many goals not met due to initial behavior (getting easily agitated and spending most treatments arguing) and pt's refusal to utilize adaptive equipment or therapist suggestions for modifications. See below for current levels of assistance. At this time, OT does not recommend discharge to home due to pt's poor safety, continued assistance needed for basic adls and overall impaired cognition. Pt also reports that his brother will be unable to give any physical assistance and that his doorways may not fit a w/c. Pt has discharged from this facility and will be discharged from OT at this time. Decreased Activ Tolerance, Decreased Safety Aware, Decreased UE Strength, Dependent Transfers, Impaired Cognition, Impaired Coordination, Impaired Funct Balance, Impaired I ADL's, Impaired Self-Care Skills Eating (QC): 5 Oral Hygiene (QC): 4 Shower/Bathe Self (QC): 3 Upper Body Dressing (QC): 5 Lower Body Dressing (QC): 3 On/Off Footwear (QC): 2 (Pt refuses all adaptive equipement/modifications) Toileting Hygiene (QC): 1 PT Prison Goals Stunt Woman Goals PT Stunt Woman Goals Time Frame: Mar 19, 2022 PT OT Pain Eval : Comment: Pt reports upper back as well as butt cheek pain w/sitting in shower chair Scoring Section J - Health Conditions 1. Rarely or not at all 2. Occasionally 3. Frequently 4. Almost constantly 8. Unable to answer Roll Left to Right (QC): 6 Sit to Lying (QC): 6 Lying-Sitting on Side/Bed(QC): 6 Sit to Stand (QC): 4 Chair/Lae-sg-Gxmmg Xfer(QC): 4 Toilet/Commode Transfer (QC): 3 Car Transfer (QC): 3 Does the Patient Walk: No and Walking Goal IS indicated Walk 10 feet (QC): 3 Walk 10ft-Uneven Surface(QC): 88 Walk 50ft with 2 Turns (QC): 88 Walk 150 ft (QC): 88 Wheel 50 feet with 2 turns (QC: 4 1 Step (curb) (QC): 88 4 Steps (QC): 88 12 Steps (QC): 88 Picking up an Object (QC): 3 OT Stunt Woman Goals Stunt Woman Goals Time Frame: Mar 22, 2022 Acute change in mental status: 1 Inattention: 2 Disorganized thinkin Altered level of consciousness: 0 Eating (QC): 5 (met) Oral Hygiene (QC): 4 (met) Toileting Hygiene (QC): 4 (not met) Shower/Bathe Self (QC): 4 (not met) Upper Body Dressing (QC): 6 (not met) Lower Body Dressing (QC): 4 (not met) On/Off Footwear (QC): 4 (not met) Additional Goals: 1-Demonstrate ADL Tasks, 2-Verbalize Understanding, 3- ImproveStrength/Mariano 1=Demonstrate adherence to instructed precautions during ADL tasks. 2=Patient will verbalize/demonstrate understanding of assistive devices/modifications for ADL. 3=Patient will improve strength/tolerance for activity to enable patient to perform ADL's. Speech Prison Goals Stunt Woman Goals 1. The patient will demonstrate improved cognitive linguistic skills for safe d ischarge to the least restrictive environment. MET: The patient has displayed improved use and understanding of word-finding strategies. While increased awareness of safe discharge to his home environment and his own physical limitations have improved, the improvement is mild with additional work left to complete. At this time, speech pathology continues to recommend discharge to a group home facility, however, the patient has chosen to discharge home. Time Frame: Ten Days. Taylor Norris OT Mar 15, 2022 08:24
--- NOTE | 2022-03-15 09:58 | Therapy Team Discharge Summary ---
Therapy Discharge Summary Discharge Recommendations Date of Discharge Mar 13, 2022 at 08:30 Therapy D/C Recommendations: Bath Aide, Detention (TCU/NH) Physical Therapy Patient can perform rolling and supine <-> sit with SBA, sit <-> stand with max assist in parallel bars, sliding transfer with or without board with mod assist. Patient has a lot of difficulty with supine <-> sit but can do it on his own with cues for positioning. Patient needs cues for direction with every step and often still doesn't understand them. Unable to perform many Quality codes due to patients safety and inability at attempt the activity safely. It is recommended that the patient not return home and would be much safer at a SNF. Roll Left to Right (QC): 4 Sit to Lying (QC): 4 Lying to Sitting/Side of Bed(Q: 4 Sit to Stand (QC): 2 Chair/Gof-ck-Bcbkv Xfer(QC): 3 Toilet Transfer (QC): 3 Car Transfer (QC): 88 Does the Patient Walk: No and Walking Goal IS indicated Walk 10 feet (QC): 88 Walk 50 ft with 2 Turns(QC): 88 Walk 150 ft (QC): 88 Walking 10ft on uneven surface: 88 Does the Pt Use a Wheelchair: Yes Wheel 50 ft with 2 turns (QC): 4 Wheel 150 ft (QC): 4 Type of Wheelchair: Manual 1 Step (curb) (QC): 88 4 Steps (QC): 88 12 Steps (QC): 88 Balance Sitting Static: Normal Balance Sitting Dynamic: Normal Balance-Standing Static: Poor Picking up an Object (QC): 88 Occupational Therapy Decreased Activ Tolerance, Decreased Safety Aware, Decreased UE Strength, Dependent Transfers, Impaired Cognition, Impaired Coordination, Impaired Funct Balance, Impaired I ADL's, Impaired Self-Care Skills Eating (QC): 5 Oral Hygiene (QC): 4 Shower/Bathe Self (QC): 3 Upper Body Dressing (QC): 5 Lower Body Dressing (QC): 3 On/Off Footwear (QC): 2 (Pt refuses all adaptive equipement/modifications) Toileting Hygiene (QC): 1 PT Brick Paving Checker Goals Brick Paving Checker Goals PT Usp Goals Time Frame: Mar 19, 2022 PT OT Pain Eval : Comment: Pt reports upper back as well as butt cheek pain w/sitting in shower chair Scoring Section J - Health Conditions 1. Rarely or not at all 2. Occasionally 3. Frequently 4. Almost constantly 8. Unable to answer Roll Left to Right (QC): 6 Sit to Lying (QC): 6 Lying-Sitting on Side/Bed(QC): 6 Sit to Stand (QC): 4 Chair/Dqb-le-Bakjz Xfer(QC): 4 Toilet/Commode Transfer (QC): 3 Car Transfer (QC): 3 Does the Patient Walk: No and Walking Goal IS indicated Walk 10 feet (QC): 3 Walk 10ft-Uneven Surface(QC): 88 Walk 50ft with 2 Turns (QC): 88 Walk 150 ft (QC): 88 Wheel 50 feet with 2 turns (QC: 4 1 Step (curb) (QC): 88 4 Steps (QC): 88 12 Steps (QC): 88 Picking up an Object (QC): 3 OT Usp Goals Brick Paving Checker Goals Time Frame: Mar 22, 2022 Acute change in mental status: 1 Inattention: 2 Disorganized thinkin Altered level of consciousness: 0 Eating (QC): 5 (met) Oral Hygiene (QC): 4 (met) Toileting Hygiene (QC): 4 (not met) Shower/Bathe Self (QC): 4 (not met) Upper Body Dressing (QC): 6 (not met) Lower Body Dressing (QC): 4 (not met) On/Off Footwear (QC): 4 (not met) Additional Goals: 1-Demonstrate ADL Tasks, 2-Verbalize Understanding, 3- ImproveStrength/Mariano 1=Demonstrate adherence to instructed precautions during ADL tasks. 2=Patient will verbalize/demonstrate understanding of assistive devices/modifications for ADL. 3=Patient will improve strength/tolerance for activity to enable patient to perform ADL's. Speech Brick Paving Checker Goals Usp Goals 1. The patient will demonstrate improved cognitive linguistic skills for safe discharge to the least restrictive environment. MET: The patient has displayed i mproved use and understanding of word-finding strategies. While increased awareness of safe discharge to his home environment and his own physical limitations have improved, the improvement is mild with additional work left to complete. At this time, speech pathology continues to recommend discharge to a long-term facility, however, the patient has chosen to discharge home. Time Frame: Ten Days. SID FOUNTAIN PT Mar 15, 2022 09:58
== END 2022-03-13 08:30 | disposition home health service (06) | DRG 560 ==
PROVIDERS: ADMIT Internal Medicine; ATTEND Internal Medicine
DX: Z47.81 Encounter for orthopedic aftercare following surgical amputation (principal); I13.0 Hypertensive heart and chronic kidney disease with heart failure and stage 1 through stage 4 chronic kidney disease, or unspecified chronic kidney disease; Z89.512 Acquired absence of left leg below knee; T87.89 Other complications of amputation stump; I87.2 Venous insufficiency (chronic) (peripheral); E11.65 Type 2 diabetes mellitus with hyperglycemia; E11.40 Type 2 diabetes mellitus with diabetic neuropathy, unspecified; I50.9 Heart failure, unspecified; F41.9 Anxiety disorder, unspecified; I73.9 Peripheral vascular disease, unspecified; E78.2 Mixed hyperlipidemia; E11.22 Type 2 diabetes mellitus with diabetic chronic kidney disease; N18.2 Chronic kidney disease, stage 2 (mild); F43.21 Adjustment disorder with depressed mood; I69.334 Monoplegia of upper limb following cerebral infarction affecting left non-dominant side; I69.331 Monoplegia of upper limb following cerebral infarction affecting right dominant side; G40.909 Epilepsy, unspecified, not intractable, without status epilepticus; B37.2 Candidiasis of skin and nail; E66.9 Obesity, unspecified; B35.1 Tinea unguium; M20.41 Other hammer toe(s) (acquired), right foot; Z95.2 Presence of prosthetic heart valve; Z79.82 Long term (current) use of aspirin; Z79.01 Long term (current) use of anticoagulants; Z79.4 Long term (current) use of insulin; Z87.891 Personal history of nicotine dependence; Z68.34 Body mass index [BMI] 34.0-34.9, adult; Z91.14 Patient's other noncompliance with medication regimen
CPT/HCPCS: 36415; 80048; 80053; 80061; 82947; 85025; 85610; 93005